=== PATIENT | female | born 1940 | race Caucasian/White ===

== ENCOUNTER 2023-03-16 15:30 | Outpatient (RCR) | payer MEDICARE, SELFPAY ==
--- NOTE | 2023-02-21 15:21 | PTOPEVAL1 ---
Assessment and note entered by Alphonse Boucher Evaluation Information Assessment Status Evaluation Diagnosis gait abnormality, cervicalgia Onset 08/22/22 Subjective Information Pt. reports that about 6 months ago she developed an intense ringing in her head. She reports that the intensity of the ringing varies day to day. She also notices that her neck is very sore and turning her head is very painful. She reports that she is able to sleep despite her pain. She reports that she drives, but notices looking over her shoulder is pain and mobility is becoming more restricted. Pt. reports that she has had testing , but unsure of what test she has had. She reports that she has had difficulty with her balance for a year. She is currently walking with a cane due to being unsteady. She reports she has had no falls in the past year. She reports that her goal is to reduce the pain in her neck and head. Reported Pain Level Pain Score 5: Self Report Assessment PT Clinical Summary Pt. is an 82 year old female who enters the clinic due to noted balance issues and neck pain resulting in ringing in the ears. She currently presents with impaired postural awareness, impaired gait, impaired balance, pain and generalized u.e. and l.e. weakness. Continued skilled PT is indicated in order to improve these areas to allow the pt. to be able to complete all IADL's without limitation. Plan of Care Interventions Electrical Stimulation,Hot Pack/Cold Pack,Manual Therapy,Patient/Caregiver Educati,Therapeutic Activities,Therapeutic Exercise PT Services Indicated Yes Treatment Frequency and 2x/week x 10 visits Duration These treatments will address the objective and functional deficits as defined above. The patient will be advanced safely and appropriately in order for the patient to progress towards his/her prior level of function. Additional exercises will be introduced and as well as a comprehensive home exercise program upon discharge, if needed, ?to ensure carryover of functional gains achieved in the clinic. This treatment plan has been reviewed and agreement upon by the patient.
--- NOTE | 2023-02-21 15:25 | OPREHPOC ---
Outpatient Therapy Plan of Care This is a Multidisciplinary Plan of Care that may contain components documented by all disciplines (PT, OT, and ST.) PT Problem 1 PT Problem #1 Knowledge Deficit PT Goal 1 Goal Independent with a HEP addressing postural awareness and cervical spine mobility. Target Visit 2 PT Problem 2 PT Problem #2 Pain PT Goal 1 Goal Pt. will report reduction in neck pain to 2/10 at worst with prolonged sitting and standing activities. Target Visit 10 PT Problem 3 PT Problem #3 Impaired Range of Motion PT Goal 1 Goal Pt. will demonstrate 70 degrees bilateral c-spine rotation active ROM to improve her visual field with driving. Target Visit 10 PT Problem 4 PT Problem #4 Impaired Balance PT Goal 1 Goal Pt. will improve her tinetti score to 19 or greater indicating improved balance. Target Visit 10
--- NOTE | 2023-02-27 09:39 | PCPTNOTE ---
Patient did not show up for appointment on 02/27/23.
--- NOTE | 2023-03-08 10:57 | PCPTNOTE ---
Patient called & cancelled scheduled appointment this date due to weather.
--- NOTE | 2023-03-20 10:31 | PCPTNOTE ---
Patient cancelled secondary to weather.
--- NOTE | 2023-03-26 08:34 | PCPTNOTE ---
Pt cancelled todays visit because she couldn't make it in today.
--- NOTE | 2023-05-24 13:10 | PCPTNOTE ---
Mrs. Alonso attended a total of 4 treatment sessions from 02/21/23 to 03/16/23. She has cancelled her last 2 scheduled appointments and has failed to contact the clinic. She will be discharged from skilled PT at this time. Thank you for the referral of this patient. Alphonse Boucher, MPT
== END 2023-05-15 11:29 | disposition home or self-care (01) ==
LOC: ANHPT 15:30
PROVIDERS: PCP Family Medicine; Visit Provider Otolaryngology
DX: M54.2 Cervicalgia (principal); R26.89 Other abnormalities of gait and mobility
CPT/HCPCS: 97014; 97110; 97112; 97140; 97161; 99199; G0283

== ENCOUNTER 2023-06-21 10:19 | Outpatient (CLI) | payer MEDICARE, SELFPAY ==
[2023-06-21 14:49] LABS: Alanine Aminotransferase 10 U/L (6-35); Albumin Level 4.3 g/dL (3.5-5.1); Alkaline Phosphatase 59 U/L (38-126); Anion Gap 5 mmol/L (4-12); Aspartate Amino Transferase 50 U/L (14-36); Bilirubin,Total 0.6 mg/dL (0.2-1.3); Blood Urea Nitrogen 23 mg/dL (7-17); Calcium 9.4 mg/dL (8.4-10.2); Carbon Dioxide 29 mmol/L (22-30); Chloride 105 mmol/L (98-107); Cholesterol 127 mg/dL (0-200); Estimated Glomerular Filt Rate > 60; Glucose 94 mg/dL (65-110); HDL Direct 63 mg/dL; Potassium 3.8 mmol/L (3.4-5.0); Sodium 139 mmol/L (137-145); Triglycerides 61 mg/dL (<150)
[2023-06-21 15:00] LABS: LDL Cholesterol Direct 54 mg/dL
== END 2023-06-21 10:20 | disposition home or self-care (01) ==
LOC: ANHWCLAB 10:20
PROVIDERS: PCP Family Medicine; Visit Provider Family Medicine
DX: E78.5 Hyperlipidemia, unspecified (principal); E03.9 Hypothyroidism, unspecified
CPT/HCPCS: 36415; 80053; 80061

== ENCOUNTER 2023-07-02 12:31 | Outpatient (CLI) | payer MEDICARE, SELFPAY ==
--- NOTE | ~2023-07-02 | MR_ITS ---
EXAMINATION: MR brain/brain stem wo con DATE: 07/02/2023 13:42 INDICATION: Left hemiparesis. TECHNIQUE: Magnetic resonance imaging (MRI) of the brain and brainstem was performed without intraven ous contrast. COMPARISON: None. FINDINGS: There are scattered areas of nonspecific increased T2-weighted signal intensity in the cere bral white matter and hemalatha, which is within normal limits for the patient's age. There is no intracra nial hemorrhage, acute infarction, or abnormal intracranial mass lesion. The ventricles are normal in size. The mastoid air cells are normal. There is mild mucosal thickening in the ethmoid sinuses. The re are likely changes of ocular lens replacement surgeries. IMPRESSION: 1. Normal aging brain. Reviewed, dictated and finalized at location E. IMPRESSION: 1. Normal aging brain.
== END 2023-07-02 12:32 | disposition home or self-care (01) ==
PROVIDERS: PCP Family Medicine; Visit Provider Student in an Organized Health Care Education/Training Program
DX: R53.1 Weakness (principal)
CPT/HCPCS: 70551

== ENCOUNTER 2023-09-27 10:53 | Outpatient (CLI) | payer MEDICARE, SELFPAY | END 2023-09-27 10:54 | disposition home or self-care (01) | LOC: ANHGOSHLAB 10:54 | PROVIDERS: PCP Family Medicine; Visit Provider Family Medicine | DX: E03.9 Hypothyroidism, unspecified (principal) | CPT/HCPCS: 36415; 84443 ==

== ENCOUNTER 2023-11-27 10:10 | Emergency (ER) | payer MEDICARE, SELFPAY ==
--- NOTE | 2023-11-27 10:16 | ED.URI ---
HPI - URI/Sore Throat General Chief Complaint: Upper Respiratory Infection Stated Complaint: Sore Throat Time Seen by Provider: 11/27/23 10:25 Source: patient Mode of arrival: ambulatory Limitations: no limitations History of Present Illness HPI Narrative: Molly is an 83-year-old female patient presenting to the clinic today with complaints of right-sided sore throat. She reports she was taking a liquid gel cap Advil yesterday and it got stuck in the back of her throat and this caused some pain and irritation. Is able to swallow and is not having difficulty breathing. Does not feel a globus sensation in her throat at this time. States that the right side of her throat feels swollen and painful. No fever or chills. MD elicited complaint: sore throat Related Data Home Medications Medication Instructions Recorded Confirmed sertraline 25 mg tablet 25 mg PO DAILY 06/20/23 11/27/23 Allergies Allergy/AdvReac Type Severity Reaction Status Date / Time amoxicillin Allergy Severe Rash Verified 11/27/23 10:11 Review of Systems Review of Systems: Pertinent positives per HPI. Patient denies any fever, chills, rash, headache, visual changes, dizziness, cough, shortness of breath, chest pain, palpitations, nausea, vomiting, diarrhea, constipation, abdominal pain, or any urinary issues. 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 Osteoporosis Parkinson disease Surgical History Surgical History History of cataract extraction right and left History of knee replacement procedure of left knee History of knee replacement procedure of right knee S/P tonsillectomy Social History Social History Smoking status: Never smoker Alcohol intake: never Substance use: never Lack of Transportation: No Lack of Food: Never True Current Housing: I Have Housing Concerned About Future Housing: No Difficulty Paying Gas/Electric Bills: No Difficulty Paying for Meds: No Currently Unemployed: No Education: Trade/Vocational Certificate Difficulty w/ Childcare or Family Care: No Living arrangements: alone Occupation/Education: retired Gender identity (if verbalized by the patient): Female Comments At the time of my signature, I reviewed and agree with the nursing past medical, surgical, social, and family history. There is no relevant family history pertinent to the patient complaint. Exam Narrative: General: Well-developed, well nourished, in no apparent distress Head: Normocephalic, atraumatic Eyes: Pupils equally round and reactive to light bilaterally, EOM intact, sclera and conjunctive clear, no discharge, lids normal Ears: TMs intact and clear, ear canals clear, no drainage, grossly hearing normal. Nose: Nares patent, no discharge, no inflammation, no sinus tenderness. Mouth: Oral pharynx red with irritation/ulceration to the right pharynx, no ulcerations or lesions left oral pharynx, good dentition, MMM. Neck: Supple, trachea midline, no enlargement of anterior or posterior cervical nodes, no thyroid masses or goiter palpable. Cardio: Regular rate and rhythm, s1 and s2 normal, no murmur appreciated. Resp: Clear to auscultation bilaterally, no rhonchi, rales, wheezing or rubs Course Course Emergency Course: Portions of this record may have been created with voice recognition software. Level of Care: Express Care Visit Vital Signs Vital signs: Vital signs reviewed MDM - URI/Sore Throat MDM Narrative Medical decision making narrative: At the time of visit patient is resting comfortably on the exam table. Patient appears to be nontoxic.
[2023-11-27 10:18] VITALS: BP 124/49; PULSE 78; RESP 14; TEMP 36.7; O2SAT 98
[2023-11-27 13:10] LABS: EDSTREPNEGPOS1 Negative (Negative)
[2023-11-27 13:36] VITALS: BP 124/49; PULSE 78; RESP 14; TEMP 36.7; O2SAT 98
== END 2023-11-27 10:53 | disposition home or self-care (01) ==
PROVIDERS: Emergency Provider Nurse Practitioner Family; PCP Family Medicine
DX: J39.2 Other diseases of pharynx (principal); K21.9 Gastro-esophageal reflux disease without esophagitis; E78.5 Hyperlipidemia, unspecified; E03.9 Hypothyroidism, unspecified; M81.0 Age-related osteoporosis without current pathological fracture; G20.A1 Parkinson's disease without dyskinesia, without mention of fluctuations; Z98.42 Cataract extraction status, left eye; Z98.41 Cataract extraction status, right eye; Z96.653 Presence of artificial knee joint, bilateral
CPT/HCPCS: 87880; 99213; G0463

== ENCOUNTER 2024-03-26 10:45 | Inpatient (IN) | payer MEDICARE, SELFPAY ==
[2024-03-26] VITALS (15 sets, daily range): BP systolic 112–181; BP diastolic 49–127; PULSE 34–89; RESP 12–20; TEMP 36.6–36.7; O2SAT 92–100
--- NOTE | ~2024-03-26 | XR_ITS ---
EXAMINATION: XR chest 2V DATE: 03/29/2024 08:15 INDICATION: Pacer placement. TECHNIQUE: Frontal and lateral views of the chest were obtained. COMPARISON: Chest single view 03/28/2024, 03/26/2024 FINDINGS: There are small pleural effusions. There is a diffuse interstitial pattern in the lungs wit h a peripheral predominance. No pneumothorax. The heart size is normal. Calcified left hilar lymph no nunu are consistent with old granulomatous disease. There is a left chest wall pacer with leads in the right atrium and right ventricle. IMPRESSION: 1. Peripheral interstitial opacities in the lungs, consistent with mild pulmonary edema versus mild c hronic interstitial lung disease. 2. Small pleural effusions. Reviewed, dictated and finalized at location A. IC PROCESS ENGINEER IMPRESSION: 1. Peripheral interstitial opacities in the lungs, consistent with mild pulmona ry edema versus mild chronic interstitial lung disease. 2. Small pleural effusions.
--- NOTE | ~2024-03-26 | XR_ITS ---
XR chest 1V portable Ordering provider: Alphonse Logan MD History: 83 years Female with . pacemaker insertion . Comparison: March 26, 2024 FINDINGS: MEDIASTINUM: The cardiac silhouette is not enlarged. Left bipolar pacemaker. LUNGS: No effusions or pneumothorax. Opacification in the left lung base laterally suggestive of atel ectasis versus pneumonia. Emphysematous changes of the lungs. OTHER: No free air under the diaphragm. IMPRESSION: Left basilar atelectasis versus pneumonia. Reviewed, dictated and finalized at location A. RAFT INSPECTION RECORD CLERK
--- NOTE | ~2024-03-26 | CT_ITS ---
CT brain wo con Ordering provider: Shaun Sethi MD History: 83 years Female with . head injury . Comparison: None. Technique: CT of the head without contrast. Radiation reduction technique utilized. The dose-length product was 605.33 mGy-cm. FINDINGS: BRAIN PARENCHYMA AND CSF SPACES: Mild leukoaraiosis and diffuse cortical atrophy. Mild atheromatous d isease. No midline shift, mass effect or hemorrhage. The brain parenchyma and CSF spaces are otherwi se normal. VISUALIZED PARANASAL SINUSES: Bilateral ethmoid sinus disease. Bilateral sphenoid sinus disease. MASTOIDS: Well aerated. BONES: The bones appear intact. SOFT TISSUES: Visualized nasopharynx is normal. Superficial soft tissues are normal. IMPRESSION: No acute intracranial findings. Reviewed, dictated and finalized at location A. ECT SURVEYOR
--- NOTE | ~2024-03-26 | XR_ITS ---
EXAMINATION: XR chest 1V portable DATE: 03/26/2024 11:39 INDICATION: Syncope TECHNIQUE: frontal view of the chest was obtained. COMPARISON: None FINDINGS: Subtle course reticular opacities at the both lungs with peripheral and lower lung predominance consi stent with mild chronic interstitial lung disease. No pleural effusion or pneumothorax. The cardiomed iastinal silhouette is normal. Moderate thoracic spondylosis. IMPRESSION: 1. Bilateral mild peripheral and lower lung predominant chronic interstitial lung disease. Reviewed, dictated and finalized at location B. [facility] IMPRESSION: 1. Bilateral mild peripheral and lower lung predominant chronic interstitial carlos ng disease.
--- NOTE | 2024-03-26 10:46 | ECG_ITS ---
Test Date: 2024-03-26 10:52:19 Measurements Intervals [place] Rate: 36 P: 0 SD: 0 QRS: 152 QRSD: 137 T: 257 QT: 554 QTc: 430 Interpretive Statements SINUS RHYTHM WITH HIGH GRADE AV BLOCK RIGHT BUNDLE BRANCH BLOCK [120+ ms QRS DURATION, UPRIGHT V1, 40+ ms S IN I/aVL/V4/V5/V6] LEFT POSTERIOR FASCICULAR BLOCK [QRS AXIS > 109, INFERIOR Q] No previous ECG available for comparison Electronically Signed On 03-26-2024 14:32:59 PIGGYBACK CLERK by Paul Ley M.D.
[2024-03-26 11:08] LABS: Basophils Percent Auto 0.6 % (0.2-1.2); Eosinophils Percent Auto 0.8 % (0-4.4); Hematocrit 36.8 % (37.0-47.0); Immature Granulocyte Absolute 0.04 K/mm3 (0.00-0.031); Immature Granulocyte Percent A 0.8 % (0-0.5); Lymphocytes Absolute Auto 0.98 K/mm3 (0.9-3.2); Mean Corpuscular HGB Conc 32.6 g/dl (32-36); Mean Corpuscular Hemoglobin 29.9 pg (26-34); Mean Corpuscular Volume 91.8 fl (80-100); Mean Platelet Volume 9.9 fl (7.4-10.4); Monocytes Absolute Auto 0.3 K/mm3 (0.1-0.6); Monocytes Percent Auto 6.3 % (2.6-8.5); Neutrophils Absolute Auto 3.5 K/mm3 (1.3-6.7); Neutrophils Percent Auto 71.5 % (45.5-73.1); Platelet Count Result 214 k/mm3 (150-375); Red Blood Count 4.01 M/mm3 (4.2-5.4); Red Cell Distribution Width 13.3 % (11.5-14.5); White Blood Count 4.9 K/mm3 (4.5-10.0)
--- NOTE | 2024-03-26 11:13 | ECG_ITS ---
Test Date: 2024-03-26 11:20:09 Measurements Intervals [place] Rate: 34 P: 0 [place]: 0 QRS: 80 QRSD: 126 T: 60 QT: 593 QTc: 451 Interpretive Statements SUSPECT JUNCTIONAL BRADYCARDIA RIGHT BUNDLE BRANCH BLOCK [120+ ms QRS DURATION, UPRIGHT V1, 40+ ms S IN I/aVL/V4/V5/V6] PROLONGED QT INTERVAL CRITICAL TEST RESULT Compared to ECG 03/26/2024 10:52:19 JUNCTIONAL BRADYCARDIA NOW PRESENT Electronically Signed On 03-26-2024 14:35:03 MITER GRINDER OPERATOR by Paul Ley M.D.
[2024-03-26 11:20] LABS: INR 1.1; Prothrombin Time 14.7 Seconds (11.1-14.7)
[2024-03-26 11:21] LABS: Partial Thromboplastin Time 30.5 Seconds (22.3-36.8)
[2024-03-26 11:24] LABS: Alanine Aminotransferase 7 U/L (6-35); Albumin Level 3.8 g/dL (3.5-5.1); Alkaline Phosphatase 67 U/L (38-126); Anion Gap 7 mmol/L (4-12); Aspartate Amino Transferase 34 U/L (14-36); Bilirubin,Total 0.7 mg/dL (0.2-1.3); Blood Urea Nitrogen 11 mg/dL (7-17); Calcium 8.6 mg/dL (8.4-10.2); Carbon Dioxide 27 mmol/L (22-30); Chloride 105 mmol/L (98-107); Estimated CRCL calculation 64 ml/min; Estimated Glomerular Filt Rate > 60; Glucose 104 mg/dL (65-110); Magnesium 2.1 mg/dL (1.6-2.3); Potassium 3.1 mmol/L (3.4-5.0); Sodium 139 mmol/L (137-145)
[2024-03-26 11:33] LABS: NT Pro B Type Natriuretic Pept 908 pg/mL (19.9-100)
[2024-03-26 11:36] LABS: Troponin I 0.013 ng/mL (0.000-0.034)
[2024-03-26 11:37] LABS: Add Urine Microscopic? NO; Appearance Urine Clear (Clear); Bilirubin Urine Negative (Negative); Blood Urine Negative (Negative); Color Urine Yellow (Yellow); Glucose Urine UA Negative (Negative); Ketones Urine Negative (Negative); Leukocyte Esterase Ur Negative LEU/UL (Negative); Nitrate Urine Negative (Negative); Protein Urine Negative (Negative); Specific Grav Ur 1.005 (1.001-1.035); Urobilinogen Urine 0.2 mg/dL (<2.0)
--- NOTE | 2024-03-26 12:05 | ED_ITS ---
HPI - Syncope General Chief Complaint: Syncope Stated Complaint: syncopal Time Seen by Provider: 03/26/24 10:52 History of Present Illness HPI narrative: Patient is an 83-year-old female who presents to the ER after having a syncopal episode at home. She reports she was doing her hair when she suddenly lost consciousness and woke up on the floor. No pain. No chest discomfort. Patient found to be bradycardic per EMS EN route. She takes no rate control medications. No history of heart issues. She does have Parkinson's. No complaints other than weakness at this time. Related Data Home Medications ?Medication ?Instructions ?Recorded ?Confirmed ?Last Taken ?Type sertraline 25 mg tablet 25 mg PO DAILY 06/20/23 03/26/24 Unknown History Allergies Allergy/AdvReac Type Severity Reaction Status Date / Time amoxicillin Allergy Severe Rash Verified 03/10/24 12:23 Review of Systems 2 Review of Systems: All systems reviewed & are unremarkable except as noted in HPI and below Constitutional: Constitutional: Reports no additional constitutional complaints Cardiovascular: Cardiovascular: Reports no additional cardiovascular complaints Respiratory: Respiratory: Reports no additional respiratory complaints Genitourinary: Genitourinary: Reports no additional female genitourinary complaints Neurologic: Reports system reviewed and no additional complaints, except as documented PMF Past Medical History Medical History 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 Hyperlipidemia GERD (gastroesophageal reflux disease) Chronic bilateral thoracic back pain Hypothyroid Osteoporosis Parkinson disease Surgical History Surgical History History of knee replacement procedure of right knee History of knee replacement procedure of left knee S/P tonsillectomy History of cataract extraction right and left Social History Social History Smoking status: Never smoker Alcohol intake: never Substance use: never Substance use type: does not use Do You Feel Safe in your Home?: Yes Lack of Transportation: No Lack of Food: Never True Current Housing: Decline to Answer Concerned About Future Housing: No Difficulty Paying Gas/Electric Bills: No Difficulty Paying for Meds: No Currently Unemployed: No Education: Trade/Vocational Certificate Difficulty w/ Childcare or Family Care: No Living arrangements: alone Occupation/Education: retired Gender identity (if verbalized by the patient): Female Spiritual care concerns: No Exam 2 Narrative: GENERAL: Chronically ill-appearing, well-nourished, and in no acute distress. HEAD: Normocephalic, atraumatic. EYES: PERRL and EOMI. ENT: Mucous membranes moist. CHEST: Clear to auscultation. No respiratory distress. HEART: Bradycardic and regular. Normal peripheral pulses. ABDOMEN: Soft, nontender, nondistended. EXTREMITIES: Normal range of motion. No edema. SKIN: Warm, dry, no rash. NEURO: Alert and oriented x3. PSYCH: Normal mood and affect. Course Course Emergency Course: Patient resting comfortably. Educated about diagnosis and electrolyte abnormalities. Unsure if patient has cognitive issues because she seems have difficulty remembering. She does recognize that this is a serious illness. Cardiology consulted as was ICU. Patient will go to the medical lab scientist for temporary pacemaker placement. Electrolytes being replaced both IV and p.o.. Patient is not on rate control medication. Vital Signs Vital signs: Vital Signs Temperature 97.9 F 03/26/24 10:51 Pulse Rate 45 L 03/26/24 10:51 Respiratory Rate 18 03/26/24 10:51 Blood Pressure 165/64 H 03/26/24 10:51 Pulse Oximetry 100 03/26/24 10:51 Temperature 97.9 F 03/26/24 14:46 Pulse Rate 60 03/26/24 17:57 Respiratory Rate 18 03/26/24 17:57 Blood Pressure 130/68 03/26/24 17:57 Pulse Oximetry 92 03/26/24 17:57 Oxygen Delivery Room Air 03/26/24 17:05 MDM - Syncope Lab Data 03/26/24 11:03 03/26/24 11:02 Labs: Lab Results 03/26/24 03/26/24 03/26/24 Range/Units 11:02 11:03 11:31 WBC 4.9 (4.5-10.0) K/mm3 RBC 4.01 L (4.2-5.4) M/mm3 Hgb 12.0 (12.0-15.0) g/dL Hct 36.8 L (37.0-47.0) % MCV 91.8 (80-100) fl MCH 29.9 (26-34) pg MCHC 32.6 (32-36) g/dl RDW 13.3 (11.5-14.5) % Plt Count 214 (150-375) k/mm3 MPV 9.9 (7.4-10.4) fl Immature Gran % (Auto) 0.8 H (0-0.5) % Neut % (Auto) 71.5 (45.5-73.1) % Lymph % (Auto) 20.0 (18.3-44.2) % [place] % (Auto) 6.3 (2.6-8.5) % Eos % (Auto) 0.8 (0-4.4) % Baso % (Auto) 0.6 (0.2-1.2) % Lymph # (Auto) 0.98 (0.9-3.2) K/mm3 [place] # (Auto) 0.3 (0.1-0.6) K/mm3 Eos # (Auto) 0.0 (0-0.3) K/mm3 Baso # (Auto) 0.0 (0.0-0.1) K/mm3 Abs Immat Gran (auto) 0.04 H (0.00-0.031) K/mm3 Absolute Neuts (auto) 3.5 (1.3-6.7) K/mm3 Absolute Nucleated RBC 0.000 (0.0-0.012) K/mm3 Nucleated RBC % 0.0 (0.0-0.2) % PT 14.7 (11.1-14.7) Seconds INR 1.1 APTT 30.5 (22.3-36.8) Seconds Sodium 139 (137-145) mmol/L Potassium 3.1 L (3.4-5.0) mmol/L Chloride 105 (98-107) mmol/L Carbon Dioxide 27 (22-30) mmol/L Anion Gap 7 (4-12) mmol/L BUN 11 D (7-17) mg/dL Creatinine 0.57 L (0.7-1.0) mg/dL Estim Creat Clear Calc 64 ml/min Estimated GFR > 60 (59 - ) Glucose 104 (65-110) mg/dL Calcium 8.6 (8.4-10.2) mg/dL Magnesium 2.1 (1.6-2.3) mg/dL Total Bilirubin 0.7 (0.2-1.3) mg/dL AST 34 (14-36) U/L ALT 7 (6-35) U/L Alkaline Phosphatase 67 (38-126) U/L Troponin I 0.013 (0.000-0.034) ng/mL NT-Pro-B Natriuret Pep 908 H (19.9-100) pg/mL Total Protein 6.0 L (6.3-8.2) g/dL Albumin 3.8 (3.5-5.1) g/dL TSH (Reflex) 5.570 H (0.465-4.68) uIU/mL Free T4 1.80 (0.78-2.19) ng/dL Total T3 2.21 H (0.97-1.69) NG/ML Urine Color Yellow (Yellow) Urine Appearance Clear (Clear) Urine pH 6.0 (5.0-9.0) Ur Specific [place] 1.005 (1.001-1.035) Urine Protein Negative (Negative) mg/dL Urine Glucose (UA) Negative (Negative) mg/dL Urine Ketones Negative (Negative) mg/dL Ur Blood (Man) Negative (Negative) Urine Nitrate Negative (Negative) Urine Bilirubin Negative (Negative) Urine Urobilinogen 0.2 (<2.0) mg/dL Leukocyte Esterase Rfl Negative (Negative) UZMA/UL 03/26/24 Range/Units 14:04 WBC (4.5-10.0) K/mm3 RBC (4.2-5.4) M/mm3 Hgb (12.0-15.0) g/dL Hct (37.0-47.0) % MCV (80-100) fl MCH (26-34) pg MCHC (32-36) g/dl RDW (11.5-14.5) % Plt Count (150-375) k/mm3 MPV (7.4-10.4) fl Immature Gran % (Auto) (0-0.5) % Neut % (Auto) (45.5-73.1) % Lymph % (Auto) (18.3-44.2) % [place] % (Auto) (2.6-8.5) % Eos % (Auto) (0-4.4) % Baso % (Auto) (0.2-1.2) % Lymph # (Auto) (0.9-3.2) K/mm3 [place] # (Auto) (0.1-0.6) K/mm3 Eos # (Auto) (0-0.3) K/mm3 Baso # (Auto) (0.0-0.1) K/mm3 Abs Immat Gran (auto) (0.00-0.031) K/mm3 Absolute Neuts (auto) (1.3-6.7) K/mm3 Absolute Nucleated RBC (0.0-0.012) K/mm3 Nucleated RBC % (0.0-0.2) % PT (11.1-14.7) Seconds INR APTT (22.3-36.8) Seconds Sodium (137-145) mmol/L Potassium (3.4-5.0) mmol/L Chloride (98-107) mmol/L Carbon Dioxide (22-30) mmol/L Anion Gap (4-12) mmol/L BUN (7-17) mg/dL Creatinine (0.7-1.0) mg/dL Estim Creat Clear Calc ml/min Estimated GFR (59 - ) Glucose (65-110) mg/dL Calcium (8.4-10.2) mg/dL Magnesium (1.6-2.3) mg/dL Total Bilirubin (0.2-1.3) mg/dL AST (14-36) U/L ALT (6-35) U/L Alkaline Phosphatase (38-126) U/L Troponin I 0.018 D (0.000-0.034) ng/mL NT-Pro-B Natriuret Pep (19.9-100) pg/mL Total Protein (6.3-8.2) g/dL Albumin (3.5-5.1) g/dL TSH (Reflex) (0.465-4.68) uIU/mL Free T4 (0.78-2.19) ng/dL Total T3 (0.97-1.69) NG/ML Urine Color (Yellow) Urine Appearance (Clear) Urine pH (5.0-9.0) Ur Specific [place] (1.001-1.035) Urine Protein (Negative) mg/dL Urine Glucose (UA) (Negative) mg/dL Urine Ketones (Negative) mg/dL Ur Blood (Man) (Negative) Urine Nitrate (Negative) Urine Bilirubin (Negative) Urine Urobilinogen (<2.0) mg/dL Leukocyte Esterase Rfl (Negative) UZMA/UL Imaging Data Radiologist's impression: ITS Impressions Chest X-Ray 03/26/24 11:40 IMPRESSION: 1. Bilateral mild peripheral and lower lung predominant chronic interstitial lung disease. Head CT 03/26/24 12:23 IMPRESSION: No acute intracranial findings. ECG Data EKG #1: ECG completion date: 03/26/24 ECG completion time: 11:20 EKG Interpretation: bradycardia (34), junctional, widened QRS, prolonged QT and NL axis Critical Care Time Critical Care Time Critical Care Time: Yes Total Critical Care Time: 40 Discharge Plan Discharge Clinical Impression: Junctional bradycardia, Syncope, Hypokalemia Patient Disposition: Still a Patient Condition: Stable
[2024-03-26] MEDS: POTASSIUM CHLORIDE INJ 40 MEQ in SODIUM CHLORIDE 0.9% IV 500 ML 130 MEQ IVPB (12:09)
[2024-03-26] MEDS: POTASSIUM CHLORIDE 20 MEQ PACKET (FOR LIQUID) 40 MEQ PO (13:20)
--- NOTE | 2024-03-26 13:54 | ECG_ITS ---
Test Date: 2024-03-26 14:04:26 Measurements Intervals [place] Rate: 36 P: 0 SC: 0 QRS: 87 QRSD: 122 T: 56 QT: 572 QTc: 447 Interpretive Statements SINUS RHYTHM WITH HIGH GRADE AV BLOCK RIGHT BUNDLE BRANCH BLOCK [120+ ms QRS DURATION, UPRIGHT V1, 40+ ms S IN I/aVL/V4/V5/V6] PROLONGED QT INTERVAL CRITICAL TEST RESULT Compared to ECG 03/26/2024 11:20:09 HIGH GRADE AV BLOCK NOW PRESENT Electronically Signed On 03-26-2024 14:41:30 DIRECTOR OF ASSESSING by Paul Ley M.D.
[2024-03-26 14:07] LABS: Total Triiodothyronine (T3) 2.21 NG/ML (0.97-1.69)
[2024-03-26 14:35] LABS: Troponin I 0.018 ng/mL (0.000-0.034)
--- NOTE | 2024-03-26 15:07 | PM.CNCAR ---
Assessment and Plan Assessment and plan (1) High-grade atrioventricular block: Code(s): I44.39 - Other atrioventricular block Status: Acute Assessment and Plan: Will need pacemaker. Discussed temporary transvenous pacer with the patient, which we will do now. Plans for permanent pacemaker, probably Sunday morning, will clarify date and time with Dr. Logan. Echocardiogram ordered and pending. (2) Parkinson disease: Code(s): G20 - Parkinson's disease Status: Acute Assessment and Plan: On Carbidopa/Levodopa. (3) Hyperlipidemia: Code(s): E78.5 - Hyperlipidemia, unspecified Status: Acute Assessment and Plan: Can continue statin. (4) Hypothyroid: Code(s): E03.9 - Hypothyroidism, unspecified Status: Acute Assessment and Plan: TSH mildly elevated at 5.570, however T4 normal, although T3 mildly elevated at 2.21. Mild abnormality in thyroid function likely not causing the high grade AV block. On Levothyroxine at home. Plan Recommendations and plan discussed with ER Physician, ICU Physician. History of Present Illness History of Present Illness Consult date/time: 03/26/24 15:07 Requesting physician: Shaun Sethi MD Consult reason: Other (Syncope, bradycardia ) Reason For Visit: syncopal Narrative: This is an 83 year old female with Parkinson's disease, hypothyroidism, hyperlipidemia who presented after a syncopal episode. Was at home in her bathroom doing her hair when she lost consciousness all of a sudden. Woke up on the floor. Brought to [place] by EMS. EKGs show high grade AV block, one EKG looks like junctional. She is bradycardic in the 30s to 40s but hemodynamically stable. No history of cardiac issues that she can recall. Not on AV harish blocking agents at home. Troponins x 2 are negative. TSH mildly elevated at 5.570, however T4 normal, although T3 mildly elevated at 2.21. CXR with findings of chronic interstitial lung disease. CT Head negative. 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 Hyperlipidemia GERD (gastroesophageal reflux disease) Chronic bilateral thoracic back pain Hypothyroid Osteoporosis Parkinson disease Surgical History Surgical History History of knee replacement procedure of right knee History of knee replacement procedure of left knee S/P tonsillectomy History of cataract extraction right and left Social History Social History Smoking status: Never smoker Alcohol intake: never Substance use: never Substance use type: does not use Lack of Transportation: No Lack of Food: Never True Current Housing: I Have Housing Concerned About Future Housing: No Difficulty Paying Gas/Electric Bills: No Difficulty Paying for Meds: No Currently Unemployed: No Education: Trade/Vocational Certificate Difficulty w/ Childcare or Family Care: No Living arrangements: alone Occupation/Education: retired Gender identity (if verbalized by the patient): Female Spiritual care concerns: No Meds Home Medications and Allergies Home Medications ?Medication ?Instructions ?Recorded ?Confirmed ?Type sertraline 25 mg tablet 25 mg PO DAILY 06/20/23 03/26/24 History carbidopa 25 mg-levodopa 100 mg 1.5 tablet PO TID #360 tabs 08/29/23 03/26/24 Rx tablet levothyroxine 75 mcg capsule 75 mcg PO DAILY #90 caps 11/01/23 03/26/24 Rx meloxicam 7.5 mg tablet 7.5 mg PO DAILY #90 tabs 11/20/23 03/26/24 Rx rosuvastatin 10 mg tablet 10 mg PO DAILY #90 tabs 11/20/23 03/26/24 Rx alendronate 70 mg tablet 70 mg PO WEEKLY #13 tabs 12/20/23 03/26/24 Rx pantoprazole 40 mg tablet,delayed 40 mg PO BID #60 tabs 01/02/24 03/26/24 Rx release Allergies Allergy/AdvReac Type Severity Reaction Status Date / Time amoxicillin Allergy Severe Rash Verified 03/10/24 12:23 Vital Signs Vital Signs - 24 hr 03/26/24 10:51 03/26/24 11:46 03/26/24 12:30 Temperature 36.6 C 36.6 C 36.6 C Pulse Rate 45 L 34 L 66 Respiratory Rate 18 18 20 Blood Pressure 165/64 H 159/49 H 133/80 Pulse Oximetry 100 97 97 03/26/24 13:02 03/26/24 13:46 03/26/24 14:11 Temperature 36.6 C 36.7 C Pulse Rate 89 62 51 L Respiratory Rate 20 20 20 Blood Pressure 174/80 H 165/92 H 156/72 H Pulse Oximetry 100 98 98 03/26/24 14:12 03/26/24 14:15 03/26/24 14:46 Temperature 36.6 C 36.6 C Pulse Rate 68 69 43 L Respiratory Rate 16 19 15 Blood Pressure 181/91 H 142/127 H Pulse Oximetry 100 100 Exam Const: General: no acute distress Other: Appears to be mildly anxious, has slight tremor due to Parkinson's HENMT: Mouth: Yes moist mucous membranes Eyes: General: appearance normal, both eyes and all related structures Sclera: sclerae normal Resp: Effort & Inspection: normal respiratory effort Cardio: Rate: bradycardic Rhythm: regular rhythm Heart sounds: no murmurs Skin: General skin exam: normal color Neuro: Speech: normal speech Psych: Mental Status: mental status grossly normal Affect: normal affect Results Labs and Meds 03/26/24 11:03 03/26/24 11:02 Lab results: Cardiac Enzymes 03/26/24 03/26/24 Range/Units 11:02 14:04 AST 34 (14-36) U/L Troponin I 0.013 0.018 D (0.000-0.034) ng/mL Coagulation 03/26/24 Range/Units 11:02 PT 14.7 (11.1-14.7) Seconds APTT 30.5 (22.3-36.8) Seconds CBC 03/26/24 Range/Units 11:03 WBC 4.9 (4.5-10.0) K/mm3 RBC 4.01 L (4.2-5.4) M/mm3 Hgb 12.0 (12.0-15.0) g/dL Hct 36.8 L (37.0-47.0) % Plt Count 214 (150-375) k/mm3 Lymph # (Auto) 0.98 (0.9-3.2) K/mm3 [place] # (Auto) 0.3 (0.1-0.6) K/mm3 Eos # (Auto) 0.0 (0-0.3) K/mm3 Baso # (Auto) 0.0 (0.0-0.1) K/mm3 Comprehensive Metabolic Panel 03/26/24 Range/Units 11:02 Sodium 139 (137-145) mmol/L Potassium 3.1 L (3.4-5.0) mmol/L Chloride 105 (98-107) mmol/L Carbon Dioxide 27 (22-30) mmol/L BUN 11 D (7-17) mg/dL Creatinine 0.57 L (0.7-1.0) mg/dL Glucose 104 (65-110) mg/dL Calcium 8.6 (8.4-10.2) mg/dL AST 34 (14-36) U/L ALT 7 (6-35) U/L Alkaline Phosphatase 67 (38-126) U/L Total Protein 6.0 L (6.3-8.2) g/dL Albumin 3.8 (3.5-5.1) g/dL Patient Weight 03/26/24 23:59 Weight 61.5 kg
--- NOTE | 2024-03-26 15:14 | WPDMODSED ---
Moderate Sedation Note-Pt Data Patient Data Diagnosis: High grade AV block Present Complaint: High grade AV block Procedure to be performed/Plan: Placement of temporary transvenous pacer Allergies Allergy/AdvReac Type Severity Reaction Status Date / Time amoxicillin Allergy Severe Rash Verified 03/10/24 12:23 Home Medications ?Medication ?Instructions ?Recorded ?Confirmed ?Type sertraline 25 mg tablet 25 mg PO DAILY 06/20/23 03/26/24 History carbidopa 25 mg-levodopa 100 mg 1.5 tablet PO TID #360 tabs 08/29/23 03/26/24 Rx tablet levothyroxine 75 mcg capsule 75 mcg PO DAILY #90 caps 11/01/23 03/26/24 Rx meloxicam 7.5 mg tablet 7.5 mg PO DAILY #90 tabs 11/20/23 03/26/24 Rx rosuvastatin 10 mg tablet 10 mg PO DAILY #90 tabs 11/20/23 03/26/24 Rx alendronate 70 mg tablet 70 mg PO WEEKLY #13 tabs 12/20/23 03/26/24 Rx pantoprazole 40 mg tablet,delayed 40 mg PO BID #60 tabs 01/02/24 03/26/24 Rx release Current Medications: Active Medications Acetaminophen (Acetaminophen 325 Mg Tablet) 650 mg PO Q4H PRN PRN Reason: Mild Pain (1-3) or Fever Hydrocodone Bitart/Acetaminophen (Hydrocodone/Acetaminophen (*Crx) 5-325 Mg Tablet) 1 tab PO Q4H PRN PRN Reason: Pain Rated 4-6 Potassium Chloride 40 meq/ (Sodium Chloride) 520 mls @ 130 mls/hr IVPB ONCE STA Stop: 03/26/24 15:30 Last Admin: 03/26/24 12:09 Dose: 130 mls/hr Perflutren Lipid Microsphere (Perflutren Lipid Microspheres 1.5 Ml Vial Diluted To 10 Ml Total Volume) 0 ml IV PUSH ONCE PRN; Protocol PRN Reason: adequate visualization Stop: 03/29/24 15:07 Promethazine HCl (Promethazine Hcl 25 Mg/Ml Ampul) 12.5 mg IV PUSH Q6H PRN PRN Reason: Nausea Sedation/Anesthesia: No previous sedation/anesthesia problems (including family history). 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 Hyperlipidemia GERD (gastroesophageal reflux disease) Chronic bilateral thoracic back pain Hypothyroid Osteoporosis Parkinson disease Surgical History Surgical History History of knee replacement procedure of right knee History of knee replacement procedure of left knee S/P tonsillectomy History of cataract extraction right and left Social History Social History Smoking status: Never smoker Alcohol intake: never Substance use: never Substance use type: does not use Lack of Transportation: No Lack of Food: Never True Current Housing: I Have Housing Concerned About Future Housing: No Difficulty Paying Gas/Electric Bills: No Difficulty Paying for Meds: No Currently Unemployed: No Education: Trade/Vocational Certificate Difficulty w/ Childcare or Family Care: No Living arrangements: alone Occupation/Education: retired Gender identity (if verbalized by the patient): Female Spiritual care concerns: No Mod Sed Physical Exam Physical Exam Pre Procedural Exam: Normal: Lungs, Extremities and Skin and Variation: Appearance (Thin female, has mild anxiety, in no acute distress), Heart Rate (Bradycardia, high grade AV block ), Heart Rhythm (Bradycardia, high grade AV block ) and Neuro Exam (Mildly tremulous ) Hours since solid foods: 0 Hours since liquid intake: 0 Mallampati Classification: class II Internal Medicine - PN: Obj Da Vital Signs Vital Signs: Vital Signs - 24 hr 03/26/24 10:51 03/26/24 11:46 03/26/24 12:30 Temperature 36.6 C 36.6 C 36.6 C Pulse Rate 45 L 34 L 66 Respiratory Rate 18 18 20 Blood Pressure 165/64 H 159/49 H 133/80 Pulse Oximetry 100 97 97 03/26/24 13:02 03/26/24 13:46 03/26/24 14:11 Temperature 36.6 C 36.7 C Pulse Rate 89 62 51 L Respiratory Rate 20 20 20 Blood Pressure 174/80 H 165/92 H 156/72 H Pulse Oximetry 100 98 98 03/26/24 14:12 03/26/24 14:15 03/26/24 14:46 Temperature 36.6 C 36.6 C Pulse Rate 68 69 43 L Respiratory Rate 16 19 15 Blood Pressure 181/91 H 142/127 H Pulse Oximetry 100 100 Meds/Results Medications: Active Medications Generic Name Dose Route Start Last Admin Trade Name Freq PRN Reason Stop Dose Admin Acetaminophen 650 mg 03/26/24 14:03 Acetaminophen 325 Mg Tablet PO Q4H PRN Mild Pain (1-3) or Fever Hydrocodone Bitart/Acetaminophen 1 tab 03/26/24 14:03 Hydrocodone/Acetaminophen (*Crx) 5-325 Mg Tablet PO Q4H PRN Pain Rated 4-6 Potassium Chloride 40 meq/ 520 mls @ 130 mls/hr 03/26/24 11:31 03/26/24 12:09 Sodium Chloride IVPB 03/26/24 15:30 130 mls/hr ONCE STA Administration Perflutren Lipid Microsphere 0 ml 03/26/24 15:06 Perflutren Lipid Microspheres 1.5 Ml Vial Diluted To 10 Ml Total Volume IV PUSH 03/29/24 15:07 ONCE PRN adequate visualization Protocol Promethazine HCl 12.5 mg 03/26/24 14:03 Promethazine Hcl 25 Mg/Ml Ampul IV PUSH Q6H PRN Nausea Radiology Results: ITS Impressions Chest X-Ray 03/26/24 11:40 IMPRESSION: 1. Bilateral mild peripheral and lower lung predominant chronic interstitial lung disease. Head CT 03/26/24 12:23 IMPRESSION: No acute intracranial findings. Labs 03/26/24 11:03 03/26/24 11:02 Labs: Laboratory Results - last 24 hr 03/26/24 03/26/24 03/26/24 11:02 11:03 11:31 WBC 4.9 RBC 4.01 L Hgb 12.0 Hct 36.8 L MCV 91.8 MCH 29.9 MCHC 32.6 RDW 13.3 Plt Count 214 MPV 9.9 Immature Gran % (Auto) 0.8 H Neut % (Auto) 71.5 Lymph % (Auto) 20.0 [place] % (Auto) 6.3 Eos % (Auto) 0.8 Baso % (Auto) 0.6 Lymph # (Auto) 0.98 [place] # (Auto) 0.3 Eos # (Auto) 0.0 Baso # (Auto) 0.0 Abs Immat Gran (auto) 0.04 H Absolute Neuts (auto) 3.5 Absolute Nucleated RBC 0.000 Nucleated RBC % 0.0 PT 14.7 INR 1.1 APTT 30.5 Sodium 139 Potassium 3.1 L Chloride 105 Carbon Dioxide 27 Anion Gap 7 BUN 11 D Creatinine 0.57 L Estim Creat Clear Calc 64 Estimated GFR > 60 Glucose 104 Calcium 8.6 Magnesium 2.1 Total Bilirubin 0.7 AST 34 ALT 7 Alkaline Phosphatase 67 Troponin I 0.013 NT-Pro-B Natriuret Pep 908 H Total Protein 6.0 L Albumin 3.8 TSH (Reflex) 5.570 H Free T4 1.80 Total T3 2.21 H Urine Color Yellow Urine Appearance Clear Urine pH 6.0 Ur Specific [place] 1.005 Urine Protein Negative Urine Glucose (UA) Negative Urine Ketones Negative Ur Blood (Man) Negative Urine Nitrate Negative Urine Bilirubin Negative Urine Urobilinogen 0.2 Leukocyte Esterase Rfl Negative 03/26/24 14:04 WBC RBC Hgb Hct MCV MCH MCHC RDW Plt Count MPV Immature Gran % (Auto) Neut % (Auto) Lymph % (Auto) [place] % (Auto) Eos % (Auto) Baso % (Auto) Lymph # (Auto) [place] # (Auto) Eos # (Auto) Baso # (Auto) Abs Immat Gran (auto) Absolute Neuts (auto) Absolute Nucleated RBC Nucleated RBC % PT INR APTT Sodium Potassium Chloride Carbon Dioxide Anion Gap BUN Creatinine Estim Creat Clear Calc Estimated GFR Glucose Calcium Magnesium Total Bilirubin AST ALT Alkaline Phosphatase Troponin I 0.018 D NT-Pro-B Natriuret Pep Total Protein Albumin TSH (Reflex) Free T4 Total T3 Urine Color Urine Appearance Urine pH Ur Specific [place] Urine Protein Urine Glucose (UA) Urine Ketones Ur Blood (Man) Urine Nitrate Urine Bilirubin Urine Urobilinogen Leukocyte Esterase Rfl ASA Classification/Sedation ASA Classification/Sedation ASA Class: IV Emergent: No Risks: Risks, benefits and alternatives explained and patient/family accepted plan for sedation. Patient re-evaluated immediately prior to sedation.
--- NOTE | 2024-03-26 15:29 | PM.IMHP ---
H&P: [facility] History of Present Illness Date/Time: 03/26/24 15:29 Chief Complaint: Syncope Narrative: 83 y/o F presents here with syncope with PMH of HLD, GERD, hypothyroidism, osteoporosis, Parkinson's disease. The patient presents here post-syncopal episode from home via EMS. The patient reports this morning around 1000 that she had a syncopal episode while brushing her hair. Patient denies any presyncopal symptoms including shortness of breath, palpitations, light headedness, or dizziness. She reports she was in her normal state of health. Patient is unsure how long she was unconscious, believes it was brief. Denies head strike. Denied any chest pain, palpitations, shortness of breath or dizziness post-episode. Currently denying headache or neck pain. No previous hx of bradycardia, has been on the lower end of normal but nothing concerning. [place] any cardiac hx. No previous hx of syncope. Initial VS at presentation: 97.9? F, HR 45, RR 18, 165/64, and 100% on RA. ED workup showed: No leukocytosis, no anemia, normal coags, potassium 3.1, creatinine 0.57 and GFR >60, BNP 908, initial troponin 0.013, TSH 5.57, T4 1.8, T3 2.21. UA unremarkable. CXR showed bilateral mild peripheral and lower lung predominant chronic interstitial lung disease. Head CT showed no acute intracranial findings. Initial EKG showed sinus rhythm with high grade AV block, right bundle branch block, left posterior fascicular block, rate 36. 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 Hyperlipidemia GERD (gastroesophageal reflux disease) Chronic bilateral thoracic back pain Hypothyroid Osteoporosis Parkinson disease Surgical History Surgical History History of knee replacement procedure of right knee History of knee replacement procedure of left knee S/P tonsillectomy History of cataract extraction right and left Social History Social History Smoking status: Never smoker Alcohol intake: never Substance use: never Substance use type: does not use Do You Feel Safe in your Home?: Yes Lack of Transportation: No Lack of Food: Never True Current Housing: Decline to Answer Concerned About Future Housing: No Difficulty Paying Gas/Electric Bills: No Difficulty Paying for Meds: No Currently Unemployed: No Education: Trade/Vocational Certificate Difficulty w/ Childcare or Family Care: No Living arrangements: alone Occupation/Education: retired Gender identity (if verbalized by the patient): Female Spiritual care concerns: No Meds Home Medications and Allergies Home Medications ?Medication ?Instructions ?Recorded ?Confirmed ?Type sertraline 25 mg tablet 25 mg PO DAILY 06/20/23 03/26/24 History carbidopa 25 mg-levodopa 100 mg 1.5 tablet PO TID #360 tabs 08/29/23 03/26/24 Rx tablet levothyroxine 75 mcg capsule 75 mcg PO DAILY #90 caps 11/01/23 03/26/24 Rx meloxicam 7.5 mg tablet 7.5 mg PO DAILY #90 tabs 11/20/23 03/26/24 Rx rosuvastatin 10 mg tablet 10 mg PO DAILY #90 tabs 11/20/23 03/26/24 Rx alendronate 70 mg tablet 70 mg PO WEEKLY #13 tabs 12/20/23 03/26/24 Rx pantoprazole 40 mg tablet,delayed 40 mg PO BID #60 tabs 01/02/24 03/26/24 Rx release Allergies Allergy/AdvReac Type Severity Reaction Status Date / Time amoxicillin Allergy Severe Rash Verified 03/10/24 12:23 Vital Signs Vital Signs - 24 hr 03/26/24 10:51 03/26/24 11:46 03/26/24 12:30 Temperature 97.9 F 97.9 F 97.8 F Pulse Rate 45 L 34 L 66 Respiratory Rate 18 18 20 Blood Pressure 165/64 H 159/49 H 133/80 Pulse Oximetry 100 97 97 03/26/24 13:02 03/26/24 13:46 03/26/24 14:11 Temperature 97.9 F 98.0 F Pulse Rate 89 62 51 L Respiratory Rate 20 20 20 Blood Pressure 174/80 H 165/92 H 156/72 H Pulse Oximetry 100 98 98 03/26/24 14:12 03/26/24 14:15 03/26/24 14:46 Temperature 97.8 F 97.9 F Pulse Rate 68 69 43 L Respiratory Rate 16 19 15 Blood Pressure 181/91 H 142/127 H Pulse Oximetry 100 100 Exam Const: General: comfortable and no acute distress Other: , female, elderly, nontoxic appearance HENMT: Face/Nose/Sinus: Normal nares present Mouth: Yes moist mucous membranes Eyes: General: appearance normal, both eyes and all related structures Sclera: sclerae normal Pupils: Equal, round and reactive pupils present EOM: EOMs intact bilaterally Resp: Effort & Inspection: normal respiratory effort Auscultation: clear to auscultation bilaterally Cardio: Rate: regular rate Rhythm: regular rhythm Other: S1-S2 present without murmur, rub, ectopy GI: Other: Abdomen soft, nondistended, nontender Skin: General skin exam: normal color and no rashes or lesions noted Wounds: no wounds Neuro: Speech: normal speech Motor exam (neuro): 5/5 motor strength present throughout Sensory Exam: normal sensation Other: A&O x4 Extrem: General: normal to inspection Psych: Mental Status: mental status grossly normal Affect: normal affect Other: Good insight and judgment, pleasant H&P: Results Labs Labs: Short CBC 03/26/24 Range/Units 11:03 WBC 4.9 (4.5-10.0) K/mm3 Hgb 12.0 (12.0-15.0) g/dL Hct 36.8 L (37.0-47.0) % Plt Count 214 (150-375) k/mm3 BMP 03/26/24 11:02 Sodium 139 Potassium 3.1 L Chloride 105 Carbon Dioxide 27 BUN 11 D Creatinine 0.57 L Glucose 104 Calcium 8.6 Cardiac Enzymes 03/26/24 03/26/24 Range/Units 11:02 14:04 Troponin I 0.013 0.018 D (0.000-0.034) ng/mL Liver Function 03/26/24 Range/Units 11:02 Total Bilirubin 0.7 (0.2-1.3) mg/dL AST 34 (14-36) U/L ALT 7 (6-35) U/L Alkaline Phosphatase 67 (38-126) U/L Albumin 3.8 (3.5-5.1) g/dL Urine 01/15/25 Range/Units 11:31 Urine Color Yellow (Yellow) Urine Appearance Clear (Clear) Urine pH 6.0 (5.0-9.0) Ur Specific [place] 1.005 (1.001-1.035) Urine Protein Negative (Negative) mg/dL Urine Glucose (UA) Negative (Negative) mg/dL Assessment and Plan Assessment and plan (1) High-grade atrioventricular block: Code(s): I44.39 - Other atrioventricular block Status: Acute Assessment and Plan: - EKG, initial: Sinus rhythm with high-grade AV block, rate 36, right bundle branch block, left posterior fascicular block - EKG, repeat: Suspected junctional bradycardia, right bundle branch block, prolonged QT interval. - EKG, repeat: Sinus rhythm with high-grade AV block, right bundle branch block, prolonged QT interval - cardiology consulted, Av QUISPE provided the following recs: pacemaker placement, plan for temporary placement today (03/26) and permanent most likely on Sunday morning. Echo - cryptographic vulnerability analyst consulted, admission to the ICU - telemetry - BNP mildly elevated, echo ordered - TSH elevated with only a mild abnormality in her T3, low suspicion as cause for her bradycardia - reviewed home medications, no rate controlling meds (2) Hypothyroid: Qualifiers: Hypothyroidism type: unspecified Qualified Code(s): E03.9 - Hypothyroidism, unspecified Code(s): E03.9 - Hypothyroidism, unspecified Status: Chronic Assessment and Plan: - TSH 5.570, T4 1.8, T3 2.21 - continue home Synthroid 75 mcg daily (3) Parkinson disease: Qualifiers: Dyskinesia presence: unspecified whether dyskinesia Fluctuating manifestations: unspecified whether manifestations fluctuate Qualified Code(s): G20.A1 - Parkinson's disease without dyskinesia, without mention of fluctuations Code(s): G20 - Parkinson's disease Status: Chronic Assessment and Plan: - continue home carbidopa/levodopa Plan Mild hypokalemia noted on initial labs, repleted with p.o. and IV KCL. Repeat labs in a.m.. Diet: Heart healthy GI Prophylaxis: Pantoprazole DVT Prophylaxis: SCDs Lines: Peripheral Code Status: Full code Quality VTE Prophylaxis VTE prophylaxis: mechanical ordered Hospitalist MIPS Advance Care Plan I have confirmed that the patient's Advanced Care Plan is present, code status is documented, or surrogate decision maker is listed in patient medical record.: Yes Medication Reconciliation I have utilized all available resources to obtain, update and review the patients current medications (includes all prescriptions, OTC, herbals, cannabis, and nutritional supplements).: Yes
--- NOTE | 2024-03-26 16:11 | WPDCARDPROC ---
Cardiac Cath Procedure Note Date of procedure:: 03/26/24 Performing physician:: CATHETERIZATION LABORATORY REPORT Procedure Date: 03/26/2024 Marketing Assistant Retail Division: Paul Ley M.D., LOCATED WITHIN [facility]? Referring Physician: Paul Ley M.D. ? Anesthesia: Fentanyl was ordered and given in my presence at 15:51, procedure ended at 16:08. Supervision of nurse monitored moderate sedation with Versed and Fentanyl was provided for 17 minutes. Total of Fentanyl 25mcg were administered by the Metal Weather Stripper RN Mariely Gama. Pre-op Diagnosis: High grade AV block Post-op Diagnosis: Successful placement of temporary transvenous pacer via right femoral vein. Procedure(s): 1. Moderate sedation 2. Ultrasound-guided access of the right femoral vein 3. Insertion of temporary transvenous pacer Access Site: Right femoral vein Brief History and Clinical Indications: Patient is an 83 year old female who is referred for transvenous pacer for high grade AV block. All risks, benefits and alternatives to transvenous pacer was discussed at length with the patient. Risk of complications including but not limited to bleeding, infection, arrhythmia, blood loss, groin hematoma, limb loss, emergency surgery, and even were discussed with the patient and all questions were answered. The patient understood and wished to proceed. Time out called, patient name, date of , medical record number, allergies, procedure performed, identify Marketing Assistant Retail Division, patient and staff member concurred with accurate data, procedure carried on. Description of Procedure: Patient transferred to lab asst room. Prepped and draped in usual sterile fashion. 2% lidocaine injected subcutaneously in right groin area. Right femoral vein was accessed using micropuncture technique under ultrasound guidance. 6-FR sheath placed. 5F transvenous pacer advanced, and appropriate capture and thesholds confirmed. Hemostasis was achieved by manual pressure. Disposition: ICU Plan: Transfer to ICU. Likely will need permanent pacemaker, date and time TBD. ? Paul Ley M.D. Interventional Cardiology
--- NOTE | 2024-03-26 16:30 | ADMGEN ---
This patient, Molly Alonso, was admitted to Intensive Care Unit-10. Patient/family oriented to hospital policies and general routines including ID bracelet, bed and alarms, visiting hours, pain management, procedures, bathroom and other care routines, personal items, smoking policy, room service/diet, and visiting hours. Information on how to activate the Rapid Response Team has been discussed. Patient/Family are encouraged to report perceived risks to care and to ask questions if they do not understand what they are told or what they should do.
[2024-03-26] MEDS: PANTOPRAZOLE 40 MG TABLET PO (17:40)
[2024-03-26] MEDS: CARBIDOPA/LEVODOPA 12.5/50 MG TABLET 1 TABLET PO (17:41)
[2024-03-26] MEDS: CARBIDOPA/LEVODOPA 25/100 MG TABLET 1 TABLET PO (17:41)
[2024-03-26] MEDS: HYDROcodone/acetaminophen (*CRX) 5-325 MG TABLET 1 TAB PO (18:03)
[2024-03-26 19:20] LABS: MRSA (PCR) NOT DETECTED (NOT DETECTE)
[2024-03-27] VITALS (16 sets, daily range): BP systolic 79–137; BP diastolic 57–80; PULSE 60–62; RESP 10–21; TEMP 36.6–36.9; O2SAT 95–100
--- NOTE | 2024-03-27 | ECHO_ITS ---
Patient Info Name: Molly Alonso Age: 83 years : 1940 Gender: Female Ht: 68 in Wt: 135 lbs BSA: 1.71 m2 HR: 62 bpm BP: 137 / 67 mmHg Technical Quality: Fair Exam Date: 03/27/2024 12:58 PM Exam Location: Echo Lab Patient Status: Inpatient Admit Date: 03/26/2024 Staff Ordering Physician: Paul Ley MD (yehuda/autumn) Joint Sealer: Bobby Del Castillo RDCS Attending Provider: Ponce Shi MD Referring Physician: Av PATTERSON; Exam Type: CA echo doppler color flow Study Info Indications - BRADYCARDIA - HIGH GRADE AV BLOCK Complete two-dimensional, color flow and Doppler transthoracic echocardiogram is performed. Summary 1. Complete two-dimensional, color flow and Doppler transthoracic echocardiogram is performed. 2. There is normal biventricular systolic function. 3. There is no significant valvular disease. 4. There is a small pericardial effusion. Left Ventricle Left ventricle is normal in size and systolic function. There is mild concentric left ventricular hypertrophy. The left ventricular ejection fraction is visually estimated to be 55-60%. Right Ventricle The right ventricle is normal in size and systolic function. Linear artifact in right ventricle suggestive of catheter(s), pacemaker lead(s), or ICD lead(s). Left Atria The left atrium is moderately dilated. Right Atria The right atrium is normal size. Aortic Valve The aortic valve opens well. There is no aortic regurgitation. Pulmonic Valve The pulmonic valve is not visualized. Mitral Valve The mitral valve is normal. There is trace mitral regurgitation. Tricuspid Valve The tricuspid valve is normal. There is trace tricuspid regurgitation. Pericardium/Pleural There is a small pericardial effusion. Inferior Vena Cava Normal inferior vena cava with <50% collapse upon inspiration consistent with elevated right atrial pressure, 10 mmHg. Normal inferior vena cava with <50% collapse upon inspiration consistent with elevated right atrial pressure, 10 mmHg. Aorta The aortic root at the level of the sinus of Valsalva is 2.7 cm in diameter. Left Ventricular Outflow Tract Name Value Normal LVOT 2D LVOT Diameter 1.7 cm LVOT Doppler LVOT Peak Gradient 3 mmHg LVOT Mean Gradient 1 mmHg LVOT VTI 19 cm LVOT VTI/AV VTI Ratio 0.8 LVOT Stroke Volume 39 ml LVOT CO 2.3 l/min LVOT CI 1.3 l/min/m2 Pulmonic Valve Name Value Normal RVOT Doppler RVOT Peak Gradient 3 mmHg PV Doppler PV Peak Gradient 3 mmHg Mitral Valve Name Value Normal MV Doppler MV Peak Gradient 2 mmHg MV Mean Gradient 1 mmHg MV Decel [place] 571 cm/s2 MV PHT 31 ms MV Area (PHT) 7.1 cm2 4.0-5.0 MV Area (Cont Eq VTI) 1.3 cm2 MV Diastolic Function MV E Peak Velocity 61 cm/s MV A Peak Velocity 81 cm/s MV E/A 0.8 MV Decel Time 107 ms MV Annular TDI MV E/e' (Septal) 8.4 <=8.0 MV E/e' (Lateral) 5.7 <=8.0 MV E/e' (Average) 7.0 Tricuspid Valve Name Value Normal TV Regurgitation Doppler TR Peak Velocity 247 cm/s TR Peak Gradient 24 mmHg Estimated PAP/RSVP RA Pressure 10 mmHg <=5 PA Systolic Pressure 34 mmHg <36 RV Systolic Pressure 34 mmHg <36 Aorta Name Value Normal Ascending Aorta Ao Root Diameter (MM) 3.3 cm Ao Root Diam Index (MM) 2.0 cm/m2 Aortic Valve Name Value Normal AV Doppler AV Peak Velocity 117 cm/s AV Peak Gradient 5 mmHg AV Mean Gradient 3 mmHg AV VTI 25 cm AV Area (Cont Eq VTI) 1.8 cm2 >=3.0 AV Area (Cont Eq Capo) 1.6 cm2 AV Regurgitation 2D LVOT Area 2.3 cm2 Ventricles Name Value Normal LV Dimensions 2D/MM IVS Diastolic Thickness (2D) 1.2 cm 0.6-1.0 LVID Diastole (2D) 4.1 cm 3.8-5.2 LVIW Diastolic Thickness (2D) 1.3 cm 0.6-0.9 LVID Systole (2D) 3.0 cm 2.2-3.5 LVOT Diameter 1.7 cm LV Mass (2D Cubed) 182.83 g 67.00-162.00 LV Mass Index (2D Cubed) 107 g/m2 43-95 Relative Wall Thickness (2D) 0.63 LV Fractional Shortening/Ejection Fraction 2D/MM LV Fractional Shortening (2D) 28 % 27-45 LV EF (2D Teicholz) 54 % 54-74 LV Diastolic Volume (4C MOD) 54 ml LV EF (4C MOD) 56 % LV Diastolic Volume (2C MOD) 63 ml LV EF (2C MOD) 65 % LV Diastolic Volume (BP MOD) 59 ml 46-106 LV Diastolic Volume Index (BP MOD) 34 ml/m2 29-61 LV Systolic Volume (BP MOD) 23 ml 14-42 LV Systolic Volume Index (BP MOD) 14 ml/m2 8-24 LV EF (BP MOD) 60 % 54-74 LV Diastolic Length (4C) 6.5 cm LV Systolic Length (4C) 5.9 cm LV Stroke Volume (4C MOD) 31 ml Atria Name Value Normal LA Dimensions LA Dimension (MM) 4.7 cm 2.7-3.8 LA Volume (4C A-L) 67 ml LA Volume (BP A-L) 69 ml RA Dimensions RA Area (4C) 15.2 cm2 <=18.0 Report Signatures
[2024-03-27] MEDS: HYDROcodone/acetaminophen (*CRX) 5-325 MG TABLET 1 TAB PO ×3 (02:44→20:34)
[2024-03-27 04:14] LABS: Basophils Percent Auto 0.6 % (0.2-1.2); Eosinophils Absolute Auto 0.1 K/mm3 (0-0.3); Eosinophils Percent Auto 1.7 % (0-4.4); Immature Granulocyte Absolute 0.01 K/mm3 (0.00-0.031); Immature Granulocyte Percent A 0.2 % (0-0.5); Lymphocytes Absolute Auto 0.94 K/mm3 (0.9-3.2); Lymphocytes Percent Auto 19.4 % (18.3-44.2); Mean Corpuscular HGB Conc 32.4 g/dl (32-36); Mean Corpuscular Hemoglobin 30.2 pg (26-34); Mean Corpuscular Volume 93.2 fl (80-100); Mean Platelet Volume 9.8 fl (7.4-10.4); Monocytes Absolute Auto 0.4 K/mm3 (0.1-0.6); Monocytes Percent Auto 8.5 % (2.6-8.5); Neutrophils Absolute Auto 3.4 K/mm3 (1.3-6.7); Neutrophils Percent Auto 69.6 % (45.5-73.1); Platelet Count Result 192 k/mm3 (150-375); Red Blood Count 3.97 M/mm3 (4.2-5.4); Red Cell Distribution Width 13.3 % (11.5-14.5); White Blood Count 4.8 K/mm3 (4.5-10.0)
[2024-03-27 04:26] LABS: Lactic Acid Reflex 1.2 mmol/L (0.7-2.0)
[2024-03-27 04:27] LABS: Alanine Aminotransferase 7 U/L (6-35); Albumin Level 3.6 g/dL (3.5-5.1); Alkaline Phosphatase 56 U/L (38-126); Anion Gap 4 mmol/L (4-12); Aspartate Amino Transferase 25 U/L (14-36); Bilirubin,Total 1.2 mg/dL (0.2-1.3); Blood Urea Nitrogen 8 mg/dL (7-17); Calcium 8.7 mg/dL (8.4-10.2); Carbon Dioxide 28 mmol/L (22-30); Chloride 108 mmol/L (98-107); Estimated CRCL calculation 70 ml/min; Estimated Glomerular Filt Rate > 60; Glucose 84 mg/dL (65-110); Magnesium 2.3 mg/dL (1.6-2.3); Phosphorus 2.8 mg/dL (2.5-4.5); Potassium 3.5 mmol/L (3.4-5.0); Sodium 140 mmol/L (137-145)
[2024-03-27] MEDS: LEVOTHYROXINE SODIUM 75 MCG TABLET PO (06:25)
[2024-03-27] MEDS: CARBIDOPA/LEVODOPA 12.5/50 MG TABLET 1 TABLET PO ×3 (08:01→16:43)
[2024-03-27] MEDS: SERTRALINE HCL 25 MG TABLET PO (08:01)
[2024-03-27] MEDS: CARBIDOPA/LEVODOPA 25/100 MG TABLET 1 TABLET PO ×3 (08:01→16:43)
[2024-03-27] MEDS: MELOXICAM 7.5 MG TABLET PO (08:03)
[2024-03-27] MEDS: ROSUVASTATIN 10 MG TABLET PO (08:03)
[2024-03-27] MEDS: PANTOPRAZOLE 40 MG TABLET PO ×2 (08:03→16:43)
[2024-03-27] MEDS: POTASSIUM CHLORIDE 20 MEQ ER TABLET 40 MEQ PO (08:54)
[2024-03-27] MEDS: ENOXAPARIN 40 MG/0.4 ML SYRINGE SUB-Q (08:54)
[2024-03-27] MEDS: PROMETHAZINE HCL 25 MG/ML AMPUL 12.5 MG IV PUSH (09:05)
--- NOTE | 2024-03-27 09:43 | PM.PNCARD ---
Progress Note: A&P Assessment and Plan (1) High-grade atrioventricular block: Code(s): I44.39 - Other atrioventricular block Status: Acute Assessment and Plan: Currently paced with transvenous pacemaker. Plan for permanent pacemaker placement tomorrow morning with Dr. Logan. Concerns about her ability to follow commands appropriately during procedure which obviously poses safety risks. Will discuss with Dr. Logan. For now, plan to keep NPO at midnight for procedure tomorrow. Echo is pending. (2) Parkinson disease: Qualifiers: Dyskinesia presence: unspecified whether dyskinesia Fluctuating manifestations: unspecified whether manifestations fluctuate Qualified Code(s): G20.A1 - Parkinson's disease without dyskinesia, without mention of fluctuations Code(s): G20 - Parkinson's disease Status: Chronic Assessment and Plan: On Carbidopa/Levodopa. (3) Hyperlipidemia: Code(s): E78.5 - Hyperlipidemia, unspecified Status: Acute Assessment and Plan: Can continue statin. (4) Hypothyroid: Qualifiers: Hypothyroidism type: unspecified Qualified Code(s): E03.9 - Hypothyroidism, unspecified Code(s): E03.9 - Hypothyroidism, unspecified Status: Chronic Assessment and Plan: TSH mildly elevated at 5.570, however T4 normal, although T3 mildly elevated at 2.21. Mild abnormality in thyroid function likely not causing the high grade AV block. On Levothyroxine at home. Subjective Date/time seen: 03/27/24 09:43 Interval history: Cardiology follow up She is rather confused today but reports that she is feeling well. Telemetry reviewed. Review of Systems Review of Systems: All systems reviewed & are unremarkable except as noted in HPI and below (HPI) Exam Const: General: no acute distress Orientation/consciousness: oriented to person, No oriented to place, No oriented to time and confusion HENMT: Mouth: Yes moist mucous membranes Eyes: General: appearance normal, both eyes and all related structures Sclera: sclerae normal Resp: Effort & Inspection: normal respiratory effort Cardio: Rate: regular rate Rhythm: regular rhythm Heart sounds: no murmurs Urinary Catheter: Urinary Catheter: patent and draining Skin: General skin exam: normal color Neuro: Speech: normal speech Psych: Mental Status: mental status grossly abnormal Affect: normal affect Objective Data Vital Signs Vital Signs: Vital Signs - 24 hr 03/26/24 10:51 03/26/24 11:46 03/26/24 12:30 Temperature 36.6 C 36.6 C 36.6 C Pulse Rate 45 L 34 L 66 Respiratory Rate 18 18 20 Blood Pressure 165/64 H 159/49 H 133/80 Pulse Oximetry 100 97 97 Oxygen Delivery 03/26/24 13:02 03/26/24 13:46 03/26/24 14:11 Temperature 36.6 C 36.7 C Pulse Rate 89 62 51 L Respiratory Rate 20 20 20 Blood Pressure 174/80 H 165/92 H 156/72 H Pulse Oximetry 100 98 98 Oxygen Delivery 03/26/24 14:12 03/26/24 14:15 03/26/24 14:46 Temperature 36.6 C 36.6 C Pulse Rate 68 69 43 L Respiratory Rate 16 19 15 Blood Pressure 181/91 H 142/127 H Pulse Oximetry 100 100 Oxygen Delivery 03/26/24 16:45 03/26/24 17:05 03/26/24 17:27 Temperature Pulse Rate 60 60 Respiratory Rate 17 12 Blood Pressure 143/67 H 123/84 Pulse Oximetry 100 100 Oxygen Delivery Room Air 03/26/24 17:57 03/26/24 18:00 03/26/24 20:00 Temperature 36.6 C Pulse Rate 60 60 60 Respiratory Rate 18 17 13 Blood Pressure 130/68 133/58 L 112/54 L Pulse Oximetry 92 100 99 Oxygen Delivery 03/26/24 20:00 03/26/24 20:00 03/26/24 22:00 Temperature Pulse Rate 60 60 62 Respiratory Rate 13 18 Blood Pressure 118/59 L Pulse Oximetry 99 96 Oxygen Delivery Room Air 03/26/24 22:00 03/27/24 00:00 03/27/24 00:00 Temperature Pulse Rate 62 62 62 Respiratory Rate 18 Blood Pressure Pulse Oximetry 96 Oxygen Delivery Room Air 03/27/24 00:00 03/27/24 02:00 03/27/24 02:00 Temperature 36.9 C Pulse Rate 62 60 60 Respiratory Rate 16 16 Blood Pressure 113/65 134/65 Pulse Oximetry 96 97 Oxygen Delivery 03/27/24 04:00 03/27/24 04:00 03/27/24 04:00 Temperature 36.6 C Pulse Rate 60 60 62 Respiratory Rate 16 18 Blood Pressure 131/66 Pulse Oximetry 97 98 Oxygen Delivery Room Air 03/27/24 06:00 03/27/24 06:00 Temperature Pulse Rate 62 62 Respiratory Rate 18 Blood Pressure 137/67 Pulse Oximetry 98 Oxygen Delivery Intake/Output Intake/Output: Intake & Output 03/24/24 03/25/24 03/26/24 03/27/24 23:59 23:59 23:59 23:59 Intake Total 240 Output Total 150 Balance 240 -150 Meds/Results Medications: Active Medications Generic Name Dose Route Start Last Admin Trade Name Freq PRN Reason Stop Dose Admin Acetaminophen 650 mg 03/26/24 14:03 Acetaminophen 325 Mg Tablet PO Q4H PRN Mild Pain (1-3) or Fever Alendronate Sodium 70 mg 03/29/24 09:00 Alendronate Sodium 70 Mg Tablet PO WEEKLY QUAN Carbidopa/Levodopa 1 tablet 03/26/24 17:00 03/27/24 08:01 Carbidopa/Levodopa 25/100 Mg Tablet PO 1 tablet TID UQAN Administration Carbidopa/Levodopa 1 tablet 03/26/24 17:00 03/27/24 08:01 Carbidopa/Levodopa 12.5/50 Mg Tablet PO 1 tablet TID QUAN Administration Enoxaparin Sodium 40 mg 03/27/24 09:00 03/27/24 08:54 Enoxaparin 40 Mg/0.4 Ml Syringe SUB-Q 40 mg DAILY QUAN Administration Levothyroxine Sodium 75 mcg 03/27/24 06:30 03/27/24 06:25 Levothyroxine Sodium 75 Mcg Tablet PO 75 mcg DAILY@0630 QUAN Administration Meloxicam 7.5 mg 03/27/24 09:00 03/27/24 08:03 Meloxicam 7.5 Mg Tablet PO 7.5 mg DAILY QUAN Administration Pantoprazole Sodium 40 mg 03/26/24 17:00 03/27/24 08:03 Pantoprazole 40 Mg Tablet PO 40 mg BID QUAN Administration Perflutren Lipid Microsphere 0 ml 03/26/24 15:06 Perflutren Lipid Microspheres 1.5 Ml Vial Diluted To 10 Ml Total Volume IV PUSH 03/29/24 15:07 ONCE PRN adequate visualization Protocol Promethazine HCl 12.5 mg 03/26/24 14:03 03/27/24 09:05 Promethazine Hcl 25 Mg/Ml Ampul IV PUSH 12.5 mg Q6H PRN Administration Nausea Rosuvastatin Calcium 10 mg 03/27/24 09:00 03/27/24 08:03 Rosuvastatin 10 Mg Tablet PO 10 mg DAILY QUAN Administration Sertraline HCl 25 mg 03/27/24 09:00 03/27/24 08:01 Sertraline Hcl 25 Mg Tablet PO 25 mg DAILY QUAN Administration Radiology Results: ITS Impressions Chest X-Ray 03/26/24 11:40 IMPRESSION: 1. Bilateral mild peripheral and lower lung predominant chronic interstitial lung disease. Head CT 03/26/24 12:23 IMPRESSION: No acute intracranial findings. Labs Labs: Laboratory Results - last 24 hr 03/26/24 03/26/24 03/26/24 11:02 11:03 11:31 WBC 4.9 RBC 4.01 L Hgb 12.0 Hct 36.8 L MCV 91.8 MCH 29.9 MCHC 32.6 RDW 13.3 Plt Count 214 MPV 9.9 Immature Gran % (Auto) 0.8 H Neut % (Auto) 71.5 Lymph % (Auto) 20.0 [place] % (Auto) 6.3 Eos % (Auto) 0.8 Baso % (Auto) 0.6 Lymph # (Auto) 0.98 [place] # (Auto) 0.3 Eos # (Auto) 0.0 Baso # (Auto) 0.0 Abs Immat Gran (auto) 0.04 H Absolute Neuts (auto) 3.5 Absolute Nucleated RBC 0.000 Nucleated RBC % 0.0 PT 14.7 INR 1.1 APTT 30.5 Sodium 139 Potassium 3.1 L Chloride 105 Carbon Dioxide 27 Anion Gap 7 BUN 11 D Creatinine 0.57 L Estim Creat Clear Calc 64 Estimated GFR > 60 Glucose 104 Lactic Acid Calcium 8.6 Phosphorus Magnesium 2.1 Total Bilirubin 0.7 AST 34 ALT 7 Alkaline Phosphatase 67 Troponin I 0.013 NT-Pro-B Natriuret Pep 908 H Total Protein 6.0 L Albumin 3.8 TSH (Reflex) 5.570 H Free T4 1.80 Total T3 2.21 H Urine Color Yellow Urine Appearance Clear Urine pH 6.0 Ur Specific [place] 1.005 Urine Protein Negative Urine Glucose (UA) Negative Urine Ketones Negative Ur Blood (Man) Negative Urine Nitrate Negative Urine Bilirubin Negative Urine Urobilinogen 0.2 Leukocyte Esterase Rfl Negative Nasal MRSA (PCR) 03/26/24 03/26/24 03/26/24 14:04 16:48 18:00 WBC RBC Hgb Hct MCV MCH MCHC RDW Plt Count MPV Immature Gran % (Auto) Neut % (Auto) Lymph % (Auto) [place] % (Auto) Eos % (Auto) Baso % (Auto) Lymph # (Auto) [place] # (Auto) Eos # (Auto) Baso # (Auto) Abs Immat Gran (auto) Absolute Neuts (auto) Absolute Nucleated RBC Nucleated RBC % PT INR APTT Sodium Potassium Chloride Carbon Dioxide Anion Gap BUN Creatinine Estim Creat Clear Calc Estimated GFR Glucose Lactic Acid Calcium Phosphorus Magnesium Total Bilirubin AST ALT Alkaline Phosphatase Troponin I 0.018 D 0.020 NT-Pro-B Natriuret Pep Total Protein Albumin TSH (Reflex) Free T4 Total T3 Urine Color Urine Appearance Urine pH Ur Specific [place] Urine Protein Urine Glucose (UA) Urine Ketones Ur Blood (Man) Urine Nitrate Urine Bilirubin Urine Urobilinogen Leukocyte Esterase Rfl Nasal MRSA (PCR) Not detected 03/27/24 04:02 WBC 4.8 RBC 3.97 L Hgb 12.0 Hct 37.0 MCV 93.2 MCH 30.2 MCHC 32.4 RDW 13.3 Plt Count 192 MPV 9.8 Immature Gran % (Auto) 0.2 Neut % (Auto) 69.6 Lymph % (Auto) 19.4 [place] % (Auto) 8.5 Eos % (Auto) 1.7 Baso % (Auto) 0.6 Lymph # (Auto) 0.94 [place] # (Auto) 0.4 Eos # (Auto) 0.1 Baso # (Auto) 0.0 Abs Immat Gran (auto) 0.01 Absolute Neuts (auto) 3.4 Absolute Nucleated RBC 0.000 Nucleated RBC % 0.0 PT INR APTT Sodium 140 Potassium 3.5 Chloride 108 H Carbon Dioxide 28 Anion Gap 4 BUN 8 Creatinine 0.48 L Estim Creat Clear Calc 70 Estimated GFR > 60 Glucose 84 Lactic Acid 1.2 Calcium 8.7 Phosphorus 2.8 Magnesium 2.3 Total Bilirubin 1.2 AST 25 ALT 7 Alkaline Phosphatase 56 Troponin I NT-Pro-B Natriuret Pep Total Protein 6.0 L Albumin 3.6 TSH (Reflex) Free T4 Total T3 Urine Color Urine Appearance Urine pH Ur Specific [place] Urine Protein Urine Glucose (UA) Urine Ketones Ur Blood (Man) Urine Nitrate Urine Bilirubin Urine Urobilinogen Leukocyte Esterase Rfl Nasal MRSA (PCR) Quality VTE Prophylaxis VTE prophylaxis: mechanical ordered
--- NOTE | 2024-03-27 12:11 | PCFNICU ---
ICU Rounding Note: Pt current nutrition is Heart Healthy. Last recorded weight is 61 kg Bowel Motility: No BM reported. Labs Reviewed:Cr 0.48 Meds Noted:Synthroid, Crestor, Protonix, Lovenox Skin: WNL Additional Notes: During ICU rounds, appetite was mentioned to be very poor. Orders obtained for diet supplements of Ensure Compact BID, providing an additional 220 kcal and 9 gm protein. Agree with diet orders. Following daily in ICU rounds.
--- NOTE | 2024-03-27 14:26 | P.CONIN_ITS ---
Assessment and Plan Assessment and plan (1) High-grade atrioventricular block: Code(s): I44.39 - Other atrioventricular block Status: Acute Assessment and Plan: Patient presented with syncopal episode, with LOC, in the ED patient was in high-grade AV block, transvenous pacemaker was inserted by education manager -patient is not on any AV harish blockers at home -history of hypothyroidism -echocardiogram is pending -cardiology following, likely permanent pacemaker on 03/28/2024 (2) Hypothyroid: Qualifiers: Hypothyroidism type: unspecified Qualified Code(s): E03.9 - Hypothyroidism, unspecified Code(s): E03.9 - Hypothyroidism, unspecified Status: Chronic Assessment and Plan: Continue Levothyroid (3) Parkinson disease: Qualifiers: Dyskinesia presence: unspecified whether dyskinesia Fluctuating manifestations: unspecified whether manifestations fluctuate Qualified Code(s): G20.A1 - Parkinson's disease without dyskinesia, without mention of fluctuations Code(s): G20 - Parkinson's disease Status: Chronic Assessment and Plan: Continue carbidopa and levodopa Plan DVT prophylaxis: Enoxaparin Stress ulcer prophylaxis: Protonix Nutrition: Heart healthy diet Code Status: Full code Critical Care Time Spent: 48 minutes Due to a high probability of clinically significant, life threatening deterioration, the patient required my highest level of preparedness to intervene emergently and I personally spent this critical care time directly and personally managing the patient. This critical care time included obtaining a history; examining the patient; pulse oximetry; ordering and review of studies; arranging urgent treatment with development of a management plan; evaluation of patient's response to treatment; frequent reassessment; and discussions with other providers. It was exclusive of separately billable procedures and treating other patients and teaching time. Please see Assessment and Plan section and the rest of the note for further information on patient assessment and treatment This dictation may have been done utilizing a voice recognition system. Attempts have been made to correct errors. However, there may be uncorrected grammatical, spelling, and recognitions errors present. 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 She denies any chest pain, shortness of breath, palpitations or dizziness prior to the episode. In the ED patient was found to be in high-degree AV block/bradycardia. Cardiology was consulted and took her to the warehouse laborer and placed a transvenous pacemaker. Patient was transferred to the ICU for further manage 03/27/2024: Patient seen and examined the ICU, is awake, alert, denies any shortness of breath, chest pain, abdominal pain, dizziness, lightheadedness. States she feels better. 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 Hyperlipidemia GERD (gastroesophageal reflux disease) Chronic bilateral thoracic back pain Hypothyroid Osteoporosis Parkinson disease Surgical History Surgical History History of knee replacement procedure of right knee History of knee replacement procedure of left knee S/P tonsillectomy History of cataract extraction right and left Social History Social History Smoking status: Never smoker Alcohol intake: never Substance use: never Substance use type: does not use Do You Feel Safe in your Home?: Yes Lack of Transportation: No Lack of Food: Never True Current Housing: Decline to Answer Concerned About Future Housing: No Difficulty Paying Gas/Electric Bills: No Difficulty Paying for Meds: No Currently Unemployed: No Education: Trade/Vocational Certificate Difficulty w/ Childcare or Family Care: No Living arrangements: alone Occupation/Education: retired Gender identity (if verbalized by the patient): Female Spiritual care concerns: No Meds Home Medications and Allergies Home Medications ?Medication ?Instructions ?Recorded ?Confirmed ?Type sertraline 25 mg tablet 25 mg PO DAILY 06/20/23 03/26/24 History carbidopa 25 mg-levodopa 100 mg 1.5 tablet PO TID #360 tabs 08/29/23 03/26/24 Rx tablet levothyroxine 75 mcg capsule 75 mcg PO DAILY #90 caps 11/01/23 03/26/24 Rx meloxicam 7.5 mg tablet 7.5 mg PO DAILY #90 tabs 11/20/23 03/26/24 Rx rosuvastatin 10 mg tablet 10 mg PO DAILY #90 tabs 11/20/23 03/26/24 Rx alendronate 70 mg tablet 70 mg PO WEEKLY #13 tabs 12/20/23 03/26/24 Rx pantoprazole 40 mg tablet,delayed 40 mg PO BID #60 tabs 01/02/24 03/26/24 Rx release Allergies Allergy/AdvReac Type Severity Reaction Status Date / Time amoxicillin Allergy Severe Rash Verified 03/10/24 12:23 Vital Signs Vital Signs - 24 hr 03/26/24 14:46 03/26/24 16:45 03/26/24 17:05 Temperature 97.9 F Pulse Rate 43 L 60 Respiratory Rate 15 17 Blood Pressure 142/127 H 143/67 H Pulse Oximetry 100 100 Oxygen Delivery Room Air 03/26/24 17:27 03/26/24 17:57 03/26/24 18:00 Temperature Pulse Rate 60 60 60 Respiratory Rate 12 18 17 Blood Pressure 123/84 130/68 133/58 L Pulse Oximetry 100 92 100 Oxygen Delivery 03/26/24 20:00 03/26/24 20:00 03/26/24 20:00 Temperature 97.9 F Pulse Rate 60 60 60 Respiratory Rate 13 13 Blood Pressure 112/54 L Pulse Oximetry 99 99 Oxygen Delivery Room Air 03/26/24 22:00 03/26/24 22:00 03/27/24 00:00 Temperature Pulse Rate 62 62 62 Respiratory Rate 18 18 Blood Pressure 118/59 L Pulse Oximetry 96 96 Oxygen Delivery Room Air 03/27/24 00:00 03/27/24 00:00 03/27/24 02:00 Temperature 98.5 F Pulse Rate 62 62 60 Respiratory Rate 16 Blood Pressure 113/65 Pulse Oximetry 96 Oxygen Delivery 03/27/24 02:00 03/27/24 04:00 03/27/24 04:00 Temperature 98 F Pulse Rate 60 60 60 Respiratory Rate 16 16 Blood Pressure 134/65 131/66 Pulse Oximetry 97 97 Oxygen Delivery 03/27/24 04:00 03/27/24 06:00 03/27/24 06:00 Temperature Pulse Rate 62 62 62 Respiratory Rate 18 18 Blood Pressure 137/67 Pulse Oximetry 98 98 Oxygen Delivery Room Air 03/27/24 11:03 Temperature Pulse Rate Respiratory Rate Blood Pressure Pulse Oximetry 97 Oxygen Delivery Room Air Exam 2 Narrative: General: Pleasant female in no acute distress HEENT:? Pupils equal and reactive, sclera is clear Neck:? Supple Respiratory:? Clear to auscultation bilaterally, no wheezing, adequate air entry Cardiac:? Paced rhythm Abdomen:? Soft, nontender, nondistended, normoactive bowel sound Extremities:? No edema, palpable pedal pulses Neuro:? Patient is awake, alert, answers to questions appropriately and follows simple commands in all extremities Skin:? Warm and dry Psych:? Normal mentation and affect Results Labs 03/27/24 04:02 03/27/24 04:02 Labs: Short CBC 03/27/24 Range/Units 04:02 WBC 4.8 (4.5-10.0) K/mm3 Hgb 12.0 (12.0-15.0) g/dL Hct 37.0 (37.0-47.0) % Plt Count 192 (150-375) k/mm3 BMP 03/27/24 04:02 Sodium 140 Potassium 3.5 Chloride 108 H Carbon Dioxide 28 BUN 8 Creatinine 0.48 L Glucose 84 Calcium 8.7 Cardiac Enzymes 03/26/24 03/26/24 Range/Units 14:04 16:48 Troponin I 0.018 D 0.020 (0.000-0.034) ng/mL Liver Function 03/27/24 Range/Units 04:02 Total Bilirubin 1.2 (0.2-1.3) mg/dL AST 25 (14-36) U/L ALT 7 (6-35) U/L Alkaline Phosphatase 56 (38-126) U/L Albumin 3.6 (3.5-5.1) g/dL Quality VTE Prophylaxis VTE prophylaxis: pharmacologic ordered Hospitalist MIPS Advance Care Plan I have confirmed that the patient's Advanced Care Plan is present, code status is documented, or surrogate decision maker is listed in patient medical record.: Yes Medication Reconciliation I have utilized all available resources to obtain, update and review the patients current medications (includes all prescriptions, OTC, herbals, cannabis, and nutritional supplements).: Yes
--- NOTE | 2024-03-27 16:14 | WPDMODSED ---
Moderate Sedation Note-Pt Data Patient Data Diagnosis: Acquired complete heart block with syncope Present Complaint: No complaints Procedure to be performed/Plan: Implantation of permanent pacemaker Allergies Allergy/AdvReac Type Severity Reaction Status Date / Time amoxicillin Allergy Severe Rash Verified 03/10/24 12:23 Home Medications ?Medication ?Instructions ?Recorded ?Confirmed ?Type sertraline 25 mg tablet 25 mg PO DAILY 06/20/23 03/26/24 History carbidopa 25 mg-levodopa 100 mg 1.5 tablet PO TID #360 tabs 08/29/23 03/26/24 Rx tablet levothyroxine 75 mcg capsule 75 mcg PO DAILY #90 caps 11/01/23 03/26/24 Rx meloxicam 7.5 mg tablet 7.5 mg PO DAILY #90 tabs 11/20/23 03/26/24 Rx rosuvastatin 10 mg tablet 10 mg PO DAILY #90 tabs 11/20/23 03/26/24 Rx alendronate 70 mg tablet 70 mg PO WEEKLY #13 tabs 12/20/23 03/26/24 Rx pantoprazole 40 mg tablet,delayed 40 mg PO BID #60 tabs 01/02/24 03/26/24 Rx release Current Medications: Active Medications Acetaminophen (Acetaminophen 325 Mg Tablet) 650 mg PO Q4H PRN PRN Reason: Mild Pain (1-3) or Fever Alendronate Sodium (Alendronate Sodium 70 Mg Tablet) 70 mg PO WEEKLY [facility] Carbidopa/Levodopa (Carbidopa/Levodopa 25/100 Mg Tablet) 1 tablet PO TID [facility] Last Admin: 03/27/24 15:11 Dose: 1 tablet Carbidopa/Levodopa (Carbidopa/Levodopa 12.5/50 Mg Tablet) 1 tablet PO TID [facility] Last Admin: 03/27/24 15:11 Dose: 1 tablet Enoxaparin Sodium (Enoxaparin 40 Mg/0.4 Ml Syringe) 40 mg SUB-Q DAILY [facility] Last Admin: 03/27/24 08:54 Dose: 40 mg Levothyroxine Sodium (Levothyroxine Sodium 75 Mcg Tablet) 75 mcg PO DAILY@0630 [facility] Last Admin: 03/27/24 06:25 Dose: 75 mcg Meloxicam (Meloxicam 7.5 Mg Tablet) 7.5 mg PO DAILY [facility] Last Admin: 03/27/24 08:03 Dose: 7.5 mg Pantoprazole Sodium (Pantoprazole 40 Mg Tablet) 40 mg PO BID [facility] Last Admin: 03/27/24 08:03 Dose: 40 mg Perflutren Lipid Microsphere (Perflutren Lipid Microspheres 1.5 Ml Vial Diluted To 10 Ml Total Volume) 0 ml IV PUSH ONCE PRN; Protocol PRN Reason: adequate visualization Stop: 03/29/24 15:07 Promethazine HCl (Promethazine Hcl 25 Mg/Ml Ampul) 12.5 mg IV PUSH Q6H PRN PRN Reason: Nausea Last Admin: 03/27/24 09:05 Dose: 12.5 mg Rosuvastatin Calcium (Rosuvastatin 10 Mg Tablet) 10 mg PO DAILY [facility] Last Admin: 03/27/24 08:03 Dose: 10 mg Sertraline HCl (Sertraline Hcl 25 Mg Tablet) 25 mg PO DAILY [facility] Last Admin: 03/27/24 08:01 Dose: 25 mg Sedation/Anesthesia: No previous sedation/anesthesia problems (including family history). [facility] Past Medical History Medical History 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 Hyperlipidemia GERD (gastroesophageal reflux disease) Chronic bilateral thoracic back pain Hypothyroid Osteoporosis Parkinson disease Surgical History Surgical History History of knee replacement procedure of right knee History of knee replacement procedure of left knee S/P tonsillectomy History of cataract extraction right and left Social History Social History Smoking status: Never smoker Alcohol intake: never Substance use: never Substance use type: does not use Do You Feel Safe in your Home?: Yes Lack of Transportation: No Lack of Food: Never True Current Housing: Decline to Answer Concerned About Future Housing: No Difficulty Paying Gas/Electric Bills: No Difficulty Paying for Meds: No Currently Unemployed: No Education: Trade/Vocational Certificate Difficulty w/ Childcare or Family Care: No Living arrangements: alone Occupation/Education: retired Gender identity (if verbalized by the patient): Female Spiritual care concerns: No Mod Sed Physical Exam Physical Exam Pre Procedural Exam: Normal: Throat, Airway, Lungs, Heart Size, Heart Rate, Heart Rhythm, Neuro Exam and Extremities and Variation: Appearance (Pleasant thin elderly lady no distress) Hours since solid foods: 12 Hours since liquid intake: 12 Mallampati Classification: class II Internal Medicine - PN: Obj Da Vital Signs Vital Signs: Vital Signs - 24 hr 03/26/24 16:45 03/26/24 17:05 03/26/24 17:27 Temperature Pulse Rate 60 60 Respiratory Rate 17 12 Blood Pressure 143/67 H 123/84 Pulse Oximetry 100 100 Oxygen Delivery Room Air 03/26/24 17:57 03/26/24 18:00 03/26/24 20:00 Temperature 36.6 C Pulse Rate 60 60 60 Respiratory Rate 18 17 13 Blood Pressure 130/68 133/58 L 112/54 L Pulse Oximetry 92 100 99 Oxygen Delivery 03/26/24 20:00 03/26/24 20:00 03/26/24 22:00 Temperature Pulse Rate 60 60 62 Respiratory Rate 13 18 Blood Pressure 118/59 L Pulse Oximetry 99 96 Oxygen Delivery Room Air 03/26/24 22:00 03/27/24 00:00 03/27/24 00:00 Temperature Pulse Rate 62 62 62 Respiratory Rate 18 Blood Pressure Pulse Oximetry 96 Oxygen Delivery Room Air 03/27/24 00:00 03/27/24 02:00 03/27/24 02:00 Temperature 36.9 C Pulse Rate 62 60 60 Respiratory Rate 16 16 Blood Pressure 113/65 134/65 Pulse Oximetry 96 97 Oxygen Delivery 03/27/24 04:00 03/27/24 04:00 03/27/24 04:00 Temperature 36.6 C Pulse Rate 60 60 62 Respiratory Rate 16 18 Blood Pressure 131/66 Pulse Oximetry 97 98 Oxygen Delivery Room Air 03/27/24 06:00 03/27/24 06:00 03/27/24 08:00 Temperature Pulse Rate 62 62 60 Respiratory Rate 18 15 Blood Pressure 137/67 114/68 Pulse Oximetry 98 100 Oxygen Delivery 03/27/24 08:00 03/27/24 10:00 03/27/24 10:00 Temperature Pulse Rate 60 61 61 Respiratory Rate 21 H Blood Pressure 118/72 Pulse Oximetry 97 Oxygen Delivery 03/27/24 11:03 03/27/24 12:00 03/27/24 12:00 Temperature Pulse Rate 60 60 Respiratory Rate 10 L Blood Pressure 133/71 Pulse Oximetry 97 98 Oxygen Delivery Room Air 03/27/24 14:00 03/27/24 14:00 Temperature 36.8 C Pulse Rate 60 60 Respiratory Rate 18 Blood Pressure 79/58 L Pulse Oximetry 100 Oxygen Delivery Intake/Output Intake/Output: Intake & Output 03/24/24 03/25/24 03/26/24 03/27/24 23:59 23:59 23:59 23:59 Intake Total 240 240 Output Total 150 Balance 240 90 Meds/Results Medications: Active Medications Generic Name Dose Route Start Last Admin Trade Name Freq PRN Reason Stop Dose Admin Acetaminophen 650 mg 03/26/24 14:03 Acetaminophen 325 Mg Tablet PO Q4H PRN Mild Pain (1-3) or Fever Alendronate Sodium 70 mg 03/29/24 09:00 Alendronate Sodium 70 Mg Tablet PO WEEKLY QUAN Carbidopa/Levodopa 1 tablet 03/26/24 17:00 03/27/24 15:11 Carbidopa/Levodopa 25/100 Mg Tablet PO 1 tablet TID QUAN Administration Carbidopa/Levodopa 1 tablet 03/26/24 17:00 03/27/24 15:11 Carbidopa/Levodopa 12.5/50 Mg Tablet PO 1 tablet TID QUAN Administration Enoxaparin Sodium 40 mg 03/27/24 09:00 03/27/24 08:54 Enoxaparin 40 Mg/0.4 Ml Syringe SUB-Q 40 mg DAILY QUAN Administration Levothyroxine Sodium 75 mcg 03/27/24 06:30 03/27/24 06:25 Levothyroxine Sodium 75 Mcg Tablet PO 75 mcg DAILY@0630 QUAN Administration Meloxicam 7.5 mg 03/27/24 09:00 03/27/24 08:03 Meloxicam 7.5 Mg Tablet PO 7.5 mg DAILY QUAN Administration Pantoprazole Sodium 40 mg 03/26/24 17:00 03/27/24 08:03 Pantoprazole 40 Mg Tablet PO 40 mg BID QUAN Administration Perflutren Lipid Microsphere 0 ml 03/26/24 15:06 Perflutren Lipid Microspheres 1.5 Ml Vial Diluted To 10 Ml Total Volume IV PUSH 03/29/24 15:07 ONCE PRN adequate visualization Protocol Promethazine HCl 12.5 mg 03/26/24 14:03 03/27/24 09:05 Promethazine Hcl 25 Mg/Ml Ampul IV PUSH 12.5 mg Q6H PRN Administration Nausea Rosuvastatin Calcium 10 mg 03/27/24 09:00 03/27/24 08:03 Rosuvastatin 10 Mg Tablet PO 10 mg DAILY QUAN Administration Sertraline HCl 25 mg 03/27/24 09:00 03/27/24 08:01 Sertraline Hcl 25 Mg Tablet PO 25 mg DAILY QUAN Administration Radiology Results: ITS Impressions Chest X-Ray 03/26/24 11:40 IMPRESSION: 1. Bilateral mild peripheral and lower lung predominant chronic interstitial lung disease. Head CT 03/26/24 12:23 IMPRESSION: No acute intracranial findings. Labs 03/27/24 04:02 03/27/24 04:02 Labs: Laboratory Results - last 24 hr 03/26/24 03/26/24 03/27/24 16:48 18:00 04:02 WBC 4.8 RBC 3.97 L Hgb 12.0 Hct 37.0 MCV 93.2 MCH 30.2 MCHC 32.4 RDW 13.3 Plt Count 192 MPV 9.8 Immature Gran % (Auto) 0.2 Neut % (Auto) 69.6 Lymph % (Auto) 19.4 [place] % (Auto) 8.5 Eos % (Auto) 1.7 Baso % (Auto) 0.6 Lymph # (Auto) 0.94 [place] # (Auto) 0.4 Eos # (Auto) 0.1 Baso # (Auto) 0.0 Abs Immat Gran (auto) 0.01 Absolute Neuts (auto) 3.4 Absolute Nucleated RBC 0.000 Nucleated RBC % 0.0 Sodium 140 Potassium 3.5 Chloride 108 H Carbon Dioxide 28 Anion Gap 4 BUN 8 Creatinine 0.48 L Estim Creat Clear Calc 70 Estimated GFR > 60 Glucose 84 Lactic Acid 1.2 Calcium 8.7 Phosphorus 2.8 Magnesium 2.3 Total Bilirubin 1.2 AST 25 ALT 7 Alkaline Phosphatase 56 Troponin I 0.020 Total Protein 6.0 L Albumin 3.6 Nasal MRSA (PCR) Not detected ASA Classification/Sedation ASA Classification/Sedation ASA Class: III Emergent: No Risks: Risks, benefits and alternatives explained and patient/family accepted plan for sedation. Patient re-evaluated immediately prior to sedation.
[2024-03-27] MEDS: ACETAMINOPHEN 325 MG TABLET 650 MG PO (16:43)
[2024-03-28] VITALS (13 sets, daily range): BP systolic 104–151; BP diastolic 61–82; PULSE 60–87; RESP 15–23; TEMP 36.6–36.8; O2SAT 91–100
[2024-03-28 04:36] LABS: Basophils Percent Auto 0.9 % (0.2-1.2); Eosinophils Absolute Auto 0.2 K/mm3 (0-0.3); Eosinophils Percent Auto 3.5 % (0-4.4); Hematocrit 37.7 % (37.0-47.0); Hemoglobin 12.2 g/dL (12.0-15.0); Immature Granulocyte Absolute 0.01 K/mm3 (0.00-0.031); Immature Granulocyte Percent A 0.2 % (0-0.5); Lymphocytes Absolute Auto 1.01 K/mm3 (0.9-3.2); Lymphocytes Percent Auto 23.3 % (18.3-44.2); Mean Corpuscular HGB Conc 32.4 g/dl (32-36); Mean Corpuscular Hemoglobin 30.3 pg (26-34); Mean Corpuscular Volume 93.5 fl (80-100); Mean Platelet Volume 9.6 fl (7.4-10.4); Monocytes Absolute Auto 0.4 K/mm3 (0.1-0.6); Monocytes Percent Auto 9.2 % (2.6-8.5); Neutrophils Absolute Auto 2.7 K/mm3 (1.3-6.7); Neutrophils Percent Auto 62.9 % (45.5-73.1); Platelet Count Result 198 k/mm3 (150-375); Red Blood Count 4.03 M/mm3 (4.2-5.4); Red Cell Distribution Width 13.2 % (11.5-14.5); White Blood Count 4.3 K/mm3 (4.5-10.0)
[2024-03-28 04:46] LABS: INR 1.1; Prothrombin Time 14.4 Seconds (11.1-14.7)
[2024-03-28 04:48] LABS: Alanine Aminotransferase 6 U/L (6-35); Albumin Level 3.1 g/dL (3.5-5.1); Alkaline Phosphatase 52 U/L (38-126); Anion Gap 1 mmol/L (4-12); Aspartate Amino Transferase 23 U/L (14-36); Bilirubin,Total 0.8 mg/dL (0.2-1.3); Blood Urea Nitrogen 8 mg/dL (7-17); Calcium 8.3 mg/dL (8.4-10.2); Carbon Dioxide 30 mmol/L (22-30); Chloride 108 mmol/L (98-107); Estimated CRCL calculation 65 ml/min; Estimated Glomerular Filt Rate > 60; Glucose 87 mg/dL (65-110); Magnesium 2.2 mg/dL (1.6-2.3); Partial Thromboplastin Time 40.6 Seconds (22.3-36.8); Phosphorus 3.4 mg/dL (2.5-4.5); Potassium 4.5 mmol/L (3.4-5.0); Sodium 139 mmol/L (137-145)
--- NOTE | 2024-03-28 08:25 | ECG_ITS ---
Test Date: 2024-03-28 10:05:43 Measurements Intervals [place] Rate: 74 P: 159 [place]: 183 QRS: -58 QRSD: 149 T: 83 QT: 484 QTc: 539 Interpretive Statements ELECTRONIC ATRIAL PACEMAKER ELECTRONIC VENTRICULAR PACEMAKER ABNORMAL RHYTHM ECG Compared to ECG 03/26/2024 14:04:26 PACED RHYTHM NOW PRESENT Electronically Signed On 03-28-2024 14:49:21 [employer]ATIVE LEAD by Paul Ley M.D.
--- NOTE | 2024-03-28 08:27 | WPDCARDPROC ---
Cardiac Cath Procedure Note Date of procedure:: 03/28/24 Performing physician:: Alphonse Logan MD Indication:: symptomatic bradycardia with complete heart block presenting with syncope Brief clinical history:: this is an 83-year-old woman without previous cardiac history who presented to the hospital with a syncopal episode. She was found to be bradycardic in complete heart block. On arrival she was taken to the cardiac cardiovascular lab director by my partner and a transvenous pacemaker was placed from the right femoral vein. She has bring brought to the cardiovascular lab director this morning for placement of a permanent pacemaker device. Procedure Procedure performed:: Dual-chamber pacemaker implant removal of temporary transvenous lead Sedation/Medication given:: fentanyl 25 mg Versed 2 mg Access site:: left subclavian vein Estimated blood loss:: minimal Procedure note:: patient was brought to the cardiac catheterization lab in the postabsorptive state the left anterior chest wall was prepped and draped in the normal fashion. Anesthesia was provided with 20 cc of lidocaine infiltrated beneath the clavicle. An incision was then made from the midclavicular line to the deltopectoral groove sharp and blunt dissection was used to separate the subcutaneous tissue electrocautery was used to provide cutaneous hemostasis. Blunt dissection was used to create a pacemaker pocket inferior to the incision. Using the IV in the left antecubital vein contrast was injected and a venogram was performed following this using the micro puncture needle the left subclavian vein was punctured using the modified Seldinger technique and a micro puncture wire was advanced into the level right atrium. The micropuncture sheath was placed into the vein and then the wire was exchanged for the 035 wire. A 6 [place] pacemaker sheath was placed into the vein and the dilator was withdrawn a 2nd 035 wire was then placed through the sheath into the vein the sheath was then withdrawn and the sheath and dilator were placed over 1 of the wires for venous access. Using this she the ventricular lead was placed into the level the right atrium. Using the 2nd wire and a 2nd 6 [place] SafeSheath the atrial lead was placed into the level of the right atrium. Attention was then turned to positioning of the ventricular lead. The stylet was withdrawn and a 3 cc syringe was used to 4 fashion a a J-tip stylet. This was used to steer the lead through the tricuspid valve RV and out into the pulmonary artery position. The lead was withdrawn and placed into the right ventricular apical position. The fixation screw was deployed and the stylet was withdrawn. The lead was tested using the analyzer good pacing sensing performs was demonstrated and a 10 volts stimulation showed no extracardiac stimulation. Following this attention was turned to positioning of the atrial lead. The stylet was withdrawn a preformed atrial J was placed into the stylet was then positioned into the right atrial appendage. Fixation screw was deployed upon withdrawal of the stylet the lead tip was fixed into position. Using the analyzer the lead was tested and appropriate sensing and pacing performed was demonstrated and once again a 10 volt stimulation showed no evidence of extracardiac stimulation. Following this the leads were secured to the base of the pocket using the suture sleeves and 2-0 silk ties. The retained sponge was removed from the pocket the pocket was then irrigated using antibiotic infused saline. Following this the pacemaker generator detailed below was connected to the leads and the entire assembly was placed into the newly created pocket. The pocket was then closed in layers using 3-0 Vicryl in an interrupted fashion for the subcutaneous tissue and 4-0 Vicryl in a running subcuticular fashion for the skin. The wound was dressed with an Aquacel dressing. At this time under fluoroscopic visualization the temporary pacemaker lead was withdrawn and there was no disruption position of the permanent pacemaker leads. Procedure was then terminated the patient was taken to the ICU for post procedure recovery. Postop antibiotics x-ray and ECG were ordered. Findings:: The patient received a Biotronik dual-chamber pacemaker model Amvia Edge [id number]. serial number is [id number]. device is programmed in the DDD mode lower rate limit 60 upper rate limit 120. The atrial lead is a Biotronik screw-in bipolar lead model Solia [id number]. serial number [id number]. P waves sensed at 1.4 mV threshold 0.9 volts at 0.4 milliseconds impedance 488 Ohms. The ventricular lead is a Biotronik screw-in bipolar lead model Solia [id number]. serial number [id number]. R-waves are sensed at 4.5 mV threshold 0.5 volts at 0.4 milliseconds impedance 586 Ohms. Conclusion:: 1. Successful uncomplicated implantation of dual-chamber pacemaker system for treatment of symptomatic bradycardia with acquired complete heart block in this 83-year-old lady 2. removal of temporary transvenous pacemaker lead placed upon admission for protection of her rhythm Alphonse Logan MD FACC
[2024-03-28] MEDS: CARBIDOPA/LEVODOPA 12.5/50 MG TABLET 1 TABLET PO ×3 (09:47→16:11)
[2024-03-28] MEDS: SODIUM CHLORIDE 0.9% IV 1,000 ML 50 ML IV CONT (09:47)
[2024-03-28] MEDS: CARBIDOPA/LEVODOPA 25/100 MG TABLET 1 TABLET PO ×3 (09:47→16:11)
[2024-03-28] MEDS: SERTRALINE HCL 25 MG TABLET PO (09:48)
[2024-03-28] MEDS: ROSUVASTATIN 10 MG TABLET PO (09:48)
[2024-03-28] MEDS: MELOXICAM 7.5 MG TABLET PO (09:48)
[2024-03-28] MEDS: PANTOPRAZOLE 40 MG TABLET PO ×2 (09:48→16:11)
--- NOTE | 2024-03-28 12:20 | PCFNICU ---
ICU Rounding Note: Pt current nutrition is NPO. Last recorded weight is 58.4 kg, down from 61 kg on admit. Bowel Motility: No BM reported. Labs Reviewed:Cr 0.55, Alb 3.1 Meds Noted:Crestor, Lovenox, Protonix, Synthroid. Skin: WNL Additional Notes: Patient NPO for heart cath today. Bedside swallow evaluation ordered 2/2 to patient states she was having difficulty swallowing pills. Will monitor for diet modifications. Following daily in ICU rounds.
--- NOTE | 2024-03-28 12:59 | PCPTNOTE ---
HOLD PT evaluation today-- pt had cardiac cath this AM.
[2024-03-28] MEDS: ceFAZolin 1 GM/NS 50 ML 1 GM/50 ML BAG IVPB ×2 (14:15→23:26)
--- NOTE | 2024-03-28 14:29 | P.PNINT_ITS ---
Progress Note: A&P Assessment and Plan (1) High-grade atrioventricular block: Code(s): I44.39 - Other atrioventricular block Status: Acute Assessment and Plan: Patient presented with syncopal episode, with LOC, in the ED patient was in high-grade AV block, transvenous pacemaker was inserted by statistical clerk advertising -patient is not on any AV harish blockers at home -history of hypothyroidism -cardiology following,. Status post permanent pacemaker placed on 03/28/2024 -03/27: echocardiogram: Summary 1. Complete two-dimensional, color flow and Doppler transthoracic echocardiogram is performed. 2. There is normal biventricular systolic function. 3. There is no significant valvular disease. 4. There is a small pericardial effusion. (2) Hypothyroid: Qualifiers: Hypothyroidism type: unspecified Qualified Code(s): E03.9 - Hypothyroidism, unspecified Code(s): E03.9 - Hypothyroidism, unspecified Status: Chronic Assessment and Plan: Continue Levothyroid (3) Parkinson disease: Qualifiers: Dyskinesia presence: unspecified whether dyskinesia Fluctuating manifestations: unspecified whether manifestations fluctuate Qualified Code(s): G20.A1 - Parkinson's disease without dyskinesia, without mention of fluctuations Code(s): G20 - Parkinson's disease Status: Chronic Assessment and Plan: Continue carbidopa and levodopa Plan DVT prophylaxis: Enoxaparin Stress ulcer prophylaxis: Protonix Nutrition: Heart healthy diet Code Status: Full code Critical Care Time Spent: 31 minutes Due to a high probability of clinically significant, life threatening deterioration, the patient required my highest level of preparedness to intervene emergently and I personally spent this critical care time directly and personally managing the patient. This critical care time included obtaining a history; examining the patient; pulse oximetry; ordering and review of studies; arranging urgent treatment with development of a management plan; evaluation of patient's response to treatment; frequent reassessment; and discussions with other providers. It was exclusive of separately billable procedures and treating other patients and teaching time. Please see Assessment and Plan section and the rest of the note for further information on patient assessment and treatment This dictation may have been done utilizing a voice recognition system. Attempts have been made to correct errors. However, there may be uncorrected grammatical, spelling, and recognitions errors present. Subjective Date/time seen: 03/28/24 14:29 Interval history: Reason for consult: 03/27: Syncopal episode, High-grade AV block status post transvenous pacemaker 03/28: Permanent pacemaker placed by Dr. Logan 03/28/2024: Patient seen and examined the ICU, patient got her up in pacemaker placed early this morning. Patient was slightly confused this morning but otherwise denies any chest pain, shortness of breath, abdominal pain, nausea, vomiting. Hemodynamically stable, adequate urine output, afebrile Review of Systems Review of Systems: All systems reviewed & are unremarkable except as noted in HPI and below Exam Narrative: General: Pleasant female in no acute distress HEENT:? Pupils equal and reactive, sclera is clear Neck:? Supple Respiratory:? Clear to auscultation bilaterally, no wheezing, adequate air entry Cardiac:? Paced rhythm Abdomen:? Soft, nontender, nondistended, normoactive bowel sound Extremities:? No edema, palpable pedal pulses Neuro:? Patient is awake, alert, answers to questions appropriately and follows simple commands in all extremities Skin:? Warm and dry Psych:? Normal mentation and affect Objective Data Vital Signs Vital Signs: Vital Signs - 24 hr 03/27/24 16:00 03/27/24 16:00 03/27/24 18:00 Temperature 98.1 F Pulse Rate 60 60 60 Respiratory Rate 19 Blood Pressure 125/57 L Pulse Oximetry 97 Oxygen Delivery 03/27/24 18:00 03/27/24 20:00 03/27/24 20:00 Temperature Pulse Rate 60 62 Respiratory Rate 16 Blood Pressure 111/80 Pulse Oximetry 95 Oxygen Delivery Room Air 03/27/24 20:01 03/27/24 22:00 03/27/24 22:37 Temperature 98.0 F Pulse Rate 60 62 62 Respiratory Rate 17 17 Blood Pressure 120/66 121/65 Pulse Oximetry 97 95 Oxygen Delivery 03/27/24 23:41 03/28/24 00:00 03/28/24 00:00 Temperature 98.0 F Pulse Rate 60 60 Respiratory Rate 17 Blood Pressure 130/64 Pulse Oximetry 95 Oxygen Delivery Room Air 03/28/24 02:00 03/28/24 02:01 03/28/24 03:27 Temperature Pulse Rate 60 60 Respiratory Rate 15 Blood Pressure 104/66 Pulse Oximetry 96 Oxygen Delivery Room Air 03/28/24 04:00 03/28/24 04:00 03/28/24 06:00 Temperature 97.9 F Pulse Rate 60 60 60 Respiratory Rate 15 20 Blood Pressure 113/72 136/71 Pulse Oximetry 98 100 Oxygen Delivery 03/28/24 06:00 03/28/24 09:00 03/28/24 10:00 Temperature 98.1 F Pulse Rate 60 64 Respiratory Rate 18 Blood Pressure 142/81 H Pulse Oximetry 100 Oxygen Delivery Room Air 03/28/24 10:00 03/28/24 12:00 03/28/24 12:00 Temperature Pulse Rate 68 75 Respiratory Rate Blood Pressure Pulse Oximetry Oxygen Delivery Room Air 03/28/24 12:00 03/28/24 14:00 03/28/24 14:10 Temperature 98.2 F Pulse Rate 79 69 87 Respiratory Rate 20 23 H Blood Pressure 151/81 H 142/82 H Pulse Oximetry 91 100 Oxygen Delivery Intake/Output Intake/Output: Intake & Output 03/25/24 03/26/24 03/27/24 03/28/24 23:59 23:59 23:59 23:59 Intake Total 240 420 100 Output Total 950 775 Balance 659 -479 -092 Meds/Results Medications: Active Medications Generic Name Dose Route Start Last Admin Trade Name Freq PRN Reason Stop Dose Admin Acetaminophen 650 mg 03/26/24 14:03 03/27/24 16:43 Acetaminophen 325 Mg Tablet PO 650 mg Q4H PRN Administration Mild Pain (1-3) or Fever Alendronate Sodium 70 mg 03/29/24 09:00 Alendronate Sodium 70 Mg Tablet PO WEEKLY QUAN Carbidopa/Levodopa 1 tablet 03/26/24 17:00 03/28/24 12:17 Carbidopa/Levodopa 25/100 Mg Tablet PO 1 tablet TID QUAN Administration Carbidopa/Levodopa 1 tablet 03/26/24 17:00 03/28/24 12:17 Carbidopa/Levodopa 12.5/50 Mg Tablet PO 1 tablet TID QUAN Administration Enoxaparin Sodium 40 mg 03/27/24 09:00 03/27/24 08:54 Enoxaparin 40 Mg/0.4 Ml Syringe SUB-Q 40 mg DAILY QUAN Administration Sodium Chloride 1,000 mls @ 50 mls/hr 03/28/24 08:25 03/28/24 09:47 Normal Saline Iv IV CONT 03/28/24 16:24 50 mls/hr .Q20H QUAN Administration Cefazolin Sodium 1 gm in 50 mls @ 100 mls/hr 03/28/24 15:00 Ancef 1 Gm/Ns 50 Ml IVPB 03/28/24 23:29 Q8H QUAN Levothyroxine Sodium 75 mcg 03/27/24 06:30 03/28/24 05:28 Levothyroxine Sodium 75 Mcg Tablet PO Not Given DAILY@0630 QUAN Meloxicam 7.5 mg 03/27/24 09:00 03/28/24 09:48 Meloxicam 7.5 Mg Tablet PO 7.5 mg DAILY QUAN Administration Pantoprazole Sodium 40 mg 03/26/24 17:00 03/28/24 09:48 Pantoprazole 40 Mg Tablet PO 40 mg BID QUAN Administration Perflutren Lipid Microsphere 0 ml 03/26/24 15:06 Perflutren Lipid Microspheres 1.5 Ml Vial Diluted To 10 Ml Total Volume IV PUSH 03/29/24 15:07 ONCE PRN adequate visualization Protocol Promethazine HCl 12.5 mg 03/26/24 14:03 03/27/24 09:05 Promethazine Hcl 25 Mg/Ml Ampul IV PUSH 12.5 mg Q6H PRN Administration Nausea Rosuvastatin Calcium 10 mg 03/27/24 09:00 03/28/24 09:48 Rosuvastatin 10 Mg Tablet PO 10 mg DAILY QUAN Administration Sertraline HCl 25 mg 03/27/24 09:00 03/28/24 09:48 Sertraline Hcl 25 Mg Tablet PO 25 mg DAILY QUAN Administration Radiology Results: ITS Impressions Head CT 03/26/24 12:23 IMPRESSION: No acute intracranial findings. Chest X-Ray 03/28/24 09:10 IMPRESSION: Left basilar atelectasis versus pneumonia. Labs Labs: Laboratory Results - last 24 hr 03/28/24 04:31 WBC 4.3 L RBC 4.03 L Hgb 12.2 Hct 37.7 MCV 93.5 MCH 30.3 MCHC 32.4 RDW 13.2 Plt Count 198 MPV 9.6 Immature Gran % (Auto) 0.2 Neut % (Auto) 62.9 Lymph % (Auto) 23.3 Mcleod % (Auto) 9.2 H Eos % (Auto) 3.5 Baso % (Auto) 0.9 Lymph # (Auto) 1.01 Mcleod # (Auto) 0.4 Eos # (Auto) 0.2 Baso # (Auto) 0.0 Abs Immat Gran (auto) 0.01 Absolute Neuts (auto) 2.7 Absolute Nucleated RBC 0.000 Nucleated RBC % 0.0 PT 14.4 INR 1.1 APTT 40.6 H Sodium 139 Potassium 4.5 Chloride 108 H Carbon Dioxide 30 Anion Gap 1 L BUN 8 Creatinine 0.55 L Estim Creat Clear Calc 65 Estimated GFR > 60 Glucose 87 Calcium 8.3 L Phosphorus 3.4 Magnesium 2.2 Total Bilirubin 0.8 AST 23 ALT 6 Alkaline Phosphatase 52 Total Protein 6.0 L Albumin 3.1 L Quality VTE Prophylaxis VTE prophylaxis: pharmacologic ordered
--- NOTE | 2024-03-28 15:59 | PCSTNOTE ---
Please refer to the Bedside Swallow Evaluation in the EMR. Please note, silent aspiration cannot be ruled out at bedside.
[2024-03-28] MEDS: ACETAMINOPHEN 325 MG TABLET 650 MG PO ×2 (16:11→23:27)
[2024-03-29] VITALS (10 sets, daily range): BP systolic 104–122; BP diastolic 57–76; PULSE 66–91; RESP 14–24; TEMP 36.4–36.7; O2SAT 97–100
[2024-03-29 04:56] LABS: Basophils Percent Auto 0.5 % (0.2-1.2); Eosinophils Absolute Auto 0.1 K/mm3 (0-0.3); Eosinophils Percent Auto 1.4 % (0-4.4); Hematocrit 40.4 % (37.0-47.0); Immature Granulocyte Absolute 0.02 K/mm3 (0.00-0.031); Immature Granulocyte Percent A 0.3 % (0-0.5); Lymphocytes Percent Auto 11.2 % (18.3-44.2); Mean Corpuscular HGB Conc 32.2 g/dl (32-36); Mean Corpuscular Hemoglobin 29.5 pg (26-34); Mean Corpuscular Volume 91.6 fl (80-100); Mean Platelet Volume 9.7 fl (7.4-10.4); Monocytes Absolute Auto 0.5 K/mm3 (0.1-0.6); Monocytes Percent Auto 7.8 % (2.6-8.5); Neutrophils Absolute Auto 4.9 K/mm3 (1.3-6.7); Neutrophils Percent Auto 78.8 % (45.5-73.1); Platelet Count Result 217 k/mm3 (150-375); Red Blood Count 4.41 M/mm3 (4.2-5.4); White Blood Count 6.3 K/mm3 (4.5-10.0)
[2024-03-29 05:07] LABS: Alanine Aminotransferase 9 U/L (6-35); Albumin Level 3.3 g/dL (3.5-5.1); Alkaline Phosphatase 60 U/L (38-126); Anion Gap 6 mmol/L (4-12); Aspartate Amino Transferase 25 U/L (14-36); Bilirubin,Total 1.1 mg/dL (0.2-1.3); Blood Urea Nitrogen 9 mg/dL (7-17); Calcium 8.4 mg/dL (8.4-10.2); Carbon Dioxide 26 mmol/L (22-30); Chloride 105 mmol/L (98-107); Estimated CRCL calculation 73 ml/min; Estimated Glomerular Filt Rate > 60; Glucose 101 mg/dL (65-110); Phosphorus 3.4 mg/dL (2.5-4.5); Potassium 3.7 mmol/L (3.4-5.0); Sodium 137 mmol/L (137-145)
[2024-03-29] MEDS: LEVOTHYROXINE SODIUM 75 MCG TABLET PO (06:46)
--- NOTE | 2024-03-29 08:35 | PC.NURSE ---
Jori from [facility] reports interrogation of pacemaker was unremarkable. Report received and filed in chart.
--- NOTE | 2024-03-29 08:35 | PM.PNCARD ---
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 Hypothyroidism on levothyroxine Plan Device interrogation Chest x-ray After her device interrogations & x-ray patient can be discharged from cardiac standpoint and follow up in the clinic Subjective Date/time seen: 03/29/24 08:35 Interval history: No acute events Telemetry paced rhythm Review of Systems Review of Systems: All systems reviewed & are unremarkable except as noted in HPI and below Exam Const: General: no acute distress Orientation/consciousness: oriented to person, No oriented to place, No oriented to time and confusion HENMT: Mouth: Yes moist mucous membranes Eyes: General: appearance normal, both eyes and all related structures Sclera: sclerae normal Resp: Effort & Inspection: normal respiratory effort Cardio: Rate: regular rate Rhythm: regular rhythm Heart sounds: no murmurs Other: Pacemaker site without hematoma or bleeding Urinary Catheter: Urinary Catheter: patent and draining Skin: General skin exam: normal color Neuro: Speech: normal speech Psych: Mental Status: mental status grossly abnormal Affect: normal affect Objective Data Vital Signs Vital Signs: Vital Signs - 24 hr 03/28/24 09:00 03/28/24 10:00 03/28/24 10:00 Temperature 36.7 C Pulse Rate 64 68 Respiratory Rate 18 Blood Pressure 142/81 H Pulse Oximetry 100 Oxygen Delivery Room Air 03/28/24 12:00 03/28/24 12:00 03/28/24 12:00 Temperature 36.8 C Pulse Rate 75 79 Respiratory Rate 20 Blood Pressure 151/81 H Pulse Oximetry 91 Oxygen Delivery Room Air 03/28/24 14:00 03/28/24 14:10 03/28/24 15:00 Temperature Pulse Rate 69 87 Respiratory Rate 23 H Blood Pressure 142/82 H Pulse Oximetry 100 Oxygen Delivery Room Air 03/28/24 16:00 03/28/24 18:00 03/28/24 20:00 Temperature 36.6 C Pulse Rate 69 69 70 Respiratory Rate 20 Blood Pressure 112/61 Pulse Oximetry 98 Oxygen Delivery 03/28/24 20:00 03/28/24 22:00 03/29/24 00:00 Temperature 36.6 C Pulse Rate 64 81 66 Respiratory Rate 15 Blood Pressure 104/57 L Pulse Oximetry 99 Oxygen Delivery 03/29/24 00:00 03/29/24 02:00 03/29/24 04:00 Temperature 36.7 C Pulse Rate 72 84 75 Respiratory Rate 16 Blood Pressure 112/59 L Pulse Oximetry 99 Oxygen Delivery 03/29/24 04:00 03/29/24 06:00 Temperature Pulse Rate 72 75 Respiratory Rate Blood Pressure Pulse Oximetry Oxygen Delivery Intake/Output Intake/Output: Intake & Output 03/26/24 03/27/24 03/28/24 03/29/24 23:59 23:59 23:59 23:59 Intake Total 240 420 615 300 Output Total 950 1175 650 Balance 753 -530 -560 -350 Meds/Results Medications: Active Medications Generic Name Dose Route Start Last Admin Trade Name Freq PRN Reason Stop Dose Admin Acetaminophen 650 mg 03/26/24 14:03 03/28/24 23:27 Acetaminophen 325 Mg Tablet PO 650 mg Q4H PRN Administration Mild Pain (1-3) or Fever Alendronate Sodium 70 mg 03/29/24 09:00 Alendronate Sodium 70 Mg Tablet PO WEEKLY QUAN Carbidopa/Levodopa 1 tablet 03/26/24 17:00 03/28/24 16:11 Carbidopa/Levodopa 25/100 Mg Tablet PO 1 tablet TID QUAN Administration Carbidopa/Levodopa 1 tablet 03/26/24 17:00 03/28/24 16:11 Carbidopa/Levodopa 12.5/50 Mg Tablet PO 1 tablet TID QUAN Administration Enoxaparin Sodium 40 mg 03/27/24 09:00 03/27/24 08:54 Enoxaparin 40 Mg/0.4 Ml Syringe SUB-Q 40 mg DAILY QUAN Administration Levothyroxine Sodium 75 mcg 03/27/24 06:30 03/29/24 06:46 Levothyroxine Sodium 75 Mcg Tablet PO 75 mcg DAILY@0630 QUAN Administration Meloxicam 7.5 mg 03/27/24 09:00 03/28/24 09:48 Meloxicam 7.5 Mg Tablet PO 7.5 mg DAILY QUAN Administration Pantoprazole Sodium 40 mg 03/26/24 17:00 03/28/24 16:11 Pantoprazole 40 Mg Tablet PO 40 mg BID QUAN Administration Perflutren Lipid Microsphere 0 ml 03/26/24 15:06 Perflutren Lipid Microspheres 1.5 Ml Vial Diluted To 10 Ml Total Volume IV PUSH 03/29/24 15:07 ONCE PRN adequate visualization Protocol Promethazine HCl 12.5 mg 03/26/24 14:03 03/27/24 09:05 Promethazine Hcl 25 Mg/Ml Ampul IV PUSH 12.5 mg Q6H PRN Administration Nausea Rosuvastatin Calcium 10 mg 03/27/24 09:00 03/28/24 09:48 Rosuvastatin 10 Mg Tablet PO 10 mg DAILY QUNA Administration Sertraline HCl 25 mg 03/27/24 09:00 03/28/24 09:48 Sertraline Hcl 25 Mg Tablet PO 25 mg DAILY QUAN Administration Radiology Results: ITS Impressions Head CT 03/26/24 12:23 IMPRESSION: No acute intracranial findings. Chest X-Ray 03/29/24 08:18 IMPRESSION: 1. Peripheral interstitial opacities in the lungs, consistent with mild pulmonary edema versus mild chronic interstitial lung disease. 2. Small pleural effusions. Labs Labs: Laboratory Results - last 24 hr 03/29/24 04:45 WBC 6.3 RBC 4.41 Hgb 13.0 Hct 40.4 MCV 91.6 MCH 29.5 MCHC 32.2 RDW 13.0 Plt Count 217 MPV 9.7 Immature Gran % (Auto) 0.3 Neut % (Auto) 78.8 H Lymph % (Auto) 11.2 L Pender % (Auto) 7.8 Eos % (Auto) 1.4 Baso % (Auto) 0.5 Lymph # (Auto) 0.70 L Pender # (Auto) 0.5 Eos # (Auto) 0.1 Baso # (Auto) 0.0 Abs Immat Gran (auto) 0.02 Absolute Neuts (auto) 4.9 Absolute Nucleated RBC 0.000 Nucleated RBC % 0.0 Sodium 137 Potassium 3.7 Chloride 105 Carbon Dioxide 26 Anion Gap 6 BUN 9 Creatinine 0.46 L Estim Creat Clear Calc 73 Estimated GFR > 60 Glucose 101 Calcium 8.4 Phosphorus 3.4 Magnesium 2.0 Total Bilirubin 1.1 AST 25 ALT 9 Alkaline Phosphatase 60 Total Protein 6.0 L Albumin 3.3 L
[2024-03-29] MEDS: PANTOPRAZOLE 40 MG TABLET PO ×2 (09:59→17:35)
[2024-03-29] MEDS: CARBIDOPA/LEVODOPA 12.5/50 MG TABLET 1 TABLET PO ×3 (09:59→17:35)
[2024-03-29] MEDS: SERTRALINE HCL 25 MG TABLET PO (09:59)
[2024-03-29] MEDS: ROSUVASTATIN 10 MG TABLET PO (09:59)
[2024-03-29] MEDS: ALENDRONATE SODIUM 70 MG TABLET PO (09:59)
[2024-03-29] MEDS: MELOXICAM 7.5 MG TABLET PO (09:59)
[2024-03-29] MEDS: CARBIDOPA/LEVODOPA 25/100 MG TABLET 1 TABLET PO ×3 (10:00→17:35)
[2024-03-29] MEDS: ACETAMINOPHEN 325 MG TABLET 650 MG PO ×2 (10:07→17:34)
--- NOTE | 2024-03-29 11:42 | P.PNIM_ITS ---
Progress Note: A&P Assessment and Plan (1) High-grade atrioventricular block: Code(s): I44.39 - Other atrioventricular block Status: Acute (2) Junctional bradycardia: Code(s): R00.1 - Bradycardia, unspecified Status: Acute (3) Hypothyroid: Qualifiers: Hypothyroidism type: unspecified Qualified Code(s): E03.9 - Hypothyroidism, unspecified Code(s): E03.9 - Hypothyroidism, unspecified Status: Chronic (4) Parkinson disease: Qualifiers: Dyskinesia presence: unspecified whether dyskinesia Fluctuating manifestations: unspecified whether manifestations fluctuate Qualified Code(s): G20.A1 - Parkinson's disease without dyskinesia, without mention of fluctuations Code(s): G20 - Parkinson's disease Status: Chronic Plan (1) High-grade atrioventricular block: Code(s): I44.39 - Other atrioventricular block Status: Acute Assessment and Plan: Patient presented with syncopal episode, with LOC, in the ED patient was in high-grade AV block, transvenous pacemaker was inserted by resident care coordinator patient is not on any AV harish blockers at home -cardiology following,. Status post permanent pacemaker placed on 03/28/2024 -03/27: echocardiogram: Summary 1. Complete two-dimensional, color flow and Doppler transthoracic echocardiogram is performed. 2. There is normal biventricular systolic function. 3. There is no significant valvular disease. 4. There is a small pericardial effusion. Patient denies lightheadedness, chest pain or chest tightness (2) Hypothyroid: Qualifiers: Hypothyroidism type: unspecified Qualified Code(s): E03.9 - Hypothyroidism, unspecified Code(s): E03.9 - Hypothyroidism, unspecified Status: Chronic Assessment and Plan: Continue Levothyroid tsh 5.57 fT4 1.8 (3) Parkinson disease: Qualifiers: Dyskinesia presence: unspecified whether dyskinesia Fluctuating manifestations: unspecified whether manifestations fluctuate Qualified Code(s): G20.A1 - Parkinson's disease without dyskinesia, without mention of fluctuations Code(s): G20 - Parkinson's disease Status: Chronic Assessment and Plan: Continue carbidopa and levodopa Patient still confused, mental status is improving Subjective Date/time seen: 03/29/24 11:42 Interval history: I saw and examined patient today, patient has a general weakness, patient still confused, patient denies chest pain palpitation lightheadedness. Exam Narrative: GENERAL: Pleasant, in no acute distress. Well-nourished. - EYES: EOMI. Anicteric. - HENT: Moist mucous membranes. - LUNGS: Clear to auscultation bilateral ly, no wheezing, rhonchi, or rales. - CARDIOVASCULAR: Regular rate and rhyth m. No murmur. No JVD. - ABDOMEN: Soft, non-tender and non-dist ended. No palpable masses. - EXTREMITIES: No edema. Peripheral puls es 2+. Non-tender. - NEUROLOGIC: No focal neurological defi cits. CN II-XII grossly intact. - PSYCHIATRIC: Awake, Alert and oriented to place. Appropriate mood and affect. - SKIN: No rashes or lesions. Warm. - LYMPH: No cervical lymphadenopathy. Objective Data Vital Signs Vital Signs: Vital Signs - 24 hr 03/28/24 12:00 03/28/24 12:00 03/28/24 12:00 Temperature 98.2 F Pulse Rate 75 79 Respiratory Rate 20 Blood Pressure 151/81 H Pulse Oximetry 91 Oxygen Delivery Room Air 03/28/24 14:00 03/28/24 14:10 03/28/24 15:00 Temperature Pulse Rate 69 87 Respiratory Rate 23 H Blood Pressure 142/82 H Pulse Oximetry 100 Oxygen Delivery Room Air 03/28/24 16:00 03/28/24 18:00 03/28/24 20:00 Temperature 97.8 F Pulse Rate 69 69 70 Respiratory Rate 20 Blood Pressure 112/61 Pulse Oximetry 98 Oxygen Delivery 03/28/24 20:00 03/28/24 22:00 03/29/24 00:00 Temperature 98 F Pulse Rate 64 81 66 Respiratory Rate 15 Blood Pressure 104/57 L Pulse Oximetry 99 Oxygen Delivery 03/29/24 00:00 03/29/24 02:00 03/29/24 04:00 Temperature 98.1 F Pulse Rate 72 84 75 Respiratory Rate 16 Blood Pressure 112/59 L Pulse Oximetry 99 Oxygen Delivery 03/29/24 04:00 03/29/24 06:00 03/29/24 08:00 Temperature 97.8 F Pulse Rate 72 75 78 Respiratory Rate 20 Blood Pressure 113/76 Pulse Oximetry 98 Oxygen Delivery 03/29/24 08:00 03/29/24 10:00 Temperature Pulse Rate 81 80 Respiratory Rate Blood Pressure Pulse Oximetry Oxygen Delivery Intake/Output Intake/Output: Intake & Output 03/26/24 03/27/24 03/28/24 03/29/24 23:59 23:59 23:59 23:59 Intake Total 240 420 615 420 Output Total 950 1175 650 Balance 240 -530 -560 -230 Meds/Results Medications: Active Medications Generic Name Dose Route Start Last Admin Trade Name Freq PRN Reason Stop Dose Admin Acetaminophen 650 mg 03/26/24 14:03 03/29/24 10:07 Acetaminophen 325 Mg Tablet PO 650 mg Q4H PRN Administration Mild Pain (1-3) or Fever Alendronate Sodium 70 mg 03/29/24 09:00 03/29/24 09:59 Alendronate Sodium 70 Mg Tablet PO 70 mg WEEKLY QUAN Administration Carbidopa/Levodopa 1 tablet 03/26/24 17:00 03/29/24 10:00 Carbidopa/Levodopa 25/100 Mg Tablet PO 1 tablet TID QUAN Administration Carbidopa/Levodopa 1 tablet 03/26/24 17:00 03/29/24 09:59 Carbidopa/Levodopa 12.5/50 Mg Tablet PO 1 tablet TID QUAN Administration Enoxaparin Sodium 40 mg 03/27/24 09:00 03/27/24 08:54 Enoxaparin 40 Mg/0.4 Ml Syringe SUB-Q 40 mg DAILY QUAN Administration Levothyroxine Sodium 75 mcg 03/27/24 06:30 03/29/24 06:46 Levothyroxine Sodium 75 Mcg Tablet PO 75 mcg DAILY@0630 QUAN Administration Meloxicam 7.5 mg 03/27/24 09:00 03/29/24 09:59 Meloxicam 7.5 Mg Tablet PO 7.5 mg DAILY QUAN Administration Pantoprazole Sodium 40 mg 03/26/24 17:00 03/29/24 09:59 Pantoprazole 40 Mg Tablet PO 40 mg BID QUAN Administration Perflutren Lipid Microsphere 0 ml 03/26/24 15:06 Perflutren Lipid Microspheres 1.5 Ml Vial Diluted To 10 Ml Total Volume IV PUSH 03/29/24 15:07 ONCE PRN adequate visualization Protocol Promethazine HCl 12.5 mg 03/26/24 14:03 03/27/24 09:05 Promethazine Hcl 25 Mg/Ml Ampul IV PUSH 12.5 mg Q6H PRN Administration Nausea Rosuvastatin Calcium 10 mg 03/27/24 09:00 03/29/24 09:59 Rosuvastatin 10 Mg Tablet PO 10 mg DAILY QUAN Administration Sertraline HCl 25 mg 03/27/24 09:00 03/29/24 09:59 Sertraline Hcl 25 Mg Tablet PO 25 mg DAILY QUAN Administration Radiology Results: ITS Impressions Head CT 03/26/24 12:23 IMPRESSION: No acute intracranial findings. Chest X-Ray 03/29/24 08:18 IMPRESSION: 1. Peripheral interstitial opacities in the lungs, consistent with mild pulmonary edema versus mild chronic interstitial lung disease. 2. Small pleural effusions. Labs Labs: Laboratory Results - last 24 hr 03/29/24 04:45 WBC 6.3 RBC 4.41 Hgb 13.0 Hct 40.4 MCV 91.6 MCH 29.5 MCHC 32.2 RDW 13.0 Plt Count 217 MPV 9.7 Immature Gran % (Auto) 0.3 Neut % (Auto) 78.8 H Lymph % (Auto) 11.2 L Kane % (Auto) 7.8 Eos % (Auto) 1.4 Baso % (Auto) 0.5 Lymph # (Auto) 0.70 L Kane # (Auto) 0.5 Eos # (Auto) 0.1 Baso # (Auto) 0.0 Abs Immat Gran (auto) 0.02 Absolute Neuts (auto) 4.9 Absolute Nucleated RBC 0.000 Nucleated RBC % 0.0 Sodium 137 Potassium 3.7 Chloride 105 Carbon Dioxide 26 Anion Gap 6 BUN 9 Creatinine 0.46 L Estim Creat Clear Calc 73 Estimated GFR > 60 Glucose 101 Calcium 8.4 Phosphorus 3.4 Magnesium 2.0 Total Bilirubin 1.1 AST 25 ALT 9 Alkaline Phosphatase 60 Total Protein 6.0 L Albumin 3.3 L
--- NOTE | 2024-03-29 18:52 | PC.NURSE ---
This patient, Molly Alonso, was transferred to [facility] on 03/29/24 at 1852. Personal belongings sent with patient. Report given to DEJAN Flores. Appropriate documentation sent with patient.
[2024-03-29] MEDS: OLANZapine 10 MG INJ VIAL 5 MG IM (23:35)
--- NOTE | 2024-03-29 23:51 | PC.NURSE ---
pt was confused and agitated she was very adamant about leaving. Pt. was up and in the hallway trying to put her clothes on. Security helped get her in bed and zyprexa was given. Pt is now resting in bed. Family was called with no answer.
--- NOTE | 2024-03-30 08:45 | PM.IMPN ---
Progress Note: A&P Assessment and Plan (1) High-grade atrioventricular block: Code(s): I44.39 - Other atrioventricular block Status: Acute (2) Junctional bradycardia: Code(s): R00.1 - Bradycardia, unspecified Status: Acute (3) Hypothyroid: Qualifiers: Hypothyroidism type: unspecified Qualified Code(s): E03.9 - Hypothyroidism, unspecified Code(s): E03.9 - Hypothyroidism, unspecified Status: Chronic (4) Parkinson disease: Qualifiers: Dyskinesia presence: unspecified whether dyskinesia Fluctuating manifestations: unspecified whether manifestations fluctuate Qualified Code(s): G20.A1 - Parkinson's disease without dyskinesia, without mention of fluctuations Code(s): G20 - Parkinson's disease Status: Chronic Plan (1) High-grade atrioventricular block: Code(s): I44.39 - Other atrioventricular block Status: Acute Assessment and Plan: Patient presented with syncopal episode, with LOC, in the ED patient was in high-grade AV block, transvenous pacemaker was inserted by pack train driver patient is not on any AV harish blockers at home -cardiology following,. Status post permanent pacemaker placed on 03/28/2024 -03/27: echocardiogram: Summary 1. Complete two-dimensional, color flow and Doppler transthoracic echocardiogram is performed. 2. There is normal biventricular systolic function. 3. There is no significant valvular disease. 4. There is a small pericardial effusion. Patient denies lightheadedness, chest pain or chest tightness device interrogations will be performed by pack train driver (2) Hypothyroid: Qualifiers: Hypothyroidism type: unspecified Qualified Code(s): E03.9 - Hypothyroidism, unspecified Code(s): E03.9 - Hypothyroidism, unspecified Status: Chronic Assessment and Plan: Continue Levothyroid tsh 5.57 fT4 1.8 (3) Parkinson disease: Qualifiers: Dyskinesia presence: unspecified whether dyskinesia Fluctuating manifestations: unspecified whether manifestations fluctuate Qualified Code(s): G20.A1 - Parkinson's disease without dyskinesia, without mention of fluctuations Code(s): G20 - Parkinson's disease Status: Chronic Assessment and Plan: Continue carbidopa and levodopa Patient still confused, mental status is improving Waiting for placement Subjective Date/time seen: 03/30/24 08:45 Interval history: I saw and examined patient today, patient has a general weakness, patient still confused, patient denies chest pain palpitation lightheadedness. Patient denies focal weakness Exam Narrative: GENERAL: Pleasant, in no acute distress. Well-nourished. - EYES: EOMI. Anicteric. - HENT: Moist mucous membranes. - LUNGS: Clear to auscultation bilaterally, no wheezing, rhonchi, or rales. - CARDIOVASCULAR: Regular rate and rhythm. No murmur. No JVD. - ABDOMEN: Soft, non-tender and non-distended. No palpable masses. - EXTREMITIES: No edema. Peripheral pulses 2+. Non-tender. - NEUROLOGIC: No focal neurological deficits. CN II-XII grossly intact. - PSYCHIATRIC: Awake, Alert and oriented to place. Appropriate mood and affect. - SKIN: No rashes or lesions. Warm. - LYMPH: No cervical lymphadenopathy. Objective Data Vital Signs Vital Signs: Vital Signs - 24 hr 03/29/24 10:00 03/29/24 12:00 03/29/24 12:00 Temperature 97.6 F Pulse Rate 80 82 80 Respiratory Rate 24 H Blood Pressure 120/73 Pulse Oximetry 97 Oxygen Delivery 03/29/24 14:00 03/29/24 14:43 03/29/24 16:00 Temperature 97.7 F Pulse Rate 91 82 Respiratory Rate 16 Blood Pressure 118/72 Pulse Oximetry 98 Oxygen Delivery Room Air 03/29/24 21:19 Temperature 97.6 F Pulse Rate 69 Respiratory Rate 14 Blood Pressure 122/70 Pulse Oximetry 100 Oxygen Delivery Intake/Output Intake/Output: Intake & Output 03/27/24 03/28/24 03/29/24 03/30/24 23:59 23:59 23:59 23:59 Intake Total 367 490 8752 0 Output Total 950 1175 1200 Balance -530 -560 260 0 Meds/Results Medications: Active Medications Generic Name Dose Route Start Last Admin Trade Name Freq PRN Reason Stop Dose Admin Acetaminophen 650 mg 03/26/24 14:03 03/29/24 17:34 Acetaminophen 325 Mg Tablet PO 650 mg Q4H PRN Administration Mild Pain (1-3) or Fever Alendronate Sodium 70 mg 03/29/24 09:00 03/29/24 09:59 Alendronate Sodium 70 Mg Tablet PO 70 mg WEEKLY QUAN Administration Carbidopa/Levodopa 1 tablet 03/26/24 17:00 03/29/24 17:35 Carbidopa/Levodopa 25/100 Mg Tablet PO 1 tablet TID QUAN Administration Carbidopa/Levodopa 1 tablet 03/26/24 17:00 03/29/24 17:35 Carbidopa/Levodopa 12.5/50 Mg Tablet PO 1 tablet TID QUAN Administration Enoxaparin Sodium 40 mg 03/27/24 09:00 03/27/24 08:54 Enoxaparin 40 Mg/0.4 Ml Syringe SUB-Q 40 mg DAILY QUAN Administration Levothyroxine Sodium 75 mcg 03/27/24 06:30 03/30/24 06:22 Levothyroxine Sodium 75 Mcg Tablet PO Not Given DAILY@0630 [facility] Meloxicam 7.5 mg 03/27/24 09:00 03/29/24 09:59 Meloxicam 7.5 Mg Tablet PO 7.5 mg DAILY QUAN Administration Pantoprazole Sodium 40 mg 03/26/24 17:00 03/29/24 17:35 Pantoprazole 40 Mg Tablet PO 40 mg BID QUAN Administration Promethazine HCl 12.5 mg 03/26/24 14:03 03/27/24 09:05 Promethazine Hcl 25 Mg/Ml Ampul IV PUSH 12.5 mg Q6H PRN Administration Nausea Rosuvastatin Calcium 10 mg 03/27/24 09:00 03/29/24 09:59 Rosuvastatin 10 Mg Tablet PO 10 mg DAILY QUAN Administration Sertraline HCl 25 mg 03/27/24 09:00 03/29/24 09:59 Sertraline Hcl 25 Mg Tablet PO 25 mg DAILY QUAN Administration Radiology Results: ITS Impressions Head CT 03/26/24 12:23 IMPRESSION: No acute intracranial findings. Chest X-Ray 03/29/24 08:18 IMPRESSION: 1. Peripheral interstitial opacities in the lungs, consistent with mild pulmonary edema versus mild chronic interstitial lung disease. 2. Small pleural effusions.
[2024-03-30] MEDS: SERTRALINE HCL 25 MG TABLET PO (08:47)
[2024-03-30] MEDS: ROSUVASTATIN 10 MG TABLET PO (08:47)
[2024-03-30] MEDS: PANTOPRAZOLE 40 MG TABLET PO ×2 (08:47→16:01)
[2024-03-30] MEDS: CARBIDOPA/LEVODOPA 12.5/50 MG TABLET 1 TABLET PO ×3 (08:47→16:01)
[2024-03-30] MEDS: CARBIDOPA/LEVODOPA 25/100 MG TABLET 1 TABLET PO ×3 (08:47→16:01)
[2024-03-30] MEDS: MELOXICAM 7.5 MG TABLET PO (08:47)
[2024-03-30 11:55] LABS: Basophils Percent Auto 0.6 % (0.2-1.2); Eosinophils Percent Auto 0.6 % (0-4.4); Hematocrit 40.4 % (37.0-47.0); Hemoglobin 13.3 g/dL (12.0-15.0); Immature Granulocyte Absolute 0.02 K/mm3 (0.00-0.031); Immature Granulocyte Percent A 0.3 % (0-0.5); Lymphocytes Percent Auto 14.1 % (18.3-44.2); Mean Corpuscular HGB Conc 32.9 g/dl (32-36); Mean Corpuscular Hemoglobin 29.6 pg (26-34); Mean Platelet Volume 9.8 fl (7.4-10.4); Monocytes Absolute Auto 0.6 K/mm3 (0.1-0.6); Monocytes Percent Auto 9.7 % (2.6-8.5); Neutrophils Absolute Auto 4.8 K/mm3 (1.3-6.7); Neutrophils Percent Auto 74.7 % (45.5-73.1); Platelet Count Result 229 k/mm3 (150-375); Red Blood Count 4.49 M/mm3 (4.2-5.4); Red Cell Distribution Width 13.2 % (11.5-14.5); White Blood Count 6.4 K/mm3 (4.5-10.0)
[2024-03-30 12:04] LABS: Anion Gap 8 mmol/L (4-12); Blood Urea Nitrogen 12 mg/dL (7-17); Calcium 8.5 mg/dL (8.4-10.2); Carbon Dioxide 27 mmol/L (22-30); Chloride 105 mmol/L (98-107); Estimated CRCL calculation 75 ml/min; Estimated Glomerular Filt Rate > 60; Glucose 105 mg/dL (65-110); Potassium 3.6 mmol/L (3.4-5.0); Sodium 140 mmol/L (137-145)
[2024-03-30] MEDS: LORazepam INJ (*CRX) 2 MG/ML VIAL 1 MG IV PUSH (15:38)
[2024-03-30 16:00] VITALS: BP 109/65; PULSE 88; RESP 16; TEMP 37.1; O2SAT 97
--- NOTE | 2024-03-30 17:57 | P.PNCA_ITS ---
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 Hypothyroidism on levothyroxine Parkinsonism Plan instructions regarding pacemaker site care and postprocedure care was emphasized however the patient not comprehending very well and he will need flow observation follow up in the clinic for device interrogation and wound care Subjective Date/time seen: 03/30/24 17:57 Interval history: no acute events Review of Systems Review of Systems: All systems reviewed & are unremarkable except as noted in HPI and below Exam Const: General: no acute distress Orientation/consciousness: oriented to person, No oriented to place, No oriented to time and confusion HENMT: Mouth: Yes moist mucous membranes Eyes: General: appearance normal, both eyes and all related structures Sclera: sclerae normal Resp: Effort & Inspection: normal respiratory effort Cardio: Rate: regular rate Rhythm: regular rhythm Heart sounds: no murmurs Other: Pacemaker site without hematoma or bleeding Urinary Catheter: Urinary Catheter: patent and draining Skin: General skin exam: normal color Neuro: Speech: normal speech Psych: Mental Status: mental status grossly abnormal Affect: normal affect Objective Data Vital Signs Vital Signs: Vital Signs - 24 hr 03/29/24 21:19 03/30/24 08:00 03/30/24 16:00 Temperature 36.4 C 37.1 C Pulse Rate 69 88 Respiratory Rate 14 16 Blood Pressure 122/70 109/65 Pulse Oximetry 100 97 Oxygen Delivery Room Air Intake/Output Intake/Output: Intake & Output 03/27/24 03/28/24 03/29/24 03/30/24 23:59 23:59 23:59 23:59 Intake Total 238 333 2826 360 Output Total 950 1175 1200 Balance -530 -560 260 360 Meds/Results Medications: Active Medications Generic Name Dose Route Start Last Admin Trade Name Freq PRN Reason Stop Dose Admin Acetaminophen 650 mg 03/26/24 14:03 03/29/24 17:34 Acetaminophen 325 Mg Tablet PO 650 mg Q4H PRN Administration Mild Pain (1-3) or Fever Alendronate Sodium 70 mg 03/29/24 09:00 03/29/24 09:59 Alendronate Sodium 70 Mg Tablet PO 70 mg WEEKLY QUAN Administration Carbidopa/Levodopa 1 tablet 03/26/24 17:00 03/30/24 16:01 Carbidopa/Levodopa 25/100 Mg Tablet PO 1 tablet TID QUAN Administration Carbidopa/Levodopa 1 tablet 03/26/24 17:00 03/30/24 16:01 Carbidopa/Levodopa 12.5/50 Mg Tablet PO 1 tablet TID QUAN Administration Enoxaparin Sodium 40 mg 03/27/24 09:00 03/27/24 08:54 Enoxaparin 40 Mg/0.4 Ml Syringe SUB-Q 40 mg DAILY QUAN Administration Levothyroxine Sodium 75 mcg 03/27/24 06:30 03/30/24 06:22 Levothyroxine Sodium 75 Mcg Tablet PO Not Given DAILY@0630 [facility] Meloxicam 7.5 mg 03/27/24 09:00 03/30/24 08:47 Meloxicam 7.5 Mg Tablet PO 7.5 mg DAILY QUAN Administration Pantoprazole Sodium 40 mg 03/26/24 17:00 03/30/24 16:01 Pantoprazole 40 Mg Tablet PO 40 mg BID QUAN Administration Promethazine HCl 12.5 mg 03/26/24 14:03 03/27/24 09:05 Promethazine Hcl 25 Mg/Ml Ampul IV PUSH 12.5 mg Q6H PRN Administration Nausea Rosuvastatin Calcium 10 mg 03/27/24 09:00 03/30/24 08:47 Rosuvastatin 10 Mg Tablet PO 10 mg DAILY QUAN Administration Sertraline HCl 25 mg 03/27/24 09:00 03/30/24 08:47 Sertraline Hcl 25 Mg Tablet PO 25 mg DAILY QUAN Administration Radiology Results: ITS Impressions Head CT 03/26/24 12:23 IMPRESSION: No acute intracranial findings. Chest X-Ray 03/29/24 08:18 IMPRESSION: 1. Peripheral interstitial opacities in the lungs, consistent with mild pulmonary edema versus mild chronic interstitial lung disease. 2. Small pleural effusions. Labs Labs: Laboratory Results - last 24 hr 03/30/24 11:50 WBC 6.4 RBC 4.49 Hgb 13.3 Hct 40.4 MCV 90.0 MCH 29.6 MCHC 32.9 RDW 13.2 Plt Count 229 MPV 9.8 Immature Gran % (Auto) 0.3 Neut % (Auto) 74.7 H Lymph % (Auto) 14.1 L [place] % (Auto) 9.7 H Eos % (Auto) 0.6 Baso % (Auto) 0.6 Lymph # (Auto) 0.90 [place] # (Auto) 0.6 Eos # (Auto) 0.0 Baso # (Auto) 0.0 Abs Immat Gran (auto) 0.02 Absolute Neuts (auto) 4.8 Absolute Nucleated RBC 0.000 Nucleated RBC % 0.0 Sodium 140 Potassium 3.6 Chloride 105 Carbon Dioxide 27 Anion Gap 8 BUN 12 Creatinine 0.47 L Estim Creat Clear Calc 75 Estimated GFR > 60 Glucose 105 Calcium 8.5
[2024-03-30 21:41] VITALS: BP 121/66; PULSE 88; RESP 20; TEMP 36.2; O2SAT 97
[2024-03-31] MEDS: LEVOTHYROXINE SODIUM 75 MCG TABLET PO (05:28)
[2024-03-31 05:44] VITALS: BP 102/64; PULSE 86; RESP 18; TEMP 36.1; O2SAT 98
--- NOTE | 2024-03-31 08:45 | P.PNIM_ITS ---
Progress Note: A&P Assessment and Plan (1) High-grade atrioventricular block: Code(s): I44.39 - Other atrioventricular block Status: Acute (2) Junctional bradycardia: Code(s): R00.1 - Bradycardia, unspecified Status: Acute (3) Hypothyroid: Qualifiers: Hypothyroidism type: unspecified Qualified Code(s): E03.9 - Hypothyroidism, unspecified Code(s): E03.9 - Hypothyroidism, unspecified Status: Chronic (4) Parkinson disease: Qualifiers: Dyskinesia presence: unspecified whether dyskinesia Fluctuating manifestations: unspecified whether manifestations fluctuate Qualified Code(s): G20.A1 - Parkinson's disease without dyskinesia, without mention of fluctuations Code(s): G20 - Parkinson's disease Status: Chronic Plan (1) High-grade atrioventricular block: Code(s): I44.39 - Other atrioventricular block Status: Acute Assessment and Plan: Patient presented with syncopal episode, with LOC, in the ED patient was in high-grade AV block, transvenous pacemaker was inserted by business information analyst patient is not on any AV harish blockers at home -cardiology following,. Status post permanent pacemaker placed on 03/28/2024 -03/27: echocardiogram: Summary 1. Complete two-dimensional, color flow and Doppler transthoracic echocardiogram is performed. 2. There is normal biventricular systolic function. 3. There is no significant valvular disease. 4. There is a small pericardial effusion. Patient denies lightheadedness, chest pain or chest tightness device interrogations will be performed by business information analyst Surgical wound is well covered, dressings dry and clean (2) Hypothyroid: Qualifiers: Hypothyroidism type: unspecified Qualified Code(s): E03.9 - Hypothyroidism, unspecified Code(s): E03.9 - Hypothyroidism, unspecified Status: Chronic Assessment and Plan: Continue Levothyroid tsh 5.57 fT4 1.8 (3) Parkinson disease: Qualifiers: Dyskinesia presence: unspecified whether dyskinesia Fluctuating manifestations: unspecified whether manifestations fluctuate Qualified Code(s): G20.A1 - Parkinson's disease without dyskinesia, without mention of fluctuations Code(s): G20 - Parkinson's disease Status: Chronic Assessment and Plan: Continue carbidopa and levodopa General weakness Patient cannot ambulate by herself, she needs assistance with physical therapist Possible physical deconditioning due to dementia, multiple comorbidities and Parkinson disease Patient still confused, mental status is improving Patient may benefit from usp replacement for continuation of PT OT Subjective Date/time seen: 03/31/24 08:45 Interval history: I saw and examined patient today, patient has a general weakness, patient still confused, patient denies chest pain palpitation lightheadedness. Patient denies focal weakness. Patient has a wobbling gait, cannot ambulate by herself. Bea ent ambulated with assistance of physical therapist Exam Narrative: GENERAL: Pleasant, in no acute distress. Well-nourished. - EYES: EOMI. Anicteric. - HENT: Moist mucous membranes. - LUNGS: Clear to auscultation bilateral ly, no wheezing, rhonchi, or rales. - CARDIOVASCULAR: Regular rate and rhyth m. No murmur. No JVD. - ABDOMEN: Soft, non-tender and non-dist ended. No palpable masses. - EXTREMITIES: No edema. Peripheral puls es 2+. Non-tender. - NEUROLOGIC: No focal neurological defi cits. CN II-XII grossly intact. - PSYCHIATRIC: Awake, Alert and oriented to place. Appropriate mood and affect. - SKIN: No rashes or lesions. Warm. - LYMPH: No cervical lymphadenopathy. Objective Data Vital Signs Vital Signs: Vital Signs - 24 hr 03/30/24 16:00 03/30/24 20:00 03/30/24 21:41 Temperature 98.8 F 97.1 F L Pulse Rate 88 88 Respiratory Rate 16 20 Blood Pressure 109/65 121/66 Pulse Oximetry 97 97 Oxygen Delivery Room Air 03/31/24 05:44 Temperature 97.0 F L Pulse Rate 86 Respiratory Rate 18 Blood Pressure 102/64 Pulse Oximetry 98 Oxygen Delivery Intake/Output Intake/Output: Intake & Output 03/28/24 03/29/24 03/30/24 03/31/24 23:59 23:59 23:59 23:59 Intake Total 615 1460 360 0 Output Total 1175 1200 Balance -560 260 360 0 Meds/Results Medications: Active Medications Generic Name Dose Route Start Last Admin Trade Name Freq PRN Reason Stop Dose Admin Acetaminophen 650 mg 03/26/24 14:03 03/29/24 17:34 Acetaminophen 325 Mg Tablet PO 650 mg Q4H PRN Administration Mild Pain (1-3) or Fever Alendronate Sodium 70 mg 03/29/24 09:00 03/29/24 09:59 Alendronate Sodium 70 Mg Tablet PO 70 mg WEEKLY QUAN Administration Carbidopa/Levodopa 1 tablet 03/26/24 17:00 03/30/24 16:01 Carbidopa/Levodopa 25/100 Mg Tablet PO 1 tablet TID QUAN Administration Carbidopa/Levodopa 1 tablet 03/26/24 17:00 03/30/24 16:01 Carbidopa/Levodopa 12.5/50 Mg Tablet PO 1 tablet TID QUAN Administration Enoxaparin Sodium 40 mg 03/27/24 09:00 03/27/24 08:54 Enoxaparin 40 Mg/0.4 Ml Syringe SUB-Q 40 mg DAILY QUAN Administration Levothyroxine Sodium 75 mcg 03/27/24 06:30 03/31/24 05:28 Levothyroxine Sodium 75 Mcg Tablet PO 75 mcg DAILY@0630 QUAN Administration Meloxicam 7.5 mg 03/27/24 09:00 03/30/24 08:47 Meloxicam 7.5 Mg Tablet PO 7.5 mg DAILY QUAN Administration Pantoprazole Sodium 40 mg 03/26/24 17:00 03/30/24 16:01 Pantoprazole 40 Mg Tablet PO 40 mg BID QUAN Administration Promethazine HCl 12.5 mg 03/26/24 14:03 03/27/24 09:05 Promethazine Hcl 25 Mg/Ml Ampul IV PUSH 12.5 mg Q6H PRN Administration Nausea Rosuvastatin Calcium 10 mg 03/27/24 09:00 03/30/24 08:47 Rosuvastatin 10 Mg Tablet PO 10 mg DAILY QUAN Administration Sertraline HCl 25 mg 03/27/24 09:00 03/30/24 08:47 Sertraline Hcl 25 Mg Tablet PO 25 mg DAILY QUAN Administration Radiology Results: ITS Impressions Head CT 03/26/24 12:23 IMPRESSION: No acute intracranial findings. Chest X-Ray 03/29/24 08:18 IMPRESSION: 1. Peripheral interstitial opacities in the lungs, consistent with mild pulmonary edema versus mild chronic interstitial lung disease. 2. Small pleural effusions. Labs Labs: Laboratory Results - last 24 hr 03/30/24 11:50 WBC 6.4 RBC 4.49 Hgb 13.3 Hct 40.4 MCV 90.0 MCH 29.6 MCHC 32.9 RDW 13.2 Plt Count 229 MPV 9.8 Immature Gran % (Auto) 0.3 Neut % (Auto) 74.7 H Lymph % (Auto) 14.1 L [place] % (Auto) 9.7 H Eos % (Auto) 0.6 Baso % (Auto) 0.6 Lymph # (Auto) 0.90 [place] # (Auto) 0.6 Eos # (Auto) 0.0 Baso # (Auto) 0.0 Abs Immat Gran (auto) 0.02 Absolute Neuts (auto) 4.8 Absolute Nucleated RBC 0.000 Nucleated RBC % 0.0 Sodium 140 Potassium 3.6 Chloride 105 Carbon Dioxide 27 Anion Gap 8 BUN 12 Creatinine 0.47 L Estim Creat Clear Calc 75 Estimated GFR > 60 Glucose 105 Calcium 8.5
[2024-03-31] MEDS: PANTOPRAZOLE 40 MG TABLET PO ×2 (08:57→16:53)
[2024-03-31] MEDS: MELOXICAM 7.5 MG TABLET PO (08:57)
[2024-03-31] MEDS: CARBIDOPA/LEVODOPA 25/100 MG TABLET 1 TABLET PO ×3 (08:57→16:53)
[2024-03-31] MEDS: SERTRALINE HCL 25 MG TABLET PO (08:57)
[2024-03-31] MEDS: CARBIDOPA/LEVODOPA 12.5/50 MG TABLET 1 TABLET PO ×3 (08:57→16:53)
[2024-03-31] MEDS: ROSUVASTATIN 10 MG TABLET PO (08:57)
[2024-03-31 11:17] LABS: Basophils Absolute Auto 0.1 K/mm3 (0.0-0.1); Basophils Percent Auto 0.9 % (0.2-1.2); Eosinophils Absolute Auto 0.2 K/mm3 (0-0.3); Eosinophils Percent Auto 2.7 % (0-4.4); Hematocrit 41.4 % (37.0-47.0); Hemoglobin 13.2 g/dL (12.0-15.0); Immature Granulocyte Absolute 0.02 K/mm3 (0.00-0.031); Immature Granulocyte Percent A 0.4 % (0-0.5); Immature Platelet Fraction Pct 3.1 % (0.9-11.2); Lymphocytes Absolute Auto 1.11 K/mm3 (0.9-3.2); Lymphocytes Percent Auto 20.3 % (18.3-44.2); Mean Corpuscular HGB Conc 31.9 g/dl (32-36); Mean Corpuscular Hemoglobin 29.9 pg (26-34); Mean Corpuscular Volume 93.9 fl (80-100); Mean Platelet Volume 11.3 fl (7.4-10.4); Monocytes Absolute Auto 0.4 K/mm3 (0.1-0.6); Monocytes Percent Auto 7.3 % (2.6-8.5); Neutrophils Absolute Auto 3.7 K/mm3 (1.3-6.7); Neutrophils Percent Auto 68.4 % (45.5-73.1); Nucleated Red Blood Cells Perc 0.5 % (0.0-0.2); Platelet Count Result 160 k/mm3 (150-375); Red Blood Count 4.41 M/mm3 (4.2-5.4); Red Cell Distribution Width 13.4 % (11.5-14.5); White Blood Count 5.5 K/mm3 (4.5-10.0)
[2024-03-31 11:36] LABS: Anion Gap 5 mmol/L (4-12); Blood Urea Nitrogen 14 mg/dL (7-17); Calcium 8.7 mg/dL (8.4-10.2); Carbon Dioxide 29 mmol/L (22-30); Chloride 106 mmol/L (98-107); Estimated CRCL calculation 69 ml/min; Estimated Glomerular Filt Rate > 60; Glucose 106 mg/dL (65-110); Potassium 3.8 mmol/L (3.4-5.0); Sodium 140 mmol/L (137-145)
[2024-03-31] MEDS: ACETAMINOPHEN 325 MG TABLET 650 MG PO ×2 (13:43→20:54)
[2024-03-31 21:42] VITALS: BP 104/68; PULSE 75; RESP 18; TEMP 36.6; O2SAT 99
[2024-04-01] MEDS: LEVOTHYROXINE SODIUM 75 MCG TABLET PO (06:01)
[2024-04-01] MEDS: PANTOPRAZOLE 40 MG TABLET PO ×2 (08:54→17:10)
[2024-04-01] MEDS: SERTRALINE HCL 25 MG TABLET PO (08:54)
[2024-04-01] MEDS: ROSUVASTATIN 10 MG TABLET PO (08:54)
[2024-04-01] MEDS: CARBIDOPA/LEVODOPA 25/100 MG TABLET 1 TABLET PO ×3 (08:54→17:10)
[2024-04-01] MEDS: CARBIDOPA/LEVODOPA 12.5/50 MG TABLET 1 TABLET PO ×3 (08:54→17:10)
[2024-04-01] MEDS: MELOXICAM 7.5 MG TABLET PO (08:54)
[2024-04-01] MEDS: ACETAMINOPHEN 325 MG TABLET 650 MG PO (08:56)
--- NOTE | 2024-04-01 09:04 | P.PNIM_ITS ---
Progress Note: A&P Assessment and Plan (1) High-grade atrioventricular block: Code(s): I44.39 - Other atrioventricular block Status: Acute (2) Junctional bradycardia: Code(s): R00.1 - Bradycardia, unspecified Status: Acute (3) Hypothyroid: Qualifiers: Hypothyroidism type: unspecified Qualified Code(s): E03.9 - Hypothyroidism, unspecified Code(s): E03.9 - Hypothyroidism, unspecified Status: Chronic (4) Parkinson disease: Qualifiers: Dyskinesia presence: unspecified whether dyskinesia Fluctuating manifestations: unspecified whether manifestations fluctuate Qualified Code(s): G20.A1 - Parkinson's disease without dyskinesia, without mention of fluctuations Code(s): G20 - Parkinson's disease Status: Chronic Plan (1) High-grade atrioventricular block: Code(s): I44.39 - Other atrioventricular block Status: Acute Assessment and Plan: Patient presented with syncopal episode, with LOC, in the ED patient was in high-grade AV block, transvenous pacemaker was inserted by corporate ethics officer patient is not on any AV harish blockers at home -cardiology following,. Status post permanent pacemaker placed on 03/28/2024 -03/27: echocardiogram: Summary 1. Complete two-dimensional, color flow and Doppler transthoracic echocardiogram is performed. 2. There is normal biventricular systolic function. 3. There is no significant valvular disease. 4. There is a small pericardial effusion. Patient denies lightheadedness, chest pain or chest tightness device interrogations will be performed by corporate ethics officer Surgical wound is well covered, dressings dry and clean (2) Hypothyroid: Qualifiers: Hypothyroidism type: unspecified Qualified Code(s): E03.9 - Hypothyroidism, unspecified Code(s): E03.9 - Hypothyroidism, unspecified Status: Chronic Assessment and Plan: Continue Levothyroid tsh 5.57 fT4 1.8 (3) Parkinson disease: Qualifiers: Dyskinesia presence: unspecified whether dyskinesia Fluctuating manifestations: unspecified whether manifestations fluctuate Qualified Code(s): G20.A1 - Parkinson's disease without dyskinesia, without mention of fluctuations Code(s): G20 - Parkinson's disease Status: Chronic Assessment and Plan: Continue carbidopa and levodopa General weakness Patient cannot ambulate by herself, she needs assistance with physical therapist Possible physical deconditioning due to dementia, multiple comorbidities and Parkinson disease Patient still confused, mental status is improving Patient may benefit from shelter replacement for continuation of PT OT Subjective Date/time seen: 04/01/24 09:04 Interval history: I saw and examined patient today, patient has a general weakness, patient still confused, patient denies chest pain palpitation lightheadedness. Patient denies focal weakness. cannot ambulate by herself. Patient ambulated with assistance of physical therapist. No new issue or event over the night Exam Narrative: GENERAL: Pleasant, in no acute distress. Well-nourished. - EYES: EOMI. Anicteric. - HENT: Moist mucous membranes. - LUNGS: Clear to auscultation bilateral ly, no wheezing, rhonchi, or rales. - CARDIOVASCULAR: Regular rate and rhyth m. No murmur. No JVD. - ABDOMEN: Soft, non-tender and non-dist ended. No palpable masses. - EXTREMITIES: No edema. Peripheral puls es 2+. Non-tender. - NEUROLOGIC: No focal neurological defi cits. CN II-XII grossly intact. - PSYCHIATRIC: Awake, Alert and oriented to place. Appropriate mood and affect. - SKIN: No rashes or lesions. Warm. - LYMPH: No cervical lymphadenopathy. Objective Data Vital Signs Vital Signs: Vital Signs - 24 hr 03/31/24 20:00 03/31/24 21:42 Temperature 97.9 F Pulse Rate 75 Respiratory Rate 18 Blood Pressure 104/68 Pulse Oximetry 99 Oxygen Delivery Room Air Intake/Output Intake/Output: Intake & Output 03/29/24 03/30/24 03/31/24 04/01/24 23:59 23:59 23:59 23:59 Intake Total 2054 471 2736 0 Output Total 1200 Balance 389 061 3280 0 Meds/Results Medications: Active Medications Generic Name Dose Route Start Last Admin Trade Name Freq PRN Reason Stop Dose Admin Acetaminophen 650 mg 03/26/24 14:03 04/01/24 08:56 Acetaminophen 325 Mg Tablet PO 650 mg Q4H PRN Administration Mild Pain (1-3) or Fever Alendronate Sodium 70 mg 03/29/24 09:00 03/29/24 09:59 Alendronate Sodium 70 Mg Tablet PO 70 mg WEEKLY QUAN Administration Carbidopa/Levodopa 1 tablet 03/26/24 17:00 04/01/24 08:54 Carbidopa/Levodopa 25/100 Mg Tablet PO 1 tablet TID QUAN Administration Carbidopa/Levodopa 1 tablet 03/26/24 17:00 04/01/24 08:54 Carbidopa/Levodopa 12.5/50 Mg Tablet PO 1 tablet TID QUAN Administration Enoxaparin Sodium 40 mg 03/27/24 09:00 03/27/24 08:54 Enoxaparin 40 Mg/0.4 Ml Syringe SUB-Q 40 mg DAILY QUAN Administration Levothyroxine Sodium 75 mcg 03/27/24 06:30 04/01/24 06:01 Levothyroxine Sodium 75 Mcg Tablet PO 75 mcg DAILY@0630 QUAN Administration Meloxicam 7.5 mg 03/27/24 09:00 04/01/24 08:54 Meloxicam 7.5 Mg Tablet PO 7.5 mg DAILY QUAN Administration Pantoprazole Sodium 40 mg 03/26/24 17:00 04/01/24 08:54 Pantoprazole 40 Mg Tablet PO 40 mg BID QUAN Administration Promethazine HCl 12.5 mg 03/26/24 14:03 03/27/24 09:05 Promethazine Hcl 25 Mg/Ml Ampul IV PUSH 12.5 mg Q6H PRN Administration Nausea Rosuvastatin Calcium 10 mg 03/27/24 09:00 04/01/24 08:54 Rosuvastatin 10 Mg Tablet PO 10 mg DAILY QUAN Administration Sertraline HCl 25 mg 03/27/24 09:00 04/01/24 08:54 Sertraline Hcl 25 Mg Tablet PO 25 mg DAILY QUAN Administration Radiology Results: ITS Impressions Head CT 03/26/24 12:23 IMPRESSION: No acute intracranial findings. Chest X-Ray 03/29/24 08:18 IMPRESSION: 1. Peripheral interstitial opacities in the lungs, consistent with mild pulmonary edema versus mild chronic interstitial lung disease. 2. Small pleural effusions. Labs Labs: Laboratory Results - last 24 hr 03/31/24 11:03 WBC 5.5 RBC 4.41 Hgb 13.2 Hct 41.4 MCV 93.9 MCH 29.9 MCHC 31.9 L RDW 13.4 Plt Count 160 MPV 11.3 H Immature Gran % (Auto) 0.4 Neut % (Auto) 68.4 Lymph % (Auto) 20.3 [place] % (Auto) 7.3 Eos % (Auto) 2.7 Baso % (Auto) 0.9 Lymph # (Auto) 1.11 [place] # (Auto) 0.4 Eos # (Auto) 0.2 Baso # (Auto) 0.1 Abs Immat Gran (auto) 0.02 Absolute Neuts (auto) 3.7 Absolute Nucleated RBC 0.030 H Nucleated RBC % 0.5 H % Immature Plt Fraction 3.1 Sodium 140 Potassium 3.8 Chloride 106 Carbon Dioxide 29 Anion Gap 5 BUN 14 Creatinine 0.52 L Estim Creat Clear Calc 69 Estimated GFR > 60 Glucose 106 Calcium 8.7
--- NOTE | 2024-04-01 09:33 | P.DS_ITS ---
DS: Admitting Diagnosis Discharge Date 04/01/24 Admitting Diagnosis (1) High-grade atrioventricular block: Code(s): I44.39 - Other atrioventricular block Status: Acute (2) Junctional bradycardia: Code(s): R00.1 - Bradycardia, unspecified Status: Acute (3) Hypothyroid: Qualifiers: Hypothyroidism type: unspecified Qualified Code(s): E03.9 - Hypothyroidism, unspecified Code(s): E03.9 - Hypothyroidism, unspecified Status: Chronic (4) Parkinson disease: Qualifiers: Dyskinesia presence: unspecified whether dyskinesia Fluctuating manifestations: unspecified whether manifestations fluctuate Qualified Code(s): G20.A1 - Parkinson's disease without dyskinesia, without mention of fluctuations Code(s): G20 - Parkinson's disease Status: Chronic DS: Discharge Diagnosis Discharge Diagnosis (1) High-grade atrioventricular block: Code(s): I44.39 - Other atrioventricular block Status: Acute (2) Junctional bradycardia: Code(s): R00.1 - Bradycardia, unspecified Status: Acute (3) Hypothyroid: Qualifiers: Hypothyroidism type: unspecified Qualified Code(s): E03.9 - Hypothyro idism, unspecified Code(s): E03.9 - Hypothyroidism, unspecified Status: Chronic (4) Parkinson disease: Qualifiers: Dyskinesia presence: unspecified whether dyskinesia Fluctuating manifestations: unspecified whether manifestations fluctuate Qualified Code(s): G20.A1 - Parkinson's disease without dyskinesia, without mention of fluctuations Code(s): G20 - Parkinson's disease Status: Chronic DS: Summary Hospital Course Hospital Course: 83 y/o F presents here with syncope with PMH of HLD, GERD, hypothyroidism, osteoporosis, Parkinson's disease. The patient presents here post-syncopal episode from home via EMS. The patient reports this morning around 1000 that she had a syncopal episode while brushing her hair. Patient denies any presyncopal symptoms including shortness of breath, palpitations, light headedness, or dizziness. She reports she was in her normal state of health. Patient is unsure how long she was unconscious, believes it was brief. Denies head strike. Denied any chest pain, palpitations, shortness of breath or dizziness post-episode. Currently denying headache or neck pain. No previous hx of bradycardia, has been on the lower end of normal but nothing concerning. [place] any cardiac hx. No previous hx of syncope. Initial VS at presentation: 97.9? F, HR 45, RR 18, 165/64, and 100% on RA. ED workup showed: No leukocytosis, no anemia, normal coags, potassium 3.1, creatinine 0.57 and GFR >60, BNP 908, initial troponin 0.013, TSH 5.57, T4 1.8, T3 2.21. UA unremarkable. CXR showed bilateral mild peripheral and lower lung predominant chronic interstitial lung disease. Head CT showed no acute intracranial findings. Initial EKG showed sinus rhythm with high grade AV block, right bundle branch block, left posterior fascicular block, rate 36. The following med issues have been addressed during hospitalization (1) High-grade atrioventricular block: Code(s): I44.39 - Other atrioventricular block Status: Acute Assessment and Plan: Patient presented with syncopal episode, with LOC, in the ED patient was in high-grade AV block, transvenous pacemaker was inserted by food processing plant manager patient is not on any AV harish blockers at home -cardiology following,. Status post permanent pacemaker placed on 03/28/2024 -03/27: echocardiogram: Summary 1. Complete two-dimensional, color flow and Doppler transthoracic echocardiogram is performed. 2. There is normal biventricular systolic function. 3. There is no significant valvular disease. 4. There is a small pericardial effusion. Patient denies lightheadedness, chest pain or chest tightness device interrogations will be performed by food processing plant manager Surgical wound is well covered, dressings dry and clean (2) Hypothyroid: Qualifiers: Hypothyroidism type: unspecified Qualified Code(s): E03.9 - Hypothyroidism, unspecified Code(s): E03.9 - Hypothyroidism, unspecified Status: Chronic Assessment and Plan: Continue Levothyroid tsh 5.57 fT4 1.8 (3) Parkinson disease: Qualifiers: Dyskinesia presence: unspecified whether dyskinesia Fluctuating manifestations: unspecified whether manifestations fluctuate Qualified Code(s): G20.A1 - Parkinson's disease without dyskinesia, without mention of fluctuations Code(s): G20 - Parkinson's disease Status: Chronic Assessment and Plan: Continue carbidopa and levodopa General weakness Patient cannot ambulate by herself, she needs assistance with physical therapist Possible physical deconditioning due to dementia, multiple comorbidities and Parkinson disease Patient still confused, mental status is improving Patient may benefit from mcc replacement for continuation of PT OT Time Spent with Patient Time attestation: Total time spent providing and/or coordinating discharge services: Exam Narrative: GENERAL: Pleasant, in no acute distress. Well-nourished. - EYES: EOMI. Anicteric. - HENT: Moist mucous membranes. - LUNGS: Clear to auscultation bilateral ly, no wheezing, rhonchi, or rales. - CARDIOVASCULAR: Regular rate and rhyth m. No murmur. No JVD. - ABDOMEN: Soft, non-tender and non-dist ended. No palpable masses. - EXTREMITIES: No edema. Peripheral puls es 2+. Non-tender. - NEUROLOGIC: No focal neurological defi cits. CN II-XII grossly intact. - PSYCHIATRIC: Awake, Alert and oriented to place. Appropriate mood and affect. - SKIN: No rashes or lesions. Warm. - LYMPH: No cervical lymphadenopathy. DS: Data Data Completed and Pending Labs on day of discharge: Labs from last 24 hours 03/31/24 11:03 WBC 5.5 RBC 4.41 Hgb 13.2 Hct 41.4 MCV 93.9 MCH 29.9 MCHC 31.9 L RDW 13.4 Plt Count 160 MPV 11.3 H Immature Gran % (Auto) 0.4 Neut % (Auto) 68.4 Lymph % (Auto) 20.3 [place] % (Auto) 7.3 Eos % (Auto) 2.7 Baso % (Auto) 0.9 Lymph # (Auto) 1.11 [place] # (Auto) 0.4 Eos # (Auto) 0.2 Baso # (Auto) 0.1 Abs Immat Gran (auto) 0.02 Absolute Neuts (auto) 3.7 Absolute Nucleated RBC 0.030 H Nucleated RBC % 0.5 H % Immature Plt Fraction 3.1 Sodium 140 Potassium 3.8 Chloride 106 Carbon Dioxide 29 Anion Gap 5 BUN 14 Creatinine 0.52 L Estim Creat Clear Calc 69 Estimated GFR > 60 Glucose 106 Calcium 8.7 Discharge Plan Discharge Attending physician on discharge: Shena Thacker Consulting providers: Paul Ley; Solange Nguyen; Laura Brewer; Tushar Fernandez; Adelaide Vides; Alphonse Logan; Joshua Landaverde; Laron Campos; Yassine Ulloa; Dariel Benavides V. Discharging Clinician: Shena Thacker Anticipated Discharge Date/Time: 04/01/24 09:44 Patient Disposition: SNF Activity: as tolerated Diet: as tolerated and heart healthy Discharge Instructions: [facility] [address] [place] [address] DISCHARGE INSTRUCTIONS - POST PACEMAKER Activity 1. No driving until you are seen in the office for your incision check. 2. No lifting, pushing or pulling more than 5 pounds with affected arm for 1 MONTH 3. No lifting affected arm above shoulder height for 1 MONTH 4. Wear immobilizer/sling only if you are unable to remember the above activity restrictions. Recommend that it be worn at night. 5. You may shower AFTER you are seen for incision check but no tub baths, swimming pool or hot tub for 1MONTH Wound Care 1. Do not attempt to remove the Aquacel dressing. Leave dressing undisturbed until incision check at the office visit. Keep dressing dry. 2. When you are able to shower AFTER you are seen for your incision check in the office do not rub or scrub the incision. Pat dry after shower. NO lotions, powders, creams or ointments are to be applied to the incision 3. A small amount of tenderness, puffiness and bruising around the site is normal. Call if any significant pain, drainage, swelling, or redness around the site 4. Woman: Wear a bra to support the breast tissue and avoid pulling on the incision. Pad the bra strap if necessary with soft smooth cloth. *For any other questions please call the office at [phone]. Office hours are 8AM 4:30PM Sunday through Sunday. Patient Instructions: Bradycardia (GEN), Pacemaker (GEN) Patient Language: Kittitian Stand Alone Forms: General Discharge Information Follow-up/Referrals: Paul Ley MD [Physician] - (04/04/24 at 11:15. Arrive at 11:00 Follow up device check 05/07/24 at 11:30. Arrive at 11:15) Discharge Medications: Continued carbidopa-levodopa 25-100 mg tablet 1.5 tablet PO TID Qty: 360 3RF sertraline 25 mg tablet 25 mg PO DAILY pantoprazole 40 mg tablet,delayed release (DR/EC) 40 mg PO BID Qty: 60 3RF levothyroxine 75 mcg capsule 75 mcg PO DAILY Qty: 90 1RF rosuvastatin 10 mg tablet 10 mg PO DAILY Qty: 90 3RF meloxicam 7.5 mg tablet 7.5 mg PO DAILY Qty: 90 0RF alendronate 70 mg tablet 70 mg PO WEEKLY Qty: 13 3RF Date of admission: 03/26/24 15:51 Primary Care Provider: Alphonse Viera Admitting Provider: Ponce Shi Attending physician on admission: Shena Thacker Condition: Stable
[2024-04-01 14:00] VITALS: BP 111/75; PULSE 88; RESP 18; TEMP 36.6; O2SAT 96
[2024-04-01 16:15] LABS: SARS-CoV-2 RNA PCR Negative (Negative)
== END 2024-04-01 18:49 | DRG 244 ==
LOC: ANHED 12:34 → ANHICU 15:17 → ANHIMU 03-28 18:51 → ANH3MEDSUR 03-31 07:59 → ANHIMU 04-02 09:38
PROVIDERS: Internal Medicine; Specialist; Admitting Provider General Practice; Emergency Provider Emergency Medicine; PCP Family Medicine; Visit Provider Hospitalist
PROC: 5A1223Z Performance of Cardiac Pacing, Continuous (ICD-10-PCS; CPT 33210; principal; 2024-03-26 15:10)
PROC: 0JH606Z Insertion of Pacemaker, Dual Chamber into Chest Subcutaneous Tissue and Fascia, Open Approach (ICD-10-PCS; CPT 33208; principal; 2024-03-28 07:00)
DX: I44.2 Atrioventricular block, complete (principal); R00.1 Bradycardia, unspecified; E78.5 Hyperlipidemia, unspecified; E87.6 Hypokalemia; E03.9 Hypothyroidism, unspecified; G20.A1 Parkinson's disease without dyskinesia, without mention of fluctuations; G89.29 Other chronic pain; K21.9 Gastro-esophageal reflux disease without esophagitis; M81.0 Age-related osteoporosis without current pathological fracture; M54.9 Dorsalgia, unspecified; R55 Syncope and collapse; Z96.653 Presence of artificial knee joint, bilateral; Z98.41 Cataract extraction status, right eye; Z98.42 Cataract extraction status, left eye
CPT/HCPCS: 33208; 33210; 36415; 70450; 71045; 71046; 80048; 80053; 81003; 83605; 83735; 83880; 84100; 84439; 84443; 84480; 84484; 85025; 85055; 85610; 85730; 87635; 87641; 92610; 93005; 93306; 96365; 96366; 96375; 97110; 97161; 97165; 97530; 97535; 99285; A9270; C1779; C1785; C1894; G0378; J0690; J1644; J1650; J2003; J2060; J2250; J2359; J2550; J3010; J3480; J7030; J7040; L1830

== ENCOUNTER 2024-07-28 10:35 | Outpatient (CLI) | payer MEDICARE, SELFPAY ==
--- NOTE | ~2024-07-28 | XR_ITS ---
EXAM: XR lumbar spine 2-3V DATE: 07/28/2024 11:16 HISTORY: M54.50 - Low back pain, unspecified . COMPARISON: X-ray chest 03/29/2024. FINDINGS: Decreased mineralization. 5 nonrib-bearing lumbar-type vertebral bodies. Pedicles intact. M oderate height loss at T12 and L1, probably new since the comparison study. Concave endplate deformit ies at multiple levels as can be seen with osteoporosis. Mild retrolistheses at L1-2 through L4-5. De generative disc disease at all levels, with vacuum phenomenon at L1-2 and L2-3. Severe facet hypertro phy and sclerosis in the lower lumbar spine. Atherosclerotic aortic calcifications without evident an eurysm. Partial visualization of a pacemaker lead. IMPRESSION: Osteopenia. Grade 1 retrolistheses at L1-2 through L4-5. Moderate compression deformities at T12 and L1. Correlate for history of acute trauma and pain/tender ness at these levels. Multilevel severe degenerative disc disease and facet arthropathy. Reviewed, dictated and finalized at location K. IMPRESSION: Osteopenia. Grade 1 retrolistheses at L1-2 through L4-5. Moderate compression deformities at T12 and L1. Correlate for history of acute trauma and pain/tenderness at these levels. Multilevel severe degenerative disc disease and facet arthropathy.
--- NOTE | ~2024-07-28 | XR_ITS ---
EXAM: XR hip LT 2V w AP pelvis DATE: 07/28/2024 11:16 HISTORY: M25.552 - Pain in left hip . COMPARISON: None available. FINDINGS: Osteopenia. Multilevel lumbar degenerative disc disease. Mild bilateral superior hip joint space narrowing. Mild degenerative changes in the bilateral SI joints and pubic symphysis. Mild scat tered pelvic and hip enthesopathy. No fracture or dislocation. No lytic or blastic lesions. IMPRESSION: Mild left hip osteoarthritis. Reviewed, dictated and finalized at location K.
== END 2024-07-28 10:36 | disposition home or self-care (01) ==
PROVIDERS: PCP Family Medicine; Visit Provider Student in an Organized Health Care Education/Training Program
DX: M43.16 Spondylolisthesis, lumbar region (principal); S22.080A Wedge compression fracture of T11-T12 vertebra, initial encounter for closed fracture; S32.010A Wedge compression fracture of first lumbar vertebra, initial encounter for closed fracture; X58.XXXA Exposure to other specified factors, initial encounter
CPT/HCPCS: 72100; 73502

== ENCOUNTER 2024-08-25 11:20 | Outpatient (CLI) | payer MEDICARE, SELFPAY ==
--- NOTE | ~2024-08-25 | XR_ITS ---
AP view of the pelvis Clinical history: Pain COMPARISON: 07/28/2024 Findings: No acute fracture or dislocation is seen. Osseous alignment is anatomic. Bilateral hip join ts are intact. There is mild degenerative change of both SI joints. Soft tissues are unremarkable. Impression: Mild degenerative change of both SI joints. Reviewed, dictated and finalized at location . Impression: Mild degenerative change of both SI joints.
--- NOTE | ~2024-08-25 | CT_ITS ---
CT lumbar spine wo con Ordering provider: García Pond MD History: 83 years Female with . M80.88XA - Other osteoporosis with current pathological f... . Comparison: None. Technique: CT lumbar spine without contrast. Automated exposure control and iterative reconstruction technique were employed. The dose-length product was 278.68 mGy-cm. FINDINGS: VERTEBRAE: Compression fracture of L1 with loss of height of about 80% which is most likely acute. No retropulsed fragments.. Minimal retrolisthesis at the level of L3-L4. DISC SPACES: Narrowing of all the disc spaces except L5-S1. Multilevel facet joint disease. Bilateral sacroiliitis. T12-L1: No stenosis. L1-L2: No stenosis. L2-L3: No stenosis. . Diffuse disc bulge with bilateral narrowing of the foramina. No definite root compression. L3-L4: No stenosis. Mild diffuse disc bulge. L4-L5: No stenosis. Diffuse disc bulge with bilateral narrowing of the foramina. No definite root co mpression. L5-S1: No stenosis. Diffuse disc bulge with bilateral narrowing of the foramina with nerve root comp ression. PARASPINOUS SOFT TISSUES: Mild atheromatous disease of the abdominal aorta. IMPRESSION: Compression fracture of L1 with loss of height of about 80% which is most likely acute. MRI evaluatio n advised. Retrolisthesis at the level of L3-4. Multilevel degenerative disc disease. Reviewed, dictated and finalized at location A. IMPRESSION: Compression fracture of L1 with loss of height of about 80% which is most likel y acute. MRI evaluation advised. Retrolisthesis at the level of L3-4. Multilevel degenerative disc disease.
== END 2024-08-25 11:21 | disposition home or self-care (01) ==
PROVIDERS: PCP Family Medicine; Visit Provider Anesthesiology Pain Medicine
DX: M47.898 Other spondylosis, sacral and sacrococcygeal region (principal); M48.56XA Collapsed vertebra, not elsewhere classified, lumbar region, initial encounter for fracture
CPT/HCPCS: 72131; 72170

== ENCOUNTER 2024-09-17 09:39 | Outpatient (CLI) | payer MEDICARE, SELFPAY ==
--- NOTE | ~2024-09-17 | NM_ITS ---
EXAMINATION: NM bone scan limited area DATE: 09/17/2024 15:23 INDICATION: Low back pain TECHNIQUE: 25.1 mCi Tc-99m HDP was administered intravenously. Delayed scintigrams of the chest, abd omen and pelvis were obtained. COMPARISON: CT dated 08/25/2024 FINDINGS: There is increased uptake associated with a recent-appearing L1 burst fracture which can be seen on t he prior CT. There is also increased uptake at a T8 compression fracture which can be seen on the sco ut topogram of the prior CT. There is a focus of increased uptake in the region of the posterior righ t 12th rib suspicious for fracture is not identified on the prior CT however unclear whether this inc ludes the field of imaging. IMPRESSION: 1. Increased uptake associated with likely recent T8 compression fracture and L1 burst fracture which are both evident on the CT from 08/25/2024. 2. Additional increased likely involving the posterior right 12th rib which is better appreciated on the prior CT but may beyond the field of imaging. Reviewed, dictated and finalized at location A. IMPRESSION: 1. Increased uptake associated with likely recent T8 compression fracture and L 1 burst fracture which are both evident on the CT from 08/25/2024. 2. Additional increased likely involving the posterior right 12th rib which is better appreciated on the prior CT but may beyond the field of imaging.
--- OUTSIDE RECORDS SUMMARY | 2024-09-17 09:45 | XMS_ITS ---
Author Organization 1 [facility] Address [address] [facility] [address] [place] [address] Care Team Providers Care Supervisor Polishing Name Role Phone Migration, Provider Unavailable Unavailable REASON FOR VISIT EMR-Tex Encounters Encounter Location Date Provider Diagnosis 1 [facility] [address] [facility] [address] [place] [address] 07/06/2024 Provider Migration Plan Of Treatment No Information Progress Notes * Molly CHUDOB:[birth year] (83 yo F)Acc No.[id number]:07/06/2024 Patient: Molly DOTY :1940 A ge:83 Y S ex:Female Address:[address] [place] [address] Subjective: * Chief Complaints: * E MR-Tex * Medical History: * Surgical History: * Hospitalization/Major Diagno stic Procedure: * Medications: Objective: * Vitals: * Physical Examination: Assessment: Plan: * Treatment: * Procedure Codes: * * Date:
--- OUTSIDE RECORDS SUMMARY | 2024-09-17 09:45 | XMS_ITS | Data Portability ---
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 Plan of Treatment Reminders Order Date Submit Date Provider Last Modified By Organization Details Last Modified Time Details Appointments None recorded. Lab None recorded. Referral physical therapist referral 2019 020 [email or web address] [facility], [address] [facility], [place], [address], 0 14:06:12 Procedures None recorded. Surgeries None recorded. Imaging XR, hip, unilateral 2019 020 [facility], [address] [facility], [place], [address], 0 15:07:38 Medication Orders None recorded. Patient TargetsNo targets recorded. Patient Instructions Encounter Date Encounter Id Patient Instructions Last Modified By Organization Details Last Modified Time 09/21/2015 [id number] arm pain: care instructions Not available 11/08/2015 11:23:50 leg pain: care instructions Not available 11/08/2015 11:23:51 Reviewed all findings with the patient at this time. Debridement of the hyperkeratotic areas has been performed at this time. Good relief noted with debridement today. Explained to the patient that we recommend offloading with good supportive, cushioned insoles. Discussed the future surgical options if needed including metatarsal osteotomies and offloading. At this point, recommend continued conservative care. Patient understands and agrees. F/u on a PRN basis. Not available 09/24/2015 10:38:15 03/24/2019 [id number] hip pain: care instructions Not available 04/05/2019 15:07:38 osteoarthritis: care instructions Not available 04/05/2019 15:07:38 iliotibial band syndrome: care instructions Not available 04/05/2019 15:07:38 Follow up in 6 weeks Not available 04/05/2019 15:07:36 05/05/2019 [id number] hip pain: care instructions Not available 05/05/2019 15:38:45 osteoarthritis: care instructions Not available 05/05/2019 15:38:45 iliotibial band syndrome: care instructions Not available 05/05/2019 15:38:45 act to roxann as sh e is doing well Not available 05/05/2019 15:33:58 Reason for Referral Physical Therapist Referral for Pain of hip region Referring Physician: Dru Roldan, Orthopedic Surgery, Encounter Date: 03/24/2019 Results Created Date Observation Date Name Description Value Unit Range Abnormal Flag Note LastModifiedBy Organization Detail LastModifiedTime Result Notes None recorded. Problems Name Problem SNOMED Code Status Onset Date Resolution Date Notes Provider Name and Address Organization Details Recorded Time Callosity under metatarsal head 469731882 Active [facility] 6 10:38:15 Pain in limb 28826814 Active [facility] 6 10:38:15 Problem Notes None recorded. Procedures Surgical History Date Name Laterality Status Provider Name and Address Organization Details Recorded Time [facility] 09/21/2015 14:42:28 Physical Therapy completed [facility] [employer] [facility] 09/21/2015 14:42:28 Tonsillectomy/ Adenoidectomy completed [facility] 09/21/2015 14:42:28 Imaging Results None recorded. Procedure Notes None recorded. Medical Equipment None Reported. Allergies Allergen ID Allergen Name Allergen Category Reaction Reaction Severity Criticality Documentation Date Start Date Code Code System Note Provider Name and Address Organization Details Recorded Time 01452 amoxicill in medicatio n rash moderate Not available 09/21/2015 723 RxNorm Ann Mcgregorhans awad [place] - [facility] 6 14:42:02 Medications Name Sig Start Date Stop Date Status Note LastModified by Organization Details LastModified Time doxycycline hyclate 100 mg capsule TK 1 C PO BID 04/07 completed Not Available Not Available Not Available carbidopa ER 50 mg-levodopa 200 mg tablet,exte nded release TK 1 T PO BID active Not Available Not Available No t Available sertraline 100 mg tablet 04/07 completed Not Available Not Available Not Available midodrine 5 mg tablet TAKE 1 T PO IN THE MORNING THEN TAKE 1/2 T AT LUNCH AND THEN TAKE 1/2 T PO AT NIGHT active Not Available Not Available No t Available clindamycin HCl 150 mg capsule ADD 3 CAPSULES TO THE SOAKING DEVICE AND ALLOW WATER TO AGITATE. PLACE AFFECTED AREAS INTO WATER AND SOAK FOR 20 MINUTES ONCE DAILY 04/07 completed Not Available Not Available Not Available lamotrigine 25 mg tablet TK 2 TS PO BID active Not Available Not Available No t Available meloxicam 7.5 mg tablet Take 1 tablet as needed by oral route. 04/07 completed Not Available Not Available Not Available terbinafine HCl [address] 3 TABLETS INTO THE SOAKING DEVICE AND ALLOW WATER TO AGITATE. PLACE AFFECTED AREAS INTO WATER AND SOAK FOR 20 MINUTES ONCE DAILY 04/07 completed Not Available Not Available Not Available levothyroxi ne 88 mcg tablet TK 1 T PO QD active Not Available Not Available No t Available propranolol 10 mg tablet TK 1 T PO TID active Not Available Not Available No t Available alprazolam 0.25 mg tablet 09/15 completed Not Available Not Available Not Available paroxetine 20 mg tablet TK 1 T PO QD IN THE MORNING active Not Available Not Available No t Available pantoprazol e 40 mg tablet,wilver yed release TK 1 T PO QD active Not Available Not Available No t Available cyanocobala min (vit B-12) 1,000 mcg/mL injection solution INJECT 1ML Q 2 WEEKS active Not Available Not Available No t Available pramipexole 0.25 mg tablet TK 1 T PO active Not Available Not Available No t Available sertraline 25 mg tablet Take 1 tablet twice a day by oral route. 04/07 completed Not Available Not Available Not Available midodrine 2.5 mg tablet 1 tablet every day by oral route. active Not Available Not Available No t Available sertraline 50 mg tablet Take 1 tablet twice a day by oral route. 04/07 completed Not Available Not Available Not Available rosuvastati n 10 mg tablet TK 1 T PO QD active Not Available Not Available No t Available duloxetine 30 mg capsule,del ayed release 09/15 completed Not Available Not Available Not Available Fluzone High-Dose (PF) 180 mcg/0.5 mL intramuscul ar syringe Inject 50 microgram s every 3 months by intramusc . route. 04/07 completed Not Available Not Available Not Available Fluzone High-Dose (PF) 180 mcg/0.5 mL intramuscul ar syringe ADM 0.5ML IM UTD active Not Available Not Available No t Available Vitals Date Recorded Body weight Body mass index (BMI) Body height Provider Name and Address Organization Details Last Updated DateTime 03/24/2019 41529.49 g 22.9 kg/m2 170.[address] [facility] [employer] [facility] 03/24/2019 09:41:50 Date Recorded Body height Body mass index (BMI) Body weight Provider Name and Address Organization Details Last Updated DateTime 05/05/2019 170.18 cm 22.9 kg/m2 39820.[address] [facility] [employer] [facility] 05/05/2019 15:08:31 Date Recorded Body weight Body height Body mass index (BMI) Provider Name and Address Organization Details Last Updated DateTime 09/21/2015 21486.06934 g 170.18 cm 22.7 kg/m2 Event [employer] [facility] [employer] [facility] 09/21/2015 15:04:50 Social History Question Answer Notes LastModified by Organizat ion Details LastModified Time Tobacco Smoking Status Never Smoker Ann awad [facility] [employer] [facility] 09/21/2015 14:42:23 Auto Related Injury? No Information not available 09/21/2015 Are You Blind Or Do You Have Difficulty Seeing? No Information not available 09/21/2015 Are You Deaf Or Do You Have Serious Difficulty Hearing? No Information not available 09/21/2015 Who Is Your Employer? Retired Information not available 09/21/2015 Which Of Your Hands Is Dominant? Right Information not available 09/21/2015 Single Or Multi-level Home/work? Single Level Home Information not available 09/21/2015 Live Alone Or With Others? Alone Information not available 09/21/2015 Marital Status Informatio n not available 09/21/2015 If Injured, Is Litigation Ongoing? No Information not available 09/21/2015 Overweight No Information no t available 09/21/2015 How Much Tobacco Do You Smoke? No Information not available 09/21/2015 What Types Of Sporting Activities Do You Participate In? Walking Information not available 09/21/2015 Do You Have Difficulty Walking Or Climbing Stairs? No Information not available 09/21/2015 Work Related Injury? No Information not available 09/21/2015 Sex: Unknown Functional Status Question Answer Note LastModified by Organizat ion Details LastModified Time Are you currently employed? No Information not available 09/21/2015 Do you have difficulty doing errands alone? No Information not available 09/21/2015 Are you able to care for yourself? Yes Information n ot available 09/21/2015 Do you have difficulty dressing or bathing? No Information not available 09/21/2015 What is your exercise level? Moderate Information not available 09/21/2015 Mental Status Question Answer Note LastModified by Organization D etails LastModified Time Do you have difficulty concentrating, remembering or making decisions? No Information no t available 09/21/2015 Family History Relationship Description Onset Age of this Age Resolved Age Notes LastModified by Organization Details LastModified Time Mother Osteoarthrit is [email or web address] Not available 09/09 10:30:43 Medical History Condition Response Chronic Cough N Coronary Artery Disease N Chemotherapy or Radiation Therapy N Rashes or Skin Difficulty N Respiratory Disease N Problem with Anesthesia N Diabetes N Any Infectious Disease N Night Sweats N Bleeding/Clotting Disorder or Blood Rivera sfusion N Cancer N Back Problems Y Stroke N Dental Difficulty/Missing Teeth N Emotional Distress/Anxiety Y Frequent/Severe Headaches N Eye Problem/Vision Difficulties Y Seizure/Epilepsy N Convulsions/Blackouts N Hepatitis N No Past Medical Problems Reported N Hypertension N Gynecological HistoryNo gynecological history recorded. Obstetrics History GPAL:G 0 P 0 0 0 0 Past Encounters Encounter ID Performer Location Encounter Start Date Encounter Closed Date Diagnosis/Indication Diagnosis SNOMED-CT Code Diagnosis ICD10 Code Diagnosis Note [id number] HELLEN GARCIA DPM MAIN OFFICE [address] [address] 09/21/2015 14:24:52 09/21/2015 15:40:03 Callosity under metatarsal head 253489875 L84 Pain in limb 52681704 M7 9.604 [id number] Dru Roldan DO MAIN OFFICE [address] [address] 03/24/2019 09:25:31 03/24/2019 10:18:18 Pain of hip region 76115733 M25.551 Iliotibial band friction syndrome 602965956 M76.31 Localized, primary osteoarthritis of the pelvic region and thigh 565272170 M16.11 [id number] Dru Roldan DO MAIN OFFICE [address] [address] 05/05/2019 14:56:27 05/05/2019 15:35:32 Pain of hip region 36818554 M25.551 Iliotibial band friction syndrome 500832627 M76.31 Localized, primary osteoarthritis of the pelvic region and thigh 402386911 M16.11 Health Concerns Section Related Observation LastModified by Organization Detai ls LastModified Time None Recorded Concern Status LastModified by Organization Details LastModified Time None Recorded Advance Directives Directive None Recorded Payers Insurance Date Sequence Insurance Name Policy Number Policy Collins Covered Member ID Collins Member ID Guarantor Name 05/02/2019 1 [place] Molly Alonso [id number] Molly Alonso 03/18/[address] [facility] (MEDICARE SUPPLEMENT) Molly Alonso [id number] Molly Alonso Notes Date Note Type Note Provider Name and Address Organization Details Recorded Time 03/24/2019 text/html Hip(s)Reported bypatient.Locat ion:right; groin Quality:aching Severity:modera te Duration:6 months Context:fall Aggravating Factors:standin g; walking Previous Surgery:none Prior Imaging:MRI; Advanced Imaging Previous Injections:none Previous PT:none Work Related:no Dru Roldan, DO [address], [place], [address], Transmit 04/05/2019 15:07:42 05/05/2019 text/html Hip(s)Reported bypatient.Locat ion:right Quality:improvi ng Severity:no pain Alleviating Factors:PT/OT Dru Roldan, DO [address], [place], [address], Transmit 05/05/2019 15:38:49 OBGyn Episode No OBEpisode recorded.
--- OUTSIDE RECORDS SUMMARY | 2024-09-17 09:45 | XMS_ITS | Patient Health Record ---
Author Organization [facility] [employer] [facility] Address [address] [facility] [address] [place] [address] Care Team Providers Care Art Instructor Name Role Phone Karen Perez Unavailable [phone] Reason For Referral No Information Medications Medication SIG (Take, Route, Frequency, Duration) Notes Start Date End Date Status Pantoprazole Sodium 40 MG Oral 07/09/2023 Active Rosuvastatin Calcium 10 MG Oral 07/09/2023 Active DULoxetine HCl 60 MG Oral 07/09/2023 Active Sertraline HCl 25 MG TAKE 1 TABLET BY [facility] DAILY Orally Once a day; Duration: 90 days Active Meloxicam 7.5 MG Oral 07/09/2023 Ac tive Alendronate Sodium 70 MG Oral 07/09/2023 Active DULoxetine HCl 30 MG Oral 07/09/2023 Active Carbidopa-Levodopa 25-100 MG Oral 07/09/2023 Active Levothyroxine Sodium 75 MCG Oral 07/09/2023 Active Vitamin D3 Ultra Strength 125 MCG (5000 UT) Oral 07/09/2023 Active Problems Problem Type SNOMED Code ICD Code Onset Dates Problem Status W/U Status Risk Notes Problem Mild recurrent major depression (16425578) Major depressive disorder, recurrent, mild (F33.0) 07/09/2023 Active confirmed Encounters Encounter Location Date Provider Diagnosis [facility] [employer] [facility] [address] [facility] [address] [place] [address] 11/07/2023 Karen Chris Major depressive disorder, recurrent, mild F33.0 Assessments Encounter Date Diagnosis (ICD Code) Assessment Notes Treatment Notes Treatment Clinical Notes Section Notes 11/07/2023 Major depressive disorder, recurrent, mild (ICD-10 - F33.0) Plan Of Treatment No Information Insurance Providers Payer Name Payer Address Payer Phone Subscriber Number Group Number Insured Name Patient Relationship to Insured Coverage Start Date Coverage End Date [employer] Medicare Replacement/ Advantage - Ppo [address] [address] [place] [address] [id number] DESHAWN LAMB Self - patient is the insured Medical (General) History Surgical History Surgery Date(Month/Year) Tonsilectomy/adenoids Sinus surgery
--- OUTSIDE RECORDS SUMMARY | 2024-09-17 09:45 | XMS_ITS | Patient Health Record ---
Author Organization 1 [facility] Address [address] [facility] [address] [place] [address] Care Team Providers Care Endodontist Name Role Phone Migration, Provider Unavailable Unavailable Reason For Referral No Information Encounters Encounter Location Date Provider Diagnosis 1 [facility] [address] [place] [address] 07/05/2024 Provider Migration 1 [facility] [address] [facility] [address] [place] [address] 07/06/2024 Provider Migration Plan Of Treatment No Information Insurance Providers Payer Name Payer Address Payer Phone Subscriber Number Group Number Insured Name Patient Relationship to Insured Coverage Start Date Coverage End Date [employer] [address] [address] [place] [address] [id number] Cedric alvarez Molly Self - patient is the insured 1 [employer] of [place] [address] [place] [address] [id number] Molly Lowery Self - patient is the insured 1
--- OUTSIDE RECORDS SUMMARY | 2024-09-17 09:45 | XMS_ITS ---
Author Organization 1 [facility] Address [address] [facility] [address] [place] [address] Care Team Providers Care Utility Assembler Name Role Phone Migration, Provider Unavailable Unavailable REASON FOR VISIT EMR-Tex Encounters Encounter Location Date Provider Diagnosis 1 [facility], [facility] [address] [facility] [address] [place] [address] 07/05/2024 Provider Migration Plan Of Treatment No Information Progress Notes * Molly CHUDOB:[birth year] (83 yo F)Acc No.[id number]:07/05/2024 Patient: Molly DOTY :1940 A ge:83 Y S ex:Female Address:[address] [place] [address] Subjective: * Chief Complaints: * E MR-Tex * Medical History: * Surgical History: * Hospitalization/Major Diagno stic Procedure: * Medications: Objective: * Vitals: * Physical Examination: Assessment: Plan: * Treatment: * Procedure Codes: * * Date:
== END 2024-09-17 09:40 | disposition home or self-care (01) ==
LOC: ANHIMG 09:41
PROVIDERS: PCP Family Medicine; Visit Provider Anesthesiology Pain Medicine
DX: R94.8 Abnormal results of function studies of other organs and systems (principal); M54.50 Low back pain, unspecified; G89.29 Other chronic pain; M81.0 Age-related osteoporosis without current pathological fracture
CPT/HCPCS: 78300; A9503

== ENCOUNTER 2024-09-18 12:49 | Outpatient (CLI) | payer MEDICARE, SELFPAY ==
--- NOTE | ~2024-09-18 | DEXA_ITS ---
Bone Density Report Name: DESHAWN CHU Age: 83 Sex: Female Ethnicity: White Date of : 1940 Indication: postmenopausal; screening for osteoporosis; height loss; prior fracture; rheumatoid arthritis; Referring Provider: LEOLA PERKINS Study: Bone densitometry was performed. Exam Date: September 18, 2024 Accession number: [id number] Bone Density: Region BMD T-score Z-score Classification AP Spine(L2, L3, L4) 0.901 -1.6 1.2 Osteopenia Femoral Neck (Left) 0.621 -2.1 0.3 Osteopenia Total Hip (Left) 0.687 -2.1 0.1 Osteopenia Femoral Neck (Right) 0.683 -1.5 0.9 Osteopenia Total Hip (Right) 0.703 -2.0 0.2 Osteopenia Total Hip Mean 0.695 -2.1 0.2 Osteopenia World Health Organization criteria for BMD impression classify patients as: Normal (T-score at or above -1.0), Osteopenia (T-score between -1.0 and -2.5), or Osteoporosis (T-score at or below -2.5). 10-year Fracture Risk: FRAX not reported because: Prior hip or vertebral fracture Treated for osteoporosis Clinical Information Provided by Patient: Have had a previous hip or vertebral fracture Has had a low trauma fracture Has rheumatoid arthritis Is being treated for osteoporosis Has used the following medications: Fosamax (i.e. alendronate) Patient maximum height was 69 Menopause Age: 52 No regular weight bearing exercise Does not regularly consume dairy products Drinks caffeinated beverages Onset of menses at age 13 Number of children 0 Impression: The patient has low bone mass, based on the Left Total Hip T-score. The patient has risk factors, including: previous fracture. Discussion: It is important to ask patients whether they are taking their medications and to encourage continued and appropriate compliance with their osteoporosis therapies to reduce fracture risk. It is also important to review their risk factors and encourage appropriate calcium and vitamin D intakes, exercise, fall prevention and other lifestyle measures. Follow-Up: Consider a repeat BMD and Vertebral Fracture Assessment (VFA) exam in 2 years or sooner if medically necessary, to reassess this patient's status. Reported by: SILVANA on 09/18/2024 1:19:00 PM. Reviewed, dictated and finalized at location A.
== END 2024-09-18 12:50 | disposition home or self-care (01) ==
PROVIDERS: PCP Family Medicine; Visit Provider Anesthesiology Pain Medicine
DX: M80.88XA Other osteoporosis with current pathological fracture, vertebra(e), initial encounter for fracture (principal); M85.89 Other specified disorders of bone density and structure, multiple sites
CPT/HCPCS: 77080

== ENCOUNTER 2024-10-06 08:49 | Outpatient (CLI) | payer MEDICARE, SELFPAY ==
--- NOTE | ~2024-10-06 | XR_ITS ---
CHEST RADIOGRAPH, PA AND LATERAL CLINICAL HISTORY: PREOP FOR LB SURGERY/NO CHEST COMPLAINTS . COMPARISON: 03/29/2024 TECHNIQUE: PA and lateral views of the chest. FINDINGS The left mid lung is partially obscured due to pacemaker generator. Wires project over the right atrium and right ventricle. The remainder of the cardiomediastinal silhouette is otherwise unremarkable. Diffuse emphysematous disease with peripheral honeycombing and biapical scarring. The lungs are otherwise clear. IMPRESSION: Diffuse emphysematous disease without focal infiltrate or effusion. Reviewed, dictated and finalized at location A.
--- OUTSIDE RECORDS SUMMARY | 2024-10-06 09:03 | XMS_ITS | Data Portability ---
Author Organization [facility] Address [address] [place] [address] Care Team Providers Care Accounts Payable Supervisor Name Role Phone YURIDIA LINDER Referring Provider Assessment No assessment recorded. Plan of Treatment Reminders Order Date Submit Date Provider Last Modified By Organization Details Last Modified Time Details Appointments None recorded. Lab None recorded. Referral physical therapist referral 2019 020 [email or web address] [facility], [address] [facility], [place], [address], 0 14:06:12 Procedures None recorded. Surgeries None recorded. Imaging XR, hip, unilateral [address] [facility], [address] [facility], [place], [address], 0 15:07:38 Medication Orders None recorded. Patient TargetsNo targets recorded. Patient Instructions Encounter Date Encounter Id Patient Instructions Last Modified By Organization Details Last Modified Time 09/21/2015 [id number] arm pain: care instructions Not available 11/08/2015 [...] PRN basis. Not available 09/24/2015 10:38:15 03/24/2019 [id number] hip pain: care instructions Not available 04/05/2019 15:07:38 osteoarthritis: care instructions Not available 04/05/2019 15:07:38 iliotibial band syndrome: care instructions Not available 04/05/2019 15:07:38 Follow up in 6 weeks Not available 04/05/2019 15:07:36 05/05/2019 [id number] hip pain: care instructions Not available 05/05/2019 [...] Details Recorded Time Callosity under metatarsal head 533132202 Active [facility] 6 10:38:15 Pain in limb 19785796 Active [facility] 6 10:38:15 Problem Notes None recorded. Procedures Surgical History Date Name Laterality Status Provider Name and Address Organization Details Recorded Time Foot [facility] 09/21/2015 14:42:28 Physical Therapy completed [facility] 09/21/2015 14:42:28 Tonsillectomy/ Adenoidectomy completed [facility] 09/21/2015 14:42:28 Imaging Results None recorded. Procedure Notes None recorded. Medical Equipment None Reported. Allergies Allergen ID Allergen Name Allergen Category Reaction Reaction Severity Criticality Documentation Date Start Date Code Code System Note Provider Name and Address Organization Details Recorded Time 05869 amoxicill in medicatio n rash moderate Not available 09/21/2015 723 RxNorm Ann Mcgregorhans awad [place] - [facility], [facility] 6 14:42:02 Medications Name Sig Start Date [...] Address Organization Details Last Updated DateTime 03/24/2019 03195.49 g 22.9 kg/m2 170.18 cm Okairos [facility] [employer] 03/24/2019 09:41:50 Date Recorded Body height Body mass index (BMI) Body weight Provider Name and Address Organization Details Last Updated DateTime 05/05/2019 170.18 cm 22.9 kg/m2 39136.49 g Okairos [facility] [employer] 05/05/2019 15:08:31 Date Recorded Body weight Body height Body mass index (BMI) Provider Name and Address Organization Details Last Updated DateTime 09/21/2015 44397.09907 g 170.18 cm 22.7 kg/m2 Okairos [facility] [employer] 09/21/2015 15:04:50 Social History Question Answer Notes LastModified by Organizat ion Details LastModified Time Tobacco Smoking Status Never Smoker Ann awad [facility] [employer] [facility] 09/21/2015 14:42:23 Auto Related Injury? No Information [...] Functional Status Question Answer Note LastModified by Dr. Tariff ion Details LastModified Time Are you currently employed? No Information not available 09/21/2015 Do you have difficulty doing errands alone? No Information not available 09/21/2015 Are you able to care for yourself independently? Yes Information not available 09/21/2015 Do you have difficulty dressing, bathing, grooming, or toileting? No Information not available 09/21/2015 What is [...] available 09/09 10:30:43 Medical History Condition Response Any Infectious Disease N Chronic Cough N Diabetes N Coronary Artery Disease N Chemotherapy or Radiation Therapy N Night Sweats N Bleeding/Clotting Disorder or Blood Rivera [facility]fusion N Rashes or Skin Difficulty N Respiratory Disease N Cancer N Back Problems Y Stroke N Dental Difficulty/Missing Teeth N Emotional Distress/Anxiety Y Frequent/Severe Headaches N Eye Problem/Vision Difficulties Y Seizure/Epilepsy N Hepatitis N Convulsions/Blackouts N No Past Medical Problems Reported N Hypertension N Problem with Anesthesia N Gynecological HistoryNo gynecological history recorded. Obstetrics History GPAL:G 0 P 0 0 0 0 Past Encounters Encounter ID Performer Location Encounter Start Date Encounter Closed Date Diagnosis/Indication Diagnosis SNOMED-CT Code Diagnosis ICD10 Code Diagnosis Note [id number] HELLEN GARCIA DPM MAIN OFFICE [address] [address] 09/21/2015 14:24:52 09/21/2015 15:40:03 Callosity under metatarsal head 795343563 L84 Pain in limb 38812555 M7 9.604 [id number] Dru Roldan DO MAIN OFFICE [address] [address] 03/24/2019 09:25:31 03/24/2019 10:18:18 Pain of hip region 78544660 M25.551 Iliotibial band friction syndrome 165970692 M76.31 Localized, primary osteoarthritis of the pelvic region and thigh 048164106 M16.11 [id number] Dru Roldan DO MAIN OFFICE [address] [address] 05/05/2019 14:56:27 05/05/2019 15:35:32 Pain of hip region 69508355 M25.551 Iliotibial band friction syndrome 450699794 M76.31 Localized, primary osteoarthritis of the pelvic region and thigh 838647641 M16.11 Health Concerns Section Related Observation LastModified by Organization Detai ls LastModified Time None Recorded Concern Status LastModified by Organization Details LastModified Time None Recorded Advance Directives Directive None Recorded Payers Insurance Date Sequence Insurance Name Policy Number Policy Collins Covered Member ID Collins Member ID Guarantor Name 05/02/2019 1 [place] Molly Alonso [id number] Molly Alonso 03/18/2019 2 [place] [id number] [facility] (MEDICARE SUPPLEMENT) Molly Alonso [id number] Molly A Gavin OBGyn Episode No OBEpisode recorded.
--- OUTSIDE RECORDS SUMMARY | 2024-10-06 09:03 | XMS_ITS ---
Author Organization 1 [facility] Address [address] [facility] [facility] [address] [place] [address] Care Team Providers Care Underliner Name Role Phone Migration, Provider Unavailable Unavailable REASON FOR VISIT EMR-Tex Encounters Encounter Location Date Provider Diagnosis 1 [facility] [address] [employer] [facility] [address] [place] [address] 07/06/2024 Provider Migration Plan Of Treatment No Information Progress Notes * Molly CHUDOB:[birth year] (83 yo F)Acc No.[id number]:07/06/2024 Patient: Molly DOTY :1940 A ge:83 Y S ex:Female Address:[address] [place] [id number] Subjective: * Chief Complaints: * E MR-Tex * Medical History: * Surgical History: * Hospitalization/Major Diagno stic Procedure: * Medications: Objective: * Vitals: * Physical Examination: Assessment: Plan: * Treatment: * Procedure Codes: * * Date:
--- OUTSIDE RECORDS SUMMARY | 2024-10-06 09:03 | XMS_ITS | Patient Health Record ---
Author Organization 1 [facility] Address [address] [employer] [facility] [address] [place] [address] Care Team Providers Care Nursing Assistant Name Role Phone Migration, Provider Unavailable Unavailable Reason For Referral No Information Encounters Encounter Location Date Provider Diagnosis 1 [facility] [address] [employer] [address] [place] [address] 07/05/2024 Provider Migration 1 [facility] [address] [employer] [facility] [address] [place] [address] 07/06/2024 Provider Migration Plan Of Treatment No Information Insurance Providers Payer Name Payer Address Payer Phone Subscriber Number Group Number Insured Name Patient Relationship to Insured Coverage Start Date Coverage End Date Aetna [address] [address] [place] [address] [phone] [id number] Cedric alvarez Molly Self - patient is the insured 1 [place] [address] [place] [address] [id number] Molly Lowery Self - patient is the insured 1
--- OUTSIDE RECORDS SUMMARY | 2024-10-06 09:03 | XMS_ITS ---
Author Organization 1 [facility] Address [address] [facility] [address] [place] [address] Care Team Providers Care Trust Manager Assistant Name Role Phone Migration, Provider Unavailable Unavailable REASON FOR VISIT EMR-Tex Encounters Encounter Location Date Provider Diagnosis 1 [facility], [facility] [address] [employer] [facility] [address] [place] [address] 07/05/2024 Provider Migration Plan Of Treatment No Information Progress Notes * Molly CHUDOB:[birth year] (83 yo F)Acc No.[id number]:07/05/2024 Patient: Molly DOTY :1940 A ge:83 Y S ex:Female Address:[address] [place] [address] Subjective: * Chief Complaints: * E MR-Tex * Medical History: * Surgical History: * Hospitalization/Major Diagno stic Procedure: * Medications: Objective: * Vitals: * Physical Examination: Assessment: Plan: * Treatment: * Procedure Codes: * * Date:
--- OUTSIDE RECORDS SUMMARY | 2024-10-06 09:03 | XMS_ITS | Patient Health Record ---
Author Organization [facility] Address [address] [place] [address] Care Team Providers Care Electrical Linesworker Name Role Phone Karen Perez Unavailable [phone] Reason For Referral No Information Medications Medication SIG (Take, Route, Frequency, Duration) Notes Start Date End Date Status Pantoprazole Sodium 40 MG Oral 07/09/2023 Active Rosuvastatin Calcium 10 MG Oral 07/09/2023 Active DULoxetine HCl 60 MG Oral 07/09/2023 Active Sertraline HCl 25 MG TAKE 1 TABLET BY [facility] DAILY Orally Once a day; Duration: 90 [...] Problem Status W/U Status Risk Notes Problem Major depressive disorder, recurrent, mild (F33.0) 07/09/2023 Active confirmed Encounters Encounter Location Date Provider Diagnosis [facility] [address] [place] [address] 11/07/2023 Katelynngudelia RamirezChris Major depressive disorder, recurrent, mild F33.0 Assessments [...] Medicare Replacement/ Advantage - Ppo [address] [address] [place] [address] [id number] DESHAWN LAMB Self - patient is the insured Medical (General) History Surgical History Surgery Date(Month/Year) Tonsilectomy/adenoids Sinus surgery
[2024-10-06 10:07] LABS: Hematocrit 38.5 % (37.0-47.0); Hemoglobin 11.8 g/dL (12.0-15.0); Mean Corpuscular HGB Conc 30.6 g/dl (32-36); Mean Corpuscular Hemoglobin 29.3 pg (26-34); Mean Corpuscular Volume 95.5 fl (80-100); Platelet Count Result 231 k/mm3 (150-375); Red Blood Count 4.03 M/mm3 (4.2-5.4); White Blood Count 4.0 K/mm3 (4.5-10.0)
[2024-10-06 10:25] LABS: INR 1.0; Prothrombin Time 13.3 Seconds (11.1-14.7)
[2024-10-06 10:26] LABS: Partial Thromboplastin Time 32.4 Seconds (22.3-36.8)
[2024-10-06 10:29] LABS: Albumin Level 4.2 g/dL (3.5-5.1); Alkaline Phosphatase 73 U/L (38-126); Anion Gap 10 mmol/L (4-12); Aspartate Amino Transferase 27 U/L (14-36); Bilirubin,Total 0.9 mg/dL (0.2-1.3); Blood Urea Nitrogen 12 mg/dL (7-17); Calcium 9.8 mg/dL (8.4-10.2); Carbon Dioxide 22 mmol/L (22-30); Chloride 107 mmol/L (98-107); Estimated Glomerular Filt Rate > 60; Glucose 99 mg/dL (65-110); Potassium 4.2 mmol/L (3.4-5.0); Sodium 139 mmol/L (137-145); Total Protein 7.8 g/dL (6.3-8.2)
[2024-10-06 10:37] LABS: Alanine Aminotransferase < 6 U/L (6-35)
== END 2024-10-06 08:50 | disposition home or self-care (01) ==
LOC: ANHSURGERY 08:53
PROVIDERS: PCP Family Medicine; Visit Provider Anesthesiology Pain Medicine
DX: M80.88XA Other osteoporosis with current pathological fracture, vertebra(e), initial encounter for fracture (principal)
CPT/HCPCS: 36415; 71046; 80053; 85027; 85610; 85730

== ENCOUNTER 2024-10-07 01:53 | Day surgery (SDC) | payer MEDICARE, SELFPAY ==
[2024-10-02 12:52] VITALS: BMI 16.2
--- NOTE | 2024-10-02 13:01 | PC.NURSE ---
Addendum entered by Nam Mendez RN 10/02/24 14:14: Correction, nothing to eat or drink after midnight except water with medicines. Original Note: Report to the Outpatient Waiting Room, entrance under the green pavilion located off [facility], at time _0700_ on date _[id number]_. Planned Procedure Time: _0900_.? Time changes happen often and if your time is changed the preop area will call you the afternoon before. - You and your visitor will be asked to self-screen and do not enter if you have any COVID symptoms. Please call surgeon if you need to reschedule. - A mask is optional within the hospital at this time. Patients may have clear liquids (water, carbonated beverages, clear teas, apple juice) until 3 hours prior to surgery with a maximum of 20 ounces. - No food from midnight until time of surgery and no smoking, or chewing tobacco (or any form of nicotine). No chewing gum, candy or mints. Take only the following medications with a SIP of water on the morning of surgery: ___Levothyroxine, Sertraline, Carbidopa/Levodopa and if needed Acetaminophen. DO NOT STOP ANY OF YOUR OTHER PRESCRIPTION MEDICATIONS PRIOR TO SURGERY EXCEPT THE FOLLOWING Hold all vitamins and supplements for 3 days per anesthesiologist. Medications to discontinue per physician ___Meloxicam Date to take last dose___Stop now.____ Please no make-up, nail sinhala, hairspray, perfume, deodorant, or body powder the day of surgery.? No jewelry (including any body piercings) or valuables the day of surgery, leave them at home.? Please take a shower or bath the night before, or the morning of, surgery with an antibacterial soap.? Wear comfortable, loose fitting clothing. - Jewelry must be removed prior to entering the operating room.? Rings and piercings that are not removed may be cut off. - The hospital will not accept responsibility for valuables.? - Please leave all valuables, including medications, at home the day of surgery. If you are going home after surgery, a licensed seasonal driver must drive you home.? - NO public transportation without another adult if you receive anesthesia. - We recommend that an adult stay with you for 24 hours following discharge. - We also recommend that you do not drive, make important decision, drink alcoholic beverages, or take any drugs that were not prescribed by your health care provider for at least 24 hours after your discharge time. Follow any additional instructions given to you from your surgeon. Telephone instructions given to __Mick/brother/poa___and asked if any additional questions and then verbalized understanding. Patient advised to call surgeon office or pre surgery nurse liaison [phone] if any additional questions.
[2024-10-07] VITALS (8 sets, daily range): BP systolic 96–148; BP diastolic 45–82; PULSE 70–82; RESP 14–20; TEMP 36.2–36.6; O2SAT 95–100; BMI 16.2
--- NOTE | ~2024-10-07 | XR_ITS ---
INTRAOPERATIVE FLUOROSCOPY: CLINICAL HISTORY: 83 years old Female; KYPHOPLASTY AT T8, L1 VERTEBRAL BODIES UNDER FLUORO PROCEDURE COMMENTS: Limited intraoperative fluoroscopy of the lumbar spine was performed. CUMULATIVE DOSE: 95 mGy FLUOROSCOPY TIME: 9.2 seconds FINDINGS/IMPRESSION: Please refer to operative note for further details. Reviewed, dictated and finalized at location A.
--- OUTSIDE RECORDS SUMMARY | 2024-10-07 01:56 | XMS_ITS ---
Author Organization 1 [facility] Address [address] [facility] [address] [place] [address] Care Team Providers Care Finished Yarn Examiner Name Role Phone Migration, Provider Unavailable Unavailable REASON FOR VISIT EMR-Tex Encounters Encounter Location Date Provider Diagnosis 1 [facility] [address] [employer] [facility] [address] [place] [address] 07/06/2024 Provider Migration Plan Of Treatment No Information Progress Notes * Molly CHUDOB:[birth year] (83 yo F)Acc No.[id number]:07/06/2024 Patient: Molly DOTY :1940 A ge:83 Y S ex:Female Address:[address] [place] [address] Subjective: * Chief Complaints: * E MR-Tex * Medical History: * Surgical History: * Hospitalization/Major Diagno stic Procedure: * Medications: Objective: * Vitals: * Physical Examination: Assessment: Plan: * Treatment: * Procedure Codes: * * Date:
--- OUTSIDE RECORDS SUMMARY | 2024-10-07 01:56 | XMS_ITS | Patient Health Record ---
Author Organization [facility] [employer] [facility] Address [address] [place] [address] Care Team Providers Care Commodities Broker Name Role Phone Karen Peerz Unavailable [phone] Reason For Referral No Information Medications Medication SIG (Take, Route, Frequency, Duration) Notes Start Date End Date Status Pantoprazole Sodium 40 MG Oral 07/09/2023 Active Rosuvastatin Calcium 10 MG Oral 07/09/2023 Active DULoxetine HCl 60 MG Oral 07/09/2023 Active Sertraline HCl 25 MG TAKE 1 TABLET BY [facility] DAILY Orally Once a day; Duration: 90 [...] Location Date Provider Diagnosis [facility] [address] [place] [address] 11/07/2023 Katelynngudelia RamirezChris Major depressive disorder, recurrent, [...] Medicare Replacement/ Advantage - Ppo [address] [address] [place] [address] [id number] DESHAWN LAMB Self - patient is the insured Medical (General) History Surgical History Surgery Date(Month/Year) Tonsilectomy/adenoids Sinus surgery
--- OUTSIDE RECORDS SUMMARY | 2024-10-07 01:56 | XMS_ITS ---
Author Organization 1 [facility] Address [address] [facility] [address] [place] [address] Care Team Providers Care Lamp Developer Name Role Phone Migration, Provider Unavailable Unavailable REASON FOR VISIT EMR-Tex Encounters Encounter Location Date Provider Diagnosis 1 [place] [facility], [facility] [address] [employer] [facility] [address] [place] [address] 07/05/2024 Provider Migration Plan Of Treatment No Information Progress Notes * Molly CHUDOB:[birth year] (83 yo F)Acc No.[id number]:07/05/2024 Patient: Molly DOTY :1940 A ge:83 Y S ex:Female Address:[address] [place] [address] Subjective: * Chief Complaints: * E MR-Tex * Medical History: * Surgical History: * Hospitalization/Major Diagno stic Procedure: * Medications: Objective: * Vitals: * Physical Examination: Assessment: Plan: * Treatment: * Procedure Codes: * * Date:
--- OUTSIDE RECORDS SUMMARY | 2024-10-07 01:56 | XMS_ITS | Patient Health Record ---
Author Organization 1 [facility] Address [address] [employer] [facility] [address] [place] [address] Care Team Providers Care Housekeeping Aid Name Role Phone Migration, Provider Unavailable Unavailable Reason For Referral No Information Encounters Encounter Location Date Provider Diagnosis 1 [facility] [address] [employer] [place] [address] 07/05/2024 Provider Migration 1 [facility] [address] [facility] [address] [place] [address] 07/06/2024 Provider Migration Plan Of Treatment No Information Insurance Providers Payer Name Payer Address Payer Phone Subscriber Number Group Number Insured Name Patient Relationship to Insured Coverage Start Date Coverage End Date Aetna [address] [address] [place] [address] [id number] Cedric avlarez Molly Self - patient is the insured 1 [place] [address] [place] [address] [id number] Molly Lowery Self - patient is the insured 1
--- NOTE | 2024-10-07 07:57 | P.PNAN_ITS ---
Anes - Initial Pre Proc Eval Procedure: Operation Date: 10/07/24 09:00 Proposed Procedures p Balloon Assisted Percutaneous Transpedicular Vertebral Augmentation (Kyphoplasty) at T8, L1 Vertebral Bodies Under Fluoroscopic Guidance - García Pond MD Date/Time: 10/07/24 07:57 Surgeon: García Pond MD Pre Op Diagnosis: other oa with current pathological fracture Patient Data Age: 83 Gender: F Height: 1.75 m Weight: 50.1 kg Last Vital Signs Temp 36.6 C 10/07/24 07:00 Pulse 82 10/07/24 07:00 Resp 14 10/07/24 07:00 BP 146/82 H 10/07/24 07:00 Pulse Ox 100 10/07/24 07:00 Allergies Allergy/AdvReac Type Severity Reaction Status Date / Time amoxicillin Allergy Severe Rash Verified 10/07/24 07:58 Home Medications ?Medication ?Instructions ?Recorded ?Confirmed ?Type alendronate 70 mg tablet 70 mg PO WEEKLY #13 tabs 12/20/23 10/02/24 Rx acetaminophen 325 mg capsule 650 mg PO Q6H PRN pain 04/25/24 10/02/24 History pantoprazole 40 mg tablet,delayed 40 mg PO BID #60 tabs 04/25/24 10/02/24 Rx release rosuvastatin 10 mg tablet 10 mg PO DAILY #90 tabs 04/25/24 10/02/24 Rx levothyroxine 75 mcg capsule 75 mcg PO DAILY #90 caps 05/05/24 10/02/24 Rx meloxicam 7.5 mg tablet 7.5 mg PO DAILY #90 tabs 05/05/24 10/07/24 Rx sertraline 25 mg tablet 25 mg PO DAILY #90 tabs 07/28/24 10/02/24 Rx carbidopa 25 mg-levodopa 100 mg 1.5 tablet PO TID #405 tabs 08/07/24 10/02/24 Rx tablet Patient hx anesthesia problems: none Family hx anesthesia problems: none Results Review: All pre-operative results and documents have been reviewed as part of the pre- operative evaluation. 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 Hyperlipidemia GERD (gastroesophageal reflux disease) Chronic bilateral thoracic back pain Hypothyroid Osteoporosis Parkinson disease Surgical History Surgical History History of knee replacement procedure of right knee History of knee replacement procedure of left knee S/P tonsillectomy History of cataract extraction right and left Social History Social History Smoking status: Never smoker Alcohol intake: never Substance use: never Substance use type: does not use Do You Feel Safe in your Home?: Yes Lack of Transportation: No Lack of Food: Never True Current Housing: Decline to Answer Concerned About Future Housing: No Difficulty Paying Gas/Electric Bills: No Difficulty Paying for Meds: No Currently Unemployed: No Education: Trade/Vocational Certificate Difficulty w/ Childcare or Family Care: No Living arrangements: alone Occupation/Education: retired Gender identity (if verbalized by the patient): Female Spiritual care concerns: No Anes - Eval Final PreProcedure Day of Procedure 10/07/24 07:57 Patient weight: cachectic Heart: regular rate and rhythm Lungs: decreased breath sounds Airway: Mallampati scale class II Neurological: other (alert) Last oral intake: >/= 8 hours ASA classification: IV Emergent: no Anesthetic plan: proceed Anesthesia type and monitoring: general ETT and standard monitoring Results Review: All pre-operative results and documents have been reviewed as part of the pre- operative evaluation. Informed Consent: The patient's anesthetic plan and its attendant risks and benefits were discussed with the patient/family/POA. Questions were solicited and answers provided to the satisfaction of the patient/family/POA.
--- NOTE | 2024-10-07 08:52 | PM.HPGS ---
History of Present Illness History of Present Illness Consent: Risks, benefits, and alternatives have been discussed and questions answered. Patient agrees to proceed with procedure. Chief complaint: other osteoporosis w/current pathological fracture Narrative: Molly Alonso is a 83 year old female with chronic, recalcitrant and disabling thoracolumbar back pain secondary to vertebral compression fracture at T8, L1 with failure to respond to aggressive conservative measures including PT, oral and topical analgesics, opioid and nonopioid analgesics, rest, time and activity/behavioral modification over the past 4-6 weeks who presents for balloon-assisted vertebral augmentation of the T8, L1 vertebral bodies under fluoroscopic guidance. 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 Hyperlipidemia GERD (gastroesophageal reflux disease) Chronic bilateral thoracic back pain Hypothyroid Osteoporosis Parkinson disease Surgical History Surgical History History of knee replacement procedure of right knee History of knee replacement procedure of left knee S/P tonsillectomy History of cataract extraction right and left Social History Social History Smoking status: Never smoker Alcohol intake: never Substance use: never Substance use type: does not use Do You Feel Safe in your Home?: Yes Lack of Transportation: No Lack of Food: Never True Current Housing: Decline to Answer Concerned About Future Housing: No Difficulty Paying Gas/Electric Bills: No Difficulty Paying for Meds: No Currently Unemployed: No Education: Trade/Vocational Certificate Difficulty w/ Childcare or Family Care: No Living arrangements: alone Occupation/Education: retired Gender identity (if verbalized by the patient): Female Spiritual care concerns: No Meds Home Medications and Allergies Home Medications ?Medication ?Instructions ?Recorded ?Confirmed ?Type alendronate 70 mg tablet 70 mg PO WEEKLY #13 tabs 12/20/23 10/02/24 Rx acetaminophen 325 mg capsule 650 mg PO Q6H PRN pain 04/25/24 10/02/24 History pantoprazole 40 mg tablet,delayed 40 mg PO BID #60 tabs 04/25/24 10/07/24 Rx release rosuvastatin 10 mg tablet 10 mg PO DAILY #90 tabs 04/25/24 10/07/24 Rx levothyroxine 75 mcg capsule 75 mcg PO DAILY #90 caps 05/05/24 10/07/24 Rx meloxicam 7.5 mg tablet 7.5 mg PO DAILY #90 tabs 05/05/24 10/07/24 Rx sertraline 25 mg tablet 25 mg PO DAILY #90 tabs 07/28/24 10/07/24 Rx carbidopa 25 mg-levodopa 100 mg 1.5 tablet PO TID #405 tabs 08/07/24 10/07/24 Rx tablet Allergies Allergy/AdvReac Type Severity Reaction Status Date / Time amoxicillin Allergy Severe Rash Verified 10/07/24 07:58 Vital Signs Vital Signs - 24 hr 10/07/24 07:00 Temperature 97.9 F Pulse Rate 82 Respiratory Rate 14 Blood Pressure 146/82 H Pulse Oximetry 100 Exam Narrative: The patient's physical exam is essentially unchanged from prior examination on 08/25/24. Specifically, patient demonstrates normal lung capacity, tidal volume and respiratory rate without wheezes, crackles, rales or rubs. Heart rate and rhythm are regular without murmurs, gallops or rubs. No JVD. Pulses 2+ globally without increasing peripheral edema. AAOx3 with no evidence of confusion, intoxication or altered mental state, NC/AT without acute distress or altered consciousness. Speech, cognition, mood, insight and judgment at baseline and within normal limits. Assessment and Plan Assessment and plan (1) Osteoporotic compression fracture of spine: Code(s): M80.88XA - Other osteoporosis with current pathological fracture, vertebra(e), initial encounter for fracture Status: Acute (2) Osteoporosis: Code(s): M81.0 - Age-related osteoporosis without current pathological fracture Status: Acute Assessment and Plan: proceed as planned with balloon-assisted vertebral augmentation of the T8, L1 vertebral bodies under fluoroscopic guidance.
--- NOTE | 2024-10-07 08:57 | P.OP_ITS ---
Procedure Note - Detailed Date of Procedure 10/07/24 Pre-op Diagnosis other osteoporosis w/current pathological fracture Post-op Diagnosis Same Procedure Performed Percutaneous balloon-assisted vertebral augmentation of the L1 vertebral body under fluoroscopic guidance (Kyphoplasty) with intraosseous bone biopsy. Surgeon Garíca Pond MD Check Services Clerk None. Anesthesia General (GETA with local anesthetic infiltration in the prone position.) Indications Osteoporotic vertebral compression fracture with greater than 25% deformity in the absence of neurologic deficit or significant central canal stenosis. Findings The initial intention was to treat fracture levels at T8 and L1. Vertebrae Plana at T8 with inability to adequately visualize the medial pedicle border making access unsafe. Therefore, after multiple attempts, T8 was abandoned. Patient's family notified. Description of Procedure INFORMED CONSENT: Risks, benefits and alternatives to the procedure were discus sed in detail with the patient who expressed explicit understanding and consent to proceed. Patient was informed verbally and in written form regarding the risks associated with the procedure including the low risk of serious local or systemic infection, bleeding/bruising, allergic reaction, pulmonary embolus/edema, extravasation of cement requiring surgical intervention, worsening fracture, nerve or organ injury, paralysis, procedural site pain or discomfort, worsening pain and/or mobility, failure to treat and/or disfigurement. The patient expressed explicit understanding and consent to proc eed. All materials required for the procedure were available prior to procedure start. Site and side were marked prior to procedure and confirmed in the presence of the unsedated patient. PROCEDURE IN DETAIL: After full informed consent was obtained, appropriate IV access was confirmed by Anesthesia without difficulty. The patient was escorted to the operative theater. Supplemental oxygen was initiated to maintain O2 saturation between 92-99%. Careful positioning was undertaken and ASA standard monitors were applied and checked routinely throughout the case. Prophylactic antibiotics were administered prior to procedure start. Patient was placed in the prone position in optimal extension using pillows and the thoracolumbar spine was prepared and draped in the usual sterile manner using tinted ChloraPrep scrub and allowed to dry completely for at least 3 minutes. Fluoroscopy in the AP and lateral position was used with perfect linear projections at the T8 level to identify/confirm the procedural level and presence of deformity. Given difficulty with visualization, attempt was made to locate and confirm posterior lamina/pedicle on the right side 22 gauge 3.5 in Quincke spinal needle. Although multiple times for made from different angles of approach, we were unable to adequately identify the medial border of the pedicle at T8 on either side making it potentially dangerous to proceed secondary to high risk for neurologic injury. For this reason, T8 was abandoned. Attention was then turned to the L1 vertebral body. Medial borders of the pedicles were more evident at this level. Percutaneous trocar was introduced from a rightward approach (transpedicular approach) via a small stab skin incision made at the entry site using a #11 scalpel following adequate anesthesia via infiltration of a 1:1 admixture of 2% PF lidocaine with epinephrine and 0.5% PF bupivacaine with a 2 inch 27-gauge needle after negative aspiration for blood or body fluid. Anesthesia was extended to periosteum at the intended procedural level with a 3.5 inch 22g Quincke spinal needle. A 10- gauge trocar with a joshua tip was introduced through the skin incision and do cked on the right posterior pedicle of T8 in the superolateral (11 o'clock) position. Under live fluoroscopy while alternating between AP and lateral views, the trocar was advanced intermittently in the anterior, medial and inferior directions using a metal surgical mallet, taking care to advance only in the AP view, using lateral views to confirm depth and direction. In the AP view, as the tip of the trocar approached (but did not violate) the medial, inferior border of the pedicle, lateral view was utilized to confirm advancement of the trocar through the pedicle and into the posterior third of the vertebral body. Trocar was then advanced in the lateral view, with appropriate trajectory and final placement identified/confirmed by intermittent evaluation in the AP view until the trocar tip reached the anterior 3rd of the vertebral body at or near midline without violation of the anterior or lateral vertebral garland. A 20 ml balloon catheter prefilled with Omnipaque 300 contrast medium was advanced to the anterior third of the vertebral body at or near midline in the medial and lateral views and inflated with contrast to a volume of 5 ml or less at an internal pressure of 400 psi or less, creating an appropriately sized cavity within the vertebral body with correct balloon location identified in both the AP and Lateral views. The cement introducer was then advanced into the far end of the cavity and the void was filled in a controlled fashion, in 0.5-1.0 mL increments, monitoring in both the AP and Lateral views for appropriate cement position and fill, utilizing a total of 3-5 mm of polymethylmethacrylate containing nonionic contrast, stopping with any posterior spread or evidence of vascular, disc space or extra vertebral encroachment of cement. Once appropriate fill was confirmed in both the lateral and AP views, the cement introducer was withdrawn, stylette was reinserted and trocar removed in a stepwise fashion under live fluoroscopy in the lateral view to ensure lack of cement migration into the trocar tracts. Patient was allowed to remain in the prone position under relative thoracolumbar extension until cement had fully hardened, or approximately 15 minutes after initial mixing. The patient's skin was cleansed and the stab incision(s) were closed using benzoin and Steri-Strips in a izzy- crossing fashion and covered by a non-stick sponge pad and self-adherent clear, occlusive dressing. The patient tolerated this procedure well. Anesthesia was reversed without difficulty. The patient was transported to the recovery area in stable condition and without evidence of subsequent complication. Peripheral IV was discontinued. Patient was eventually discharged under their own power with pain satisfactorily controlled, without significant nausea or neurologic deficit and with full ability to ambulate, void and tolerate liquids by mouth. The patient was instructed to avoid excessive activity for the next 48 hours. Patient was restricted from driving for 48 hours. The patient was instructed to restart any anticoagulants 24 hours after the procedure unless otherwise directed by their prescribing physician. They were instructed to avoid heavy lifting, pushing, pulling or carrying weights greater than 5 pounds until released. They are to avoid any overhead work. The patient is to sponge bathe only for the next 48 hours. Top bandage can be removed after 48 hours. Steri- Strips are to remain in place until they fall off on their own or until removed by physician. After 48 hours and top bandage is removed, patient may resume showering. No bathing or soaking for one week or as released by physician. The patient is to monitor for signs of infection including fevers, chills, night sweats, redness, swelling or discharge at the procedural site. They are to monitor for signs of neurologic change including new numbness, weakness or pain in the upper or lower extremities, headaches or loss of bowel or bladder control. Should they develop any of these symptoms they are to call our office immediately during office hours or report directly to the nearest emergency department if after hours or if no immediate answer. COMPLICATIONS: None. COMMENTS: None. EBL: Minimal. DRAINS: None. PACKING: None. PATHOLOGY: None. Drains No Packing No Complications No immediate complications Condition Stable Disposition PACU [facility] Billing Surgery - Charge Forward: Surgery Billing
--- NOTE | 2024-10-07 08:57 | WPDHPUPDATE1 ---
History and Physical Update Update Date/Time: 10/07/24 08:57 History and Physical has been reviewed, including an updated exam of the patient. There are NO changes in the patient's condition. Risks, benefits, and alternatives have been discussed and questions answered. Patient agrees to proceed with procedure.
[2024-10-07] MEDS: ceFAZolin 2 GM in SODIUM CHLORIDE 0.9% IV 50 ML 100 ML IVPB (09:07)
[2024-10-07] MEDS: LIDOCAINE 2% PF LOCAL INJ 5 ML VIAL INFILTRATE (09:43)
[2024-10-07] MEDS: BUPIVACAINE/EPINEPHRINE 0.5% 50 ML VIAL 10 ML INFILTRATE (09:43)
[2024-10-07] MEDS: LACTATED RINGERS 1,000 ML 30 ML IV CONT (10:27)
[2024-10-07] MEDS: oxyCODONE HCL (*CRX) 2.5 MG TAB IR PO (11:49)
== END 2024-10-07 12:26 | disposition home or self-care (01) ==
PROVIDERS: PCP Family Medicine; Visit Provider Anesthesiology Pain Medicine
PROC: (CPT 22514; principal; 2024-10-07 09:00)
DX: M80.88XA Other osteoporosis with current pathological fracture, vertebra(e), initial encounter for fracture (principal); E78.5 Hyperlipidemia, unspecified; K21.9 Gastro-esophageal reflux disease without esophagitis; E03.9 Hypothyroidism, unspecified; G20.A1 Parkinson's disease without dyskinesia, without mention of fluctuations; G89.29 Other chronic pain; M54.6 Pain in thoracic spine; Z79.83 Long term (current) use of bisphosphonates; Z98.890 Other specified postprocedural states
CPT/HCPCS: 22514; 99199; J0690; A9270; J0330; J2003; J2704; J7120; Q9965

== ENCOUNTER 2024-10-20 13:42 | Emergency (ER) | payer MEDICARE, SELFPAY ==
[2024-10-20] VITALS (26 sets, daily range): BP systolic 100–158; BP diastolic 45–109; PULSE 64–91; RESP 11–27; TEMP 36.3–36.5; O2SAT 98–100
--- NOTE | ~2024-10-20 | CT_ITS ---
EXAMINATION: CT thoracic lumbar wo con DATE: 10/20/2024 16:02 INDICATION: Back pain. Recent fractures. TECHNIQUE: Computed tomography (CT) of the thoracic spine was performed without intravenous contrast. Automated exposure control and iterative reconstruction technique were employed. The dose-length pro duct was 372.96 mGy-cm. COMPARISON: Lumbar spine CT dated 6 , chest radiograph dated 09/28/2024 and bone scan dated FINDINGS: Thoracic spine: Diffuse mild thoracic kyphosis. Subacute T8 burst fracture with unchanged pleural percent anterior ve rtebral body height loss, 20% posterior vertebral body height loss and 2 mm retropulsion along the po sterior wall. Unchanged chronic T12 compression fracture with <20% right anterior vertebral body heig ht loss and 2 mm retropulsion. Remaining thoracic vertebral body heights are normal with no acute fra ctures. Multilevel mild to moderate disc height loss throughout the thoracic spine. Mild central shalonda l stenosis associated with the retropulsion at T8 and T12. Remainder of the thoracic central canal is widely patent throughout. The vertebral body height loss associated with the T8 burst fracture also results in mild bilateral neural foraminal stenosis at T8-T9. Calcified left lower lobe nodule along with calcified left hilar and mediastinal lymph nodes and multiple splenic calcifications all consist ent with old granulomatous disease. 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 Heart size is normal. Dual lead pacemaker se en with leads in the right atrium and right ventricle. Lumbar spine: 8 degrees lumbar levocurvature. 3 mm retrolisthesis L2 on L3 and L3 on L4. Chronic L1 burst fracture with 40% anterior to central and 20% posterior vertebral body height loss with 3 mm retropulsion. The re has been prior vertebroplasty with extravasation of some of the methylmethacrylate into the L1-L2 disc spaces. Additional chronic mild superior endplate compression fracture at L2. Moderate disc heig ht loss at L2-L3. Mild to moderate right-sided predominant disc height loss at L3-L4 and L4-L5. There is widening of the T12-L1 and L1-L2 disc spaces resulting from the L1 burst fracture. Paravertebral soft tissues are unremarkable. The following disc levels are specifically discussed: T12-L1: Disc is mildly bulging. There is mild left and moderate right facet joint osteoarthritis. The re is no neural foraminal stenosis. There is mild central canal stenosis resulting primarily from the retropulsion of L1. L1-L2: Large right foraminal zone disc protrusion There is mild left and moderate right facet joint o steoarthritis. There is mild right and moderate left neural foraminal stenosis. There is mild central canal stenosis. L2-L3: Disc is bulging. There is mild right and moderate left facet joint osteoarthritis. There is mo derate left and mild to moderate right neural foraminal stenosis. There is mild central canal stenosi s. L3-L4: Disc is bulging. There is moderate bilateral facet joint osteoarthritis. There is left and mod erate to severe right neural foraminal stenosis. There is mild central canal stenosis. L4-L5: Disc is bulging. There is moderate bilateral facet joint osteoarthritis. There is moderate joesph ateral neural foraminal stenosis. There is mild central canal stenosis. L5-S1: Disc is bulging. There is severe bilateral facet joint osteoarthritis. There is mild left neur al foraminal stenosis. There is mild central canal stenosis. IMPRESSION: 1. No interval change since the recent prior studies in a subacute T8 burst fracture and chronic T12 and L1 burst fractures the latter with prior vertebroplasty and chronic L2 superior endplate compress ion fracture. No acute osseous abnormality. 2. Moderate thoracic and lumbar spondylosis. Reviewed, dictated and finalized at location A. IMPRESSION: 1. No interval change since the recent prior studies in a subacute T8 burst fra cture and chronic T12 and L1 burst fractures the latter with prior vertebroplas ty and chronic L2 superior endplate compression fracture. No acute osseous abno rmality. 2. Moderate thoracic and lumbar spondylosis.
--- NOTE | ~2024-10-20 | XR_ITS ---
Exam: X-ray chest one view portable. Clinical history: Altered mental status. COMPARISON: Chest x-ray 2 views 10/06/2024. TECHNIQUE: A single portable AP upright frontal image of the chest was obtained. FINDINGS: Left-sided generator with leads. Kyphoplasty in the lower thoracic spine. No pneumothorax. No pleural effusion. No free air in the diaphragm. Heart is mildly enlarged. Interstitial opacities in both lora gs. Small bandlike opacity in the right mid lateral hemithorax, unchanged, likely scarring. IMPRESSION: 1. Interstitial opacities in both lungs. Differential includes interstitial edema, interstitial pneum onia or chronic interstitial changes. Reviewed, dictated and finalized at location A. IMPRESSION: 1. Interstitial opacities in both lungs. Differential includes interstitial diallo ma, interstitial pneumonia or chronic interstitial changes.
--- NOTE | ~2024-10-20 | CT_ITS ---
EXAMINATION: CT brain wo con DATE: 10/20/2024 16:02 INDICATION: Altered mental status TECHNIQUE: Computed tomography (CT) of the head was performed without intravenous contrast. The dose- length product was 681.00 mGy-cm. COMPARISON: 03/26/2024 FINDINGS: No acute intracranial hemorrhage. No mass effect. No midline shift. No hydrocephalus. Dental hardware with surrounding artifact which limits evaluation. There are a few small low density regions scattered throughout the periventricular and deep white mat ter which may be due to chronic ischemic white matter change. Cerebral atrophy appropriate for the patient's age. Small low-density region in the hemalatha. Differential includes artifact or an area of ischemia of indete rminate age. Other etiologies are possible. Correlate clinically. Consider a brain MRI for further as sessment. New small low-density region in the deep white matter in the right parietal lobe. The finding may rep resent an area of ischemia of indeterminate age. Other etiologies are possible. Consider a brain MRI for further assessment. IMPRESSION: 1. No acute intracranial hemorrhage. 2.Small low-density region in the hemalatha. Differential includes artifact or an area of ischemia of inde terminate age. Other etiologies are possible. Correlate clinically. Consider a brain MRI for further assessment. 3.New small low-density region in the deep white matter in the right parietal lobe. The finding may r epresent an area of ischemia of indeterminate age. Other etiologies are possible. Consider a brain MR I for further assessment. Reviewed, dictated and finalized at location A. IMPRESSION: 1. No acute intracranial hemorrhage. 2.Small low-density region in the hemalatha. Differential includes artifact or an ar ea of ischemia of indeterminate age. Other etiologies are possible. Correlate c linically. Consider a brain MRI for further assessment. 3.New small low-density region in the deep white matter in the right parietal l obe. The finding may represent an area of ischemia of indeterminate age. Other etiologies are possible. Consider a brain MRI for further assessment.
--- OUTSIDE RECORDS SUMMARY | 2024-10-20 14:00 | XMS_ITS | Patient Health Record ---
Author Organization 1 [facility] Address [address] [facility] [address] [place] [address] Care Team Providers Care Mechanic Field Service Name Role Phone Migration, Provider Unavailable Unavailable Reason For Referral No Information Encounters Encounter Location Date Provider Diagnosis 1 [facility] [address] [place] [address] 07/05/2024 Provider Migration 1 [facility] [address] [facility] [address] [place] [address] 07/06/2024 Provider Migration Plan Of Treatment No Information Insurance Providers Payer Name Payer Address Payer Phone Subscriber Number Group Number Insured Name Patient Relationship to Insured Coverage Start Date Coverage End Date [employer] [address] [address] [place] [address] [id number] Cedric alvarez Molly Self - patient is the insured 1 [employer] of [place] [address] [place] [address] [id number] Molly Lowery Self - patient is the insured 1
--- OUTSIDE RECORDS SUMMARY | 2024-10-20 14:00 | XMS_ITS ---
Author Organization 1 [facility] Address [address] [facility] [address] [place] [address] Care Team Providers Care Machine Ceramic Coater Name Role Phone Migration, Provider Unavailable Unavailable REASON FOR VISIT EMR-Tex Encounters Encounter Location Date Provider Diagnosis 1 [facility], [facility] [address] [facility] [address] [place] [address] 07/05/2024 Provider Migration Plan Of Treatment No Information Progress Notes * Molly CHUDOB:[birth year] (83 yo F)Acc No.[id number]:07/05/2024 Patient: Molly DOTY :1940 A ge:83 Y S ex:Female Address:[address] [place] [address] Subjective: * Chief Complaints: * E MR-Tex * Medical History: * Surgical History: * Hospitalization/Major Diagno stic Procedure: * Medications: Objective: * Vitals: * Physical Examination: Assessment: Plan: * Treatment: * Procedure Codes: * * Date:
--- OUTSIDE RECORDS SUMMARY | 2024-10-20 14:01 | XMS_ITS | Patient Health Record ---
Author Organization [facility] Address [address] [facility] [address] [place] [address] Care Team Providers Care Still Operator Whiskey Name Role Phone Karen Perez Unavailable [phone] Reason For Referral No Information Medications Medication SIG (Take, Route, Frequency, Duration) Notes Start Date End Date Status Pantoprazole Sodium 40 MG Oral 07/09/2023 Active Rosuvastatin Calcium 10 MG Oral 07/09/2023 Active DULoxetine HCl 60 MG Oral 07/09/2023 Active Sertraline HCl 25 MG TAKE 1 TABLET BY [facility] DAILY Orally Once a day; Duration: 90 [...] Risk Notes Problem Mild recurrent major depression (70174552) Major depressive disorder, recurrent, mild (F33.0) 07/09/2023 Active confirmed Encounters Encounter Location Date Provider Diagnosis [facility] [address] [facility] [address] [place] [address] 11/07/2023 Karen Chris Major depressive disorder, recurrent, [...] Medicare Replacement/ Advantage - Ppo [address] [address] [place] [address] [id number] DESHAWN LAMB Self - patient is the insured Medical (General) History Surgical History Surgery Date(Month/Year) Tonsilectomy/adenoids Sinus surgery
--- OUTSIDE RECORDS SUMMARY | 2024-10-20 14:02 | XMS_ITS ---
Author Organization 1 [facility] Address [address] [facility] [address] [place] [address] Care Team Providers Care Labeling Associate Name Role Phone Migration, Provider Unavailable Unavailable REASON FOR VISIT EMR-Tex Encounters Encounter Location Date Provider Diagnosis 1 [facility], [facility] [address] [facility] [address] [place] [address] 07/06/2024 Provider Migration Plan Of Treatment No Information Progress Notes * Molly CHUDOB:[birth year] (83 yo F)Acc No.[id number]:07/06/2024 Patient: Molly DOTY :1940 A ge:83 Y S ex:Female Address:[address] [place] [address] Subjective: * Chief Complaints: * E MR-Tex * Medical History: * Surgical History: * Hospitalization/Major Diagno stic Procedure: * Medications: Objective: * Vitals: * Physical Examination: Assessment: Plan: * Treatment: * Procedure Codes: * * Date:
--- NOTE | 2024-10-20 15:41 | ECG_ITS ---
Test Date: 2024-10-20 16:17:53 Measurements Intervals [place] Rate: 69 P: 258 MS: 181 QRS: -58 QRSD: 161 T: 70 QT: 466 QTc: 503 Interpretive Statements ELECTRONIC ATRIAL PACEMAKER ELECTRONIC VENTRICULAR PACEMAKER NO FURTHER INTERPRETATION IS POSSIBLE ATYPICAL ECG Compared to ECG 03/28/2024 10:05:43 No significant changes Electronically Signed On 10-20-2024 16:32:35 CDT by Robert Rothman D.O.
[2024-10-20 16:34] LABS: Hematocrit 32.8 % (37.0-47.0); Hemoglobin 10.6 g/dL (12.0-15.0); Immature Granulocyte Percent A 0.2 % (0-0.5); Lymphocytes Absolute Auto 0.89 K/mm3 (0.9-3.2); Mean Corpuscular HGB Conc 32.3 g/dl (32-36); Mean Corpuscular Hemoglobin 29.3 pg (26-34); Mean Corpuscular Volume 90.6 fl (80-100); Nucleated Red Blood Cells Absolute Auto 0.000 K/mm3 (0.0-0.012); Nucleated Red Blood Cells Perc 0.0 % (0.0-0.2); Platelet Count Result 253 k/mm3 (150-375); Red Blood Count 3.62 M/mm3 (4.2-5.4); White Blood Count 4.6 K/mm3 (4.5-10.0)
[2024-10-20 17:05] LABS: Albumin Level 3.7 g/dL (3.5-5.1); Alkaline Phosphatase 64 U/L (38-126); Anion Gap 5 mmol/L (4-12); Aspartate Amino Transferase 30 U/L (14-36); Bilirubin,Total 0.4 mg/dL (0.2-1.3); Blood Urea Nitrogen 15 mg/dL (7-17); Calcium 9.5 mg/dL (8.4-10.2); Carbon Dioxide 30 mmol/L (22-30); Chloride 103 mmol/L (98-107); Estimated CRCL calculation 47 ml/min; Estimated Glomerular Filt Rate > 60; Glucose 93 mg/dL (65-110); Magnesium 2.2 mg/dL (1.6-2.3); Potassium 3.1 mmol/L (3.4-5.0); Sodium 138 mmol/L (137-145); Total Protein 6.7 g/dL (6.3-8.2)
[2024-10-20 17:08] LABS: Alanine Aminotransferase < 6 U/L (6-35)
[2024-10-20 17:11] LABS: Troponin I < 0.012 ng/mL (0.000-0.034)
[2024-10-20 17:12] LABS: Influenza A QL RT-PCR Negative (Negative); Influenza B QL RT-PCR Negative (Negative); RSV RNA, RT-PCR Negative (Negative); SARS-CoV-2 RNA PCR Negative (Negative)
--- NOTE | 2024-10-20 17:22 | ED_ITS ---
HPI - General Adult General Chief complaint: Weakness <Abelardo Lynn MD - Last Filed: 10/20/24 19:00> Stated complaint: dizzy, weakness, near sycopal, bilat hip pain <Abelardo Lynn MD - Last Filed: 10/20/24 19:00> Time Seen by Provider: 10/20/24 15:11 <Abelardo Lynn MD - Last Filed: 10/20/24 19:00> History of Present Illness HPI narrative: Patient 83-year-old female who presents emergency department with chief complaint of confusion dizziness near syncope and back pain. Patient reports he has recently had a kyphoplasty and reports that she has had compression fractures in her back family reports that she has history of dementia and was her normal self around 10:00 a.m. this morning and then was more confused this afternoon family reports no unilateral weakness denies facial droop denies slurred speech she reports she is just more confused than normal <Abelardo Lynn MD - Last Filed: 10/20/24 19:00> Related Data Home medications: Home Medications ?Medication ?Instructions ?Recorded ?Confirmed ?Last Taken ?Type acetaminophen 325 mg capsule 650 mg PO Q6H PRN pain 04/25/24 10/02/24 Unknown History <Abelardo Lynn MD - Last Filed: 10/20/24 19:00> Allergies/adverse reactions: Allergies Allergy/AdvReac Type Severity Reaction Status Date / Time amoxicillin Allergy Severe Rash Verified 10/07/24 07:58 <Abelardo Lynn MD - Last Filed: 10/20/24 19:00> Review of Systems 2 Review of Systems: A 10 system review of systems was completed on the patient and is negative except for what is stated in the HPI. Nursing and ancillary documentation was reviewed. 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 Hyperlipidemia GERD (gastroesophageal reflux disease) Chronic bilateral thoracic back pain Hypothyroid Osteoporosis Parkinson disease <Abelardo Lynn MD - Last Filed: 10/20/24 19:00> Surgical History Surgical History: Surgical History History of knee replacement procedure of right knee History of knee replacement procedure of left knee S/P tonsillectomy History of cataract extraction right and left <Abelardo Lynn MD - Last Filed: 10/20/24 19:00> Social History Social History: Social History Smoking status: Never smoker Alcohol intake: never Substance use: never Substance use type: does not use Do You Feel Safe in your Home?: Yes Lack of Transportation: No Lack of Food: Never True Current Housing: Decline to Answer Concerned About Future Housing: No Difficulty Paying Gas/Electric Bills: No Difficulty Paying for Meds: No Currently Unemployed: No Education: Trade/Vocational Certificate Difficulty w/ Childcare or Family Care: No Living arrangements: alone Occupation/Education: retired Gender identity (if verbalized by the patient): Female Spiritual care concerns: No <Abelardo Lynn MD - Last Filed: 10/20/24 19:00> Exam 2 Narrative: GENERAL: Well-appearing, well-nourished, and in no acute distress. HEAD: Normocephalic, atraumatic. EYES: PERRLA and EOMI. ENT: Nares clear, no rhinorrhea or epistaxis. Mucous membranes moist. NECK: Supple. CHEST: Clear to auscultation. No respiratory distress. HEART: Regular rate and rhythm. No murmur heard. Normal peripheral pulses. ABDOMEN: Soft, nontender, nondistended, normal active bowel sounds. EXTREMITIES: Normal range of motion. No edema. SKIN: Warm, dry, no rash. NEURO: No focal deficits. Alert and oriented x2. PSYCH: Normal mood and affect. <Abelardo Lynn MD - Last Filed: 10/20/24 19:00> Course Course Emergency Course: Patient care signed over by previous provider pending discussion with [facility] transfer system for suspected stroke. Patient is confused but has no focal neurological deficits. NIH stroke scale 1 with last known well approximately 11:[address] shows multiple areas of potential ischemia which appear new. She has an MRI compatible pacemaker but we do not have capabilities for this here. Previous provider has already made contact with [facility] transfer system and spoken to the stroke neurologist who recommended admission to regular Neurology team so we are waiting discussion with them. Previous provider also spoke to our on-call neurologist Dr. Lemus who recommended MRI and transfer to obtain this at the facility with capabilities. Spoke to Dr. Hernandez from [facility] who is the neurologist lubrication worker. We went over patient's clinical exam, historical findings and CT report and patient was accepted as a direct transfer to their service with bed availability pending. Updated the patient on plan of care and awaiting bed assignment for transfer to [facility]. Patient care signed over to oncoming ER physician in the morning pending transfer. Patient remains hemodynamically stable, unremarkable workup thus far aside from CT head findings. <Dayton Davalos MD - Last Filed: 10/21/24 06:11> Vital Signs Vital signs: Vital Signs Temperature 97.4 F L 10/20/24 13:53 Pulse Rate 73 10/20/24 13:53 Respiratory Rate 18 10/20/24 13:53 Blood Pressure 129/66 10/20/24 13:53 Pulse Oximetry 99 10/20/24 13:53 Temperature 97.7 F 10/20/24 23:29 Pulse Rate 79 10/21/24 03:00 Respiratory Rate 14 10/21/24 03:00 Blood Pressure 134/67 10/21/24 02:31 Pulse Oximetry 96 10/21/24 01:45 <Abelardo Lynn MD - Last Filed: 10/20/24 19:00> Vital Signs Temperature 97.4 F L 10/20/24 13:53 Pulse Rate 73 10/20/24 13:53 Respiratory Rate 18 10/20/24 13:53 Blood Pressure 129/66 10/20/24 13:53 Pulse Oximetry 99 10/20/24 13:53 Temperature 97.7 F 10/20/24 23:29 Pulse Rate 79 10/21/24 03:00 Respiratory Rate 14 10/21/24 03:00 Blood Pressure 134/67 10/21/24 02:31 Pulse Oximetry 96 10/21/24 01:45 <Dayton Davalos MD - Last Filed: 10/21/24 06:11> Medical Decision Making MDM Narrative Medical decision making narrative: Differential diagnosis includes CVA, infection, electrolyte abnormality, UTI Laboratory studies were obtained on the patient showed white count 4.6 electrolytes showed a potassium of 3.1 renal function with a BUN of 15 creatinine 0.61 lactic acid was 0.7 troponin was negative BNP was 2040 urinalysis showed trace ketones but otherwise negative COVID flu RSV were negative <Abelardo Lynn MD - Last Filed: 10/20/24 19:00> Vital Signs Vital Signs: Vital Signs Temperature 97.4 F L 10/20/24 13:53 Pulse Rate 73 10/20/24 13:53 Respiratory Rate 18 10/20/24 13:53 Blood Pressure 129/66 10/20/24 13:53 Pulse Oximetry 99 10/20/24 13:53 Temperature 97.7 F 10/20/24 23:29 Pulse Rate 79 10/21/24 03:00 Respiratory Rate 14 10/21/24 03:00 Blood Pressure 134/67 10/21/24 02:31 Pulse Oximetry 96 10/21/24 01:45 <Abelardo Lynn MD - Last Filed: 10/20/24 19:00> Vital Signs Temperature 97.4 F L 10/20/24 13:53 Pulse Rate 73 10/20/24 13:53 Respiratory Rate 18 10/20/24 13:53 Blood Pressure 129/66 10/20/24 13:53 Pulse Oximetry 99 10/20/24 13:53 Temperature 97.7 F 10/20/24 23:29 Pulse Rate 79 10/21/24 03:00 Respiratory Rate 14 10/21/24 03:00 Blood Pressure 134/67 10/21/24 02:31 Pulse Oximetry 96 10/21/24 01:45 <Dayton Davalos MD - Last Filed: 10/21/24 06:11> Lab Data Result diagrams: 10/20/24 16:26 10/20/24 16:26 <Abelardo Lynn MD - Last Filed: 10/20/24 19:00> Labs: Lab Results 10/20/24 10/20/24 10/20/24 Range/Units 16:25 16:26 17:31 WBC 4.6 (4.5-10.0) K/mm3 RBC 3.62 L (4.2-5.4) M/mm3 Hgb 10.6 L (12.0-15.0) g/dL Hct 32.8 L (37.0-47.0) % MCV 90.6 (80-100) fl MCH 29.3 (26-34) pg MCHC 32.3 (32-36) g/dl RDW 13.6 (11.5-14.5) % Plt Count 253 (150-375) k/mm3 MPV 8.5 (7.4-10.4) fl Immature Gran % (Auto) 0.2 (0-0.5) % Neut % (Auto) 68.9 (45.5-73.1) % Lymph % (Auto) 19.2 (18.3-44.2) % Wilkinson % (Auto) 8.9 H (2.6-8.5) % Eos % (Auto) 1.9 (0-4.4) % Baso % (Auto) 0.9 (0.2-1.2) % Lymph # (Auto) 0.89 L (0.9-3.2) K/mm3 Wilkinson # (Auto) 0.4 (0.1-0.6) K/mm3 Eos # (Auto) 0.1 (0-0.3) K/mm3 Baso # (Auto) 0.0 (0.0-0.1) K/mm3 Abs Immat Gran (auto) 0.01 (0.00-0.031) K/mm3 Absolute Neuts (auto) 3.2 (1.3-6.7) K/mm3 Absolute Nucleated RBC 0.000 (0.0-0.012) K/mm3 Nucleated RBC % 0.0 (0.0-0.2) % Sodium 138 (137-145) mmol/L Potassium 3.1 L (3.4-5.0) mmol/L Chloride 103 (98-107) mmol/L Carbon Dioxide 30 (22-30) mmol/L Anion Gap 5 (4-12) mmol/L BUN 15 (7-17) mg/dL Creatinine 0.61 L (0.7-1.0) mg/dL Estim Creat Clear Calc 47 ml/min Estimated GFR > 60 (59 - ) Glucose 93 (65-110) mg/dL Lactic Acid 0.7 (0.7-2.0) mmol/L Calcium 9.5 (8.4-10.2) mg/dL Magnesium 2.2 (1.6-2.3) mg/dL Total Bilirubin 0.4 (0.2-1.3) mg/dL AST 30 (14-36) U/L ALT < 6 L (6-35) U/L Alkaline Phosphatase 64 (38-126) U/L Troponin I < 0.012 (0.000-0.034) ng/mL NT-Pro-B Natriuret Pep 2040 H (19.9-100) pg/mL Total Protein 6.7 (6.3-8.2) g/dL Albumin 3.7 (3.5-5.1) g/dL Urine Color Yellow (Yellow) Urine Appearance Clear (Clear) Urine pH 6.0 (5.0-9.0) Ur Specific [place] 1.015 (1.001-1.035) Urine Protein Negative (Negative) mg/dL Urine Glucose (UA) Negative (Negative) mg/dL Urine Ketones Trace H (Negative) mg/dL Ur Blood (Man) Negative (Negative) Urine Nitrate Negative (Negative) Urine Bilirubin Negative (Negative) Urine Urobilinogen 1.0 (<2.0) mg/dL Leukocyte Esterase Rfl Negative (Negative) UZMA/UL Influenza A (RT-PCR) Negative (Negative) Influenza B (RT-PCR) Negative (Negative) RSV (RT-PCR) Negative (Negative) SARS-CoV-2 RNA (RT-PCR) Negative (Negative) 10/20/24 Range/Units 18:47 WBC (4.5-10.0) K/mm3 RBC (4.2-5.4) M/mm3 Hgb (12.0-15.0) g/dL Hct (37.0-47.0) % MCV (80-100) fl MCH (26-34) pg MCHC (32-36) g/dl RDW (11.5-14.5) % Plt Count (150-375) k/mm3 MPV (7.4-10.4) fl Immature Gran % (Auto) (0-0.5) % Neut % (Auto) (45.5-73.1) % Lymph % (Auto) (18.3-44.2) % Wilkinson % (Auto) (2.6-8.5) % Eos % (Auto) (0-4.4) % Baso % (Auto) (0.2-1.2) % Lymph # (Auto) (0.9-3.2) K/mm3 Wilkinson # (Auto) (0.1-0.6) K/mm3 Eos # (Auto) (0-0.3) K/mm3 Baso # (Auto) (0.0-0.1) K/mm3 Abs Immat Gran (auto) (0.00-0.031) K/mm3 Absolute Neuts (auto) (1.3-6.7) K/mm3 Absolute Nucleated RBC (0.0-0.012) K/mm3 Nucleated RBC % (0.0-0.2) % Sodium (137-145) mmol/L Potassium (3.4-5.0) mmol/L Chloride (98-107) mmol/L Carbon Dioxide (22-30) mmol/L Anion Gap (4-12) mmol/L BUN (7-17) mg/dL Creatinine (0.7-1.0) mg/dL Estim Creat Clear Calc ml/min Estimated GFR (59 - ) Glucose (65-110) mg/dL Lactic Acid (0.7-2.0) mmol/L Calcium (8.4-10.2) mg/dL Magnesium (1.6-2.3) mg/dL Total Bilirubin (0.2-1.3) mg/dL AST (14-36) U/L ALT (6-35) U/L Alkaline Phosphatase (38-126) U/L Troponin I < 0.012 (0.000-0.034) ng/mL NT-Pro-B Natriuret Pep (19.9-100) pg/mL Total Protein (6.3-8.2) g/dL Albumin (3.5-5.1) g/dL Urine Color (Yellow) Urine Appearance (Clear) Urine pH (5.0-9.0) Ur Specific [place] (1.001-1.035) Urine Protein (Negative) mg/dL Urine Glucose (UA) (Negative) mg/dL Urine Ketones (Negative) mg/dL Ur Blood (Man) (Negative) Urine Nitrate (Negative) Urine Bilirubin (Negative) Urine Urobilinogen (<2.0) mg/dL Leukocyte Esterase Rfl (Negative) UZMA/UL Influenza A (RT-PCR) (Negative) Influenza B (RT-PCR) (Negative) RSV (RT-PCR) (Negative) SARS-CoV-2 RNA (RT-PCR) (Negative) <Abelardo Lynn MD - Last Filed: 10/20/24 19:00> Lab Results 10/20/24 10/20/24 10/20/24 Range/Units 16:25 16:26 17:31 WBC 4.6 (4.5-10.0) K/mm3 RBC 3.62 L (4.2-5.4) M/mm3 Hgb 10.6 L (12.0-15.0) g/dL Hct 32.8 L (37.0-47.0) % MCV 90.6 (80-100) fl MCH 29.3 (26-34) pg MCHC 32.3 (32-36) g/dl RDW 13.6 (11.5-14.5) % Plt Count 253 (150-375) k/mm3 MPV 8.5 (7.4-10.4) fl Immature Gran % (Auto) 0.2 (0-0.5) % Neut % (Auto) 68.9 (45.5-73.1) % Lymph % (Auto) 19.2 (18.3-44.2) % Wilkinson % (Auto) 8.9 H (2.6-8.5) % Eos % (Auto) 1.9 (0-4.4) % Baso % (Auto) 0.9 (0.2-1.2) % Lymph # (Auto) 0.89 L (0.9-3.2) K/mm3 Wilkinson # (Auto) 0.4 (0.1-0.6) K/mm3 Eos # (Auto) 0.1 (0-0.3) K/mm3 Baso # (Auto) 0.0 (0.0-0.1) K/mm3 Abs Immat Gran (auto) 0.01 (0.00-0.031) K/mm3 Absolute Neuts (auto) 3.2 (1.3-6.7) K/mm3 Absolute Nucleated RBC 0.000 (0.0-0.012) K/mm3 Nucleated RBC % 0.0 (0.0-0.2) % Sodium 138 (137-145) mmol/L Potassium 3.1 L (3.4-5.0) mmol/L Chloride 103 (98-107) mmol/L Carbon Dioxide 30 (22-30) mmol/L Anion Gap 5 (4-12) mmol/L BUN 15 (7-17) mg/dL Creatinine 0.61 L (0.7-1.0) mg/dL Estim Creat Clear Calc 47 ml/min Estimated GFR > 60 (59 - ) Glucose 93 (65-110) mg/dL Lactic Acid 0.7 (0.7-2.0) mmol/L Calcium 9.5 (8.4-10.2) mg/dL Magnesium 2.2 (1.6-2.3) mg/dL Total Bilirubin 0.4 (0.2-1.3) mg/dL AST 30 (14-36) U/L ALT < 6 L (6-35) U/L Alkaline Phosphatase 64 (38-126) U/L Troponin I < 0.012 (0.000-0.034) ng/mL NT-Pro-B Natriuret Pep 2040 H (19.9-100) pg/mL Total Protein 6.7 (6.3-8.2) g/dL Albumin 3.7 (3.5-5.1) g/dL Urine Color Yellow (Yellow) Urine Appearance Clear (Clear) Urine pH 6.0 (5.0-9.0) Ur Specific [place] 1.015 (1.001-1.035) Urine Protein Negative (Negative) mg/dL Urine Glucose (UA) Negative (Negative) mg/dL Urine Ketones Trace H (Negative) mg/dL Ur Blood (Man) Negative (Negative) Urine Nitrate Negative (Negative) Urine Bilirubin Negative (Negative) Urine Urobilinogen 1.0 (<2.0) mg/dL Leukocyte Esterase Rfl Negative (Negative) UZMA/UL Influenza A (RT-PCR) Negative (Negative) Influenza B (RT-PCR) Negative (Negative) RSV (RT-PCR) Negative (Negative) SARS-CoV-2 RNA (RT-PCR) Negative (Negative) 10/20/24 Range/Units 18:47 WBC (4.5-10.0) K/mm3 RBC (4.2-5.4) M/mm3 Hgb (12.0-15.0) g/dL Hct (37.0-47.0) % MCV (80-100) fl MCH (26-34) pg MCHC (32-36) g/dl RDW (11.5-14.5) % Plt Count (150-375) k/mm3 MPV (7.4-10.4) fl Immature Gran % (Auto) (0-0.5) % Neut % (Auto) (45.5-73.1) % Lymph % (Auto) (18.3-44.2) % Wilkinson % (Auto) (2.6-8.5) % Eos % (Auto) (0-4.4) % Baso % (Auto) (0.2-1.2) % Lymph # (Auto) (0.9-3.2) K/mm3 Wilkinson # (Auto) (0.1-0.6) K/mm3 Eos # (Auto) (0-0.3) K/mm3 Baso # (Auto) (0.0-0.1) K/mm3 Abs Immat Gran (auto) (0.00-0.031) K/mm3 Absolute Neuts (auto) (1.3-6.7) K/mm3 Absolute Nucleated RBC (0.0-0.012) K/mm3 Nucleated RBC % (0.0-0.2) % Sodium (137-145) mmol/L Potassium (3.4-5.0) mmol/L Chloride (98-107) mmol/L Carbon Dioxide (22-30) mmol/L Anion Gap (4-12) mmol/L BUN (7-17) mg/dL Creatinine (0.7-1.0) mg/dL Estim Creat Clear Calc ml/min Estimated GFR (59 - ) Glucose (65-110) mg/dL Lactic Acid (0.7-2.0) mmol/L Calcium (8.4-10.2) mg/dL Magnesium (1.6-2.3) mg/dL Total Bilirubin (0.2-1.3) mg/dL AST (14-36) U/L ALT (6-35) U/L Alkaline Phosphatase (38-126) U/L Troponin I < 0.012 (0.000-0.034) ng/mL NT-Pro-B Natriuret Pep (19.9-100) pg/mL Total Protein (6.3-8.2) g/dL Albumin (3.5-5.1) g/dL Urine Color (Yellow) Urine Appearance (Clear) Urine pH (5.0-9.0) Ur Specific [place] (1.001-1.035) Urine Protein (Negative) mg/dL Urine Glucose (UA) (Negative) mg/dL Urine Ketones (Negative) mg/dL Ur Blood (Man) (Negative) Urine Nitrate (Negative) Urine Bilirubin (Negative) Urine Urobilinogen (<2.0) mg/dL Leukocyte Esterase Rfl (Negative) UZMA/UL Influenza A (RT-PCR) (Negative) Influenza B (RT-PCR) (Negative) RSV (RT-PCR) (Negative) SARS-CoV-2 RNA (RT-PCR) (Negative) <Dayton Davalos MD - Last Filed: 10/21/24 06:11> Discharge Plan Discharge Clinical Impression: Acute alteration in mental status <Abelardo Lynn MD - Last Filed: 10/20/24 19:00> Patient Disposition: Acute Care Hospital <Abelardo Lynn MD - Last Filed: 10/20/24 19:00> Condition: Stable <Abelardo Lynn MD - Last Filed: 10/20/24 19:00> Patient Language: Northern Irish <Abelardo Lynn MD - Last Filed: 10/20/24 19:00> Prescriptions: No Action acetaminophen 325 mg capsule 650 mg PO Q6H PRN (Reason: pain) pantoprazole 40 mg tablet,delayed release (DR/EC) 40 mg PO BID Qty: 60 3RF rosuvastatin 10 mg tablet 10 mg PO DAILY Qty: 90 3RF carbidopa-levodopa 25-100 mg tablet 1.5 tablet PO TID Qty: 405 1RF sertraline 25 mg tablet 25 mg PO DAILY Qty: 90 1RF alendronate 70 mg tablet 70 mg PO WEEKLY Qty: 13 3RF meloxicam 7.5 mg tablet 7.5 mg PO DAILY Qty: 90 3RF levothyroxine 75 mcg capsule 75 mcg PO DAILY Qty: 90 3RF <Abelardo Lynn MD - Last Filed: 10/20/24 19:00> Follow-up/Referrals: Alphonse Viera MD [Primary Care Provider] - <Abelardo Lynn MD - Last Filed: 10/20/24 19:00>
[2024-10-20 17:38] LABS: NT Pro B Type Natriuretic Pept 2040 pg/mL (19.9-100)
[2024-10-20 17:38] LABS: Add Urine Microscopic? NO; Appearance Urine Clear (Clear); Glucose Urine UA Negative (Negative); Leukocyte Esterase Ur Negative LEU/UL (Negative); Nitrate Urine Negative (Negative); Specific Grav Ur 1.015 (1.001-1.035)
--- NOTE | 2024-10-20 18:41 | ECG_ITS ---
Test Date: 2024-10-20 18:44:09 Measurements Intervals Melbeta Rate: 66 P: -11 DC: 175 QRS: -83 QRSD: 164 T: 101 QT: 499 QTc: 525 Interpretive Statements ELECTRONIC ATRIAL PACEMAKER ELECTRONIC VENTRICULAR PACEMAKER VENTRICULAR PREMATURE COMPLEX BASELINE ARTIFACT- I, II, III, AVR, AVL, AVF NO FURTHER INTERPRETATION IS POSSIBLE ATYPICAL ECG Compared to ECG 10/20/2024 16:17:53 No significant changes Electronically Signed On 10-20-2024 19:50:26 CDT by Robert Rothman D.O.
--- NOTE | 2024-10-20 18:43 | PC.NURSE ---
1839--Spoke with Silver Jose on behalf of patient. He confirmed that he had her purse, he was made aware of plan to transfer to [facility] for Pacemaker compatible MRI. Made aware that patient would like him to return to her bedside-he stated that it would take him 45-60 min to return. Patient made aware of conversation
[2024-10-20 19:18] LABS: Troponin I < 0.012 ng/mL (0.000-0.034)
--- NOTE | 2024-10-20 20:37 | PC.NURSE ---
Patient has been repeatedly told that she can't eat or drink at this time, she states that she hasn't eaten since yesterday when I got here. Patient is oriented to specific questions but then keeps going around in circles about when she got here why she's here. Keeps saying that she is scared about the procedure and wants her brother to be called again.
--- NOTE | 2024-10-20 21:05 | PC.NURSE ---
Patient reporting needing to void-refused bedpab-attempted to stand her but she felt too shaky-offered Purewick-patient agreed
--- NOTE | 2024-10-20 23:14 | PC.NURSE ---
Report to Alycia WYLIE
--- NOTE | 2024-10-20 23:30 | PC.NURSE ---
Received report from DEJAN Souza for cont. of care. Pt AOx2 lying on stretcher respirations even and unlabored. Pt updated on plan of care, IV L 20G AC in place, denies pain and/or discomfort at this time.
[2024-10-21] VITALS (31 sets, daily range): BP systolic 119–160; BP diastolic 67–94; PULSE 64–90; RESP 10–22; TEMP 36.7; O2SAT 90–100
--- NOTE | 2024-10-21 07:25 | PC.NURSE ---
assumed care of pt at this time. pt is sitting up right and in no acute distress. pt is in a hospital bed with the bed alarm armed
--- NOTE | 2024-10-21 09:07 | PC.NURSE ---
called pt POA at this time. pt is A&OX4 at this time but has a HX of dementia. this RN called for consent to transfer and POA gave verbal consent over the phone
--- NOTE | 2024-10-21 12:16 | PC.NURSE ---
ordered lunch tray for patient
[2024-10-21] MEDS: LORazepam (*CRX) 1 MG TABLET PO (14:09)
--- NOTE | 2024-10-21 15:34 | PC.NURSE ---
this RN talked to [facility] transfer center to let this RN know that there are no beds but hopefully by osei
--- NOTE | 2024-10-21 17:56 | PC.NURSE ---
pt was given Ativan due to her increased agitation and attempting to get out of bed despite the nonpharmacological measures that were taken that have included folding towels, television, toileting, meals, offering a recliner but pt refused
--- NOTE | 2024-10-21 18:09 | PC.NURSE ---
per pr request, this RN called her POA and gave an update on pt status of getting a bed at [facility] pt being [facility] to room 508
== END 2024-10-21 21:12 | disposition short-term general hospital (02) ==
PROVIDERS: Emergency Provider Emergency Medicine; PCP Family Medicine
DX: R41.82 Altered mental status, unspecified (principal); Z20.822 Contact with and (suspected) exposure to COVID-19; F03.90 Unspecified dementia, unspecified severity, without behavioral disturbance, psychotic disturbance, mood disturbance, and anxiety; E78.5 Hyperlipidemia, unspecified; E03.9 Hypothyroidism, unspecified; G20.A1 Parkinson's disease without dyskinesia, without mention of fluctuations; K21.9 Gastro-esophageal reflux disease without esophagitis; M81.0 Age-related osteoporosis without current pathological fracture; Z95.0 Presence of cardiac pacemaker; Z96.653 Presence of artificial knee joint, bilateral; Z98.42 Cataract extraction status, left eye; Z98.41 Cataract extraction status, right eye; Z79.899 Other long term (current) drug therapy
CPT/HCPCS: 36415; 70450; 71045; 72128; 72131; 80053; 81003; 83605; 83735; 83880; 84484; 85025; 87637; 93005; 99285; A9270

== ENCOUNTER 2024-11-13 10:56 | Outpatient (CLI) | payer MEDICARE, SELFPAY ==
--- NOTE | ~2024-11-13 | XR_ITS ---
EXAMINATION: SACRUM/COCCYX DATE: 11/13/2024 11:35 INDICATION: Tail bone pain and low back pain after fall TECHNIQUE: Three views sacrum/coccyx FINDINGS: 08/25/2024 There is no displaced fracture of the sacrum. The coccyx demonstrates overall normal morphology without acute angulation. IMPRESSION: 1. No acute displaced osseous abnormality of the sacrum. Suspicion for occult or nondisplaced sacral fracture can either be evaluated with CT or MRI. 2. Grossly normal morphology to the coccyx without acute angulation. However, due to the wide range of normal variation of the coccyx, acute injury would be best evaluated by clinical examination and patient's symptoms. Reviewed, dictated and finalized at location O.
--- NOTE | ~2024-11-13 | XR_ITS ---
LUMBAR SPINE INDICATION: Low back pain. TECHNIQUE: 7 views lumbar spine COMPARISON: None FINDINGS: Bones appear osteopenic. There is bowel gas and stool projecting over the pelvis which limits evaluation. Kyphoplasty of the severe compression fracture of the L1 vertebral body. Mild levoconvex curvature of the lumbar spine. There is a compression fractures appear endplate of L2 vertebral body with 50% vertebral body height loss. Grade 1 retrolisthesis of L1 on L2, L2 on L3 and L3 on L4. No other compression fracture in the lumbar spine. Extensive degenerative change in the mid and lower lumbar facet joints. Moderate to severe intervertebral disc space narrowing at the L3-L4, L4-5 and L5-S1 levels. IMPRESSION: 1.Kyphoplasty of the severe compression fracture of the L1 vertebral body. 2.There is a compression fractures appear endplate of L2 vertebral body with 50% vertebral body height loss. 3.Grade 1 retrolisthesis of L1 on L2, L2 on L3 and L3 on L4. 4. Moderate degenerative change in the lumbar spine. 5. Evaluation is significantly limited due to the patient's imaging characteristics and osteopenic. If symptoms persist or worsen, consider an MRI of the lumbar spine for further assessment. Reviewed, dictated and finalized at location Q. IMPRESSION: 1.Kyphoplasty of the severe compression fracture of the L1 vertebral body. 2.There is a compression fractures appear endplate of L2 vertebral body with 50 % vertebral body height loss. 3.Grade 1 retrolisthesis of L1 on L2, L2 on L3 and L3 on L4. 4. Moderate degenerative change in the lumbar spine. 5. Evaluation is significantly limited due to the patient's imaging characteris tics and osteopenic. If symptoms persist or worsen, consider an MRI of the lumbar spine for further assessment.
== END 2024-11-13 10:57 | disposition home or self-care (01) ==
LOC: MICIMG 10:58
PROVIDERS: PCP Nurse Practitioner Adult Health; Visit Provider Nurse Practitioner Adult Health
DX: M54.50 Low back pain, unspecified (principal); M80.88XA Other osteoporosis with current pathological fracture, vertebra(e), initial encounter for fracture; G89.29 Other chronic pain; M46.1 Sacroiliitis, not elsewhere classified
CPT/HCPCS: 72114; 72220

== ENCOUNTER 2024-12-15 12:30 | Outpatient (CLI) | payer MEDICARE, SELFPAY ==
--- OUTSIDE RECORDS SUMMARY | 2024-07-05 04:00 | XMS_ITS ---
Author Organization 1 [facility] Address [address] [facility] [address] [place] [address] Care Team Providers Care Rn Cardiac Cath Name Role Phone Migration, Provider Unavailable Unavailable REASON FOR VISIT EMR-Tex Encounters Encounter Location Date Provider Diagnosis 1 [facility], [facility] [address] [employer] [facility] [address] [place] [address] 07/05/2024 Provider Migration Plan Of Treatment No Information Progress Notes * Molly CHUDOB:[birth year] (84 yo F)Acc No.[id number]:07/05/2024 Patient: Molly DOTY :1940 A ge:83 Y S ex:Female Address:[address] [place] [address] Subjective: * Chief Complaints: * E MR-Tex * Medical History: * Surgical History: * Hospitalization/Major Diagno stic Procedure: * Medications: Objective: * Vitals: * Physical Examination: Assessment: Plan: * Treatment: * Procedure Codes: * * Date:
--- OUTSIDE RECORDS SUMMARY | 2024-07-06 04:00 | XMS_ITS ---
Author Organization 1 [facility] Address [address] [facility] [address] [place] [address] Care Team Providers Care Laboratory Chemical Assistant Name Role Phone Migration, Provider Unavailable Unavailable REASON FOR VISIT EMR-Tex Encounters Encounter Location Date Provider Diagnosis 1 [facility], [facility] [address] [employer] [facility] [address] [place] [address] 07/06/2024 Provider Migration Plan Of Treatment No Information Progress Notes * Molly CHUDOB:[birth year] (84 yo F)Acc No.[id number]:07/06/2024 Patient: Molly DOTY :1940 A ge:83 Y S ex:Female Address:[address] [place] [address], [address] Subjective: * Chief Complaints: * E MR-Tex * Medical History: * Surgical History: * Hospitalization/Major Diagno stic Procedure: * Medications: Objective: * Vitals: * Physical Examination: Assessment: Plan: * Treatment: * Procedure Codes: * * Date:
--- NOTE | ~2024-12-15 | CT_ITS ---
EXAMINATION: CT lumbar spine wo con DATE: 12/15/2024 12:56 INDICATION: Osteoporosis with current pathologic fracture TECHNIQUE: Computed tomography (CT) of the lumbar spine was performed without intravenous contrast. Automated exposure control and iterative reconstruction technique were employed. The dose-length product was 269.10 mGy-cm. COMPARISON: None FINDINGS: 9 degrees lumbar levocurvature. 3 mm retrolisthesis L2 on L3 and L3 on L4. Chronic L1 burst fracture with 60% central vertebral body height loss, 3 mm retropulsion and changes of prior vertebroplasty. There is some extravasation of methylmethacrylate into the L1-L2 disc spaces. There is a new L2 burst fracture with 20% central vertebral body height loss and also a 3 mm retropulsion which is new since the prior study and results in mild central canal stenosis slightly caudal to the level of the L1-L2 disc spaces. Remaining vertebral body heights are normal. Moderate disc height loss at L2-L3. Mild to moderate right-sided predominant disc height loss at L3-L4 and L4-L5. There is widening of the T12-L1 and L1-L2 disc spaces resulting from the L1 and L2 burst fractures. Paravertebral soft tissues are unremarkable. IMPRESSION: 1. New L2 burst fracture with 20% central vertebral body height loss and 3 mm retropulsion. 2. 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 3. No significant change in 9 degrees lumbar levocurvature with moderate spondylosis. Reviewed, dictated and finalized at location A. IMPRESSION: 1. New L2 burst fracture with 20% central vertebral body height loss and 3 mm r etropulsion. 2. 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 3. No significant change in 9 degrees lumbar levocurvature with moderate spondy losis.
--- OUTSIDE RECORDS SUMMARY | 2024-12-15 13:28 | XMS_ITS | Patient Health Record ---
Author Organization [facility] [employer] Address [address] [place] [address] Care Team Providers Care Assistant Education Director Name Role Phone Karen Perez Unavailable [phone] Reason For Referral No Information Medications Medication SIG (Take, Route, Frequency, Duration) Notes Start Date End Date Status Pantoprazole Sodium 40 MG Tablet Delayed Release Oral 07/09/2023 Activ e Rosuvastatin Calcium 10 MG Tablet Oral 07/09/2023 Active DULoxetine HCl 60 MG Capsule Delayed Release Particles Oral 07/09/2023 Ac tive Sertraline HCl 25 MG Tablet TAKE 1 TABLE T BY MOUTH DAILY Orally Once a day; Duration: 90 days Active Meloxicam 7.5 MG Tablet Oral 07/09/2023 Active Alendronate Sodium 70 MG Tablet Oral 07/09/2023 Active DULoxetine HCl 30 MG Capsule Delayed Release Particles Oral 07/09/2023 Ac tive Carbidopa-Levodopa 25-100 MG Tablet Oral 07/09/2023 Active Levothyroxine Sodium 75 MCG Tablet Oral 07/09/2023 Active Vitamin D3 Ultra Strength 125 MCG (5000 UT) Capsule Oral 07/09/2023 Ac tive Social History Social History Additional Details Category Social Info Options Details Migrated Social History Migrated Social History Alcohol Intake: None 02/16/2023,Tobacco Years: Never smoker 02/16/2023 Problems Problem Type SNOMED Code ICD Code Onset Dates Problem Status W/U Status Risk Notes Problem Mild recurrent major depression (96798055) Major depressive disorder, recurrent, mild (F33.0) 07/09/2023 Active confirmed Plan Of Treatment No Information Insurance Providers Payer Name Payer Address Payer Phone Subscriber Number Group Number Insured Name Patient Relationship to Insured Coverage Start Date Coverage End Date [employer] Medicare Replacement/ Advantage - Ppo [address] [address] [place] [address] [id number] Self - patient is the insured Medical (General) History Surgical History Surgery Date(Month/Year) Tonsilectomy/adenoids Sinus surgery
--- OUTSIDE RECORDS SUMMARY | 2024-12-15 13:28 | XMS_ITS | Patient Health Record ---
Author Organization [address] [facility] Address [address] [facility] [address] [place] [address] Care Team Providers Care Manager Intelligence Name Role Phone Migration, Provider Unavailable Unavailable Reason For Referral No Information Encounters Encounter Location Date Provider Diagnosis 1 [facility] [address] [place] [address] 07/05/2024 Provider Migration 1 [facility] [address] [facility] [address] [place] [address] 07/06/2024 Provider Migration Plan Of Treatment No Information Insurance Providers Payer Name Payer Address Payer Phone Subscriber Number Group Number Insured Name Patient Relationship to Insured Coverage Start Date Coverage End Date [employer] [address] [address] [place] [address] [phone] [id number] Cedric alvarez Molly Self - patient is the insured 1 [employer] of [place] [address] [place] [address] [id number] Molly Lowery Self - patient is the insured 1
--- OUTSIDE RECORDS SUMMARY | 2024-12-15 13:29 | XMS_ITS | Clinical Summary ---
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 This disclosure is being madepursuant to the Care Everywhere program and may not contain all information available regarding this patient. Last updated 17.[facility] Allergies No known active allergies Medications * Be aware that medications may not be up to date on this document. Alwaysverify current medications with the patient. sertraline (Zoloft) 25 MG tablet Take 1 (one) tablet by mouth once daily 30 tablet 10/24/2024 2:52 PM CDT 10/25/2024 Active rosuvastatin (Crestor) 10 MG tablet Take 1 (one) tablet by mouth once daily 30 tablet 10/24/2024 2:52 PM CDT 10/25/2024 Active carbidopa-levod opa (Sinemet) 25-100 MG tablet Take 1.5 (one and one-half) tablets by mouth 3 times daily 135 tablet 10/24/2024 2:52 PM CDT 10/24/2024 Active melatonin 3 MG tablet Take 1 (one) tablet by mouth at bedtime 30 tablet 10/24/2024 Active levothyroxine (Synthroid) 75 MCG tablet Take 1 (one) tablet by mouth once daily 30 tablet 10/24/2024 2:52 PM CDT 10/25/2024 Active pantoprazole EC (Protonix) 40 MG tablet Take 1 (one) tablet by mouth once daily 30 tablet 1 10/31/2024 12:35 PM CDT 11/01/2024 Active lidocaine (Lidoderm) 5 % patch Apply 2 (two) patches to skin once daily Apply patch to most painful area and remove after 12 hours. May reapply a new patch 12 hours later. 60 patch 1 11/01/2024 Active Active Problems Problem Noted Date Diagnosed Date Parkinson's disease 10/24/2024 Assessment & Plan (10/30/2024 7:22 AM CDT): {HCCREFRESHBPA (Optional):91859} Assessment & Plan (10/28/2024 8:21 AM CDT): {HCCREFRESHBPA (Optional):90861} Assessment & Plan (10/27/2024 4:00 PM CDT): Mentation improving to baseline Plan: Inpatient MRI brain wwo Complete high dose thiamine 10/25 Continue sinemet Continue zoloft F/u outpatient neuropsychiatry with Dr. Bella Plan for discharge to SNF (as per her [facility], - Contact is [facility]) Assessment & Plan (10/26/2024 9:21 AM CDT): Mentation improving to baseline Plan: Inpatient MRI brain wwo Complete high dose thiamine 10/25 Continue sinemet Continue zoloft F/u outpatient neuropsychiatry with Dr. Bella Plan for discharge to SNF (as per her [facility], - Contact is [facility]) Assessment & Plan (10/25/2024 8:32 AM CDT): Mentation improving to baseline Plan: Inpatient vs outpatient MRI brain wwo Complete high dose thiamine 10/25 Continue sinemet Continue zoloft F/u outpatient neuropsychiatry with Dr. Bella Plan for discharge to SNF GERD (gastroesophageal reflux disease) Assessment & Plan (10/27/2024 4:00 PM CDT): Continue protonix Assessment & Plan (10/26/2024 9:16 AM CDT): Continue protonix Assessment & Plan (10/25/2024 8:32 AM CDT): Continue protonix Hypothyroidism 10/24/2024 Assessment & Plan (10/27/2024 4:00 PM CDT): Continue synthroid Outpatient follow up with endocrine in a month Assessment & Plan (10/26/2024 9:16 AM CDT): Continue synthroid Assessment & Plan (10/25/2024 8:32 AM CDT): Continue synthroid Dementia 10/24/2024 Assessment & Plan (10/30/2024 7:22 AM CDT): {HCCREFRESHBPA (Optional):69441} Assessment & Plan (10/28/2024 8:21 AM CDT): {HCCREFRESHBPA (Optional):51865} Assessment & Plan (10/27/2024 4:00 PM CDT): Mentation improving to baseline Plan: Inpatient MRI brain wwo Complete high dose thiamine 10/25 Continue sinemet Continue zoloft F/u outpatient neuropsychiatry with Dr. Bella Plan for discharge to SNF (as per her [facility], - Contact is [facility]) Assessment & Plan (10/26/2024 9:21 AM CDT): Mentation improving to baseline Plan: Inpatient MRI brain wwo Complete high dose thiamine 10/25 Continue sinemet Continue zoloft F/u outpatient neuropsychiatry with Dr. Bella Plan for discharge to SNF (as per her [facility], - Contact is [facility]) Assessment & Plan (10/25/2024 8:32 AM CDT): Mentation improving to baseline Plan: Inpatient vs outpatient MRI brain wwo Complete high dose thiamine 8/16 Continue sinemet Continue zoloft F/u outpatient neuropsychiatry with Dr. Bella Plan for discharge to SNF Acute encephalopathy 10/20/2024 Assessment & Plan (10/27/2024 4:00 PM CDT): Mentation improving to baseline Plan: Inpatient MRI brain wwo Complete high dose thiamine 8/16 Continue sinemet Continue zoloft F/u outpatient neuropsychiatry with Dr. Bella Plan for discharge to SNF (as per her [facility], - Contact is [facility]) Assessment & Plan (10/26/2024 9:21 AM CDT): Mentation improving to baseline Plan: Inpatient MRI brain wwo Complete high dose thiamine 8/16 Continue sinemet Continue zoloft F/u outpatient neuropsychiatry with Dr. Bella Plan for discharge to SNF (as per her [facility], - Contact is [facility]) Assessment & Plan (10/25/2024 8:32 AM CDT): Mentation improving to baseline Plan: Inpatient vs outpatient MRI brain wwo Complete high dose thiamine 8/16 Continue sinemet Continue zoloft F/u outpatient neuropsychiatry with Dr. Bella Plan for discharge to SNF Encounters Date Type Department Care Team Description 11/03/2024 Telephone Transitional Care at [facility] [address] [place] [address] Shereen Harris RN Transitional Care 10/21/2024 9:30 PM CDT - 10/31/2024 6:20 PM CDT Hospital Encounter [facility] [address] [place] [phone] Luzmaria Hernandez MD Kilani, Yassine, MD Hoque, Farzana, MD Jain, Aman, Hospitalist Discharge Disposition: Home or Self Care 10/21/2024 Travel from Last 3 Months Social History Tobacco Use Types Packs/Day Years Used Date Smoking Tobacco: Never Smokeless Tobacco: Never Tobacco Cessation:Counseling Given: Not Answered AUDIT-C Answer Date Recorded Q1: How often do you have a drink containing alcohol? Never 10/21/2024 Q2: How many drinks containi ng alcohol do you have on a typical day when you are drinking? Patient does not drink Q3: How often do you have si x or more drinks on one occasion? Never 10/21/2024 Overall Financial Resource Strain (CARDIA) Answe r Date Recorded How hard is it for you to pa y for the very basics like food, housing, medical care, and heating? Not hard at all 10/21/2024 [facility] [place] [facility] Occup[facility] ional [facility] - Occupational Stress Questionnaire Answer Date Recorded Do you feel stress - tense, restless, nervous, or anxious, or unable to sleep at night because your mind is troubled all the time - these days? Not at all 10/21/2024 Hunger Vital Sign Answer Date Recorded Within the past 12 months, y ou worried that your food would run out before you got the money to buy more. Never true 10/22/19 25 Within the past 12 months, t he food you bought just didn't last and you didn't have money to get more. Never true 10/21/2024 PRAPARE - Transportation Answer Date Re corded In the past 12 months, has l ack of transportation kept you from medical appointments or from getting medications? No 10/10 In the past 12 months, has l ack of transportation kept you from meetings, work, or from getting things needed for daily living? No 10/21/2024 Housing Stability Vital Sign Answer Roshan e Recorded In the last 12 months, was t here a time when you were not able to pay the mortgage or rent on time? No 10/21/2024 In the past 12 months, how m any times have you moved where you were living? 0 10/21/2024 At any time in the past 12 m [facility], were you homeless or living in a skilled nursing (including now)? No 10/21/2024 Comments Unknown Sex and Gender Information Value Date Recorded Sex Assigned at Not on file Legal Sex Female 6:48 PM CDT Gender Identity Not on file Sexual Orientation Not on file Last Filed Vital Signs Vital Sign Reading Time Taken Comments Blood Pressure 111/55 10/31/2024 5:01 PM CDT Pulse 79 10/31/2024 5:01 PM CDT Temperature 36.4 C (97.5 F) 10/31/2024 5:01 PM CDT Respiratory Rate 18 10/31/2024 5:01 PM CDT Oxygen Saturation 97% 10/31/2024 5:01 PM CDT Inhaled Oxygen Concentration - - Weight 45.5 kg (100 lb 4.8 oz) 10/31/2024 4:00 A M CDT Height 172.7 cm (5' 8) 10/21/2024 9:47 PM CDT Body Mass Index 15.25 10/21/2024 9:47 PM CDT Plan of Treatment Upcoming Encounters Date Type Department Care Team (Late st Contact Info) Description 02/11/2025 3:40 PM 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 Office Visit [facility] - Endocrinology [address] [place] [phone] Veronica Kelly MD [address] [facility] [place] [address] Health Maintenance Due Date Last Done Comments BONE DENSITY TESTING 1942 DTAP/TDAP/TD VACCINES (1 - Tdap) 1961 PNEUMOCOCCAL VACCINE 50+ (1 of 1 - PCV) 1992 ZOSTER VACCINE (1 of 2) 1992 Respiratory Syncytial Virus (RSV) Vaccine Pt: or over 60 yrs (1 - 1-dose 75+ series) 2017 DEPRESSION SCREENING 03/12/2024 MEDICARE AWV CALENDAR YEAR 2024 COVID-19 VACCINE (1 - 2023-2 5 season) 2024 INFLUENZA VACCINE (#1) 2024 HEPATITIS B VACCINE Aged Out No longe r eligible based on patient's age to complete this topic HIB VACCINE Aged Out No longer eligi ble based on patient's age to complete this topic HPV VACCINE Aged Out No longer eligi ble based on patient's age to complete this topic MENINGOCOCCAL (Group B) VACC INE SHARED DECISION-MAKING Aged Out No longer eligibl e based on patient's age to complete this topic MENINGOCOCCAL GROUPS A/C/Y/W VACCINE Aged Out No longer eligible b ased on patient's age to complete this topic Medical Devices Implanted Type Area Personnel Supervisor Device Identifier Shelf Expiration Date Model / Serial / Lot Naren Lay Dr-Danna Implanted:03/12 (Quantity not on file) Pacemaker / [id number] / Procedures Procedure Name Priority Date/Time Associated Diagnosis Comments PHOSPHORUS BLOOD Routine 10/30/2024 6:29 PM CDT MAGNESIUM BLOOD Routine 10/30/2024 6:29 PM CDT CBC W AUTO DIFFERENTIAL AM Draw 10/30/2024 6:29 PM CDT BASIC METABOLIC PANEL (CALCIUM TOTAL) AM Draw 10/30/2024 6:29 PM CDT PHOSPHORUS BLOOD Routine 10/29/2024 6:16 PM CDT MAGNESIUM BLOOD Routine 10/29/2024 6:16 PM CDT CBC W AUTO DIFFERENTIAL AM Draw 10/29/2024 6:16 PM CDT BASIC METABOLIC PANEL (CALCIUM TOTAL) AM Draw 10/29/2024 6:16 PM CDT PHOSPHORUS BLOOD Routine 10/28/2024 6:13 PM CDT MAGNESIUM BLOOD Routine 10/28/2024 6:13 PM CDT CBC W AUTO DIFFERENTIAL AM Draw 10/28/2024 6:13 PM CDT BASIC METABOLIC PANEL (CALCIUM TOTAL) AM Draw 10/28/2024 6:13 PM CDT MRI BRAIN WWO CONTRAST PENDING DISCHARGE 10/28/2024 3:49 PM CDT Acute encephalopathy PHOSPHORUS BLOOD Routine 10/27/2024 6:32 PM CDT MAGNESIUM BLOOD Routine 10/27/2024 6:32 PM CDT CBC W AUTO DIFFERENTIAL AM Draw 10/27/2024 6:32 PM CDT BASIC METABOLIC PANEL (CALCIUM TOTAL) AM Draw 10/27/2024 6:32 PM CDT PHOSPHORUS BLOOD Routine 10/26/2024 6:16 PM CDT MAGNESIUM BLOOD Routine 10/26/2024 6:16 PM CDT CBC W AUTO DIFFERENTIAL AM Draw 10/26/2024 6:16 PM CDT BASIC METABOLIC PANEL (CALCIUM TOTAL) AM Draw 10/26/2024 6:16 PM CDT PHOSPHORUS BLOOD Routine 10/25/2024 8:54 PM CDT MAGNESIUM BLOOD Routine 10/25/2024 8:54 PM CDT CBC W AUTO DIFFERENTIAL AM Draw 10/25/2024 8:54 PM CDT BASIC METABOLIC PANEL (CALCIUM TOTAL) AM Draw 10/25/2024 8:54 PM CDT SARS-COV-2 (COVID-19) RAPID Routine 10/24/2024 8:58 AM CDT PHOSPHORUS BLOOD Routine 10/24/2024 6:37 AM CDT MAGNESIUM BLOOD Routine 10/24/2024 6:37 AM CDT CBC W AUTO DIFFERENTIAL AM Draw 10/24/2024 6:37 AM CDT BASIC METABOLIC PANEL (CALCIUM TOTAL) AM Draw 10/24/2024 6:37 AM CDT GLUCOSE - POINT OF CARE Routine 10/23/2024 4:37 PM CDT GLUCOSE - POINT OF CARE Routine 10/23/2024 11:54 AM CDT GLUCOSE - POINT OF CARE Routine 10/23/2024 8:44 AM CDT MAGNESIUM BLOOD Routine 10/23/2024 3:47 AM CDT PHOSPHORUS BLOOD Routine 10/23/2024 3:47 AM CDT BASIC METABOLIC PANEL (CALCIUM TOTAL) AM Draw 10/23/2024 3:47 AM CDT CBC W AUTO DIFFERENTIAL AM Draw 10/23/2024 3:47 AM CDT FOLATE Routine 10/23/2024 3:47 AM CDT VITAMIN B12 AM Draw 10/23/2024 3:47 AM CDT GLUCOSE - POINT OF CARE Routine 10/22/2024 9:46 PM CDT XR CHEST 2VW Routine 10/22/2024 8:20 PM CDT Acute encephalopathy GLUCOSE - POINT OF CARE Routine 10/22/2024 4:34 PM CDT GLUCOSE - POINT OF CARE Routine 10/22/2024 12:09 PM CDT URINALYSIS REFLEX TO MICROSCOPIC NO CULTURE Routine 10/22/2024 10:40 AM CDT GLUCOSE - POINT OF CARE Routine 10/22/2024 7:36 AM CDT OT EVAL AND TREAT Routine 10/22/2024 7:2 1 AM CDT T4 FREE Routine 10/22/2024 12:13 AM CDT TSH REFLEX FREE T4 Routine 10/22/2024 12:13 AM CDT PHOSPHORUS BLOOD Routine 10/22/2024 12:13 AM CDT MAGNESIUM BLOOD Routine 10/22/2024 12:13 AM CDT COMPREHENSIVE METABOLIC PANEL STAT 10/22/2024 12:13 AM CDT CBC W/O DIFFERENTIAL STAT 10/22/2024 12:13 AM CDT from Last 3 Months Results * CBC W AUTO DIFFERENTIAL (10/30/2024 6:29 PM CDT) Only the most recent of8 resultswithin the time period is included. WBC 4.2 4.0 - 10.7 x10E9/L [facility] Count 4.11 3.90 - 5.20 x10E12/L 10/30/2024 8:[address] [facility] Hemoglobin 12.2 11.9 - 15.8 g/dL 10/30/2024 8:54 PM [facility] Hematocrit 36.6 34.8 - 46.1 % 10/30/2024 8:54 PM [facility] MCV 89.1 80.0 - 98.0 fL 10/30/2024 8:54 PM T [facility] MCH 29.7 26.7 - 33.6 pg 10/30/2024 8:54 PM T [facility] MCHC 33.3 31.7 - 36.3 g/dL 10/30/2024 8:54 PM T [facility] RDW-CV 13.9 11.3 - 14.8 % 10/30/2024 8:54 PM [facility] Platelet Count 298 150 - 420 x10E9/L 10/30/2024 8:54 PM [facility] MPV 10.0 7.8 - 11.4 fL 10/30/2024 8:54 PM T [facility] Neutrophil % 61.5 41.0 - 74.0 % 10/30/2024 8:54 PM [facility] Lymphocyte % 24.3 17.0 - 47.0 % 10/30/2024 8:54 PM [facility] Monocyte % 9.2 3.0 - 11.0 % 10/30/2024 8:54 PM [facility] Eosinophil % 3.8 0.0 - 7.0 % 10/30/2024 8:54 PM [facility] Basophil % 1.2 0.0 - 1.6 % 10/30/2024 8:54 PM [facility] Immature Granulocytes % 0.0 0.0 - 1.0 % 10/30/2024 8:54 PM [facility] Neutrophil Absolute 2.60 1.60 - 7.50 x10E9/L 10/30/2024 8:54 PM [facility] Lymphocyte Absolute 1.03 1.00 - 4.40 x10E9/L 10/30/2024 8:54 PM [facility] Monocyte Absolute 0.39 0.15 - 1.00 x10E9/L 10/30/2024 8:54 PM [facility] Eosinophil Absolute 0.16 0.00 - 0.60 x10E9/L 10/30/2024 8:54 PM [facility] Basophil Absolute 0.05 0.00 - 0.13 x10E9/L 10/30/2024 8:54 PM [facility] Blood BLOOD SPECIMEN / Unknown Lab Venipuncture / Unknown 10/30/2024 6:29 PM CDT 10/30/2024 8:46 PM CDT us Luzmaria Hernandez MD LAB - HEMATOLOGY ORDERABLE S Final Result [facility] [address] [place] [phone], [place] [phone] * (ABNORMAL) BASIC METABOLIC PANEL (CALCIUM TOTAL) (10/30/2024 6:29 PM CDT) Only the most recent of8 resultswithin the time period is included. BUN 26 7 - 26 mg/dL 10/30/2024 9:18 PM [facility] Creatinine 0.78 0.56 - 0.96 mg/dL 10/30/2024 9:18 PM [facility] Sodium 141 136 - 145 mmol/L 10/30/2024 9:18 PM [facility] Potassium 3.7 3.5 - 4.5 mmol/L 10/30/2024 9:18 PM [facility] Chloride 108(H) 98 - 107 mmol/L 10/30/2024 9:18 PM [facility] CO2 26 22 - 29 mmol/L 10/30/2024 9:18 PM [facility] Glucose 81 70 - 99 mg/dL 10/30/2024 9:18 PM [facility] Calcium 9.9 8.4 - 10.2 mg/dL 10/30/2024 9:18 PM [facility] Anion Gap 7 6 - 16 10/30/2024 9:18 PM [facility] BUN/Creatinine Ratio 33(H) 7 - 23 10/30/2024 9:18 PM [facility] Osmolality Calculated 296(H) 275 - 295 mOsm/kg 10/30/2024 9:18 PM [facility] eGFR by CKD-EPI 76(L) >=90 mL/min/1.7 3 m2 10/30/2024 9:18 PM [facility] Comment:Estimated Glomerular Filtration Rate (eGFR) calculated using the CKD-EPI Creatinine Equation (2020), per the National Kidney Foundation and [place] Society of Nephrology recommendations. Blood BLOOD SPECIMEN / Unknown Lab Venipuncture / Unknown 10/30/2024 6:29 PM CDT 10/30/2024 8:44 PM CDT Luzmaria Hernandez MD LAB - CHEMISTRY ORDERABLES Final Result [facility] [address] [place] [phone], [place] [phone] * PHOSPHORUS BLOOD (10/30/2024 6:29 PM CDT) Only the most recent of9 resultswithin the time period is included. Phosphorus 4.1 2.9 - 5.1 mg/dL 10/30/2024 9:18 PM CDT [facility] Blood BLOOD SPECIMEN / Unknown Lab Venipuncture / Unknown 10/30/2024 6:29 PM CDT 10/30/2024 8:44 PM CDT us Luzmaria Hernandez MD LAB - CHEMISTRY ORDERABLES Final Result Performing Organization Address City/[facility]/ZIP Co de Phone Number [address] [address], [place] [phone] * MAGNESIUM BLOOD (10/30/2024 6:29 PM CDT) Only the most recent of9 resultswithin the time period is included. Magnesium 2.3 1.6 - 2.6 mg/dL 10/30/2024 9:18 PM CDT [facility] Blood BLOOD SPECIMEN / Unknown Lab Venipuncture / Unknown 10/30/2024 6:29 PM CDT 10/30/2024 8:44 PM CDT us Luzmaria Hernandez MD LAB - CHEMISTRY ORDERABLES Final Result Performing Organization Address City/[facility] Co de Phone Number [address] [address], [place] [phone] * MRI Brain Wwo Contrast (10/28/2024 3:49 PM CDT) Anatomical Region Laterality Modality Head Magnetic Resonan ce 10/28/2024 9:17 PM CDT Impressions 10/29/2024 8:32 AM CDT IMPRESSION: 1. No acute intracranial process. Specifically, no acute infarct or acute intracranial hemorrhage. No hydrocephalus, intracranial mass or abnormal enhancement in the brain. 2. Mild periventricular, subcortical and pontine white matter FLAIR hyperintensities are nonspecific, but can be seen in the setting of chronic small vessel ischemic disease. The report is dictated by Jenaro Alvares MD (radiology practitioner assistant) > Dictated by Wall Insulation Sprayer I, Mildred Frank MD have personally reviewed and interpreted this examination/study. > Interpreting Provider: Mildred Frank MD on 10/29/2024 8:32 AM Narrative 10/29/2024 8:32 AM CDT PROCEDURE: MRI BRAIN WWO CONTRAST, DATE/TIME OF EXAM: 10/28/2024 3:49 PM, LOCATION [facility] INDICATION: G93.40: Acute encephalopathy ADDITIONAL CLINICAL INFORMATION: Ordering Provider Reason For Exam: Evaluation of encephalopathy Technologist Note: Additional: TECHNIQUE: MRI of the brain was performed prior to and following the uneventful administration of intravenous contrast according to standard protocol. CONTRAST: GADOBUTROL 1 MMOL/ML IV SSM SO:7 mL COMPARISON: No prior study is available for comparison at the time of this dictation. FINDINGS: No evidence of acute cerebral infarction is seen. No evidence of acute or chronic hemorrhage is identified. The ventricles are of normal size, shape, and morphology. No mass effect or midline shift is seen. Mild periventricular, subcortical and pontine white matter FLAIR hyperintensities are nonspecific, but can be seen in the setting of chronic small vessel ischemic disease. No enhancing lesions are identified. The corpus callosum and sella appear normal. The posterior fossa, brainstem, and craniocervical junction appear normal. Other than bilateral cataract extractions and mild left sphenoid sinusitis, the visualized portions of the orbits, paranasal sinuses, and mastoids appear normal. Normal flow voids are demonstrated in the carotid arteries and basilar artery. The calvarium and visualized cervical spine appear normal. Procedure Note Mildred Frank MD - 10/29/2024 PROCEDURE: MRI BRAIN WWO CONTRAST, DATE/TIME OF EXAM: 10/28/2024 3:49PM, LOCATION [facility] INDICATION: G93.40: Acute encephalopathy ADDITIONAL CLINICAL INFORMATION: Ordering Provider Reason For Exam: Evaluation of encephalopathy Technologist Note: Additional: TECHNIQUE: MRI of the brain was performed prior to and following the uneventful administration of intravenous contrast according to standard protocol. CONTRAST: GADOBUTROL 1 MMOL/ML IV SSM SO:7 mL COMPARISON: No prior study is available for comparison at the time ofthis dictation. FINDINGS: No evidence of acute cerebral infarction is seen. No evidence of acuteor chronic hemorrhage is identified. The ventricles are of normal size,shape, and morphology. No mass effect or midline shift is seen. Mild periventricular, subcortical and pontine white matter FLAIR hyperintensities are nonspecific, but can be seen in the setting ofchronic small vessel ischemic disease. No enhancing lesions are identified. The corpus callosum and sella appear normal. The posterior fossa, brainstem, and craniocervical junction appear normal. Other than bilateral cataract extractions and mild left sphenoidsinusitis, the visualized portions of the orbits, paranasal sinuses, and mastoids appear normal. Normal flow voids are demonstrated in the carotidarteries and basilar artery. The calvarium and visualized cervical spine appear normal. IMPRESSION: 1. No acute intracranial process. Specifically, no acute infarct oracute intracranial hemorrhage. No hydrocephalus, intracranial mass or abnormal enhancement in the brain. 2. Mild periventricular, subcortical and pontine white matter FLAIR hyperintensities are nonspecific, but can be seen in the setting ofchronic small vessel ischemic disease. The report is dictated by Jenaro Alvares MD (radiology practitioner assistant) > Dictated by Wall Insulation Sprayer I, Mildred Frank MD have personally reviewed and interpreted this examination/study. > Interpreting Provider: Mildred Frank MD on 10/29/2024 8:32 AM Luzmaria Hernandez MD MR ORDERABLES Final Resu lt * SARS-COV-2 (COVID-19) RAPID (10/24/2024 8:58 AM CDT) COVID-19 PCR Not detected Not detected 10/25/19 9:36 AM CDT [facility] Microbiology SPECIMEN FROM NASOPHARYNGEAL STRUCTURE / Unknown Collection / Unknown 10/24/2024 8:58 AM CDT 10/24/2024 9:03 AM CDT Narrative [facility] - 10/24/2024 9:36 AM CDT The Cepheid Xpert Xpress SARS-COV-2 has been authorized by the Food and Drug Administration (FDA) under an Emergency Use Authorization (EUA). This test has been validated in accordance with the FDA's guidance document Policy for Diagnostic Testing in Laboratories Certified to perform High Complexity Testing under CLIA prior to Emergency Use Authorization for Coronavirus Disease-2019 during the Public Health Emergency issued on May 10, 2019. FDA independent review of this validation is pending. This test is only authorized for the duration of the time the declaration that circumstances exist justifying the authorization of emergency use of in vitro diagnostic tests for detection of SARS-COV-2 virus and/or diagnosis of COVID-19 infection under 564(b) (1) of the Act. 21 U.S.C. 360bbb-3 (b) (1), unless the authorization is terminated or revoked sooner. Fact Sheets for this EUA assay are available upon request. us Luzmaria Hernandez MD LAB - MICROBIOLOGY ORDERAB LES Final Result Performing Organization Address [facility]/ZIP Co de Phone Number [address] [address], [place] [phone] * (ABNORMAL) GLUCOSE - POINT OF CARE (10/23/2024 4:37 PM CDT) Only the most recent of7 resultswithin the time period is included. Glucose WB/POC 120(H) 70 - 99 mg/dL 10/23/2024 4:41 PM CDT [facility] Specimen Type Arterial/C apillary 10/23/2024 4:41 PM CDT [facility] Blood BLOOD SPECIMEN / Unknown 10/23/2024 4:37 PM CDT 10/23/2024 4:41 PM CDT us Luzmaria Hernandez MD LAB - POINT OF CARE ORDERA BLES Final Result Performing Organization Address [facility] Co de Phone Number [address] [address], [place] [phone] * FOLATE (10/23/2024 3:47 AM CDT) Folate 7.2 7.0 - 31.4 ng/mL 10/23/2024 5:16 AM CDT [facility] Blood BLOOD SPECIMEN / Unknown Lab Venipuncture / Unknown 10/23/2024 3:47 AM CDT 10/23/2024 4:14 AM CDT us Luzmaria Hernandez MD LAB - CHEMISTRY ORDERABLES Final Result [address] [address], [place] [phone] * VITAMIN B12 (10/23/2024 3:47 AM CDT) Vitamin B12 253 213 - 816 pg/mL 10/23/2024 5:16 AM CDT [facility] Blood BLOOD SPECIMEN / Unknown Lab Venipuncture / Unknown 10/23/2024 3:47 AM CDT 10/23/2024 4:14 AM CDT Luzmaria eHrnandez MD LAB - CHEMISTRY ORDERABLES Final Result Performing Organization Address [facility]/ZIP Co de Phone Number [address] [address], [place] [phone] * XR CHEST PA AND LATERAL (10/22/2024 8:20 PM CDT) Anatomical Region Laterality Modality Chest Digital Radiogra phy 10/23/2024 3:44 AM CDT Impressions 10/23/2024 3:45 AM CDT Impression: Frontal and lateral views of the chest demonstrate a normal sized heart and pulmonary vasculature. No focal consolidation, pleural effusion or pneumothorax. Multiple thoracic spine compression fractures with focal kyphosis. 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 > Interpreting Provider: Keyshawn Neil MD on 10/23/2024 3:45 AM Narrative 10/23/2024 3:45 AM CDT PROCEDURE: XR CHEST 2VW DATE/TIME OF EXAM: 10/22/2024 8:24 PM CLINICAL INFORMATION: None relevant/not provided if blank. Indication: G93.40: Acute encephalopathy Additional History: COMPARISON: None. Procedure Note Keyshawn Neil MD - 10/23/2024 PROCEDURE: XR CHEST 2VW DATE/TIME OF EXAM: 10/22/2024 8:24 PM CLINICAL INFORMATION: None relevant/not provided if blank. Indication: G93.40: Acute encephalopathy Additional History: COMPARISON: None. Impression: Frontal and lateral views of the chest demonstrate a normal sized heartand pulmonary vasculature. No focal consolidation, pleural effusion or pneumothorax. Multiple thoracic spine compression fractures with focal kyphosis. 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 > Interpreting Provider: Keyshawn Neil MD on 10/23/2024 3:45 AM Luzmaria Hernandez MD DIAGNOSTIC IMAGING ORDERAB LES Final Result * URINALYSIS REFLEX TO MICROSCOPIC NO CULTURE (10/22/2024 10:40 AM CDT) Color UA Yellow Yellow, Straw 10/22/2024 11:11 [address] [facility] Clarity UA Clear Clear 10/22/2024 11:11 AM [facility] Glucose UA Normal Normal 10/22/2024 11:11 AM [facility] Bilirubin UA Negative Negative 10/22/2024 11:11 AM [facility] Ketone UA Negative Negative 10/22/2024 11:11 AM [facility] Specific [place] UA 1.009 1.005 - 1.030 10/22/2024 11:11 AM [facility] Blood UA Negative Negative 10/22/2024 11:11 AM [facility] pH UA 6.0 5.0 - 8.0 10/22/2024 11:11 AM [facility] Protein UA Negative Negative 10/22/2024 11:11 AM [facility] Urobilinogen UA Normal Normal mg/dL 10/22/2024 11:11 AM [facility] Nitrite UA Negative Negative 10/22/2024 11:11 AM [facility] Leukocyte Esterase UA Negative Negative 10/22/2024 11:11 AM [facility] Urine Microscopy Urine microscopy not indicated 10/22/2024 11:11 AM [facility] Urine URINE SPECIMEN OBTAINED BY CLEAN CATCH PROCEDURE / Unknown Collection / Unknown 10/22/2024 10:40 AM CDT 10/22/2024 10:43 AM CDT Luzmaria Hernandez MD LAB - URINALYSIS ORDERABLE S Final Result [address] [address], [place] [phone] * (ABNORMAL) TSH REFLEX FREE T4 (10/22/2024 12:13 AM CDT) Pathologist [facility] TSH 15.501(H) 0.350 - 4.940 uIU/mL 10/22/2024 1:51 AM CDT [facility] Blood BLOOD SPECIMEN / Unknown Lab Venipuncture / Unknown 10/22/2024 12:13 AM CDT 10/22/2024 1:05 AM CDT Luzmaria Hernandez MD LAB - CHEMISTRY ORDERABLES Final Result Performing Organization Address [facility] Co de Phone Number [address] [address], [place] [phone] * (ABNORMAL) CBC W/O DIFFERENTIAL (10/22/2024 12:13 AM CDT) Pathologist [facility] WBC 5.6 4.0 - 10.7 x10E9/L 10/22/2024 1:10 AM [facility] RBC Count 3.92 3.90 - 5.20 x10E12/L 10/22/2024 1:10 AM [facility] Hemoglobin 11.4(L) 11.9 - 15.8 g/dL 10/22/2024 1:10 AM [facility] Hematocrit 34.8 34.8 - 46.1 % 10/22/2024 1:10 AM [facility] MCV 88.8 80.0 - 98.0 fL 10/22/2024 1:10 AM [facility] MCH 29.1 26.7 - 33.6 pg 10/22/2024 1:10 AM [facility] MCHC 32.8 31.7 - 36.3 g/dL 10/22/2024 1:10 AM [facility] RDW-CV 13.9 11.3 - 14.8 % 10/22/2024 1:10 AM CDT [facility] Platelet Count 308 150 - 420 x10E9/L 10/22/2024 1:10 AM [facility] MPV 9.3 7.8 - 11.4 fL 10/22/2024 1:10 AM [facility] Blood BLOOD SPECIMEN / Unknown Lab Venipuncture / Unknown 10/22/2024 12:13 AM CDT 10/22/2024 1:05 AM T us Luzmaria Hernandez MD LAB - HEMATOLOGY ORDERABLE S Final Result [facility] [address] [place] [address], [place] [phone] * (ABNORMAL) COMPREHENSIVE METABOLIC PANEL (10/22/2024 12:13 AM [facility]) BUN 20 7 - 26 mg/dL 10/22/2024 1:34 AM [facility] Creatinine 0.81 0.56 - 0.96 mg/dL 10/22/2024 1:34 AM [facility] Sodium 141 136 - 145 mmol/L 10/22/2024 1:34 AM [facility] Potassium 3.2(L) 3.5 - 4.5 mmol/L 10/22/2024 1:34 AM [facility] Chloride 108(H) 98 - 107 mmol/L 10/22/2024 1:34 AM [facility] CO2 27 22 - 29 mmol/L 10/22/2024 1:34 AM [facility] Glucose 101(H) 70 - 99 mg/dL 10/22/2024 1:34 AM [facility] Calcium 9.0 8.4 - 10.2 mg/dL 10/22/2024 1:34 AM [facility] Protein Total 6.7 6.0 - 8.3 g/dL 10/22/2024 1:34 AM [facility] Albumin 3.9 3.4 - 5.0 g/dL 10/22/2024 1:34 AM [facility] Bilirubin Total 0.2 0.2 - 1.2 mg/dL 10/22/2024 1:34 AM [facility] Alkaline Phosphatase 80 40 - 150 U/L 10/22/2024 1:34 AM [facility] ALT 8 5 - 55 U/L 10/22/2024 1:34 AM [facility] AST 14 5 - 34 U/L 10/22/2024 1:34 AM [facility] Anion Gap 6 6 - 16 10/22/2024 1:34 AM [facility] BUN/Creatinine Ratio 25(H) 7 - 23 10/22/2024 1:34 AM [facility] Osmolality Calculated 295 275 - 295 mOsm/kg 10/22/2024 1:34 AM [facility] Albumin/Globulin Ratio 1.4 1.1 - 2.3 10/22/2024 1:34 AM [facility] eGFR by CKD-EPI 73(L) >=90 mL/min/1.7 3 m2 10/22/2024 1:34 AM [facility] Comment:Estimated Glomerular Filtration Rate (eGFR) calculated using the CKD-EPI Creatinine Equation (2020), per the National Kidney Foundation and [place] [employer] of Nephrology recommendations. Blood BLOOD SPECIMEN / Unknown Lab Venipuncture / Unknown 10/22/2024 12:13 AM CDT 10/22/2024 1:05 AM CDT us Luzmaria Hernandez MD LAB - CHEMISTRY ORDERABLES Final Result [facility] [address] [place] [address], [place] [phone] * T4 FREE (10/22/2024 12:13 AM CDT) T4 Free 1.0 0.7 - 1.5 ng/dL 10/22/2024 2:23 AM [facility] Blood BLOOD SPECIMEN / Unknown Lab Venipuncture / Unknown 10/22/2024 12:13 AM CDT 10/22/2024 1:05 AM CDT us Luzmaria Hernandez MD LAB - CHEMISTRY ORDERABLES Final Result [facility] [address] [place] [address], [place] [phone] from Last 3 Months Insurance [facility] [place] [address] Advance Directives * Full Code (Latest Code Status on File) Date Activated Date Inactivated Comments 10/21/2024 10:06 PM 10/31/2024 7:20 PM
== END 2024-12-15 12:31 | disposition home or self-care (01) ==
PROVIDERS: PCP Nurse Practitioner Adult Health; Visit Provider Nurse Practitioner Adult Health
DX: M80.88XA Other osteoporosis with current pathological fracture, vertebra(e), initial encounter for fracture (principal); S32.021A Stable burst fracture of second lumbar vertebra, initial encounter for closed fracture; X58.XXXA Exposure to other specified factors, initial encounter; Z98.890 Other specified postprocedural states; M47.816 Spondylosis without myelopathy or radiculopathy, lumbar region; M41.86 Other forms of scoliosis, lumbar region
CPT/HCPCS: 72131

== ENCOUNTER 2024-12-29 00:26 | Day surgery (SDC) | payer MEDICARE, SELFPAY ==
--- OUTSIDE RECORDS SUMMARY | 2024-07-05 04:00 | XMS_ITS ---
Author Organization 1 [facility] Address [address] [facility] [address] [place] [address] Care Team Providers Care Rewind Operator Name Role Phone Migration, Provider Unavailable Unavailable REASON FOR VISIT EMR-Tex Encounters Encounter Location Date Provider Diagnosis 1 [facility], [facility] [address] [employer] [facility] [address] [place] [address] 07/05/2024 Provider Migration Plan Of Treatment No Information Progress Notes * Molly CHUDOB:[birth year] (84 yo F)Acc No.[id number]:07/05/2024 Patient: Molly DOTY :1940 A ge:83 Y S ex:Female Address:[address] [place] [address] Subjective: * Chief Complaints: * E MR-Tex * Medical History: * Surgical History: * Hospitalization/Major Diagno stic Procedure: * Medications: Objective: * Vitals: * Physical Examination: Assessment: Plan: * Treatment: * Procedure Codes: * * Date:
--- OUTSIDE RECORDS SUMMARY | 2024-07-06 04:00 | XMS_ITS ---
Author Organization 1 [facility] Address [address] [facility] [address] [place] [address] Care Team Providers Care Center Rep Name Role Phone Migration, Provider Unavailable Unavailable REASON FOR VISIT EMR-Tex Encounters Encounter Location Date Provider Diagnosis 1 [facility] [address] [employer] [facility] [address] [place] [address] 07/06/2024 Provider Migration Plan Of Treatment No Information Progress Notes * Molly CHUDOB:[birth year] (84 yo F)Acc No.[id number]:07/06/2024 Patient: Molly DOTY :1940 A ge:83 Y S ex:Female Address:[address] [place] [address] Subjective: * Chief Complaints: * E MR-Tex * Medical History: * Surgical History: * Hospitalization/Major Diagno stic Procedure: * Medications: Objective: * Vitals: * Physical Examination: Assessment: Plan: * Treatment: * Procedure Codes: * * Date:
--- NOTE | 2024-12-22 12:30 | PC.NURSE ---
[facility] has started construction of its new state of the art ER which will open Spring 2026. With this, we anticipate parking may be a challenge for some our surgical patients and families. Parking spaces are limited but are available for all Surgical, obstetrics, and ER patients sharing this lot. If you arrive and find you are having a hard time finding a parking space, please note that we understand the challenges, please drive around the hospital and park near Hospital Entrance 1. When you enter this entrance, you can ask a volunteer to direct or take you back to the surgical waiting area to check in. We appreciate everyone?s understanding of these expected challenges while we build for your future. Report to the Outpatient Waiting Room, entrance under [address] green pavilion [address], at time _8:30 am on date __12/29/24 . Planned Procedure Time: _10:30 am .? Time changes happen often and if your time is changed the preop area will call you the afternoon before. - You and your visitor will be asked to self-screen and do not enter if you have any COVID symptoms. Please call surgeon if you need to reschedule. - A mask is optional within the hospital at this time. NOTHING TO EAT OR DRINK AFTER MIDNIGHT Take only the following medications with a SIP of water on the morning of surgery: __CARBIDOPA-LEVODOPA, LEVOTHYROXINE,SERTRALINE DO NOT STOP ANY OF YOUR OTHER PRESCRIPTION MEDICATIONS PRIOR TO SURGERY EXCEPT THE FOLLOWING Hold all vitamins and supplements for 3 days per anesthesiologist. Medications to discontinue per physician Date to take last dose Please no make-up, nail greek, hairspray, perfume, deodorant, or body powder the day of surgery.? No jewelry (including any body piercings) or valuables the day of surgery, leave them at home.? Please take a shower or bath the night before,AND the morning of, surgery with an antibacterial soap.? Wear comfortable, loose fitting clothing.? Children are encouraged to wear pajamas. - Jewelry must be removed prior to entering the operating room.? Rings and piercings that are not removed may be cut off. - The hospital will not accept responsibility for valuables.? - Please leave all valuables, including medications, at home the day of surgery. If you are going home after surgery, a licensed electric truck driver must drive you home.? - NO public transportation without another adult if you receive anesthesia. - We recommend that an adult stay with you for 24 hours following discharge. - We also recommend that you do not drive, make important decision, drink alcoholic beverages, or take any drugs that were not prescribed by your health care provider for at least 24 hours after your discharge time. For Pediatric surgeries, we recommend two adults accompany the child home. Follow any additional instructions given to you from your surgeon. Telephone instructions given to __BROTHER MICK and asked if any additional questions and then verbalized understanding. Patient advised to call surgeon office or pre surgery nurse liaison [phone] if any additional questions.
[2024-12-22 12:54] VITALS: BMI 16.2
[2024-12-29] VITALS (10 sets, daily range): BP systolic 128–168; BP diastolic 67–89; PULSE 72–90; RESP 14–20; TEMP 36.5–36.6; O2SAT 99–100; BMI 16.7
--- NOTE | ~2024-12-29 | XR_ITS ---
EXAMINATION: XR fluoroscopy no charge DATE: 12/29/2024 11:41 INDICATION: L2 vertebral body kyphoplasty TECHNIQUE: 30 fluoroscopic images of the lumbar spine were obtained during procedure performed by Dr. Pond. Radiologist was not present for the imaging or procedure. The amount of fluoroscopy time used during this procedure was 1.4 minutes. Total DAP was 2.65 Gycm^2. COMPARISON: 01/03 FINDINGS: Initial images redemonstrate a chronic L1 burst fracture with prior vertebroplasty with extension. Small amount of methylmethacrylate into the L1-L2 disc space. No interval change in an L2 burst fracture with one third central vertebral body height loss. Subsequent images demonstrate needle advanced into the L2 vertebral body via right transpedicular approach. Methylmethacrylate is injected into the vertebral body with extension of a significant portion of the methylmethacrylate through the superior endplate into the L1-L2 disc spaces. Essentially noted are couple cardiac pacemaker leads extending into the right ventricle. IMPRESSION: 1. Fluoroscopy utilized during right transpedicular approach vertebroplasty of an L2 burst fracture. See procedure note for further detail.. Reviewed, dictated and finalized at location A.
--- OUTSIDE RECORDS SUMMARY | 2024-12-29 00:28 | XMS_ITS | Patient Health Record ---
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
--- OUTSIDE RECORDS SUMMARY | 2024-12-29 00:28 | XMS_ITS | Patient Health Record ---
Author Organization [facility] Address [address] [facility] [address] [place] [address] Care Team Providers Care Electrical Technician Instructor Name Role Phone Migration, Provider Unavailable Unavailable Reason For Referral No Information Encounters Encounter Location Date Provider Diagnosis 1 [facility] [address] [place] [address] 07/05/2024 Provider Migration 1 [facility] [address] [facility] [address] [place] [address] 07/06/2024 Provider Migration Plan Of Treatment No Information Insurance Providers Payer Name Payer Address Payer Phone Subscriber Number Group Number Insured Name Patient Relationship to Insured Coverage Start Date Coverage End Date [employer] [address] [address] [place] [address] [id number] Cedric alvarez Molly Self - patient is the insured 1 [employer] of [place] [address] [place] [address] [id number] Molly Lowery Self - patient is the insured 1
--- OUTSIDE RECORDS SUMMARY | 2024-12-29 00:29 | XMS_ITS | Clinical Summary ---
Author Organization [facility] Address [address] [place] [address] Care Team Providers Care Nurse Rn Bsn Name Role Phone Unavailable Primary Care Provider Unavailabl e Source Comments [facility],non-owned Affiliates and Associated Physician Practices is amultiple site organization consisting of ambulatory clinics and hospital sitesin [place], [place], [place] and [place]. This disclosure is being madepursuant to the Care Everywhere program and may not contain all information available regarding this patient. Last updated 17.[facility] Allergies No known active allergies Medications * [...] & Plan (10/30/2024 7:22 AM CDT): {HCCREFRESHBPA (Optional):20647} Assessment & Plan (10/28/2024 8:21 AM CDT): {HCCREFRESHBPA (Optional):66590} Assessment & Plan (10/27/2024 4:00 PM CDT): Mentation improving to baseline Plan: Inpatient MRI brain wwo Complete high dose thiamine 10/25 Continue sinemet Continue zoloft F/u outpatient neuropsychiatry with Dr. Bella Plan for discharge to SNF (as per her [facility], - Contact is [facility]) Assessment & Plan (10/26/2024 9:21 AM CDT): Mentation improving to baseline Plan: Inpatient MRI brain wwo Complete high dose thiamine 10/25 Continue sinemet Continue zoloft F/u outpatient neuropsychiatry with Dr. Bella Plan for discharge to SNF (as per her [facility], - Contact is [facility]) Assessment & Plan (10/25/2024 8:32 AM CDT): [...] & Plan (10/30/2024 7:22 AM CDT): {HCCREFRESHBPA (Optional):15465} Assessment & Plan (10/28/2024 8:21 AM CDT): {HCCREFRESHBPA (Optional):83894} Assessment & Plan (10/27/2024 4:00 PM CDT): Mentation improving to baseline Plan: Inpatient MRI brain wwo Complete high dose thiamine 10/25 Continue sinemet Continue zoloft F/u outpatient neuropsychiatry with Dr. Bella Plan for discharge to SNF (as per her [facility], - Contact is [facility]) Assessment & Plan (10/26/2024 9:21 AM CDT): Mentation improving to baseline Plan: Inpatient MRI brain wwo Complete high dose thiamine 10/25 Continue sinemet Continue zoloft F/u outpatient neuropsychiatry with Dr. Bella Plan for discharge to SNF (as per her [facility], - Contact is [facility]) Assessment & Plan (10/25/2024 8:32 AM CDT): [...] for discharge to SNF (as per her [facility], - Contact is [facility]) Assessment & Plan (10/26/2024 9:21 AM CDT): Mentation improving to baseline Plan: Inpatient MRI brain wwo Complete high dose thiamine 8/16 Continue sinemet Continue zoloft F/u outpatient neuropsychiatry with Dr. Bella Plan for discharge to SNF (as per her [facility], - Contact is [facility]) Assessment & Plan (10/25/2024 8:32 AM CDT): Mentation improving to baseline Plan: Inpatient vs outpatient MRI brain wwo Complete high dose thiamine 8/16 Continue sinemet Continue zoloft F/u outpatient neuropsychiatry with Dr. Bella Plan for discharge to SNF Encounters Date Type Department Care Team Description 11/03/2024 Telephone Transitional Care at [facility] [address] [place] [address] Shereen Harris RN Transitional Care 10/21/2024 9:30 PM CDT - 10/31/2024 6:20 PM CDT Hospital Encounter [facility] [address] [place] [address] Luzmaria Hernandez MD Kilani, Yassine, MD [...] and heating? Not hard at all 10/21/2024 [facility] [place] [facility] Occupat ional [facility] - Occupational Stress [...] any time in the past 12 m [facility], were you homeless or living in a fdc (including now)? 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 - Endocrinology [address] [facility] [facility] [place] [id number] Veronica Kelly MD [address] [facility] [place] [address] Health Maintenance Due Date Last Done Comments BONE DENSITY TESTING 1942 DTAP/TDAP/TD VACCINES (1 - Tdap) 1961 PNEUMOCOCCAL VACCINE 50+ (1 of 2 - PCV) 1961 ZOSTER VACCINE (1 of 2) 1992 Respiratory [...] this topic Medical Devices Implanted Type Area Hearing Screener Device Identifier Shelf Expiration Date Model / Serial / Lot Naren Lay Dr-T Implanted:03/12 (Quantity not on file) Pacemaker / [id number] / Procedures Procedure Name Priority Date/Time Associated [...] 4.0 - 10.7 x10E9/L 10/30/2024 8:54 PM [facility] RBC Count 4.11 3.90 - 5.20 x10E12/L 10/30/2024 8:54 PM [facility] Hemoglobin 12.2 11.9 - 15.8 g/dL 10/30/2024 8:54 PM [facility] Hematocrit 36.6 34.8 - 46.1 % 10/30/2024 8:54 PM [facility] MCV 89.1 80.0 - 98.0 fL 10/30/2024 8:54 PM T [facility] MCH 29.7 26.7 - 33.6 pg 10/30/2024 8:54 PM T [facility] MCHC 33.3 31.7 - 36.3 g/dL 10/30/2024 8:54 PM T [facility] RDW-CV 13.9 11.3 - 14.8 % 10/30/2024 8:54 PM [facility] Platelet Count 298 150 - 420 x10E9/L 10/30/2024 8:54 PM [facility] MPV 10.0 7.8 - 11.4 fL 10/30/2024 8:54 PM [facility] Neutrophil % 61.5 41.0 - 74.0 % 10/30/2024 8:54 PM [facility] Lymphocyte % 24.3 17.0 - 47.0 % 10/30/2024 8:54 PM [facility] Monocyte % 9.2 3.0 - 11.0 % 10/30/2024 8:54 PM [facility] Eosinophil % 3.8 0.0 - 7.0 % 10/30/2024 8:54 PM [facility] Basophil % 1.2 0.0 - 1.6 % 10/30/2024 8:54 PM [facility] Immature Granulocytes % 0.0 0.0 - 1.0 % 10/30/2024 8:54 PM [facility] Neutrophil Absolute 2.60 1.60 - 7.50 x10E9/L 10/30/2024 8:54 PM [facility] Lymphocyte Absolute 1.03 1.00 - 4.40 x10E9/L 10/30/2024 8:54 PM [facility] Monocyte Absolute 0.39 0.15 - 1.00 x10E9/L 10/30/2024 8:54 PM [facility] Eosinophil Absolute 0.16 0.00 - 0.60 x10E9/L 10/30/2024 8:54 PM [facility] Basophil Absolute 0.05 0.00 - 0.13 x10E9/L 10/30/2024 8:54 PM [facility] Blood BLOOD SPECIMEN / Unknown Lab Venipuncture / Unknown 10/30/2024 6:29 PM CDT 10/30/2024 8:46 PM CDT us Luzmaria Hernandez MD LAB - HEMATOLOGY ORDERABLE S Final Result [address] [address], [facility] [phone] * (ABNORMAL) BASIC METABOLIC PANEL (CALCIUM TOTAL) (10/30/2024 6:29 PM CDT) Only the most recent of8 resultswithin the time period is included. BUN 26 7 - 26 mg/dL 10/30/2024 9:18 PM [facility] Creatinine 0.78 0.56 - 0.96 mg/dL 10/30/2024 9:18 PM [facility] Sodium 141 136 - 145 mmol/L 10/30/2024 9:18 PM [facility] Potassium 3.7 3.5 - 4.5 mmol/L 10/30/2024 9:18 PM [facility] Chloride 108(H) 98 - 107 mmol/L 10/30/2024 9:18 PM [facility] CO2 26 22 - 29 mmol/L 10/30/2024 9:18 PM [facility] Glucose 81 70 - 99 mg/dL 10/30/2024 9:18 PM [facility] Calcium 9.9 8.4 - 10.2 mg/dL 10/30/2024 9:18 PM [facility] Anion Gap 7 6 - 16 10/30/2024 9:18 PM [facility] BUN/Creatinine Ratio 33(H) 7 - 23 10/30/2024 9:18 PM [facility] Osmolality Calculated 296(H) 275 - 295 mOsm/kg 10/30/2024 9:18 PM [facility] eGFR by CKD-EPI 76(L) >=90 mL/min/1.7 3 m2 10/30/2024 9:18 PM [facility] Comment:Estimated Glomerular Filtration Rate (eGFR) calculated using the CKD-EPI Creatinine Equation (2020), per the National Kidney Foundation and [place] [employer] Neph[employer] recommendations. Blood BLOOD SPECIMEN / Unknown Lab Venipuncture / Unknown 10/30/2024 6:29 PM CDT 10/30/2024 8:44 PM CDT Luzmaria Hernandez MD LAB - CHEMISTRY ORDERABLES Final Result [facility] [address] [place] [address], [facility] [phone] * PHOSPHORUS BLOOD (10/30/2024 6:29 PM CDT) Only the most recent of9 resultswithin the time period is included. Phosphorus 4.1 2.9 - 5.1 mg/dL 10/30/2024 9:18 PM CDT [facility] Blood BLOOD SPECIMEN / Unknown Lab Venipuncture / Unknown 10/30/2024 6:29 PM CDT 10/30/2024 8:44 PM CDT us Luzmaria Hernandez MD LAB - CHEMISTRY ORDERABLES Final Result Performing Organization Address City/[facility]/ZIP Co de Phone Number [address] [address], [place] [phone] * MAGNESIUM BLOOD (10/30/2024 6:29 PM CDT) Only the most recent of9 resultswithin the time period is included. Pathologist [facility] Magnesium 2.3 1.6 - 2.6 mg/dL 10/30/2024 9:18 PM CDT [facility] Blood BLOOD SPECIMEN / Unknown Lab Venipuncture / Unknown 10/30/2024 6:29 PM CDT 10/30/2024 8:44 PM CDT us Luzmaria Hernandez MD LAB - CHEMISTRY ORDERABLES Final Result Performing Organization Address [facility] de Phone Number [address] [address], [place] [phone] * MRI Brain Wwo Contrast (10/28/2024 3:49 [...] report is dictated by Jenaro Alvares MD (vice president mission integration) > Dictated by Musician Instrumental I, Mildred Frank MD have personally reviewed and interpreted this examination/study. > Interpreting Provider: Mildred Frakn MD on 10/29/2024 8:32 AM Narrative 10/29/2024 8:32 AM CDT PROCEDURE: MRI BRAIN WWO CONTRAST, DATE/TIME OF EXAM: 10/28/2024 3:49 PM, LOCATION [facility] INDICATION: G93.40: Acute encephalopathy ADDITIONAL CLINICAL INFORMATION: [...] CONTRAST, DATE/TIME OF EXAM: 10/28/2024 3:49PM, LOCATION [facility] INDICATION: G93.40: Acute encephalopathy ADDITIONAL CLINICAL INFORMATION: [...] report is dictated by Jenaro Alvares MD (vice president mission integration) > Dictated by Musician Instrumental I, Mildred Frank MD have personally reviewed and interpreted this examination/study. > Interpreting Provider: Mildred Frank MD on 10/29/2024 8:32 AM Luzmaria Hernandez MD MR ORDERABLES Final Resu lt * SARS-COV-2 (COVID-19) RAPID (10/24/2024 8:58 AM CDT) COVID-19 PCR Not detected Not detected 10/25/19 9:36 AM CDT [facility] Microbiology SPECIMEN FROM NASOPHARYNGEAL STRUCTURE / Unknown Collection / Unknown 10/24/2024 8:58 AM CDT 10/24/2024 9:03 AM CDT Narrative [facility] - 10/24/2024 9:36 AM CDT The [...] ORDERAB LES Final Result Performing Organization Address [facility]/ZIP Co de Phone Number [address] [address], [place] [phone] * (ABNORMAL) GLUCOSE - POINT OF CARE (10/23/2024 4:37 PM CDT) Only the most recent of7 resultswithin the time period is included. Glucose WB/POC 120(H) 70 - 99 mg/dL 10/23/2024 4:41 PM CDT [facility] Specimen Type Arterial/C apillary 10/23/2024 4:41 PM CDT [facility] Blood BLOOD SPECIMEN / Unknown 10/23/2024 4:37 PM CDT 10/23/2024 4:41 PM CDT us Luzmaria Hernandez MD LAB - POINT OF CARE ORDERA BLES Final Result Performing Organization Address [facility] Co de Phone Number [address] [address], [place] [phone] * FOLATE (10/23/2024 3:47 AM CDT) Folate 7.2 7.0 - 31.4 ng/mL 10/23/2024 5:16 AM CDT [facility] Blood BLOOD SPECIMEN / Unknown Lab Venipuncture / Unknown 10/23/2024 3:47 AM CDT 10/23/2024 4:14 AM CDT us Luzmaria Hernandez MD LAB - CHEMISTRY ORDERABLES Final Result [place] [id number] [place] [address], [place] [phone] * VITAMIN B12 (10/23/2024 3:47 AM CDT) Vitamin B12 253 213 - 816 pg/mL 10/23/2024 5:16 AM CDT [facility] Blood BLOOD SPECIMEN / Unknown Lab Venipuncture / Unknown 10/23/2024 3:47 AM CDT 10/23/2024 4:14 AM CDT Luzmaria Hernandez MD LAB - CHEMISTRY ORDERABLES Final Result Performing Organization Address [facility]/ZIP Co de Phone Number [address] [address], [place] [phone] * XR CHEST PA AND LATERAL (10/22/2024 [...] UA Yellow Yellow, Straw 10/22/2024 11:11 AM [facility] Clarity UA Clear Clear 10/22/2024 11:11 AM [facility] Glucose UA Normal Normal 10/22/2024 11:11 AM [facility] Bilirubin UA Negative Negative 10/22/2024 11:11 AM [facility] Ketone UA Negative Negative 10/22/2024 11:11 AM [facility] Specific [place] UA 1.009 1.005 - 1.030 10/22/2024 11:11 AM [facility] Blood UA Negative Negative 10/22/2024 11:11 AM [facility] pH UA 6.0 5.0 - 8.0 10/22/2024 11:11 AM [facility] Protein UA Negative Negative 10/22/2024 11:11 AM [facility] Urobilinogen UA Normal Normal mg/dL 10/22/2024 11:11 AM [facility] Nitrite UA Negative Negative 10/22/2024 11:11 AM [facility] Leukocyte Esterase UA Negative Negative 10/22/2024 11:11 AM [facility] Urine Microscopy Urine microscopy not indicated 10/22/2024 11:11 AM [facility] Urine URINE SPECIMEN OBTAINED BY CLEAN CATCH PROCEDURE / Unknown Collection / Unknown 10/22/2024 10:40 AM CDT 10/22/2024 10:43 AM CDT Luzmaria Hernandez MD LAB - URINALYSIS ORDERABLE S Final Result [address] [address], [facility] [phone] * (ABNORMAL) TSH REFLEX FREE T4 (10/22/2024 12:13 AM CDT) TSH 15.501(H) 0.350 - 4.940 uIU/mL 10/22/2024 1:51 AM CDT [facility] Blood BLOOD SPECIMEN / Unknown Lab Venipuncture / Unknown 10/22/2024 12:13 AM CDT 10/22/2024 1:05 AM CDT Luzmaria Hernandez MD LAB - CHEMISTRY ORDERABLES Final Result Performing Organization Address [facility] Co de Phone Number [address] [address], [facility] [phone] * (ABNORMAL) CBC W/O DIFFERENTIAL (10/22/2024 12:13 AM CDT) WBC 5.6 4.0 - 10.7 x10E9/L 10/22/2024 1:10 AM [facility] RBC Count 3.92 3.90 - 5.20 x10E12/L 10/22/2024 1:10 AM [facility] Hemoglobin 11.4(L) 11.9 - 15.8 g/dL 10/22/2024 1:10 AM [facility] Hematocrit 34.8 34.8 - 46.1 % 10/22/2024 1:10 AM [facility] MCV 88.8 80.0 - 98.0 fL 10/22/2024 1:10 AM [facility] MCH 29.1 26.7 - 33.6 pg 10/22/2024 1:10 AM [facility] MCHC 32.8 31.7 - 36.3 g/dL 10/22/2024 1:10 AM [facility] RDW-CV 13.9 11.3 - 14.8 % 10/22/2024 1:10 AM [facility] Platelet Count 308 150 - 420 x10E9/L 10/22/2024 1:10 AM [facility] MPV 9.3 7.8 - 11.4 fL 10/22/2024 1:10 AM [facility] Blood BLOOD SPECIMEN / Unknown Lab Venipuncture / Unknown 10/22/2024 12:13 AM CDT 10/22/2024 1:05 AM T Luzmaria Hernandez MD LAB - HEMATOLOGY ORDERABLE S Final Result [facility] [address] [place] [address], [facility] [phone] * (ABNORMAL) COMPREHENSIVE METABOLIC PANEL (10/22/2024 12:13 AM [facility]) BUN 20 7 - 26 mg/dL 10/22/2024 1:34 AM [facility] Creatinine 0.81 0.56 - 0.96 mg/dL 10/22/2024 1:34 AM [facility] Sodium 141 136 - 145 mmol/L 10/22/2024 1:34 AM [facility] Potassium 3.2(L) 3.5 - 4.5 mmol/L 10/22/2024 1:34 AM [facility] Chloride 108(H) 98 - 107 mmol/L 10/22/2024 1:34 AM [facility] CO2 27 22 - 29 mmol/L 10/22/2024 1:34 AM [facility] Glucose 101(H) 70 - 99 mg/dL 10/22/2024 1:34 AM [facility] Calcium 9.0 8.4 - 10.2 mg/dL 10/22/2024 1:34 AM [facility] Protein Total 6.7 6.0 - 8.3 g/dL 10/22/2024 1:34 AM [facility] Albumin 3.9 3.4 - 5.0 g/dL 10/22/2024 1:34 AM [facility] Bilirubin Total 0.2 0.2 - 1.2 mg/dL 10/22/2024 1:34 AM [facility] Alkaline Phosphatase 80 40 - 150 U/L 10/22/2024 1:34 AM [facility] ALT 8 5 - 55 U/L 10/22/2024 1:34 AM [facility] AST 14 5 - 34 U/L 10/22/2024 1:34 AM [facility] Anion Gap 6 6 - 16 10/22/2024 1:34 AM [facility] BUN/Creatinine Ratio 25(H) 7 - 23 10/22/2024 1:34 AM [facility] Osmolality Calculated 295 275 - 295 mOsm/kg 10/22/2024 1:34 AM [facility] Albumin/Globulin Ratio 1.4 1.1 - 2.3 10/22/2024 1:34 AM [facility] eGFR by CKD-EPI 73(L) >=90 mL/min/1.7 3 m2 10/22/2024 1:34 AM [facility] Comment:Estimated Glomerular Filtration Rate (eGFR) calculated using the CKD-EPI Creatinine Equation (2020), per the National Kidney Foundation and [place] [employer] Nephrology recommendations. Blood BLOOD SPECIMEN / Unknown Lab Venipuncture / Unknown 10/22/2024 12:13 AM CDT 10/22/2024 1:05 AM CDT us Luzmaria Hernandez MD LAB - CHEMISTRY ORDERABLES Final Result [facility] [address] [place] [address], [facility] [phone] * T4 FREE (10/22/2024 12:13 AM CDT) T4 Free 1.0 0.7 - 1.5 ng/dL 10/22/2024 2:23 AM [facility] Blood BLOOD SPECIMEN / Unknown Lab Venipuncture / Unknown 10/22/2024 12:13 AM CDT 10/22/2024 1:05 AM CDT us Luzmaria Hernandez MD LAB - CHEMISTRY ORDERABLES Final Result [facility] [address] [place] [address], [place] [phone] from Last 3 Months Insurance [facility] MANAGED MEDICARE ADV Advance Directives * Full Code (Latest Code Status on File) Date Activated Date Inactivated Comments 10/21/2024 10:06 PM 10/31/2024 7:20 PM
[2024-12-29] MEDS: LACTATED RINGERS 1,000 ML 30 ML IV CONT (09:30)
--- NOTE | 2024-12-29 10:18 | WPDANESEPPF ---
Anes - Initial Pre Proc Eval Procedure: Operation Date: 12/29/24 10:30 Proposed Procedures p Balloon Assisted Verterbral Augmentation L2 Vertebral Body (Kyphoplasty) with Intraosseous Bone Biopsy Under Fluoroscopic Guidance - García Pond MD Date/Time: 12/29/24 10:18 Surgeon: García Pond MD Pre Op Diagnosis: fx L2 vertebrae Patient Data Age: 84 Gender: F Height: 1.75 m Weight: 51.5 kg Last Vital Signs Temp 97.9 F 12/29/24 08:30 Pulse 72 12/29/24 08:30 Resp 14 12/29/24 08:30 BP 162/77 H 12/29/24 08:30 Pulse Ox 99 12/29/24 08:30 O2 Del Method Room Air 12/29/24 08:30 Allergies Allergy/AdvReac Type Severity Reaction Status Date / Time amoxicillin Allergy Severe Rash Verified 12/29/24 09:15 Home Medications ?Medication ?Instructions ?Recorded ?Confirmed ?Type alendronate 70 mg tablet 70 mg PO WEEKLY #13 tabs 12/20/23 12/22/24 Rx Held on 12/22/24. Instructions: ON HOLD PER DR ASHTON acetaminophen 325 mg capsule 650 mg PO Q6H PRN pain 04/25/24 12/22/24 History pantoprazole 40 mg tablet,delayed 40 mg PO BID #60 tabs 04/25/24 12/22/24 Rx release rosuvastatin 10 mg tablet 10 mg PO DAILY #90 tabs 04/25/24 12/22/24 Rx levothyroxine 75 mcg capsule 75 mcg PO DAILY #90 caps 05/05/24 12/22/24 Rx meloxicam 7.5 mg tablet 7.5 mg PO DAILY #90 tabs 05/05/24 12/22/24 Rx sertraline 25 mg tablet 25 mg PO DAILY #90 tabs 07/28/24 12/22/24 Rx carbidopa 25 mg-levodopa 100 mg 1.5 tablet PO TID #405 tabs 08/07/24 12/22/24 Rx tablet hydrocodone 5 mg-acetaminophen 325 1 tablet PO Q8H PRN pain 14 days 12/17/24 12/22/24 Rx mg tablet #42 tabs Patient hx anesthesia problems: none Family hx anesthesia problems: none Results Review: All pre-operative results and documents have been reviewed as part of the pre-operative evaluation. 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 Hyperlipidemia GERD (gastroesophageal reflux disease) Chronic bilateral thoracic back pain Hypothyroid Osteoporosis Parkinson disease Surgical History Surgical History History of knee replacement procedure of right knee History of knee replacement procedure of left knee S/P tonsillectomy History of cataract extraction right and left Social History Social History Smoking status: Never smoker Alcohol intake: never Substance use: never Substance use type: does not use Do You Feel Safe in your Home?: Yes Lack of Transportation: No Lack of Food: Never True Current Housing: Decline to Answer Concerned About Future Housing: No Difficulty Paying Gas/Electric Bills: No Difficulty Paying for Meds: No Currently Unemployed: No Education: Trade/Vocational Certificate Difficulty w/ Childcare or Family Care: No Living arrangements: alone Occupation/Education: retired Gender identity (if verbalized by the patient): Female Spiritual care concerns: No Anes - Eval Final PreProcedure Day of Procedure 12/29/24 10:18 Patient weight: thin Lungs: normal air movement Airway: Mallampati scale class II and special considerations (Overbite noted. ) Neurological: alert and oriented Last oral intake: >/= 8 hours ASA classification: IV Emergent: no Anesthetic plan: proceed Anesthesia type and monitoring: general ETT and standard monitoring Results Review: All pre-operative results and documents have been reviewed as part of the pre-operative evaluation. 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 Prev [place] 2024 for similar surgery without apparent complication. Informed Consent: The patient's anesthetic plan and its attendant risks and benefits were discussed with the patient/family/POA. Questions were solicited and answers provided to the satisfaction of the patient/family/POA.
--- NOTE | 2024-12-29 10:24 | WPDHPUPDATE1 ---
History and Physical Update Update Date/Time: 12/29/24 10:24 History and Physical has been reviewed, including an updated exam of the patient. There are NO changes in the patient's condition. Risks, benefits, and alternatives have been discussed and questions answered. Patient agrees to proceed with procedure.
--- NOTE | 2024-12-29 10:30 | W.PM.PROC2 ---
Procedure Note - Detailed Date of Procedure 12/29/24 Pre-op Diagnosis fx L2 vertebrae Post-op Diagnosis Same Procedure Performed Percutaneous balloon-assisted vertebral augmentation of the L2 vertebral body under fluoroscopic guidance (Kyphoplasty) with intraosseous bone biopsy. Surgeon García Pond MD Teacher Education Director None. Anesthesia General (GETA with local anesthetic infiltration in the prone position.) Indications Osteoporotic vertebral compression fracture with greater than 25% deformity in the absence of neurologic deficit or significant central canal stenosis. Description of Procedure INFORMED CONSENT: Risks, benefits and alternatives to the procedure were discussed in detail with the patient who expressed explicit understanding and consent to proceed. Patient was informed verbally and in written form regarding the risks associated with the procedure including the low risk of serious local or systemic infection, bleeding/bruising, allergic reaction, pulmonary embolus/edema, extravasation of cement requiring surgical intervention, worsening fracture, nerve or organ injury, paralysis, procedural site pain or discomfort, worsening pain and/or mobility, failure to treat and/or disfigurement. The patient expressed explicit understanding and consent to proceed. All materials required for the procedure were available prior to procedure start. Site and side were marked prior to procedure and confirmed in the presence of the unsedated patient. PROCEDURE IN DETAIL: After full informed consent was obtained, appropriate IV access was confirmed by Anesthesia without difficulty. The patient was escorted to the operative theater. Supplemental oxygen was initiated to maintain O2 saturation between 92-99%. Careful positioning was undertaken and ASA standard monitors were applied and checked routinely throughout the case. Prophylactic antibiotics were administered prior to procedure start. Patient was placed in the prone position in optimal extension using pillows and the thoracolumbar spine was prepared and draped in the usual sterile manner using tinted ChloraPrep scrub and allowed to dry completely for at least 3 minutes. Fluoroscopy in the AP and lateral position was used with perfect linear projections at the L2 level to identify/confirm the procedural level and presence of deformity. Percutaneous trocar was introduced from a rightward approach (transpedicular approach) via a small stab skin incision made at the entry site using a #11 scalpel following adequate anesthesia via infiltration of a 1:1 admixture of 2% PF lidocaine with epinephrine and 0.5% PF bupivacaine with a 2 inch 27-gauge needle after negative aspiration for blood or body fluid. Anesthesia was extended to periosteum at the intended procedural level with a 3.5 inch 22g Quincke spinal needle. A 10-gauge trocar with a joshua tip was introduced through the skin incision and docked on the right posterior pedicle of L2 in the superolateral (11 o'clock) position. Under live fluoroscopy while alternating between AP and lateral views, the trocar was advanced intermittently in the anterior, medial and inferior directions using a metal surgical mallet, taking care to advance only in the AP view, using lateral views to confirm depth and direction. In the AP view, as the tip of the trocar approached (but did not violate) the medial, inferior border of the pedicle, lateral view was utilized to confirm advancement of the trocar through the pedicle and into the posterior third of the vertebral body. Using the linotype machinist-provided bone biopsy device, an intravertebral core biopsy was obtained from each level treated and sent in an appropriately-labeled sterile specimen cup with formalin for pathological analysis. Trocar was then advanced in the lateral view, with appropriate trajectory and final placement identified/confirmed by intermittent evaluation in the AP view until the trocar tip reached the anterior 3rd of the vertebral body at or near midline without violation of the anterior or lateral vertebral garland. A 20 ml balloon catheter prefilled with Omnipaque 300 contrast medium was advanced to the anterior third of the vertebral body at or near midline in the medial and lateral views and inflated with contrast to a volume of 5 ml or less at an internal pressure of 400 psi or less, creating an appropriately sized cavity within the vertebral body with correct balloon location identified in both the AP and Lateral views. The cement introducer was then advanced into the far end of the cavity and the void was filled in a controlled fashion, in 0.5-1.0 mL increments, monitoring in both the AP and Lateral views for appropriate cement position and fill, utilizing a total of 3-5 mm of polymethylmethacrylate containing nonionic contrast, stopping with any posterior spread or evidence of vascular, disc space or extra vertebral encroachment of cement. Once appropriate fill was confirmed in both the lateral and AP views, the cement introducer was withdrawn, stylette was reinserted and trocar removed in a stepwise fashion under live fluoroscopy in the lateral view to ensure lack of cement migration into the trocar tracts. Patient was allowed to remain in the prone position under relative thoracolumbar extension until cement had fully hardened, or approximately 15 minutes after initial mixing. The patient's skin was cleansed and the stab incision(s) were closed using benzoin and Steri-Strips in a izzy- crossing fashion and covered by a non-stick sponge pad and self-adherent clear, occlusive dressing. The patient tolerated this procedure well. Anesthesia was reversed without difficulty. The patient was transported to the recovery area in stable condition and without evidence of subsequent complication. Peripheral IV was discontinued. Patient was eventually discharged under their own power with pain satisfactorily controlled, without significant nausea or neurologic deficit and with full ability to ambulate, void and tolerate liquids by mouth. The patient was instructed to avoid excessive activity for the next 48 hours. Patient was restricted from driving for 48 hours. The patient was instructed to restart any anticoagulants 24 hours after the procedure unless otherwise directed by their prescribing physician. They were instructed to avoid heavy lifting, pushing, pulling or carrying weights greater than 5 pounds until released. They are to avoid any overhead work. The patient is to sponge bathe only for the next 48 hours. Top bandage can be removed after 48 hours. Steri-Strips are to remain in place until they fall off on their own or until removed by physician. After 48 hours and top bandage is removed, patient may resume showering. No bathing or soaking for one week or as released by physician. The patient is to monitor for signs of infection including fevers, chills, night sweats, redness, swelling or discharge at the procedural site. They are to monitor for signs of neurologic change including new numbness, weakness or pain in the upper or lower extremities, headaches or loss of bowel or bladder control. Should they develop any of these symptoms they are to call our office immediately during office hours or report directly to the nearest emergency department if after hours or if no immediate answer. COMPLICATIONS: None. COMMENTS: None. EBL: Minimal. DRAINS: None. PACKING: None. PATHOLOGY: Intraosseous, intravertebral core bone biopsy labeled L2 vertebral body sent in preservative. Drains No Packing No Complications No immediate complications Condition Stable Disposition PACU [facility] Billing Surgery - Charge Forward: Surgery Billing
--- NOTE | 2024-12-29 11:24 | S_PTH ---
PATIENT: Molly Alonso LOC: [facility] U#:[id number] AGE/SX: 84/F ROOM: RE12/29/[address]: García Pond MD : [id number] BED: DIS: 12/29/2024 SPEC #: [id number] RECD: 12/29/24 13:28 STATUS: CHRISTINA REQ #: [id number] CHRISTINE: 12/29/24 11:[address]: García Pond DEPT: [facility] Surgical RECD BY: Dayan Olvera ENTERED: 12/29/24 13:28 SP TYPE: Surgical OTHR DR: Alphonse Viera MD Tissues: A - Bone Biopsy Procedures: Hematoxylin and Eosin Stain Gross and Microscopic Level 5 Decalcification
== END 2024-12-29 13:45 | disposition home or self-care (01) ==
PROVIDERS: PCP Family Medicine; Visit Provider Anesthesiology Pain Medicine
PROC: (CPT 22514; principal; 2024-12-29 10:30)
DX: M80.88XA Other osteoporosis with current pathological fracture, vertebra(e), initial encounter for fracture (principal); E78.5 Hyperlipidemia, unspecified; K21.9 Gastro-esophageal reflux disease without esophagitis; E03.9 Hypothyroidism, unspecified; G20.A1 Parkinson's disease without dyskinesia, without mention of fluctuations; M46.1 Sacroiliitis, not elsewhere classified; G89.29 Other chronic pain; M54.6 Pain in thoracic spine; Z79.83 Long term (current) use of bisphosphonates; Z79.891 Long term (current) use of opiate analgesic; Z98.890 Other specified postprocedural states; Z95.0 Presence of cardiac pacemaker; Z87.74 Personal history of (corrected) congenital malformations of heart and circulatory system
CPT/HCPCS: 22514; 20251; 88307; 88311; 99199; C1713; J1171; J2003; J2405; J2704; J3010; J7120; Q9965

== ENCOUNTER 2025-02-12 17:28 | Emergency (ER) | payer MEDICARE, SELFPAY ==
--- OUTSIDE RECORDS SUMMARY | 2024-07-05 03:00 | XMS_ITS ---
Author Organization 1 [facility] and [facility] Address [address] [facility] [address] [place] [address] Care Team Providers Care Corrosion Control Fitter Name Role Phone Migration, Provider Unavailable Unavailable REASON FOR VISIT EMR-Tex Encounters Encounter Location Date Provider Diagnosis 1 [facility] and [facility] [address] [facility] [address] [place] [address] 07/05/2024 Provider Migration Plan Of Treatment No Information Progress Notes * Molly CHUDOB:[birth year] (84 yo F)Acc No.[id number]:07/05/2024 Patient: Desi LEA Molly :1940 A ge:83 Y S ex:Female Address:[address] [place] [address], [address] Subjective: * Chief Complaints: * E MR-Tex * * Date:
--- OUTSIDE RECORDS SUMMARY | 2024-07-06 03:00 | XMS_ITS ---
Author Organization 1 [facility] and [facility] Address [address] [facility] [address] [place] [address] Care Team Providers Care Photography And Prints Curator Name Role Phone Migration, Provider Unavailable Unavailable REASON FOR VISIT EMR-Tex Encounters Encounter Location Date Provider Diagnosis 1 [facility] and [facility] [address] [facility] [address] [place] [address] 07/06/2024 Provider Migration Plan Of Treatment No Information Progress Notes * Molly CHUDOB:[birth year] (84 yo F)Acc No.[id number]:07/06/2024 Patient: Desi LEA Molly :1940 A ge:83 Y S ex:Female Address:[address] [place] [address], [address] Subjective: * Chief Complaints: * E MR-Tex * * Date:
--- NOTE | ~2025-02-12 | CT_ITS ---
CT brain wo con HISTORY:fall COMPARISON: 10/20/2024. TECHNIQUE: Axial images were obtained of the head without intravenous contrast. FINDINGS: No acute intracranial hemorrhage, mass effect or midline shift. No extra-axial fluid collections. The there is generalized atrophy and mild chronic white matter microangiopathic changes in the periventricular and deep white matter. Calvarium is intact. Visualized paranasal sinuses and mastoid air cells are clear. IMPRESSION: No acute intracranial hemorrhage or extra axial fluid collections. Mild generalized atrophy and chronic white matter microangiopathic changes. All CT scans at this facility are performed using low dose modulation techniques as appropriate to perform exam including the following: automated exposure control; use of iterative reconstruction technique; adjustment of the mA and/or kV according to patient size (this includes techniques or standardized protocols for targeted exams where dose is matched to indication/reason for exam). Reviewed, dictated and finalized at location S. P TENDER IMPRESSION: No acute intracranial hemorrhage or extra axial fluid collections. Mild generalized atrophy and chronic white matter microangiopathic changes. All CT scans at this facility are performed using low dose modulation techniqu es as appropriate to perform exam including the following: automated exposure c ontrol; use of iterative reconstruction technique; adjustment of the mA and/or kV according to patient size (this includes techniques or standardized protocol s for targeted exams where dose is matched to indication/reason for exam).
--- NOTE | ~2025-02-12 | XR_ITS ---
XR chest 1V portable INDICATION:fall . REFERENCE: None FINDINGS: A single AP of the chest demonstrates normal heart size. The lungs are clear. There is no evidence of pneumothorax or pleural effusion. IMPRESSION: No acute pulmonary findings. Reviewed, dictated and finalized at location S. INSTRUCTOR
--- NOTE | ~2025-02-12 | XR_ITS ---
XR pelvis 1-2V Indication: fall Comparison: None FINDINGS: 2 views of the pelvis were obtained. No acute fracture or dislocation is seen. . The sacroiliac joints and symphysis pubis are intact. IMPRESSION: No acute fractures or dislocations. Reviewed, dictated and finalized at location S. HELPER [employer]GETABLE
--- NOTE | ~2025-02-12 | CT_ITS ---
CT lumbar spine wo con INDICATION: Back pain status post fall COMPARISON: None available. TECHNIQUE: Axial images of the lumbar spine were obtained without contrast. Additional coronal and sagittal reformatted images were rendered. FINDINGS: Prior vertebral augmentation of L1 and L2 vertebral bodies are noted. Otherwise vertebral body height and alignment are maintained. No acute compression fracture or spondylolysis. There are disc space narrowing throughout the lumbar spine. Grade 1 degenerative retrolisthesis of L3 on L4 are noted. IMPRESSION: No acute fracture or subluxation. Prior vertebral augmentation of L1 and L2 are noted. Degenerative changes. All CT scans at this facility are performed using low dose modulation techniques as appropriate to perform exam including the following: automated exposure control; use of iterative reconstruction technique; adjustment of the mA and/or kV according to patient size (this includes techniques or standardized protocols for targeted exams where dose is matched to indication/reason for exam). Reviewed, dictated and finalized at location S. TRONIC MUSICAL INSTRUMENT REPAIRER IMPRESSION: No acute fracture or subluxation. Prior vertebral augmentation of L1 and L2 are noted. Degenerative changes. All CT scans at this facility are performed using low dose modulation techniqu es as appropriate to perform exam including the following: automated exposure c ontrol; use of iterative reconstruction technique; adjustment of the mA and/or kV according to patient size (this includes techniques or standardized protocol s for targeted exams where dose is matched to indication/reason for exam).
--- NOTE | ~2025-02-12 | XR_ITS ---
XR elbow LT 2V INDICATION: swelling and pain . COMPARISON: None. FINDINGS: AP, lateral and oblique views of the left elbow demonstrate linear lucencies through the humeral condyle suggestive of a nondisplaced fracture. IMPRESSION: Nondisplaced humeral condyle fractures. Reviewed, dictated and finalized at location S. [facility]
[2025-02-12 17:34] VITALS: BP 146/69; PULSE 82; RESP 18; TEMP 36.2; O2SAT 100
[2025-02-12 21:45] VITALS: BP 142/84; PULSE 80; RESP 18; O2SAT 100
--- NOTE | 2025-02-12 22:14 | ED_ITS ---
HPI - Extremity Injury (Upper) General Chief Complaint: Extremity Injury, Upper Stated Complaint: AMS, unable to state why she is here Time Seen by Provider: 02/12/25 22:01 Source: patient and family Mode of arrival: ambulatory Limitations: dementia History of Present Illness HPI narrative: Patient is an 84-year-old female presents to the emergency department accompanied by brother complaining of left elbow pain after a fall. Patient lives at home alone, brother helps care for her, patient has dementia, is reportedly at her baseline mentation. Patient is unsure how she fell and notes that she fell, did not hit her head or lose consciousness, landed on her left side is not having pain in her left elbow in addition to her lower back. The states she has been ambulatory since the event without any issues walking. Denies any urinary const, stool incontinence, use of blood thinners, focal weakness, numbness. Patient denies use of blood thinners. He patient has a history of compression fractures in her back and has gotten cement placed. Denies any chest pain, difficulty breathing, fever, urinary discomfort, nausea, vomiting, melena, hematochezia. The fall occurred yesterday. Related Data Home Medications ?Medication ?Instructions ?Recorded ?Confirmed ?Last Taken ?Type acetaminophen 325 mg capsule 650 mg PO Q6H PRN pain 12/22/24 Unknown History Allergies Allergy/AdvReac Type Severity Reaction Status Date / Time amoxicillin Allergy Severe Rash Verified 02/03/25 14:22 Review of Systems 2 Review of Systems: A 10 system review of systems was completed on the patient and is negative except for what is stated in the HPI. Nursing and ancillary documentation was reviewed. 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 Hyperlipidemia GERD (gastroesophageal reflux disease) Chronic bilateral thoracic back pain Hypothyroid Osteoporosis Parkinson disease Surgical History Surgical History History of knee replacement procedure of right knee History of knee replacement procedure of left knee S/P tonsillectomy History of cataract extraction right and left Social History Social History Smoking status: Never smoker Alcohol intake: never Substance use: never Substance use type: does not use Lack of Transportation: No Lack of Food: Never True Current Housing: Decline to Answer Concerned About Future Housing: No Difficulty Paying Gas/Electric Bills: No Difficulty Paying for Meds: No Currently Unemployed: No Education: Trade/Vocational Certificate Difficulty w/ Childcare or Family Care: No Living arrangements: alone Occupation/Education: retired Gender identity (if verbalized by the patient): Female Spiritual care concerns: No Exam 2 Narrative: CONST: No acute distress. Well nourished. HENMT: Head is normocephalic and atraumatic. Moist mucous membranes. No posterior oropharynx erythema. EYES: No scleral icterus. No conjunctival injection or pallor. PERRL. NECK: No meningeal signs. RESP: Able to speak in full sentences. Normal respiratory effort. CTAB. CARDIO: Regular rate. Regular rhythm. 2+ DP and radial pulses bilaterally. GI: Nondistended. No tenderness to palpation. Soft. : No CVA tenderness to palpation. SKIN: No rashes or lesions noted on exposed skin. NEURO: At baseline mentation. No focal neurological deficits. EXTREM/MSK/BACK: No pedal edema. Mild tenderness to palpation of the left elbow with ecchymosis present, no palpable deformities. Patient is able make a fist and flex and extend her left wrist and abduct and adduct all her fingers and make an okay sign with her left hand. Sensation intact to light touch throughout the left upper extremity. No other extremity tenderness to palpation on exam. No palpable midline vertebral tenderness to palpation in the cervical or thoracic region. There is midline tenderness to palpation in the lumbar region with bilateral paralumbar tenderness palpation as well. PSYCH: Normal affect. Course Vital Signs Vital signs: Vital Signs Temperature 97.2 F L 02/12/25 17:34 Pulse Rate 82 02/12/25 17:34 Respiratory Rate 18 02/12/25 17:34 Blood Pressure 146/69 H 02/12/25 17:34 Pulse Oximetry 100 02/12/25 17:34 Oxygen Delivery Room Air 02/12/25 17:34 Temperature 97.2 F L 02/12/25 17:34 Pulse Rate 80 02/12/25 21:45 Respiratory Rate 18 02/12/25 21:45 Blood Pressure 142/84 H 02/12/25 21:45 Pulse Oximetry 100 02/12/25 21:45 Oxygen Delivery Room Air 02/12/25 17:34 [facility] Narrative Medical decision making narrative: Patient presents with the above complaint. Initial vitals are remarkable for no significant abnormalities. Physical examination as noted above. Plan discussed: Chest x-ray, pelvis x-ray, left elbow x-ray, CT lumbar spine, [place], continues quality assurance monitor final, continuous pulse oximetry, ice pack, extremity elevation. I spoke with Orthopedics on-call who notes to place the patient in a sling, pain medications, follow-up with orthopedics. Patient was reassessed at the bedside. No changes in physical exam. Patient is in no acute distress. Sling provided. Discussed the importance of doing [id number]-[id number] exercises to avoid frozen shoulder. The patient has remained stable throughout the entire ED visit. Counseled patient regarding diagnostic results and potential diagnosis. Anticipatory guidance provided. Patient instructed to follow up with Orthopedics in 5 days. Patient counseled on: false reassurance from an emergency department evaluation; no current evidence of a medical emergency; return immediately for any new, recurrent, worsening, concerning, or refractory symptoms. Patient prescribed Tylenol and Motrin. Prescription sent to preferred pharmacy. Medications discussed with patient. Additional verbal and printed discharge instructions were given and discussed with the patient. Patient verbally acknowledges understanding of condition and discharge instructions. All questions were answered to the patient's satisfaction. Patient is in agreement with the plan of care. The patient is stable for discharge and was discharged without incident. Differential Diagnosis Differential Diagnosis: Fracture, contusion, sprain, strain, other acute traumatic injuries. Lab Data [facility] Lab Attestation statement: I personally reviewed the patient's lab results. Lab results narrative: CBC is without any significant abnormalities. Comprehensive metabolic panel is without any significant abnormalities. Magnesium is 2.3. Urinalysis reveals trace ketones and trace leukocyte esterase. 02/12/25 22:58 02/12/25 22:58 Labs: Lab Results 02/12/25 Range/Units 22:58 WBC 6.0 (4.5-10.0) K/mm3 RBC 4.09 L (4.2-5.4) M/mm3 Hgb 12.1 (12.0-15.0) g/dL Hct 38.1 (37.0-47.0) % MCV 93.2 (80-100) fl MCH 29.6 (26-34) pg MCHC 31.8 L (32-36) g/dl RDW 13.3 (11.5-14.5) % Plt Count 212 (150-375) k/mm3 MPV 9.3 (7.4-10.4) fl Immature Gran % (Auto) 0.3 (0-0.5) % Neut % (Auto) 67.5 (45.5-73.1) % Lymph % (Auto) 18.4 (18.3-44.2) % [place] % (Auto) 11.4 H (2.6-8.5) % Eos % (Auto) 1.7 (0-4.4) % Baso % (Auto) 0.7 (0.2-1.2) % Lymph # (Auto) 1.10 (0.9-3.2) K/mm3 [place] # (Auto) 0.7 H (0.1-0.6) K/mm3 Eos # (Auto) 0.1 (0-0.3) K/mm3 Baso # (Auto) 0.0 (0.0-0.1) K/mm3 Abs Immat Gran (auto) 0.02 (0.00-0.031) K/mm3 Absolute Neuts (auto) 4.0 (1.3-6.7) K/mm3 Absolute Nucleated RBC 0.000 (0.0-0.012) K/mm3 Nucleated RBC % 0.0 (0.0-0.2) % Sodium 139 (137-145) mmol/L Potassium 3.9 (3.4-5.0) mmol/L Chloride 106 (98-107) mmol/L Carbon Dioxide 28 (22-30) mmol/L Anion Gap 5 (4-12) mmol/L BUN 17 (7-17) mg/dL Creatinine 0.56 L (0.7-1.0) mg/dL Estim Creat Clear Calc Not Reportable Estimated GFR > 60 (59 - ) Glucose 103 (65-110) mg/dL Calcium 9.8 (8.4-10.2) mg/dL Magnesium 2.3 (1.6-2.3) mg/dL Total Bilirubin 1.1 (0.2-1.3) mg/dL AST 29 (14-36) U/L ALT 7 (6-35) U/L Alkaline Phosphatase 74 (38-126) U/L Total Protein 7.8 (6.3-8.2) g/dL Albumin 4.5 (3.5-5.1) g/dL Urine Color Yellow (Yellow) Urine Appearance Clear (Clear) Urine pH 5.5 (5.0-9.0) Ur Specific [place] 1.020 (1.001-1.035) Urine Protein Negative (Negative) mg/dL Urine Glucose (UA) Negative (Negative) mg/dL Urine Ketones Trace H (Negative) mg/dL Ur Blood (Man) Negative (Negative) Urine Nitrate Negative (Negative) Urine Bilirubin Negative (Negative) Urine Urobilinogen 1.0 (<2.0) mg/dL Leukocyte Esterase Rfl Trace H (Negative) UZMA/UL Urine RBC 0-2 (0-2) /hpf Urine WBC 0-5 (0-3) /hpf Ur Squamous Epith Cells None seen (Few) /hpf Urine Bacteria None seen /hpf Urine Casts 0-2 Imaging Data Radiologist's impression: ITS Impressions Elbow X-Ray 02/12/25 18:07 IMPRESSION: Nondisplaced humeral condyle fractures. Pelvis X-Ray 02/12/25 22:30 IMPRESSION: No acute fractures or dislocations. Chest X-Ray 02/12/25 22:31 IMPRESSION: No acute pulmonary findings. Head CT 02/12/25 22:38 IMPRESSION: No acute intracranial hemorrhage or extra axial fluid collections. Mild generalized atrophy and chronic white matter microangiopathic changes. All CT scans at this facility are performed using low dose modulation techniques as appropriate to perform exam including the following: automated exposure control; use of iterative reconstruction technique; adjustment of the mA and/or kV according to patient size (this includes techniques or standardized protocols for targeted exams where dose is matched to indication/reason for exam). Lumbar Spine CT 02/12/25 22:39 IMPRESSION: No acute fracture or subluxation. Prior vertebral augmentation of L1 and L2 are noted. Degenerative changes. All CT scans at this facility are performed using low dose modulation techniques as appropriate to perform exam including the following: automated exposure control; use of iterative reconstruction technique; adjustment of the mA and/or kV according to patient size (this includes techniques or standardized protocols for targeted exams where dose is matched to indication/reason for exam). Discharge Plan Discharge Clinical Impression: Fall, Fracture of condyle of humerus Patient Disposition: Home Condition: Stable Instructions: Antibiotic Form, Arm Fracture in Adults (ED), Elbow Fracture (ED), How to Use a Sling (ED), P.R.I.C.E. Treatment (ED) Additional Instructions: Follow-up with orthopedics in the next 5 days, call to schedule appointment. Wear the sling and perform galqy-rz-[id number] exercises as we discussed to avoid getting a stiff shoulder. Take the pain medications as needed as prescribed. Return immediately to the emergency department for any new or concerning symptoms especially any emergent concerns for life, limb, eyesight. Patient Language: Greek Prescriptions: New acetaminophen 500 mg tablet 500 mg PO Q6H PRN (Reason: pain) Qty: 30 0RF ibuprofen 400 mg tablet 400 mg PO Q6H PRN (Reason: pain) Qty: 30 0RF No Action acetaminophen 325 mg capsule 650 mg PO Q6H PRN (Reason: pain) pantoprazole 40 mg tablet,delayed release (DR/EC) 40 mg PO BID Qty: 60 3RF sertraline 25 mg tablet 25 mg PO DAILY Qty: 90 1RF alendronate 70 mg tablet 70 mg PO WEEKLY Qty: 13 3RF meloxicam 7.5 mg tablet 7.5 mg PO DAILY Qty: 90 3RF rosuvastatin 10 mg tablet 10 mg PO DAILY Qty: 90 1RF carbidopa-levodopa 25-100 mg tablet 1.5 tablet PO TID Qty: 405 1RF levothyroxine 75 mcg capsule 75 mcg PO DAILY Qty: 90 1RF Follow-up/Referrals: Alphonse Viera MD [Primary Care Provider, Family Practice] Armen Mancuso MD [Physician, Orthopedics] - 02/17/25 Time of Disposition: 23:41
--- OUTSIDE RECORDS SUMMARY | 2025-02-12 22:15 | XMS_ITS | Patient Health Record ---
Author Organization [facility] Address [address] [facility] [address] [place] [address] Care Team Providers Care Rayon Coner Name Role Phone Migration, Provider Unavailable Unavailable Reason For Referral No Information Encounters Encounter Location Date Provider Diagnosis 1 [facility] [address] [place] [address] 07/05/2024 Provider Migration 1 [facility] [address] [facility] [address] [place] [address] 07/06/2024 Provider Migration Plan Of Treatment No Information Insurance Providers Payer Name Payer Address Payer Phone Subscriber Number Group Number Insured Name Patient Relationship to Insured Coverage Start Date Coverage End Date [employer] [address] [address] [place] [address] [id number] Cedric alvarez Molly Self - patient is the insured 1 [employer] of [place] [address] [place] [address] [id number] Molly Lowery Self - patient is the insured 1
--- OUTSIDE RECORDS SUMMARY | 2025-02-12 22:15 | XMS_ITS | Patient Health Record ---
Author Organization [facility] Address [address] [place] [address] Care Team Providers Care Plant Buyer Name Role Phone Karen Perez Unavailable [phone] Reason For Referral No Information Medications Medication [...] Risk Notes Problem Mild recurrent major depression (23631903) Major depressive disorder, recurrent, mild (F33.0) 07/09/2023 Active confirmed Plan Of Treatment No Information Insurance Providers Payer Name Payer Address Payer Phone Subscriber Number Group Number Insured Name Patient Relationship to Insured Coverage Start Date Coverage End Date [employer] Medicare Replacement/ Advantage - Ppo [address] [address] [place] [address] [id number] [id number] Self - patient is the insured Medical (General) History Surgical History Surgery Date(Month/Year) Tonsilectomy/adenoids Sinus surgery
--- OUTSIDE RECORDS SUMMARY | 2025-02-12 22:16 | XMS_ITS | Clinical Summary ---
Author Organization [facility] Address [address] [place] [address] Care Team Providers Care Hat Lacer Name Role Phone Unavailable Primary Care Provider Unavailabl e Source Comments [facility],non-owned Affiliates and Associated Physician Practices is amultiple site organization consisting of ambulatory clinics and hospital sitesin [place], [place], [place] and [place]. This disclosure is being madepursuant to the Care Everywhere program and may not contain all information available regarding this patient. Last updated 17.mii Allergies No known active allergies Medications * [...] & Plan (10/30/2024 7:22 AM CDT): {HCCREFRESHBPA (Optional):63789} Assessment & Plan (10/28/2024 8:21 AM CDT): {HCCREFRESHBPA (Optional):18723} Assessment & Plan (10/27/2024 4:00 PM CDT): Mentation improving to baseline Plan: Inpatient MRI brain wwo Complete high dose thiamine 10/25 Continue sinemet Continue zoloft F/u outpatient neuropsychiatry with Dr. Bella Plan for discharge to SNF (as per her [facility], - Contact is [facility]) Assessment & Plan (10/26/2024 9:21 AM CDT): Mentation improving to baseline Plan: Inpatient MRI brain wwo Complete high dose thiamine 10/25 Continue sinemet Continue zoloft F/u outpatient neuropsychiatry with Dr. Bella Plan for discharge to SNF (as per her [facility], - Contact is [facility]) Assessment & Plan (10/25/2024 8:32 AM CDT): [...] & Plan (10/30/2024 7:22 AM CDT): {HCCREFRESHBPA (Optional):04120} Assessment & Plan (10/28/2024 8:21 AM CDT): {HCCREFRESHBPA (Optional):74811} Assessment & Plan (10/27/2024 4:00 PM CDT): Mentation improving to baseline Plan: Inpatient MRI brain wwo Complete high dose thiamine 10/25 Continue sinemet Continue zoloft F/u outpatient neuropsychiatry with Dr. Bella Plan for discharge to SNF (as per her [facility], - Contact is [facility]) Assessment & Plan (10/26/2024 9:21 AM CDT): Mentation improving to baseline Plan: Inpatient MRI brain wwo Complete high dose thiamine 10/25 Continue sinemet Continue zoloft F/u outpatient neuropsychiatry with Dr. Bella Plan for discharge to SNF (as per her [facility], - Contact is [facility]) Assessment & Plan (10/25/2024 8:32 AM CDT): [...] for discharge to SNF (as per her [facility], - Contact is [facility]) Assessment & Plan (10/26/2024 9:21 AM CDT): Mentation improving to baseline Plan: Inpatient MRI brain wwo Complete high dose thiamine 816 Continue sinemet Continue zoloft F/u outpatient neuropsychiatry with Dr. Bella Plan for discharge to SNF (as per her [facility], - Contact is [facility]) Assessment & Plan (10/25/2024 8:32 AM CDT): Mentation improving to baseline Plan: Inpatient vs outpatient MRI brain wwo Complete high dose thiamine 816 Continue sinemet Continue zoloft F/u outpatient neuropsychiatry with Dr. Bella Plan for discharge to SNF Social History Tobacco Use Types Packs/Day Years [...] and heating? Not hard at all 10/21/2024 [facility] - Occupational Stress [...] any time in the past [address] [facility], were you homeless or living in a senior care (including now)? No 10/21/2024 Comments Unknown Sex [...] Care Team (Late st Contact Info) Description 06/10/2025 1:00 PM CDT Office Visit [facility] - Endocrinology [address] [place] [address] Veronica Kelly MD [address] [place] [address] Health Maintenance Due Date Last Done Comments BONE DENSITY TESTING 1942 DTAP/TDAP/TD VACCINES (1 - Tdap) 1961 PNEUMOCOCCAL VACCINE 50+ (1 of 1 - PCV) 1992 ZOSTER VACCINE (1 of 2) 1992 Respiratory Syncytial Virus (RSV) Vaccine Pt: or over 60 yrs (1 - 1-dose 75+ series) 2017 DEPRESSION SCREENING 03/12/2024 MEDICARE AWV CALENDAR YEAR 2024 COVID-19 VACCINE (1 - 2024-2 6 season) 2024 INFLUENZA VACCINE (#1) 2024 HEPATITIS [...] this topic Medical Devices Implanted Type Area Craniologist Device Identifier Shelf Expiration Date Model / Serial / Lot Biotronik Betty Dye Implanted:03/12 (Quantity not on file) Pacemaker / [id number] / Insurance [facility] MANAGED MEDICARE ADV [facility] MANAGED MEDICARE ADV SELF PAY NO INSURANCE Member Subscriber Plan / Payer (Ef fective for All Dates) Name:Molly Alonso Member ID:Not on file Relation to Subscriber:Not on file Name:MOLLY ALONSO Subscriber ID:Not on file (Home) Address: [address] [place] [id number] Payer ID:Not on file Group ID:Not on file Type:Self Pay Address: [place], [place] Advance Directives * Full Code (Latest Code Status on File) Date Activated Date Inactivated Comments 10/21/2024 10:06 PM 10/31/2024 7:20 PM
--- NOTE | 2025-02-12 22:20 | ECG_ITS ---
Test Date: 2025-02-12 22:44:49 Measurements Intervals [place] Rate: 69 P: 158 SD: 176 QRS: -74 QRSD: 165 T: 81 QT: 475 QTc: 509 Interpretive Statements ELECTRONIC ATRIAL PACEMAKER ELECTRONIC VENTRICULAR PACEMAKER BASELINE ARTIFACT- I, II, III, AVR, AVL, AVF NO FURTHER INTERPRETATION IS POSSIBLE ATYPICAL ECG Compared to ECG 10/20/2024 18:44:09 Ventricular premature complex(es) no longer present Electronically Signed On 02-13-2025 07:05:15 RESPIRATORY THERAPY AIDE by Robert Rothman D.O.
[2025-02-12] MEDS: HYDROcodone/acetaminophen (*CRX) 5-325 MG TABLET 1 TAB PO (22:27)
[2025-02-12 23:06] LABS: Hematocrit 38.1 % (37.0-47.0); Hemoglobin 12.1 g/dL (12.0-15.0); Immature Granulocyte Percent A 0.3 % (0-0.5); Lymphocytes Absolute Auto 1.10 K/mm3 (0.9-3.2); Mean Corpuscular HGB Conc 31.8 g/dl (32-36); Mean Corpuscular Hemoglobin 29.6 pg (26-34); Mean Corpuscular Volume 93.2 fl (80-100); Nucleated Red Blood Cells Absolute Auto 0.000 K/mm3 (0.0-0.012); Nucleated Red Blood Cells Perc 0.0 % (0.0-0.2); Platelet Count Result 212 k/mm3 (150-375); Red Blood Count 4.09 M/mm3 (4.2-5.4); White Blood Count 6.0 K/mm3 (4.5-10.0)
[2025-02-12 23:11] LABS: Add Urine Microscopic? YES; Appearance Urine Clear (Clear); Glucose Urine UA Negative (Negative); Leukocyte Esterase Ur Trace LEU/UL (Negative); Nitrate Urine Negative (Negative); Non Pathogenic Casts 0-2; Specific Grav Ur 1.020 (1.001-1.035)
[2025-02-12 23:16] LABS: Albumin Level 4.5 g/dL (3.5-5.1); Anion Gap 5 mmol/L (4-12); Calcium 9.8 mg/dL (8.4-10.2); Carbon Dioxide 28 mmol/L (22-30); Chloride 106 mmol/L (98-107); Glucose 103 mg/dL (65-110); Magnesium 2.3 mg/dL (1.6-2.3); Potassium 3.9 mmol/L (3.4-5.0); Sodium 139 mmol/L (137-145)
[2025-02-12 23:26] LABS: Alanine Aminotransferase 7 U/L (6-35); Alkaline Phosphatase 74 U/L (38-126); Aspartate Amino Transferase 29 U/L (14-36); Bilirubin,Total 1.1 mg/dL (0.2-1.3); Blood Urea Nitrogen 17 mg/dL (7-17); Estimated Glomerular Filt Rate > 60; Total Protein 7.8 g/dL (6.3-8.2)
== END 2025-02-13 00:24 | disposition home or self-care (01) ==
PROVIDERS: Emergency Provider Student in an Organized Health Care Education/Training Program; PCP Family Medicine
DX: S42.455A Nondisplaced fracture of lateral condyle of left humerus, initial encounter for closed fracture (principal); W19.XXXA Unspecified fall, initial encounter; E78.5 Hyperlipidemia, unspecified; K21.9 Gastro-esophageal reflux disease without esophagitis; E03.9 Hypothyroidism, unspecified; M81.0 Age-related osteoporosis without current pathological fracture; G20.A1 Parkinson's disease without dyskinesia, without mention of fluctuations
CPT/HCPCS: 36415; 70450; 71045; 72131; 72170; 73070; 80053; 81001; 83735; 85025; 93005; 99284; A4565; A9270